=== PATIENT | male | born 1955 | race Caucasian/White ===

== ENCOUNTER 2016-11-20 21:16 | Emergency (ER) | payer OTHER ==
[2016-11-20] MEDS ORDERED: Aspirin Low Dose CHEW TAB* 81 MG PO ONE (21:45)
[2016-11-20 22:25] VITALS: BP 175/83
--- NOTE | 2016-11-20 23:32 | UC ---
Tabitha Forte Michael, scribed for Dee Iraheta DO on 11/20/16 at 2152 . Shortness of Breath HPI - HPI Summary HPI Summary: 61 y/o male comes to the [facility] presenting with SOB that started today at 1700. The pt reports that the SOB is worsened with laying down and slightly alleviated while sitting up. He also c/o abd pain(epigastric and luq), vertigo, and CP. The vertigo is described as the room spinning. Currently, he does not have vertigo only lightheadedness. The CP has been present for the past 6 months , and the pt visits a court usher. He had a US and is scheduled for a stress test in 2 weeks. Today, the CP is rated a 2 out of 10 on a pain severity scale. It is described as aching and pressure, and the CP radiates to the neck. The pt denies jaw pain and all other symptoms. The PMHx is significant for CML and GERD. The FHx is significant for [place]. - History of Current Complaint Chief Complaint: UCChestPain Stated Complaint: SHORTNESS OF BREATH DIZZINESS Time Seen by Provider: 11/20/16 21:30 Hx Obtained From: Patient, Medical Records Onset/Duration: Sudden Onset, Still Present Timing: Constant Current Severity: Moderate Dyspnea At: Rest Aggrevating Factors: Recumbent Position Alleviating Factors: Upright Position Associated Signs & Symptoms: Positive: Dizzy, Other - abd pain. chest pain. vertigo.SOB. negative:jaw pain - Risk Factors Cardiac: CAD, Family History - Allergy/Home Medications Allergies/Adverse Reactions: Allergies Allergy/AdvReac Type Severity Reaction Status Date / Time Acetaminophen Allergy See Comment Verified 11/20/16 21:31 Home Medications: Home Medications Aspirin TAB* [Aspirin 325 MG TAB*] 650 mg PO PRN 11/20/16 [History] Ibuprofen TAB* [Advil TAB*] 400 mg PO PRN 11/20/16 [History] Multiple Vitamins W/ Minerals [Multivitamin Adults] 1 tab PO DAILY 11/20/16 [ History Confirmed 11/20/16] PMH/Surg Hx/FS Hx/Imm Hx - Additional Past Medical History Additional PMH: cml Endocrine History Of: Reports: Thyroid Disease - HX HYPO (STATES CORRECTED), Hypothyroidism Denies: Diabetes Cardiovascular History Of: Reports: Cardiac Disorders - PAC Denies: Hypertension, Pacemaker/ICD, Myocardial Infarction, Congestive Heart Failure, Atrial Fibrillation, Deep Vein Thrombosis, Bleeding Disorders Respiratory History Of: Denies: COPD, Asthma, Bronchitis, Pneumonia, Pulmonary Embolism GI/ History Of: Reports: Gastroesophageal Reflux - No Rx., Kidney Stones - PAST, FEBRUARY 2014 Denies: Ulcer, Gastrointestinal Bleed, Gall Bladder Disease, Diverticulitis, Renal Disease, Urosepsis Neurological History Of: Reports: Migraine - Ocular. Denies: TIA, CVA, Dementia, Seizures Psychological History Of: Denies: Anxiety, Depression, Bipolar Disorder, Schizophrenia, Post Traumatic Stress Disorder Cancer History Of: Denies: Lung Cancer, Colorectal Cancer, Breast Cancer, Prostate Cancer, Cervical Cancer Other History Of: Negative For: HIV, Hepatitis B, Hepatitis C - Surgical History Surgical History: Yes Surgery Procedure, Year, and Place: left finger amputated; R knee reconstruction , UPP (FOR SLEEP APNEA) - Family History Known Family History: Positive: Cardiac Disease - father-[place], Diabetes - Social History Occupation: Employed Full-time Lives: With Family Alcohol Use: Weekly Alcohol Amount: 2 BEERS/WEEK Substance Use Type: None Smoking Status (MU): Former Smoker Type: Cigarettes Amount Used/How Often: 2PPD 30 YRS Length of Time of Smoking/Using Tobacco: 30 years Have You Smoked in the Last Year: No When Did the Patient Quit Smoking/Using Tobacco: 6 yrs ago Review of Systems Constitutional: Negative Skin: Negative Eyes: Negative ENT: Negative Respiratory: Shortness Of Breath Cardiovascular: Chest Pain Gastrointestinal: Abdominal Pain Genitourinary: Negative Motor: Negative Neurovascular: Negative Musculoskeletal: Negative Neurological: Other - vertigo Psychological: Negative All Other Systems Reviewed And Are Negative: Yes Physical Exam Triage Information Reviewed: Yes Appearance: Well-Appearing, No Pain Distress, Well-Nourished Vital Signs: Initial Vital Signs Temp 97.8 F 11/20/16 21:25 Pulse 53 11/20/16 21:25 Resp 16 11/20/16 21:25 BP 160/85 11/20/16 21:25 Pulse Ox 99 11/20/16 21:25 Vital Signs Reviewed: Yes Eyes: Positive: Conjunctiva Clear. Negative: Discharge ENT: Positive: Hearing grossly normal. Negative: Muffled/hoarse voice Neck: Positive: Supple, Nontender Respiratory: Positive: Lungs clear, Normal breath sounds, No respiratory distress, No accessory muscle use Cardiovascular: Positive: No Murmur, Bradycardia Abdomen Description: Positive: Nontender, Soft. Negative: Distended, Guarding Musculoskeletal Exam: Normal Neurological: Positive: Alert, Muscle Tone Normal Psychological: Positive: Age Appropriate Behavior Skin Exam: Normal - dry. warm. nml color. Diagnostics - EKG Cardiac Rate: Bradycardia - [address] Segment: Normal Shortness of Breath Dx - Course Course Of Treatment: pt will be transferred to [facility] ED and Dr. Marvin was consulted at 2153. - Differential Dx/Diagnosis Differential Diagnosis/HQI/PQRI: [place], Other - cva/tia, vertigo, bpv Provider Diagnoses: dyspnea, dizzy, cp r/o acs Discharge - Discharge Plan Condition: Stable Disposition: TRANS HIGHER LVL OF CARE FAC Referrals: Zen Talavera MD [Primary Care Provider] - The documentation as recorded by the Tabitha cruz Michael accurately reflects the service I personally performed and the decisions made by , Dee Iraheta DO.
== END 2016-11-20 22:10 | disposition short-term general hospital (02) ==
LOC: UCEAST 21:16
DX: R06.00 Dyspnea, unspecified (principal); R42 Dizziness and giddiness; R07.89 Other chest pain; Z88.6 Allergy status to analgesic agent; Z87.891 Personal history of nicotine dependence
CPT/HCPCS: 93005; 99213; A9270-GY; G0463

== ENCOUNTER 2016-11-20 22:35 | Observation (INO) | payer OTHER ==
[2016-11-20] MEDS ORDERED: Aspirin Low Dose CHEW TAB* 81 MG PO ONE (23:07)
--- NOTE | 2016-11-20 23:38 | CONSULT ---
Consult Consult: Called to admit patient for chest pain, no labs complete. Cannot determine appropriate disposition without further work up. ED MD aware.
[2016-11-20 23:42] LABS: Hematocrit 38 % (42-52); Mean Corpuscular HGB Conc 34 g/dl (31-36); Mean Corpuscular Hemoglobin 31 pg (27-31); Mean Corpuscular Volume 92 fL (80-94); Mean Platelet Volume 8 um3 (7.4-10.4); Red Blood Count 4.15 10^6/ul (4.0-5.4); Red Cell Distribution Width 13 % (10.5-15); White Blood Count 5.1 10^3/ul (3.5-10.8)
[2016-11-20 23:51] LABS: Albumin 4.1 g/dL (3.2-5.2); BUN/Creatinine Ratio 17.5 (8-20); Calcium 8.7 mg/dL (8.6-10.3); EGFR African American 101.9 (>60); EGFR Non-African American 79.2 (>60); Globulin 2.4 g/dL (2-4); Potassium 3.4 mmol/L (3.5-5.0); Total Bilirubin 0.4 mg/dL (0.2-1.0); Total Protein 6.5 g/dL (6.4-8.9)
--- NOTE | 2016-11-21 00:09 | HP ---
H&P (Free Text) History and Physical: PCP: Dae Talavera MD Cardiology: Donte Arrieta MD Date/Time of Evaluation: 11/21/2016 0005 CC: chest pain HPI: Mr Cheek is a 61YO male HX CML who presents after an episode of thunderclap vertigo occurring ~1530 and lasting <10seconds followed by some SOB and mild L chest discomfort. He has had chronic episodic chest discomfort for the past ~6months which he is concerned may be related to the imatinib he takes for CML and is following with Donte Arrieta MD cardiology outpatient. He states there is a planned outpatient stress test in ~1week. The chest pain has occasionally radiated into the L neck becoming sharp in that area. Additionally he reports chronic exertional SOB for the past year. PMedHx CML on imatinib JAVI intolerant of CPAP ocular migraines HLD GERD BPH psoriasis vitamin B deficiency OA Allergies Acetaminophen Allergy (Verified 11/20/16 21:31) See Comment interacts with gleevic chemo Ambulatory Orders Imatinib Mesylate [Gleevec] 400 mg PO QPM 01/05/13 Aspirin Low Dose CHEW TAB* [Aspirin Low Dose TAB*] 81 mg PO DAILY tab.chew Aspirin TAB* [Aspirin 325 MG TAB*] 650 mg PO PRN 11/20/16 Ibuprofen TAB* [Advil TAB*] 400 mg PO PRN 11/20/16 Multiple Vitamins W/ Minerals [Multivitamin Adults] 1 tab PO DAILY 11/20/16 PSurgHx traumatic amputation of L 2nd distal finger relating to a circular saw injury bone spur excision from L elbow soft tissue repair of R knee relating to a circular saw injury uvulopaletopharygoplasty T&A SocHx: former smoker with >30PYHX, mild alcohol, denies recreational drugs; lives with his ; works as a [employer]; full code status FamHx: positive for CAD & DM2 ROS: as above, otherwise reviewed and all were negative Constitutional: NAD, normally developed, overweight white male vitals: Vital Signs Temp 36.4 C 11/21/16 00:34 Pulse 66 11/21/16 00:34 Resp 14 11/21/16 00:34 BP 167/72 11/21/16 00:34 Pulse Ox 99 11/21/16 00:34 Intake & Output 0311/20/16 11/21/16 11:59 23:59 11:59 Weight 79.379 kg HEENM: atraumatic; sclera/conjunctiva: non-icteric/clear; hearing: clinically intact; oropharynx: clear, mucosa moist Neck: soft tissue: non-tender; thyroid: normal Pulmonary: clear to auscultation bilaterally, good aeration, no accessory muscle use CV: RR/RR, normal S1S2, no carotid bruit, no jugular venous distention, 2+ B DP/ PT, no edema Abdominal: soft, non-distended, non-tender, no rebound/guarding/rigidity, normoactive bowel sounds, no hepatosplenomegaly or masses, no costovertebral angle tenderness Musculoskeletal: general: absent distal L finger; gait: stable Integumental: 5x6cm psoriasis plaque anterior R knee; otherwise normal appearance and texture of exposed skin Psychiatric orientation: AA&O to PPS affect: calm mood: pleasant, ie asked to confirm which finger had been amputated replied "index, but don't worry I lost it before I got here." eye contact: good content: reliable responses: timely insight: good Testing: Lab Results 11/20/16 11/20/16 11/20/16 Range/Units 23:20 23:20 23:20 WBC 5.1 (3.5-10.8) 10^3/ul RBC 4.15 (4.0-5.4) 10^6/ul Hgb 13.0 L (14.0-18.0) g/dl Hct 38 L (42-52) % MCV 92 (80-94) fL MCH 31 (27-31) pg MCHC 34 (31-36) g/dl RDW 13 (10.5-15) % Plt Count 243 (150-450) 10^3/ul MPV 8 (7.4-10.4) um3 Neut % (Auto) 45.9 (38-83) % Lymph % (Auto) 40.3 (25-47) % Dolores % (Auto) 11.1 H (1-9) % Eos % (Auto) 1.1 (0-6) % Baso % (Auto) 1.6 (0-2) % Absolute Neuts (auto) 2.3 (1.5-7.7) 10^3/ul Absolute Lymphs (auto) 2.0 (1.0-4.8) 10^3/ul Absolute Monos (auto) 0.6 (0-0.8) 10^3/ul Absolute Eos (auto) 0.1 (0-0.6) 10^3/ul Absolute Basos (auto) 0.1 (0-0.2) 10^3/ul Absolute Nucleated RBC 0.01 10^3/ul Nucleated RBC % 0.1 INR (Anticoag Therapy) 0.92 (0.89-1.11) APTT 30.1 (26.0-36.3) seconds Sodium 137 (133-145) mmol/L Potassium 3.4 L (3.5-5.0) mmol/L Chloride 107 (101-111) mmol/L Carbon Dioxide 24 (22-32) mmol/L Anion Gap 6 (2-11) mmol/L BUN 17 (6-24) mg/dL Creatinine 0.97 (0.67-1.17) mg/dL Est GFR ( Amer) 101.9 (>60) Est GFR (Non-Af Amer) 79.2 (>60) BUN/Creatinine Ratio 17.5 (8-20) Glucose 107 H (70-100) mg/dL Lactic Acid (0.5-2.0) mmol/L Calcium 8.7 (8.6-10.3) mg/dL Total Bilirubin 0.40 (0.2-1.0) mg/dL AST 21 (13-39) U/L ALT 22 (7-52) U/L Alkaline Phosphatase 43 (34-104) U/L Troponin I 0.00 (<0.04) ng/mL B-Natriuretic Peptide ( - 100) pg/mL Total Protein 6.5 (6.4-8.9) g/dL Albumin 4.1 (3.2-5.2) g/dL Globulin 2.4 (2-4) g/dL Albumin/Globulin Ratio 1.7 (1-3) 11/20/16 11/20/16 Range/Units 23:20 23:20 WBC (3.5-10.8) 10^3/ul RBC (4.0-5.4) 10^6/ul Hgb (14.0-18.0) g/dl Hct (42-52) % MCV (80-94) fL MCH (27-31) pg MCHC (31-36) g/dl RDW (10.5-15) % Plt Count (150-450) 10^3/ul MPV (7.4-10.4) um3 Neut % (Auto) (38-83) % Lymph % (Auto) (25-47) % Dolores % (Auto) (1-9) % Eos % (Auto) (0-6) % Baso % (Auto) (0-2) % Absolute Neuts (auto) (1.5-7.7) 10^3/ul Absolute Lymphs (auto) (1.0-4.8) 10^3/ul Absolute Monos (auto) (0-0.8) 10^3/ul Absolute Eos (auto) (0-0.6) 10^3/ul Absolute Basos (auto) (0-0.2) 10^3/ul Absolute Nucleated RBC 10^3/ul Nucleated RBC % INR (Anticoag Therapy) (0.89-1.11) APTT (26.0-36.3) seconds Sodium (133-145) mmol/L Potassium (3.5-5.0) mmol/L Chloride (101-111) mmol/L Carbon Dioxide (22-32) mmol/L Anion Gap (2-11) mmol/L BUN (6-24) mg/dL Creatinine (0.67-1.17) mg/dL Est GFR ( Amer) (>60) Est GFR (Non-Af Amer) (>60) BUN/Creatinine Ratio (8-20) Glucose (70-100) mg/dL Lactic Acid 0.8 (0.5-2.0) mmol/L Calcium (8.6-10.3) mg/dL Total Bilirubin (0.2-1.0) mg/dL AST (13-39) U/L ALT (7-52) U/L Alkaline Phosphatase (34-104) U/L Troponin I (<0.04) ng/mL B-Natriuretic Peptide 13 ( - 100) pg/mL Total Protein (6.4-8.9) g/dL Albumin (3.2-5.2) g/dL Globulin (2-4) g/dL Albumin/Globulin Ratio (1-3) ECG, personally reviewed: sinus bradycardia rate 56 with diffuse flattening of T -waves compared to 08/05/2016 CXR, personally reviewed: no acute process Impression: 61M presenting with atypical chest pain for r/o ACS DIAGNOSIS & PLAN Primary chest pain r/o ACS : telemetry : trend troponin : aspirin : no beta melissa 2nd bradycardia : repeat ECG in AM : consider cardiology consult in AM for further disposition : supplemental oxygen : supportive care Secondary CML on imatinib : no acute issues JAVI intolerant of CPAP : no acute issues GERD : omeprazole BPH : no acute issues psoriasis : topical clobetasol Admission Rational: observation for r/o ACS DVTp: heparin SQ Code Status: full HCP:
[2016-11-21] MEDS ORDERED: Melatonin (NF) 3 MG TAB PO PRN (02:11)
[2016-11-21] MEDS ORDERED: CMCS Melatonin (NF) 3 MG TAB PO PRN (02:27)
[2016-11-21] MEDS ORDERED: hydrALAZINE IV* 20 MG/ML VIAL IV PRN (02:33)
[2016-11-21] MEDS ORDERED: Ondansetron INJ* 2 MG/ML VIAL IV PRN (02:33)
[2016-11-21] MEDS ORDERED: Albuterol 2.5 MG/3 ML NEB.SOL* (0.083%) INH PRN (02:33)
[2016-11-21] MEDS ORDERED: Morphine INJ* 2 MG/ML 1 ML SYRINGE IV PRN (02:33)
[2016-11-21] MEDS ORDERED: Potassium Chlor TAB* 20 MEQ TAB.ER PO ONE (02:36)
[2016-11-21] MEDS ORDERED: NS 0.9% 1000 ML* 1,000 ML IV SCH (02:45)
[2016-11-21] MEDS: Clobetasol 0.05% OINT* 30 GM TUBE TOPICAL SCH ×2 (05:28→09:33)
[2016-11-21 05:59] LABS: BUN/Creatinine Ratio 16.5 (8-20); Calcium 8.3 mg/dL (8.6-10.3); EGFR African American 95.1 (>60); EGFR Non-African American 73.9 (>60); Potassium 3.8 mmol/L (3.5-5.0)
[2016-11-21] MEDS ORDERED: Pantoprazole IV* 40 MG IV SCH (06:00)
[2016-11-21] MEDS ORDERED: Omeprazole CAP* 20 MG PO SCH (06:00)
[2016-11-21 06:09] VITALS: BP 115/57
--- NOTE | 2016-11-21 08:32 | RAD ---
Indication: LEFT side chest pain intermittent radiating to the neck. Vertigo. Two-year shortness of breath. Former tobacco use. Comparison: August 05, 2016 Technique: Upright AP 1127 hours Report: Clear lungs and pleural spaces. Negative for pneumothorax. The heart, pulmonary vasculature, and mediastinal contours are unremarkable. Unremarkable osseous structures and soft tissue contours. IMPRESSION: No evidence for acute intrathoracic disease.
[2016-11-21] MEDS ORDERED: Docusate CAP* 100 MG PO SCH (09:00)
[2016-11-21] MEDS ORDERED: Aspirin TAB* 325 MG PO SCH (09:00)
--- NOTE | 2016-11-22 05:33 | DS ---
DISCHARGE SUMMARY: DATE OF ADMISSION: 11/21/16 DATE OF DISCHARGE: 11/21/16 HOSPITAL STATUS: Observation on clinical decision unit. PROVIDER: Casimiro Friedman NP ATTENDING PHYSICIAN: Dr. Ríos *(report dictated by Casimiro Friedman NP) PRIMARY CARE PROVIDER: Dr. Talavera. CONDUIT BENDER: Dr. Arrieta. PRIMARY DIAGNOSES: 1. Chest pain, unclear etiology. 2. Acute coronary syndrome, ruled out. 3. Vertigo. SECONDARY DIAGNOSES: 1. Chronic myeloid leukemia, on imatinib. 2. Obstructive sleep apnea, intolerant of CPAP. 3. Ocular migraine. 4. Hyperlipidemia. 5. Gastroesophageal reflux disease. 6. BPH. 7. Psoriasis. 8. Vitamin D deficiency. 9. Osteoarthritis. HISTORY OF PRESENT ILLNESS AND HOSPITAL COURSE: Please see history and physical by Dr. Coleman for full admission details, but in summary, this is a 61-year-old male with a past medical history of CML, on imatinib, who presented to the emergency department after an episode of thunderclap vertigo lasting less than 10 seconds followed by some shortness of breath and mild left chest discomfort. The patient presented to the emergency department. He was admitted to the hospitalist service in the clinical decision unit in which he underwent two troponins, both were flat and had no EKG changes. The patient has not had any return of chest pain symptoms and has been ambulated around the unit without any complaints. The patient reports he has had 1 episode of vertigo in the past when he was intoxicated. The patient denies any further symptoms of vertigo. The patient has had chronic episodic chest discomfort for the past 6 months to a year in which he was concerned, maybe related to his CML medication, imatinib , that is why he reports he came to the emergency department. I did discuss this with Dr. Dumont, oncologist, who states that the imatinib does not cause acute coronary syndrome, but can cause congestive heart failure. The patient denies any symptoms of congestive heart failure. No shortness of breath, no orthopnea, no lower extremity swelling. The patient did have an outpatient stress test and echo scheduled in 2 weeks due to his intermittent symptoms, but he has had for up to 1 year. He reports these symptoms are left upper chest wall pain, sometimes squeezing, no radiation. Occasionally, accompanied shortness of breath, they can happen at rest and/or with exertion. The patient has no previous history of coronary artery disease. Today, the patient is stable for discharge to home with plan for outpatient stress test on 11/23/16. The patient is requesting discharge at this time. DISCHARGE MEDICATIONS: 1. Multivitamin with mineral 1 tab p.o. daily. 2. Imatinib 400 mg p.o. q.a.m. 3. Aspirin low-dose 81 mg p.o. daily. 4. Aspirin 325 mg and 650 mg p.o. p.r.n. chest pain. DISCHARGE PLAN: 1. The patient is stable for discharge to home with followup outpatient exercise stress test on Wednesday. Order has been entered for an OBV, outpatient stress test. The patient was instructed that he will be called Wednesday morning at the [facility]. 2. The patient was instructed to return to the emergency department with any worsening or concerning symptoms. TIME SPENT: Approximately, 60 minutes was spent on this discharge. CASIMIRO FRIEDMAN NP CC: Dr. Talavera; Dr. Arrieta * [id number]/[facility] #: [id number] NARAYAN
[2016-11-22] MEDS ORDERED: Heparin VIAL(*) 5000 UNITS/ML VIAL (FIVE THOUSAND) SUBCUT SCH (06:00)
== END 2016-11-21 12:02 | disposition home or self-care (01) ==
LOC: ED 22:35 → ICU 11-21 00:31
PROVIDERS: ADMIT Hospitalist; ATTEND Internal Medicine
DX: R07.9 Chest pain, unspecified (principal); R42 Dizziness and giddiness; 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emia, BCR/ABL-positive, not having achieved remission; G47.33 Obstructive sleep apnea (adult) (pediatric); G43.909 Migraine, unspecified, not intractable, without status migrainosus; E78.5 Hyperlipidemia, unspecified; K21.9 Gastro-esophageal reflux disease without esophagitis; N40.0 Benign prostatic hyperplasia without lower urinary tract symptoms; L40.9 Psoriasis, unspecified; E55.9 Vitamin D deficiency, unspecified; M19.90 Unspecified osteoarthritis, unspecified site; R06.02 Shortness of breath
CPT/HCPCS: 36415; 71010; 80048; 80053; 83605; 83880; 84484; 85025; 85610; 85730; 93005; 99284; A9270-GY; G0378

== ENCOUNTER 2017-06-17 10:37 | Emergency (ER) | payer OTHER ==
--- NOTE | 2017-06-17 12:40 | UC ---
Complaint Male HPI - HPI Summary HPI Summary: patient was concerned because he had difficulty voiding this morning when he first got up. He has since voided her without difficulty---He also reports some cold symptoms earlier in the week that seem better now . The symptoms are associated with ear pain and vertigo-- - History of Current Complaint Chief Complaint: UCGU Stated Complaint: URINARY ISSUE Time Seen by Provider: 06/17/17 12:23 Hx Obtained From: Patient Onset/Duration: Sudden Onset, Resolved Timing: Constant Severity Initially: Moderate Severity Currently: None Location: Suprapubic Character: Constant Pressure Aggravating Factor(s): Nothing Alleviating Factor(s): Nothing Associated Signs And Symptoms: Positive: Negative - Allergies/Home Medications Allergies/Adverse Reactions: Allergies Allergy/AdvReac Type Severity Reaction Status Date / Time Acetaminophen Allergy See Comment Verified 06/17/17 11:26 PMH/Surg Hx/FS Hx/Imm Hx Previously Healthy: No - CML Other History Of: Negative For: HIV, Hepatitis B, Hepatitis C - Surgical History Surgical History: Yes Surgery Procedure, Year, and Place: left finger amputated; R knee reconstruction , UPP (FOR SLEEP APNEA). bone spurs-elbow - Family History Known Family History: Positive: Cardiac Disease - father-[place], Diabetes - Social History Occupation: Employed Full-time Lives: With Family Alcohol Use: Weekly Alcohol Amount: 2 BEERS/WEEK Substance Use Type: None Smoking Status (MU): Former Smoker Type: Cigarettes Amount Used/How Often: 2PPD 30 YRS Length of Time of Smoking/Using Tobacco: 30 years Have You Smoked in the Last Year: No When Did the Patient Quit Smoking/Using Tobacco: 6 yrs ago Review of Systems Constitutional: Negative Skin: Negative Eyes: Negative ENT: Negative Respiratory: Negative Cardiovascular: Negative Gastrointestinal: Negative Genitourinary: Negative, Other - difficulty starting stream this morning--but now seems better Motor: Negative Neurovascular: Negative Musculoskeletal: Negative Neurological: Negative Psychological: Negative Is Patient Immunocompromised?: No All Other Systems Reviewed And Are Negative: Yes Physical Exam Triage Information Reviewed: Yes Appearance: Well-Appearing, No Pain Distress, Well-Nourished Vital Signs: Initial Vital Signs Temp 98.7 F 06/17/17 11:27 Pulse 72 06/17/17 11:27 Resp 18 06/17/17 11:27 BP 159/75 06/17/17 11:27 Pulse Ox 99 10/05/17 11:27 Vital Signs Reviewed: Yes Eye Exam: Normal Eyes: Positive: Conjunctiva Clear ENT Exam: Normal ENT: Positive: Normal ENT inspection, Hearing grossly normal, Pharynx normal, TMs normal. Negative: Nasal congestion, Nasal drainage, Tonsillar swelling, Tonsillar exudate, Trismus, Muffled/hoarse voice Dental Exam: Normal Neck exam: Normal Neck: Positive: Supple, Nontender, No Lymphadenopathy Respiratory Exam: Normal Respiratory: Positive: Chest non-tender, Lungs clear, Normal breath sounds, No respiratory distress, No accessory muscle use Cardiovascular Exam: Normal Cardiovascular: Positive: RRR, No Murmur, Pulses Normal, Brisk Capillary Refill Abdominal Exam: Normal Abdomen Description: Positive: Nontender, No Organomegaly, Soft. Negative: CVA Tenderness (R), CVA Tenderness (L), Peritoneal Signs, Pulsatile Mass, Splenomegaly Bowel Sounds: Positive: Present Musculoskeletal Exam: Normal Musculoskeletal: Positive: Strength Intact, ROM Intact, No Edema Neurological Exam: Normal Neurological: Positive: Alert, Muscle Tone Normal Psychological Exam: Normal Skin Exam: Normal Diagnostics - Laboratory Diagnostic Studies Completed/Ordered: UA-Trace blood Complaint Male Course/Dx - Course Course Of Treatment: Rest increase fluids, follow symptoms with urology, follow blood pressure with pcp - Differential Dx/Diagnosis Differential Diagnosis/HQI/PQRI: Cancer, Prostatitis, Ureteral Calculi, Urinary Tract Infection Provider Diagnoses: Hematuria, Hypertension with DX of high blood pressure, URI Discharge - Discharge Plan Condition: Stable Disposition: HOME Patient Education Materials: Hematuria (ED), Viral Syndrome (ED), Hypertension (ED) Forms: *Work Release Referrals: Eric Garcia MD [Primary Care Provider] - 1 Week Karthik Gama MD [Medical Doctor] - 1 Week
[2017-06-17 13:20] VITALS: BP 144/85
== END 2017-06-17 13:29 | disposition home or self-care (01) ==
LOC: UCEAST 10:37
DX: R31.9 Hematuria, unspecified (principal); J06.9 Acute upper respiratory infection, unspecified; I10 Essential (primary) hypertension; Z88.6 Allergy status to analgesic agent; Z87.891 Personal history of nicotine dependence
CPT/HCPCS: 81003; 99212; G0463

== ENCOUNTER 2017-06-25 16:59 | Emergency (ER) | payer SELFPAY ==
[2017-06-25 17:17] VITALS: BP 150/77
[2017-06-25] MEDS ORDERED: Tetan/Diph/Pertus SYR(Tdap)* 0.5 ML SYR(BOOSTRIX) use SYR IM ONE (17:43)
--- NOTE | 2017-08-20 20:50 | UC ---
Laceration HPI - HPI Summary HPI Summary: Patient presents s/p traumatic injury of the right little finger from scissors. He states bleeding is controlled. He denies any numbness or tingling. He reports pain at the site. - History Of Current Complaint Chief Complaint: UCLaceration Stated Complaint: FINGER LACERATION Time Seen by Provider: 06/25/17 17:38 Hx Obtained From: Patient Laceration Location: Finger Mechanism Of Injury: Sharp Trauma Onset/Duration: Sudden Onset Pain Intensity: 0 Pain Scale Used: 0-10 Numeric Aggravating Factors: Movement - Allergies/Home Medications Allergies/Adverse Reactions: Allergies Allergy/AdvReac Type Severity Reaction Status Date / Time Acetaminophen Allergy See Comment Verified 06/25/17 17:17 PMH/Surg Hx/FS Hx/Imm Hx Previously Healthy: Yes Cardiovascular History: Cardiac Disease, Hypertension Other History Of: Negative For: HIV, Hepatitis B, Hepatitis C - Surgical History Surgical History: Yes Surgery Procedure, Year, and Place: left finger amputated; R knee reconstruction , UPP (FOR SLEEP APNEA). bone spurs-elbow - Family History Known Family History: Positive: Cardiac Disease - father-[place], Diabetes - Social History Alcohol Use: Weekly Alcohol Amount: 2 BEERS/WEEK Substance Use Type: None Smoking Status (MU): Former Smoker Type: Cigarettes Amount Used/How Often: 2PPD 30 YRS Length of Time of Smoking/Using Tobacco: 30 years Have You Smoked in the Last Year: No When Did the Patient Quit Smoking/Using Tobacco: 6 yrs ago Review of Systems Constitutional: Negative Skin: Other - right litle finger tip avulsed. neuor-vasc intact. Eyes: Negative ENT: Negative Respiratory: Negative Cardiovascular: Negative Gastrointestinal: Negative Genitourinary: Negative Motor: Negative Neurovascular: Negative Musculoskeletal: Negative Neurological: Negative Psychological: Negative All Other Systems Reviewed And Are Negative: Yes Physical Exam Triage Information Reviewed: Yes Appearance: Well-Appearing Vital Signs: Initial Vital Signs Temp 97.6 F 06/25/17 17:11 Pulse 68 06/25/17 17:11 Resp 18 06/25/17 17:11 BP 150/77 06/25/17 17:11 Pulse Ox 98 06/25/17 17:11 Vital Signs Reviewed: Yes Eye Exam: Normal ENT Exam: Normal Dental Exam: Normal Neck exam: Normal Neck: Positive: 1 Respiratory Exam: Normal Cardiovascular Exam: Normal Musculoskeletal Exam: Normal Neurological Exam: Normal Skin Exam: Other - right fiflaceration at tip od distal figner, superfic, epithelial tissue, 2.0 cm in length. neuo-vasc intact. rom intact, Laceration Repair - Laceration Repair 1 Description: Linear Laceration Size After Repair: Length (cm) - 2.0 Modified For Repair: No Cleansing Completed Via Routine Prep: No Irrigation With Pressure Irrigation Device: No Closure Material: Skin Adhesive Laceration Course/Dx - Course/Dx Course Of Treatment: patient presents with superficial laceration of the fifthe distal finger, adhesive to approximate, patient tolerated well. tetanus updayed. discharged home in stable condition. - Differential Dx - Laceration/Wound Differental Diagnoses: Laceration Provider Diagnoses: laceration Discharge - Discharge Plan Condition: Stable Disposition: HOME Patient Education Materials: Diphtheria/Acellular Pertussis/Tetanus Vaccine ( By injection), Finger Laceration (ED), Skin Adhesive Care (ED) Referrals: Eric Garcia MD [Primary Care Provider] -
== END 2017-06-25 18:01 | disposition home or self-care (01) ==
LOC: UCEAST 16:59
DX: S61.216A Laceration without foreign body of right little finger without damage to nail, initial encounter (principal); W27.2XXA Contact with scissors, initial encounter; Y93.9 Activity, unspecified; Y92.9 Unspecified place or not applicable; Z23 Encounter for immunization; I10 Essential (primary) hypertension; I51.9 Heart disease, unspecified; Z89.022 Acquired absence of left finger(s); Z88.6 Allergy status to analgesic agent; Z87.891 Personal history of nicotine dependence
CPT/HCPCS: 90715; 99212; G0463

== ENCOUNTER 2017-11-16 14:38 | Emergency (ER) | payer SELFPAY ==
[2017-11-16 14:51] VITALS: BP 127/96
--- NOTE | 2017-11-16 15:50 | RAD ---
Indication: Left elbow injury. 4 views of left elbow demonstrates no joint effusion. Degenerative changes of the radial capitellar joint is noted. There may be some osteophyte formation from the coronoid process and trochlea. IMPRESSION: Likely degenerative changes with no evidence of joint effusion or fracture. Likely osteophyte arising from the coronoid process.
--- NOTE | 2017-11-16 17:13 | UC ---
Ricki Forte Jennifer, scribed for Sue Young MD on 11/16/17 at 1505 . Upper Extremity HPI - HPI Summary HPI Summary: The patient is a 62 year old male who presents with a left elbow injury s/p fall yesterday early afternoon. Fell approx 4-5 feet. No loc. C/o pain, swelling yesterday, worse today. However, able to straighten out and able to work. Here for checkup b/c sx not better today. No new p/d/w, does have hx of "numbness" to both hands chronic, not sure of etiology, but denies change since injury. Hx "bone spur surgery per Dr. Zamora several years ago. No loc, no other trauma or pain reported. No fever. The pain is rated a 5/10 at worst and is described as stiff. He reports he had his last tetanus shot one year ago. - History of Current Complaint Chief Complaint: UCUpperExtremity Stated Complaint: ELBOW INJURY Time Seen by Provider: 11/16/17 14:52 Hx Obtained From: Patient Onset/Duration: Sudden Onset, Lasting Days - 1 day, Still Present Severity Initially: Moderate Severity Currently: Moderate Pain Intensity: 5 Pain Scale Used: 0-10 Numeric Location Of Pain: Is Discrete @ - Left elbow Character: Stiffness Aggravating Factor(s): Nothing Alleviating Factor(s): Nothing Associated Signs And Symptoms: Negative: Swelling, Numbness/Tingling - Allergies/Home Medications Allergies/Adverse Reactions: Allergies Allergy/AdvReac Type Severity Reaction Status Date / Time acetaminophen Allergy See Comment Verified 11/16/17 14:43 PMH/Surg Hx/FS Hx/Imm Hx Previously Healthy: Yes - NEG: DM Cardiovascular History: Hypertension Other History Of: Negative For: HIV, Hepatitis B, Hepatitis C - Surgical History Surgical History: Yes Surgery Procedure, Year, and Place: left finger amputated; R knee reconstruction , UPP (FOR SLEEP APNEA). bone spurs-elbow - Family History Known Family History: Positive: Cardiac Disease - father-NE, Diabetes - Social History Alcohol Use: Weekly Alcohol Amount: 2 BEERS/WEEK Substance Use Type: None Smoking Status (MU): Former Smoker Type: Cigarettes Amount Used/How Often: 2PPD 30 YRS Length of Time of Smoking/Using Tobacco: 30 years Have You Smoked in the Last Year: No When Did the Patient Quit Smoking/Using Tobacco: 6 yrs ago Review of Systems Constitutional: Negative - Fever Skin: Other - see hpi Eyes: Negative ENT: Negative Respiratory: Negative Cardiovascular: Negative Gastrointestinal: Negative Genitourinary: Negative Motor: Other - see hpi Neurovascular: Other - see hpi Musculoskeletal: Arthralgia, Other: - Stiffness of left elbow Neurological: Other - see hpi Psychological: Negative Is Patient Immunocompromised?: No All Other Systems Reviewed And Are Negative: Yes Physical Exam Triage Information Reviewed: Yes Appearance: Well-Appearing, Well-Nourished Vital Signs: Initial Vital Signs Temp 98.7 F 11/16/17 14:45 Pulse 86 11/16/17 14:45 Resp 18 11/16/17 14:45 BP 127/96 11/16/17 14:45 Pulse Ox 94 11/16/17 14:45 Vital Signs Reviewed: Yes Eye Exam: Normal - grossly normal ENT Exam: Normal - facial expressions grossly symmetric. mmm. Neck exam: Normal Neck: Positive: Supple, Nontender Respiratory Exam: Normal - no tachypnea no dysnpea Cardiovascular Exam: Normal - hr regular, good general skin color Abdominal Exam: Normal - denies pain, sitting up w/o difficulty Musculoskeletal Exam: Other - Left elbow with approx 2 cm partial thickness abrasion, mild maceration (likely d/t bandaid). No redness, not hot to touch. + mild swelling approx over olecranon region. No crepitus. Able to straighten fully, from. Hand grasp good. r/u pp 2+. Distal sens LT present. Cr good. No neck or shoulder tenderness reported. No distal pain or tenderness. Neurological Exam: Other - see above Psychological Exam: Normal - conversing easily and appropriately Skin Exam: Other - normal except see [facility] [place] Diagnostics - Laboratory Diagnostic Studies Completed/Ordered: Elbow XR. Interpreted by a radiologist. IMPRESSION: Likely degenerative changes with no evidence of joint effusion or fracture. Likely osteophyte arising from the coronoid process. Dr. Young has reviewed this report. Re-Evaluation - Re-Evaluation First Eval Re-Evaluation Time: 15:55 Change: Improved Comment: Patient reports he is feeling much better. He is ready for discharge. Upper Extremity Course/Dx - Course Course Of Treatment: Offered sling, declines. Reviewed xray report with pt (L elbow - report in [facility]), d/w Mr. Cheek coa / tx plan. Reviewed BP, recommend f/u pcp. Wants to return to work, aware that swelling could be a little worse tomorrow, but still feels ok to work. Just wanted to ensure not broken. Recommend f/u orthopedist. Referral farm consultant - Dr. Mehta (or if pt prefers f/u Dr. Zamora). Questions as posed answered to the best of my ability. - Differential Dx/Diagnosis Provider Diagnoses: L elbow contusion and abrasion. + L elbow swelling c/w traumatic olecranon bursitis Discharge - Discharge Plan Condition: Stable Disposition: HOME Prescriptions: Mupirocin 2% OINT* [Bactroban 2 % Oint*] 1 applic TOPICAL DAILY 7 Days #1 tube Patient Education Materials: Ibuprofen (By mouth), Elbow Bursitis (ED), Abrasion (ED) Referrals: Eric Garcia MD [Primary Care Provider] - 1 Week Cachorro Mehta MD [Medical Doctor] - Additional Instructions: Please follow up with your primary care provider in 1-2 weeks and Follow up with your orthopedic surgeon, within 2 weeks for recheck. Sooner for problems in the meantime. Sling as needed for comfort. Seek medical attention for worse or new problems in the meantime. Ibuprofen and / or acetaminophen per packaging instructions as needed for pain over the next couple days. Your blood pressure was elevated during today's visit, 11/16/2017. Please follow up with your primary care provider in 1-2 weeks. The documentation as recorded by the Ricki cruz Jennifer accurately reflects the service I personally performed and the decisions made by me, Sue Young MD.
== END 2017-11-16 16:00 | disposition home or self-care (01) ==
LOC: UCEAST 14:38
DX: S50.02XA Contusion of left elbow, initial encounter (principal); S50.312A Abrasion of left elbow, initial encounter; W17.89XA Other fall from one level to another, initial encounter; Y93.9 Activity, unspecified; Y92.9 Unspecified place or not applicable; M70.22 Olecranon bursitis, left elbow; I10 Essential (primary) hypertension; Z88.6 Allergy status to analgesic agent; Z87.891 Personal history of nicotine dependence
CPT/HCPCS: 99212; G0463

== ENCOUNTER 2017-11-17 07:43 | Emergency (ER) | payer OTHER ==
[2017-11-17 08:26] VITALS: BP 160/85
--- NOTE | 2017-11-17 08:50 | ED ---
Kunal Forte Angela, scribed for Bal Judge MD on 11/17/17 at 0805 . Hypertension - HPI Summary HPI Summary: This pt is a 62 y/o male [place] [facility] c/o elevated blood pressure. Pt reports he had a headache and felt lightheaded this morning. He additionally notes he has some blurry vision. Pt notes he wast at [facility] so he took his blood pressure in a machine and it read 180/88. He denies chest pain, SOB, nausea, vomiting. Pt currently notes his headache is better. Pt was in the ED yesterday for an elbow injury and his blood pressure was 127/ 97. He is not on antihypertensive medications. Pt denies PMHx of HTN. PMHx includes Chronic myeloid leukemia. He is followed up by Dr. Talavera, oncologist. - History of Current Complaint Chief Complaint: EDHypertension Stated Complaint: POSSIBLE HIGH BP Time Seen by Provider: 11/17/17 07:57 Hx Obtained From: Patient Onset/Duration: Started Hours Ago, Still Present Timing: Lasting Hours Aggravating Factor(s): Nothing Alleviating Factor(s): Nothing Associated Signs & Symptoms: Vision Changes - blurred vision, Headaches, Other: - POS: lightheadedness. NEG: chest pain, SOB, nausea, vomiting. - Allergies/Home Medications Allergies/Adverse Reactions: Allergies Allergy/AdvReac Type Severity Reaction Status Date / Time acetaminophen Allergy See Comment Verified 11/16/17 14:43 PMH/Surg Hx/FS Hx/Imm Hx Endocrine/Hematology History: Reports: Hx Bone Marrow Disease, Hx Thyroid Disease - HX HYPO (STATES CORRECTED), Hx Anemia - R/T TAKING GLEEVEC, Other Endocrine/Hematological Disorders - CML dx 2011 Denies: Hx Diabetes Cardiovascular History: Reports: Hx Angina, Other Cardiovascular Problems/ Disorders - EKG CONTINUES TO SHOW OLD INFARCT Denies: Hx Congestive Heart Failure, Hx Deep Vein Thrombosis, Hx Hypertension , Hx Myocardial Infarction, Hx Pacemaker/ICD Comment Only: Hx Hypercholesterolemia - borderline Respiratory History: Reports: Hx Sleep Apnea - previous use oral appliance Denies: Hx Asthma, Hx Chronic Obstructive Pulmonary Disease (COPD), Hx Lung Cancer, Hx Pneumonia, Hx Pulmonary Embolism GI History: Reports: Hx Gastroesophageal Reflux Disease, Hx Irritable Bowel - BEING EVALUATED, Other GI Disorders - polyp removed during colonoscopy Denies: Hx Gall Bladder Disease, Hx Gastrointestinal Bleed, Hx Ulcer, Hx Urosepsis History: Reports: Hx Benign Prostatic Hyperplasia, Hx Kidney Stones - PAST, FEBRUARY 2014 Denies: Hx Renal Disease Musculoskeletal History: Reports: Hx Arthritis - HANDS, KNEES, ELBOWS, Hx Orthopedic Injury - knee, L index finger, Hx Tendonitis - RT ELBOW Sensory History: Reports: Hx Contacts or Glasses - GLASSES, Hx Glaucoma - SLIGHT IN LEFT EYE, NO MEDS Denies: Hx Hearing Aid Opthamlomology History: Reports: Hx Contacts or Glasses - GLASSES, Hx Glaucoma - SLIGHT IN LEFT EYE, NO MEDS Neurological History: Reports: Hx Migraine - Ocular. Denies: Hx Dementia, Hx Seizures, Hx Transient Ischemic Attacks (TIA), Other Neuro Impairments/Disorders Psychiatric History: Denies: Hx Anxiety, Hx Depression, Hx Panic Disorder, Hx Schizophrenia, Hx Bipolar Disorder - Cancer History Cancer Type, Location and Year: 2011 LEUKEMIA (CML) Hx Chemotherapy: Yes - Surgical History Surgery Procedure, Year, and Place: left finger amputated; R knee reconstruction , UPP (FOR SLEEP APNEA). bone spurs-elbow Hx Anesthesia Reactions: No - Immunization History Date of Tetanus Vaccine: up to date Date of Influenza Vaccine: never Infectious Disease History: No Infectious Disease History: Denies: Hx Clostridium Difficile, Hx Hepatitis, Hx Human Immunodeficiency Virus (HIV), Hx of Known/Suspected MRSA, Hx Shingles, Hx Tuberculosis, Hx Known/ Suspected VRE, Hx Known/Suspected VRSA, History Other Infectious Disease, Traveled Outside the [place] in Last 30 Days - Family History Known Family History: Positive: Cardiac Disease - father-MS, Diabetes - Social History Alcohol Use: Weekly Alcohol Amount: 2 BEERS/WEEK Substance Use Type: Reports: None Smoking Status (MU): Former Smoker Type: Cigarettes Amount Used/How Often: 2PPD 30 YRS Length of Time of Smoking/Using Tobacco: 30 years Have You Smoked in the Last Year: No Review of Systems Negative: Fever, Chills Positive: Blurred Vision Cardiovascular: Other - elevated blood pressure Negative: Chest Pain Negative: Shortness Of Breath Negative: Vomiting, Nausea Neurological: Other - lightheadedness Positive: Headache All Other Systems Reviewed And Are Negative: Yes Physical Exam - Summary Physical Exam Summary: VITAL SIGNS: Reviewed. GENERAL: Patient is a well-developed and nourished male who is lying comfortable in the stretcher. Patient is not in any acute respiratory distress. HEAD AND FACE: No signs of trauma. No ecchymosis, hematomas or skull depressions. No sinus tenderness. EYES: PERRLA, EOMI x 2, No injected conjunctiva, no nystagmus. EARS: Hearing grossly intact. Ear canals and tympanic membranes are within normal limits. MOUTH: Oropharynx within normal limits. NECK: Supple, trachea is midline, no adenopathy, no JVD, no carotid bruit, no c- spine tenderness, neck with full ROM. CHEST: Symmetric, no tenderness at palpation LUNGS: Clear to auscultation bilaterally. No wheezing or crackles. CVS: Regular rate and rhythm, S1 and S2 present, no murmurs or gallops appreciated. ABDOMEN: Soft, non-tender. No signs of distention. No rebound no guarding, and no masses palpated. Bowel sounds are normal. EXTREMITIES: FROM in all major joints, no edema, no cyanosis or clubbing. NEURO: Alert and oriented x 3. No acute neurological deficits. Speech is normal and follows commands. SKIN: Dry and warm Triage Information Reviewed: Yes Vital Signs On Initial Exam: Initial Vitals Temp Pulse Resp BP Pulse Ox 97.2 F 67 16 163/85 100 11/17/17 07:45 11/17/17 07:45 11/17/17 07:45 11/17/17 07:45 11/17/17 07:45 Vital Signs Reviewed: Yes Diagnostics - Vital Signs Vital Signs Temp Pulse Resp BP Pulse Ox 11/17/17 07:45 97.2 F 67 16 163/85 100 - Laboratory Lab Statement: Any lab studies that have been ordered have been reviewed, and results considered in the medical decision making process. Hypertension Course/Dx - Course Assessment/Plan: This pt is a 62 y/o male presenting to [facility] c/o elevated blood pressure. Pt reports he had a headache and felt lightheaded this morning. He additionally notes he has some blurry vision. Pt notes he wast at [facility] so he took his blood pressure in a machine and it read 180/88. He denies chest pain , SOB, nausea, vomiting. Pt currently notes his headache is better. Pt was in the ED yesterday for an elbow injury and his blood pressure was 127/97. He is not on antihypertensive medications. Pt denies PMHx of HTN. Pt declines any blood work, EKG or Chest XR. He is instructed to follow up with his PCP as soon as possible. At this point the pt is feeling better, therefore he will be discharged to home. Pt is hemodynamically stable, alert and oriented x3. He is instructed to return to the ED for any worsening or new symptoms. - Diagnoses Provider Diagnoses: Elevated blood pressure reading Discharge - Discharge Plan Condition: Stable Disposition: HOME Patient Education Materials: Hypertension (ED) Referrals: Eric Garcia MD [Primary Care Provider] - 1 Day Additional Instructions: Please follow up with your primary care provider. RETURN TO THE ED FOR ANY WORSENING SYMPTOMS. The documentation as recorded by the Kunal cruz Angela accurately reflects the service I personally performed and the decisions made by me, Bal Judge MD.
== END 2017-11-17 08:25 | disposition home or self-care (01) ==
LOC: ED 07:43
DX: I10 Essential (primary) hypertension (principal); Z87.891 Personal history of nicotine dependence; Z88.6 Allergy status to analgesic agent
CPT/HCPCS: 99282

== ENCOUNTER 2018-02-01 12:25 | Emergency (ER) | payer OTHER ==
[2018-02-01 12:29] VITALS: BP 169/93
--- OUTSIDE RECORDS SUMMARY | 2018-02-01 13:05 | XMS REPORT ---
:1955 External Reference #:[id number] Author Organization [facility] Address [address] [address] Phone [phone] Care Team Providers Name Role Phone Eric Garcia MD Primary Care Physician Unavailable Payers Type Date Identification Numbers Payment Provider Subscriber Commercial Policy Number: [id number] [employer] Anna Cheek Group Number: [id number] [address] PayID: [id number] [place] [address] Medigap Part B Expires: 2007 Policy Number: [employer] [id number] Group Number: [id number] [address] PayID: [id number] [place] [address] Workers Compensation Onset: 2013 Policy Number: Nehal Lino [id number] [facility] PayID: RENATE Ulrich [id number] [place] [address] Problems Date Description Provider Status Onset: 10/14/2012 Benign prostatic hypertrophy Eric Garcia Active without outflow obstruction Reza,FACP Onset: 10/14/2012 Gastroesophageal reflux disease Torsten Ferrer M.D.,FACP Onset: 10/14/2012 Chronic myeloid leukemia Torsten Ferrer M.D.,FACP Onset: 12/07/2012 Vitamin D deficiency Torsten Ferrer M.D.,FACP Onset: 06/15/2014 Obstructive sleep apnea of adult Mansi Eric DNP, RN, Active [employer] Onset: 05/10/2015 Sprain of elbow and forearm Bala Clements M.D. Active Onset: 02/05/2016 Ex-smoker Torsten Ferrer M.D.,FACP Onset: 02/05/2016 Psoriatic nail dystrophy Torsten Ferrer M.D.,FACP Onset: 04/12/2017 Localized, primary osteoarthritis Lacey Sauer M.D. Active of the pelvic region and thigh Onset: 04/13/2017 Ophthalmic migraine Torsten Ferrer M.D.,FACP Family History Date Family Member(s) Problem(s) Comments General Diabetes General Heart Disease General Hypertension Father Heart Disease : (age 71 Years) Father due to [place] Father Diabetes, Non Insulin Dependent Mother Diabetes Type II Siblings 3 Social History Type Date Description Comments Marital Status Lives With Occupation [employer] Cigarette Use Former Cigarette Smoker Cigarette Use Pack Years - 62 ETOH Use Currently consumes alcohol 2 beers or a glass of wine a few times per week Smoking Patient is a former smoker quit 2008, smoked for about 30yrs, 1PPD Recreational Drug Use Denies Drug Use Daily Caffeine Consumes on average 2 cups of regular coffee per day Exercise Type/Frequency Exercises regularly active at work but no exercise regimen General Hx Text 2 sons Allergies, Adverse Reactions, Alerts Date Description Reaction Status Severity Comments 01/11/2018 Tylenol active 10/14/2012 NKDA inactive 11/24/2017 NKDA inactive Medications Medication Date Status Form Strength Qnty SIG Indications Ordering Provider Meloxicam 12/24/ Active Tablets 15mg 30tabs 1 by mouth M25.552 Lacey 2018 every day Reza Sauer Imatinib / Active Unknown Mesylate 0000 Aspirin 08/07/ Hx Chewtabs 81mg 30unit 1 by mouth Other Childrens 2016 - s every day Ordering 11/24/ Provider 2018 Klor-Con 10 04/06/ Hx Tablets ER 10Meq 30tabs 1 by mouth Eric 2013 - every day Simi Garcia, 06/06/ M.DYonatan,FACP 2013 Vitamin D 04/06/ Hx Tablets 1000Unit 30tabs by mouth Eric 2013 - everyday Simi Garcia, 06/06/ M.D.,FACP 2014 Vitamin D 01/12/ Hx Capsules 1000Unit 30caps po qd 268.9 Eric Tami Garcia, 12/26/ Reza,[facility] 2013 Fibercon 10/14/ Hx Tablets 625mg 90tabs 1 po qd 530.81 Eric Garcia, 12/26/ Reza,[facility] 2013 Multi Vitamin 00/00/ Hx Tablets 1 po qd Unknown Mens 0000 - 2013 Probiotic /00/ Hx Capsules 1 po qd Unknown 0000 - 2012 Gleevec 00/ Hx Tablets 200mg po qd Unknown 0000 - 2017 Ibuprofen 00/ Hx Tablets 600mg 60tabs 1 po tid Unknown 0000 - prn 2017 Daisy 00/ Hx Tablets 5-325mg 30tabs 1-2 by Unknown 0000 - mouth 02/04/ 2015 hours as needed Vitamin D 00/ Hx Tablets 1000Unit 30tabs by mouth Unknown 0000 - everyday 2015 Multivitamins /00/ Hx Capsules 1 by mouth Unknown 0000 - every day 2017 Ranitidine HCL / Hx Tablets 150mg take one Unknown 0000 tablet by mouth twice a day Omeprazole / Hx Capsules 20mg 1 by mouth Unknown 0000 - DR every day 2017 Imatinib 00/ Hx Tablets 200mg Unknown Mesylate 0000 - 2016 Immunizations CPT Code Status Date Vaccine Lot # [id number] Refused 02/05/2016 Pneumococcal Conjugate Vaccine 13 Valent For Intramuscular Use Vital Signs Date Vital Result Comment 01/11/2018 Height 65.5 inches 5'5.50" Weight 172.00 lb BP Systolic 140 mmHg BP Diastolic 80 mmHg Respiratory Rate 16 /min Body Temperature 96.9 F Pain Level 2 BMI (Body Mass Index) 28.2 kg/m2 12/27/2017 Height 65.5 inches 5'5.50" Weight 171.75 lb Heart Rate 77 /min BP Systolic 130 mmHg BP Diastolic 82 mmHg Body Temperature 97.2 F O2 % BldC Oximetry 95 % BMI (Body Mass Index) 28.1 kg/m2 12/24/2017 Height 66.75 inches 5'6.75" Weight 165.00 lb Heart Rate 71 /min BP Systolic 118 mmHg BP Diastolic 64 mmHg Respiratory Rate 16 /min Body Temperature 98.0 F Pain Level 5 BMI (Body Mass Index) 26.0 kg/m2 11/24/2017 Height 66 inches 5'6" Weight 165.00 lb Heart Rate 86 /min BP Systolic 152 mmHg BP Diastolic 82 mmHg Respiratory Rate 14 /min Body Temperature 97.9 F Pain Level 4 BMI (Body Mass Index) 26.6 kg/m2 04/13/2017 Weight 168.00 lb Heart Rate 63 /min BP Systolic Sitting 140 mmHg BP Diastolic Sitting 70 mmHg Body Temperature 97.3 F O2 % BldC Oximetry 98 % 04/12/2017 Height 66.75 inches 5'6.75" Weight 165.00 lb Heart Rate 66 /min BP Systolic 140 mmHg BP Diastolic 73 mmHg BMI (Body Mass Index) 26.0 kg/m2 03/26/2017 Height 65 inches 5'5" Weight 167.00 lb Heart Rate 72 /min BP Systolic 140 mmHg BP Diastolic 90 mmHg Respiratory Rate 16 /min Body Temperature 98.5 F BMI (Body Mass Index) 27.8 kg/m2 12/03/2016 Height 65 inches 5'5" Weight 171.00 lb Heart Rate 64 /min BP Systolic Sitting 144 mmHg Rue reg cuff BP Diastolic Sitting 92 mmHg Rue reg cuff BP Systolic Standing 138 mmHg Rue BP Diastolic Standing 84 mmHg Rue Respiratory Rate 16 /min BMI (Body Mass Index) 28.5 kg/m2 Ejection Fraction 55-60% 11/06/16 11/02/2016 Height 65.5 inches 5'5.50" Weight 173.00 lb Heart Rate 90 /min BP Systolic 142 mmHg left arm, reg cuff BP Diastolic 82 mmHg left arm, reg cuff BP Systolic Sitting 144 mmHg right arm, reg cuff BP Diastolic Sitting 86 mmHg right arm, reg cuff BP Systolic Standing 140 mmHg right arm, reg cuff BP Diastolic Standing 86 mmHg right arm, reg cuff Respiratory Rate 16 /min BMI (Body Mass Index) 28.3 kg/m2 02/05/2016 Height 65 inches 5'5" Weight 164.00 lb Heart Rate 80 /min BP Systolic Sitting 136 mmHg BP Diastolic Sitting 86 mmHg Body Temperature 98.3 F O2 % BldC Oximetry 99 % BMI (Body Mass Index) 27.3 kg/m2 05/10/2015 Height 66 inches 5'6" Weight 160.00 lb Heart Rate 80 /min BP Systolic Sitting 137 mmHg BP Diastolic Sitting 82 mmHg Respiratory Rate 20 /min Pain Level 3 BMI (Body Mass Index) 25.8 kg/m2 11/02/2014 Height 66 inches 5'6" Weight 157.00 lb Heart Rate 68 /min BP Systolic Sitting 134 mmHg BP Diastolic Sitting 68 mmHg Respiratory Rate 18 /min O2 % BldC Oximetry 98 % BMI (Body Mass Index) 25.3 kg/m2 07/09/2014 Height 65.5 inches 5'5.50" Weight 158.00 lb Heart Rate 60 /min BP Systolic Sitting 140 mmHg BP Diastolic Sitting 80 mmHg BMI (Body Mass Index) 25.9 kg/m2 06/15/2014 Height 65.5 inches 5'5.50" Weight 153.00 lb Heart Rate 81 /min BP Systolic Sitting 132 mmHg BP Diastolic Sitting 80 mmHg O2 % BldC Oximetry 98 % Ra BMI (Body Mass Index) 25.1 kg/m2 06/06/2014 Weight 153.00 lb Heart Rate 72 /min BP Systolic Sitting 156 mmHg BP Diastolic Sitting 84 mmHg Body Temperature 98.8 F 05/08/2014 Weight 158.00 lb Heart Rate 84 /min BP Systolic Sitting 129 mmHg BP Diastolic Sitting 78 mmHg Body Temperature 98.6 F O2 % BldC Oximetry 96 % 04/25/2014 Heart Rate 78 /min BP Systolic Sitting 122 mmHg BP Diastolic Sitting 88 mmHg 12/26/2013 Weight 162.00 lb Heart Rate 72 /min BP Systolic Sitting 132 mmHg BP Diastolic Sitting 70 mmHg Respiratory Rate 18 /min Body Temperature 97.4 F 10/11/2013 Height 67 inches 5'7" Weight 150.00 lb Heart Rate 80 /min BP Systolic Sitting 126 mmHg BP Diastolic Sitting 82 mmHg BMI (Body Mass Index) 23.5 kg/m2 01/25/2013 Height 66 inches 5'6" Weight 152.00 lb Heart Rate 82 /min BP Systolic Sitting 124 mmHg BP Diastolic Sitting 80 mmHg BMI (Body Mass Index) 24.5 kg/m2 01/12/2013 Weight 158.00 lb Heart Rate 76 /min BP Systolic Sitting 130 mmHg BP Diastolic Sitting 82 mmHg 10/14/2012 Height 65.5 inches 5'5.50" Weight 166.00 lb Heart Rate 78 /min BP Systolic Sitting 144 mmHg BP Diastolic Sitting 84 mmHg BMI (Body Mass Index) 27.2 kg/m2 Results Test Date Test Result H/L Range Note CBC Auto Diff 10/01/2017 White Blood Count 3.9 10^3/uL 3.5-10.8 Red Blood Count 4.52 10^6/uL 4.0-5.4 Hemoglobin 14.0 g/dL 14.0-18.0 Hematocrit 41 % Low 42-52 Mean Corpuscular Volume 91 fL 80-94 Mean Corpuscular Hemoglobin 31 pg 27-31 Mean Corpuscular HGB Conc 34 g/dL 31-36 Red Cell Distribution Width 14 % 10.5-15 Platelet Count 273 10^3/uL 150-450 Mean Platelet Volume 8 um3 7.4-10.4 Abs Neutrophils 1.5 10^3/uL 1.5-7.7 Abs Lymphocytes 1.9 10^3/uL 1.0-4.8 Abs Monocytes 0.4 10^3/uL 0-0.8 Abs Eosinophils 0.1 10^3/uL 0-0.6 Abs Basophils 0 10^3/uL 0-0.2 Abs Nucleated RBC 0 10^3/uL Granulocyte % 37.7 % Low 38-83 Lymphocyte % 48.7 % High 25-47 Monocyte % 10.6 % High 1-9 Eosinophil % 2.4 % 0-6 Basophil % 0.6 % 0-2 Nucleated Red Blood Cells % 0.1 Comp Metabolic Panel 10/01/2017 Sodium 139 mmol/L 133-145 Potassium 4.5 mmol/L 3.5-5.0 Chloride 106 mmol/L 101-111 Co2 Carbon Dioxide 28 mmol/L 22-32 Anion Gap 5 mmol/L 2-11 Glucose 97 mg/dL 70-100 Blood Urea Nitrogen 18 mg/dL 6-24 Creatinine 1.11 mg/dL 0.67-1.17 BUN/Creatinine Ratio 16.2 8-20 Calcium 9.2 mg/dL 8.6-10.3 Total Protein 6.7 g/dL 6.4-8.9 Albumin 4.2 g/dL 3.2-5.2 Globulin 2.5 g/dL 2-4 Albumin/Globulin Ratio 1.7 1-3 Total Bilirubin 0.40 mg/dL 0.2-1.0 Alkaline Phosphatase 55 U/L 34-104 Alt 29 U/L 7-52 Ast 21 U/L 13-39 Egfr Non- 67.8 >60 Egfr 87.2 >60 1 Laboratory test 10/01/2017 TSH (Thyroid Stim 1.87 mcIU/mL 0.34-5.60 finding Horm) BCR/Abl P210 pc 10/01/2017 BCR/Abl p210 see interpretati 2 Result <SEE NOTE> BCR/Abl PCR Specimen WHOLE BLOOD BCR/Abl p210 Final Diagnosis See Comment 3 Comp Metabolic Panel 06/24/2017 Sodium 137 mmol/L 133-145 Potassium 3.9 mmol/L 3.5-5.0 Chloride 104 mmol/L 101-111 Co2 Carbon Dioxide 27 mmol/L 22-32 Anion Gap 6 mmol/L 2-11 Glucose 94 mg/dL 70-100 Blood Urea Nitrogen 17 mg/dL 6-24 Creatinine 1.14 mg/dL 0.67-1.17 BUN/Creatinine Ratio 14.9 8-20 Calcium 9.0 mg/dL 8.6-10.3 Total Protein 6.9 g/dL 6.4-8.9 Albumin 4.4 g/dL 3.2-5.2 Globulin 2.5 g/dL 2-4 Albumin/Globulin Ratio 1.8 1-3 Total Bilirubin 0.50 mg/dL 0.2-1.0 Alkaline Phosphatase 50 U/L 34-104 Alt 32 U/L 7-52 Ast 25 U/L 13-39 Egfr Non- 65.7 >60 Egfr 84.6 >60 4 CBC Auto Diff 06/24/2017 White Blood Count 5.0 10^3/uL 3.5-10.8 Red Blood Count 4.35 10^6/uL 4.0-5.4 Hemoglobin 13.7 g/dL Low 14.0-18.0 Hematocrit 39 % Low 42-52 Mean Corpuscular Volume 90 fL 80-94 Mean Corpuscular Hemoglobin 32 pg High 27-31 Mean Corpuscular HGB Conc 35 g/dL 31-36 Red Cell Distribution Width 14 % 10.5-15 Platelet Count 301 10^3/uL 150-450 Mean Platelet Volume 7 um3 Low 7.4-10.4 Abs Neutrophils 2.7 10^3/uL 1.5-7.7 Abs Lymphocytes 1.8 10^3/uL 1.0-4.8 Abs Monocytes 0.4 10^3/uL 0-0.8 Abs Eosinophils 0.1 10^3/uL 0-0.6 Abs Basophils 0 10^3/uL 0-0.2 Abs Nucleated RBC 0 10^3/uL Granulocyte % 54.6 % 38-83 Lymphocyte % 35.6 % 25-47 Monocyte % 7.7 % 1-9 Eosinophil % 1.5 % 0-6 Basophil % 0.6 % 0-2 Nucleated Red Blood Cells % 0 Poc Urinalysis 06/17/2017 Poc Glucose, Urine Negative Negative Poc Bilirubin, Urine Negative Negative Poc Ketone, Urine Negative Negative Poc Specific Stone[place], Urine 1.020 1.010-1.030 Poc Blood, Urine Trace-intact Negative Poc pH, Urine 6.0 5-9 Poc Protein, Urine Negative Negative Poc Urobilinogen, Urine 0.2 Negative Poc Nitrite, Urine Negative Negative Poc Leukocytes, Urine Negative Negative Poc Color, Urine Yellow Poc Clarity, Urine Clear 5 CBC Auto Diff 04/28/2017 White Blood Count 4.9 10^3/uL 3.5-10.8 Red Blood Count 4.31 10^6/uL 4.0-5.4 Hemoglobin 13.2 g/dL Low 14.0-18.0 Hematocrit 39 % Low 42-52 Mean Corpuscular Volume 90 fL 80-94 Mean Corpuscular Hemoglobin 31 pg 27-31 Mean Corpuscular HGB Conc 34 g/dL 31-36 Red Cell Distribution Width 13 % 10.5-15 Platelet Count 269 10^3/uL 150-450 Mean Platelet Volume 8 um3 7.4-10.4 Abs Neutrophils 2.6 10^3/uL 1.5-7.7 Abs Lymphocytes 1.9 10^3/uL 1.0-4.8 Abs Monocytes 0.3 10^3/uL 0-0.8 Abs Eosinophils 0 10^3/uL 0-0.6 Abs Basophils 0 10^3/uL 0-0.2 Abs Nucleated RBC 0 10^3/uL Granulocyte % 53.5 % 38-83 Lymphocyte % 38.7 % 25-47 Monocyte % 6.7 % 1-9 Eosinophil % 0.6 % 0-6 Basophil % 0.5 % 0-2 Nucleated Red Blood Cells % 0.1 Comp Metabolic Panel 04/28/2017 Sodium 137 mmol/L 133-145 Potassium 4.2 mmol/L 3.5-5.0 Chloride 102 mmol/L 101-111 Co2 Carbon Dioxide 28 mmol/L 22-32 Anion Gap 7 mmol/L 2-11 Glucose 151 mg/dL High 70-100 Blood Urea Nitrogen 15 mg/dL 6-24 Creatinine 1.16 mg/dL 0.67-1.17 BUN/Creatinine Ratio 12.9 8-20 Calcium 9.5 mg/dL 8.6-10.3 Total Protein 7.0 g/dL 6.4-8.9 Albumin 4.3 g/dL 3.2-5.2 Globulin 2.7 g/dL 2-4 Albumin/Globulin Ratio 1.6 1-3 Total Bilirubin 0.50 mg/dL 0.2-1.0 Alkaline Phosphatase 57 U/L 34-104 Alt 24 U/L 7-52 Ast 23 U/L 13-39 Egfr Non- 64.4 >60 Egfr 82.9 >60 6 Laboratory test 04/28/2017 PSA Screening 1.575 ng/mL 0-4.000 7 finding BCR/Abl P210 pc 04/28/2017 BCR/Abl p210 Result see interpretati 8 <SEE NOTE> BCR/Abl PCR Specimen WHOLE BLOOD BCR/Abl p210 Final Diagnosis See Comment 9 Laboratory test finding 04/23/2017 TSH (Thyroid Stim Horm) 1.11 mcIU/mL 0.34-5.60 CBC Auto Diff 04/23/2017 White Blood Count 4.9 10^3/uL 3.5-10.8 Red Blood Count 4.32 10^6/uL 4.0-5.4 Hemoglobin 13.3 g/dL Low 14.0-18.0 Hematocrit 40 % Low 42-52 Mean Corpuscular Volume 93 fL 80-94 Mean Corpuscular Hemoglobin 31 pg 27-31 Mean Corpuscular HGB Conc 33 g/dL 31-36 Red Cell Distribution Width 13 % 10.5-15 Platelet Count 285 10^3/uL 150-450 Mean Platelet Volume 8 um3 7.4-10.4 Abs Neutrophils 2.6 10^3/uL 1.5-7.7 Abs Lymphocytes 1.8 10^3/uL 1.0-4.8 Abs Monocytes 0.4 10^3/uL 0-0.8 Abs Eosinophils 0 10^3/uL 0-0.6 Abs Basophils 0 10^3/uL 0-0.2 Abs Nucleated RBC 0 10^3/uL Granulocyte % 54.3 % 38-83 Lymphocyte % 36.8 % 25-47 Monocyte % 7.8 % 1-9 Eosinophil % 0.7 % 0-6 Basophil % 0.4 % 0-2 Nucleated Red Blood Cells % 0 Laboratory test finding 04/23/2017 CRP High Sensitivity 1.97 mg/L 10 Erythrocyte Sed Rate 8 mm/Hr 0-20 Vitamin D Total 25(Oh) 26.9 ng/mL Low 30-50 Laboratory test 01/08/2017 Surgical Pathology SEE RESULT 11, 12 finding BELOW CBC Auto Diff 10/29/2016 White Blood Count 3.4 10^3/uL Low 3.5-10.8 Red Blood Count 4.17 10^6/uL 4.0-5.4 Hemoglobin 13.2 g/dL Low 14.0-18.0 Hematocrit 38 % Low 42-52 Mean Corpuscular Volume 92 fL 80-94 Mean Corpuscular Hemoglobin 32 pg High 27-31 Mean Corpuscular HGB Conc 34 g/dL 31-36 Red Cell Distribution Width 13 % 10.5-15 Platelet Count 263 10^3/uL 150-450 Mean Platelet Volume 8 um3 7.4-10.4 Abs Neutrophils 1.4 10^3/uL Low 1.5-7.7 Abs Lymphocytes 1.6 10^3/uL 1.0-4.8 Abs Monocytes 0.3 10^3/uL 0-0.8 Abs Eosinophils 0.1 10^3/uL 0-0.6 Abs Basophils 0 10^3/uL 0-0.2 Abs Nucleated RBC 0 10^3/uL Granulocyte % 40.3 % 38-83 Lymphocyte % 47.7 % High 25-47 Monocyte % 9.8 % High 1-9 Eosinophil % 1.8 % 0-6 Basophil % 0.4 % 0-2 Nucleated Red Blood Cells % 0.1 Comp Metabolic Panel 10/29/2016 Sodium 140 mmol/L 133-145 Potassium 4.0 mmol/L 3.5-5.0 Chloride 106 mmol/L 101-111 Co2 Carbon Dioxide 29 mmol/L 22-32 Anion Gap 5 mmol/L 2-11 Glucose 92 mg/dL 70-100 Blood Urea Nitrogen 16 mg/dL 6-24 Creatinine 1.00 mg/dL 0.67-1.17 BUN/Creatinine Ratio 16.0 8-20 Calcium 9.0 mg/dL 8.6-10.3 Total Protein 6.7 g/dL 6.4-8.9 Albumin 4.1 g/dL 3.2-5.2 Globulin 2.6 g/dL 2-4 Albumin/Globulin Ratio 1.6 1-3 Total Bilirubin 0.40 mg/dL 0.2-1.0 Alkaline Phosphatase 46 U/L 34-104 Alt 38 U/L 7-52 Ast 28 U/L 13-39 Egfr Non- 76.5 >60 Egfr 98.4 >60 13 BCR/Abl P210 pc 10/29/2016 BCR/Abl PCR Specimen Blood 14 BCR/Abl p210 Final Diagnosis See Comment 15 Laboratory test finding 08/05/2016 Lactic Acid 1.1 mmol/L 0.5-2.0 16 CBC Auto Diff 08/05/2016 White Blood Count 4.9 10^3/uL 3.5-10.8 Red Blood Count 4.27 10^6/uL 4.0-5.4 Hemoglobin 13.7 g/dL Low 14.0-18.0 Hematocrit 40 % Low 42-52 Mean Corpuscular Volume 93 fL 80-94 Mean Corpuscular Hemoglobin 32 pg High 27-31 Mean Corpuscular HGB Conc 35 g/dL 31-36 Red Cell Distribution Width 13 % 10.5-15 Platelet Count 287 10^3/uL 150-450 Mean Platelet Volume 8 um3 7.4-10.4 Abs Neutrophils 2.7 10^3/uL 1.5-7.7 Abs Lymphocytes 1.7 10^3/uL 1.0-4.8 Abs Monocytes 0.4 10^3/uL 0-0.8 Abs Eosinophils 0.1 10^3/uL 0-0.6 Abs Basophils 0 10^3/uL 0-0.2 Abs Nucleated RBC 0.01 10^3/uL Granulocyte % 54.4 % 38-83 Lymphocyte % 34.8 % 25-47 Monocyte % 8.6 % 1-9 Eosinophil % 1.8 % 0-6 Basophil % 0.4 % 0-2 Nucleated Red Blood Cells % 0.1 Comp Metabolic Panel 08/05/2016 Sodium 139 mmol/L 133-145 Potassium 3.3 mmol/L Low 3.5-5.0 Chloride 106 mmol/L 101-111 Co2 Carbon Dioxide 28 mmol/L 22-32 Anion Gap 5 mmol/L 2-11 Glucose 103 mg/dL High 70-100 Blood Urea Nitrogen 15 mg/dL 6-24 Creatinine 1.03 mg/dL 0.67-1.17 BUN/Creatinine Ratio 14.6 8-20 Calcium 8.9 mg/dL 8.6-10.3 Total Protein 7.0 g/dL 6.4-8.9 Albumin 4.1 g/dL 3.2-5.2 Globulin 2.9 g/dL 2-4 Albumin/Globulin Ratio 1.4 1-3 Total Bilirubin 0.40 mg/dL 0.2-1.0 Alkaline Phosphatase 48 U/L 34-104 Alt 25 U/L 7-52 Ast 23 U/L 13-39 Egfr Non- 74.2 >60 Egfr 95.4 >60 17 Lipid Profile (Trig/Chol/HDL) 08/05/2016 Triglycerides 200 mg/dL 18 Cholesterol 192 mg/dL 19 HDL Cholesterol 40.2 mg/dL 20 LDL Cholesterol 112 mg/dL 21 Laboratory test 08/05/2016 Troponin-I (TnI) 0.00 ng/mL <0.04 22 finding Inr/Protime 08/05/2016 Inr 0.82 Low 0.89-1.11 Laboratory test 08/05/2016 Partial Thrombo Time 29.5 seconds 26.0-36.3 finding PTT Type & Screen 08/05/2016 Patient Blood Type A Negative Antibody Screen NEGATIVE Urinalysis Profile 08/05/2016 Urine Color Yellow Urine Appearance Clear Urine Specific [place] 1.011 1.010-1.030 Urine pH 5.0 5-9 Urine Urobilinogen Negative Negative Urine Ketones Negative Negative Urine Protein Negative Negative Urine Leukocytes Negative Negative Urine Blood Negative Negative Urine Nitrite Negative Negative Urine Bilirubin Negative Negative Urine Glucose Negative Negative Laboratory test finding 08/05/2016 Hemoglobin A1c (Glyco 5.9 % Less than 6.0 23 HGB) Lyme Disease Serology Negative Negative 24 Laboratory test finding 02/19/2016 Hepatitis C Antibody Nonreactive Nonreactive 25 CBC No Diff 11/14/2015 White Blood Count 5.7 10^3/uL 3.5-10.8 Red Blood Count 4.05 10^6/uL 4.0-5.4 Hemoglobin 12.9 g/dL Low 14.0-18.0 Hematocrit 38 % Low 42-52 Mean Corpuscular Volume 94 fL 80-94 Mean Corpuscular Hemoglobin 32 pg High 27-31 Mean Corpuscular HGB Conc 34 g/dL 31-36 Red Cell Distribution Width 13 % 10.5-15 Platelet Count 321 10^3/uL 150-450 Mean Platelet Volume 8 um3 7.4-10.4 Basic Metabolic Panel 11/14/2015 Sodium 141 mmol/L 133-145 Potassium 3.7 mmol/L 3.5-5.0 Chloride 105 mmol/L 101-111 Co2 Carbon Dioxide 28 mmol/L 22-32 Anion Gap 8 mmol/L 2-11 Glucose 111 mg/dL High 70-100 Blood Urea Nitrogen 16 mg/dL 6-24 Creatinine 1.19 mg/dL High 0.67-1.17 BUN/Creatinine Ratio 13.4 8-20 Calcium 9.0 mg/dL 8.6-10.3 Egfr Non- 62.8 >60 Egfr 80.8 >60 26 Surgical Pathology 05/25/2014 S RUN DATE: <SEE NOTE> CBC Auto Diff 05/08/2014 White Blood Count 3.8 10^3/uL Low 4.8-10.8 Red Blood Count 4.06 10^6/uL 4.0-5.4 Hemoglobin 13.4 g/dL Low 14.0-18.0 Hematocrit 39 % Low 42-52 Mean Corpuscular Volume 96 fL High 80-94 Mean Corpuscular Hemoglobin 33 pg High 27-31 Mean Corpuscular HGB Conc 35 g/dL 31-36 Red Cell Distribution Width 14 % 10.5-15 Platelet Count 248 10^3/uL 150-450 Mean Platelet Volume 7 um3 Low 7.4-10.4 Abs Neutrophils 1.9 10^3/uL 1.5-7.7 Abs Lymphocytes 1.6 10^3/uL 1.0-4.8 Abs Monocytes 0.3 10^3/uL 0-0.8 Abs Eosinophils 0 10^3/uL 0-0.6 Abs Basophils 0 10^3/uL 0-0.2 Abs Nucleated RBC 0 10^3/uL Granulocyte % 49.9 % 38-83 Lymphocyte % 42.2 % 25-47 Monocyte % 6.8 % 1-9 Eosinophil % 0.7 % 0-6 Basophil % 0.4 % 0-2 Nucleated Red Blood Cells % 0.1 Basic Metabolic Panel 05/08/2014 Sodium 138 mmol/L 133-145 Potassium 4.0 mmol/L 3.7-5.6 Chloride 106 mmol/L 101-111 Co2 Carbon Dioxide 29 mmol/L 22-32 Anion Gap 3 mmol/L 2-11 Glucose 97 mg/dL 70-100 Blood Urea Nitrogen 16 mg/dL 6-24 Creatinine 1.02 mg/dL 0.67-1.17 BUN/Creatinine Ratio 15.7 8-20 Calcium 8.7 mg/dL 8.6-10.3 Egfr Non- 75.5 >60 Egfr 97.2 >60 28 Basic Metabolic Panel 04/02/2014 Sodium 140 mmol/L 133-145 Potassium 3.3 mmol/L Low 3.7-5.6 Chloride 108 mmol/L 101-111 Co2 Carbon Dioxide 28 mmol/L 22-32 Anion Gap 4 mmol/L 2-11 Glucose 79 mg/dL 70-100 Blood Urea Nitrogen 16 mg/dL 6-24 Creatinine 0.90 mg/dL 0.67-1.17 BUN/Creatinine Ratio 17.8 8-20 Calcium 8.8 mg/dL 8.6-10.3 Egfr Non- 87.3 >60 Egfr 112.3 >60 29 Vitamin D, 25 Hydroxy 04/02/2014 25-Hydroxy Vitamin D2 <4.0 ng/mL 25-Hydroxy Vitamin D3 23 ng/mL 25-Hydroxy Vitamin D Total 23 ng/mL 30 Comp Metabolic Panel 03/05/2014 Sodium 138 mmol/L 133-145 Potassium 3.6 mmol/L Low 3.7-5.6 Chloride 106 mmol/L 101-111 Co2 Carbon Dioxide 28 mmol/L 22-32 Anion Gap 4 mmol/L 2-11 Glucose 99 mg/dL 70-100 Blood Urea Nitrogen 13 mg/dL 6-24 Creatinine 0.93 mg/dL 0.67-1.17 BUN/Creatinine Ratio 14.0 8-20 Calcium 8.7 mg/dL 8.6-10.3 Total Protein 6.1 g/dL Low 6.4-8.9 Albumin 4.1 g/dL 3.2-5.2 Globulin 2.0 g/dL 2-4 Albumin/Globulin Ratio 2.1 1-3 Total Bilirubin 0.40 mg/dL 0.2-1.0 Alkaline Phosphatase 46 U/L 34-104 Alt 11 U/L 7-52 Ast 16 U/L 13-39 Egfr Non- 84.0 >60 Egfr 108.1 >60 31 CBC Auto Diff 03/05/2014 White Blood Count 3.5 10^3/uL Low 4.8-10.8 Red Blood Count 3.96 10^6/uL Low 4.0-5.4 Hemoglobin 12.6 g/dL Low 14.0-18.0 Hematocrit 37 % Low 42-52 Mean Corpuscular Volume 94 fL 80-94 Mean Corpuscular Hemoglobin 32 pg High 27-31 Mean Corpuscular HGB Conc 34 g/dL 31-36 Red Cell Distribution Width 13 % 10.5-15 Platelet Count 268 10^3/uL 150-450 Mean Platelet Volume 7 um3 Low 7.4-10.4 Abs Neutrophils 1.6 10^3/uL 1.5-7.7 Abs Lymphocytes 1.5 10^3/uL 1.0-4.8 Abs Monocytes 0.3 10^3/uL 0-0.8 Abs Eosinophils 0 10^3/uL 0-0.6 Abs Basophils 0 10^3/uL 0-0.2 Abs Nucleated RBC 0 10^3/uL Granulocyte % 46.8 % 38-83 Lymphocyte % 44.3 % 25-47 Monocyte % 7.2 % 1-9 Eosinophil % 1.1 % 0-6 Basophil % 0.6 % 0-2 Nucleated Red Blood Cells % 0 BCR/Abl P210 pc 03/05/2014 BCR/Abl PCR Specimen Blood 32 BCR/Abl p210 Final Diagnosis See Comment 33 Urinalysis Profile 02/12/2014 Urine Color Yellow Urine Appearance Clear Urine Specific [place] 1.021 1.010-1.030 Urine pH 6.0 5-9 Urine Urobilinogen Negative Negative Urine Ketones Negative Negative Urine Protein Negative Negative Urine Leukocytes Negative Negative Urine Blood Negative Negative Urine Nitrite Negative Negative Urine Bilirubin Negative Negative Urine Glucose Negative Negative CBC Auto Diff 02/11/2014 White Blood Count 5.2 10^3/uL 4.8-10.8 Red Blood Count 3.92 10^6/uL Low 4.0-5.4 Hemoglobin 12.6 g/dL Low 14.0-18.0 Hematocrit 37 % Low 42-52 Mean Corpuscular Volume 94 fL 80-94 Mean Corpuscular Hemoglobin 32 pg High 27-31 Mean Corpuscular HGB Conc 34 g/dL 31-36 Red Cell Distribution Width 13 % 10.5-15 Platelet Count 230 10^3/uL 150-450 Mean Platelet Volume 8 um3 7.4-10.4 Abs Neutrophils 2.0 10^3/uL 1.5-7.7 Abs Lymphocytes 2.7 10^3/uL 1.0-4.8 Abs Monocytes 0.4 10^3/uL 0-0.8 Abs Eosinophils 0.1 10^3/uL 0-0.6 Abs Basophils 0 10^3/uL 0-0.2 Abs Nucleated RBC 0.01 10^3/uL Comp Metabolic Panel 02/11/2014 Sodium 140 mmol/L 133-145 Potassium 3.3 mmol/L Low 3.7-5.6 Chloride 108 mmol/L 101-111 Co2 Carbon Dioxide 28 mmol/L 22-32 Anion Gap 4 mmol/L 2-11 Glucose 114 mg/dL High 70-100 Blood Urea Nitrogen 17 mg/dL 6-24 Creatinine 1.01 mg/dL 0.67-1.17 BUN/Creatinine Ratio 16.8 8-20 Calcium 8.5 mg/dL Low 8.6-10.3 Total Protein 6.4 g/dL 6.4-8.9 Albumin 4.1 g/dL 3.2-5.2 Globulin 2.3 g/dL 2-4 Albumin/Globulin Ratio 1.8 1-3 Total Bilirubin 0.30 mg/dL 0.2-1.0 Alkaline Phosphatase 47 U/L 34-104 Alt 13 U/L 7-52 Ast 24 U/L 13-39 Egfr Non- 76.4 >60 Egfr 98.3 >60 34 Laboratory test finding 02/11/2014 Lipase 47 U/L 11.0-82.0 C Reactive Protein 2.59 mg/L < 5.00 35 Manual Differential 02/11/2014 Neutrophil % 42 % 38-83 Lymphocytes % 48 % High 25-47 Monocytes % 5 % 0-13 Eosinophils % 2 % 0-6 Reactive Lymph % 3 % 0-6 RBC Morphology Normal Normal Basic Metabolic Panel 01/17/2014 Sodium 140 mmol/L 133-145 Potassium 3.6 mmol/L Low 3.7-5.6 Chloride 105 mmol/L 101-111 Co2 Carbon Dioxide 30 mmol/L 22-32 Anion Gap 5 mmol/L 2-11 Glucose 119 mg/dL High 70-100 Blood Urea Nitrogen 17 mg/dL 6-24 Creatinine 1.12 mg/dL 0.67-1.17 BUN/Creatinine Ratio 15.2 8-20 Calcium 9.2 mg/dL 8.6-10.3 Egfr Non- 67.8 >60 Egfr 87.2 >60 36 Laboratory test finding 01/17/2014 Phosphorus 2.4 mg/dL Low 2.5-5.0 Magnesium 2.0 mg/dL 1.9-2.7 Vitamin B12 316 pg/mL 180-914 37 BCR/Abl P210 pc 12/20/2013 BCR/Abl PCR Specimen Blood 38 BCR/Abl p210 Final Diagnosis See Comment 39 CBC Auto Diff 12/01/2013 White Blood Count 3.7 10^3/uL Low 4.8-10.8 Red Blood Count 4.04 10^6/uL 4.0-5.4 Hemoglobin 13.6 g/dL Low 14.0-18.0 Hematocrit 38 % Low 42-52 Mean Corpuscular Volume 94 fL 80-94 Mean Corpuscular Hemoglobin 34 pg High 27-31 Mean Corpuscular HGB Conc 36 g/dL 31-36 Red Cell Distribution Width 13 % 10.5-15 Platelet Count 242 10^3/uL 150-450 Mean Platelet Volume 8 um3 7.4-10.4 Abs Neutrophils 1.9 10^3/uL 1.5-7.7 Abs Lymphocytes 1.4 10^3/uL 1.0-4.8 Abs Monocytes 0.3 10^3/uL 0-0.8 Abs Eosinophils 0.1 10^3/uL 0-0.6 Abs Basophils 0 10^3/uL 0-0.2 Abs Nucleated RBC 0 10^3/uL Granulocyte % 51.6 % 38-83 Lymphocyte % 38.1 % 25-47 Monocyte % 8.3 % 1-9 Eosinophil % 1.6 % 0-6 Basophil % 0.4 % 0-2 Nucleated Red Blood Cells % 0 Comp Metabolic Panel 12/01/2013 Sodium 141 mmol/L 133-145 Potassium 4.6 mmol/L 3.7-5.6 Chloride 108 mmol/L 101-111 Co2 Carbon Dioxide 30 mmol/L 22-32 Anion Gap 3 mmol/L 2-11 Glucose 124 mg/dL High 70-100 Blood Urea Nitrogen 20 mg/dL 6-24 Creatinine 0.94 mg/dL 0.67-1.17 BUN/Creatinine Ratio 21.3 High 8-20 Calcium 8.9 mg/dL 8.6-10.3 Total Protein 6.6 g/dL 6.4-8.9 Albumin 4.4 g/dL 3.2-5.2 Globulin 2.2 g/dL 2-4 Albumin/Globulin Ratio 2.0 1-3 Total Bilirubin 0.30 mg/dL 0.2-1.0 Alkaline Phosphatase 48 U/L 34-104 Alt 13 U/L 7-52 Ast 17 U/L 13-39 Egfr Non- 83.0 >60 Egfr 106.8 >60 40 Laboratory test finding 12/01/2013 T4 7.01 g/dL 6.09-12.23 TSH (Thyroid Stimulating Horm) 1.29 IU/mL 0.34-5.60 BCR/Abl P210 pc 12/01/2013 BCR/Abl PCR Specimen EDTA whole blood 41 BCR/Abl p210 Final Diagnosis See Comment 42 Comp Metabolic Panel 05/29/2013 Sodium 140 mmol/L 133-145 Potassium 3.9 mmol/L 3.5-5.0 Chloride 103 mmol/L 101-111 Co2 Carbon Dioxide 31.0 mmol/L 22-32 Anion Gap 6.0 mmol/L 2-11 Glucose 111 mg/dL High 70-100 Blood Urea Nitrogen 13 mg/dL 6-24 Creatinine 0.90 mg/dL 0.50-1.40 BUN/Creatinine Ratio 14.4 8-20 Calcium 9.4 mg/dL 8.1-9.9 Total Protein 7.0 g/dL 6.2-8.1 Albumin 4.3 g/dL 3.6-5.4 Globulin 2.7 g/dL 2-4 Albumin/Globulin Ratio 1.6 1-3 Total Bilirubin 0.3 mg/dL Low 0.4-1.5 Alkaline Phosphatase 56 U/L 30-110 Alt 19 U/L 14-54 Ast 22 U/L 12-42 Egfr Non- 87.6 >60 Egfr 112.7 >60 43 CBC Auto Diff 05/29/2013 White Blood Count 4.7 10^3/uL Low 4.8-10.8 Red Blood Count 4.20 10^6/uL 4.0-5.4 Hemoglobin 13.6 g/dL Low 14.0-18.0 Hematocrit 40 % Low 42-52 Mean Corpuscular Volume 95 fL High 80-94 Mean Corpuscular Hemoglobin 32 pg High 27-31 Mean Corpuscular HGB Conc 34 g/dL 31-36 Red Cell Distribution Width 13 % 10.5-15 Platelet Count 254 10^3/uL 150-450 Mean Platelet Volume 8 um3 7.4-10.4 Abs Neutrophils 2.5 10^3/uL 1.5-7.7 Abs Lymphocytes 1.9 10^3/uL 1.0-4.8 Abs Monocytes 0.3 10^3/uL 0-0.8 Abs Eosinophils 0 10^3/uL 0-0.6 Abs Basophils 0 10^3/uL 0-0.2 Abs Nucleated RBC 0.01 10^3/uL Granulocyte % 53.0 % 38-83 Lymphocyte % 40.8 % 25-47 Monocyte % 5.6 % 1-9 Eosinophil % 0.4 % 0-6 Basophil % 0.2 % 0-2 Nucleated Red Blood Cells % 0.1 BCR/Abl P210 pc 05/29/2013 BCR/Abl PCR Specimen Blood BCR/Abl p210 Final Diagnosis See Comment 44 CBC With Manual Diff 04/13/2013 White Blood Count 4.1 10^3/uL Low 4.8- 10.8 Red Blood Count 4.29 10^6/uL 4.0-5.4 Hemoglobin 14.0 g/dL 14.0-18.0 Hematocrit 41 % Low 42-52 Mean Corpuscular Volume 96 fL High 80-94 Mean Corpuscular Hemoglobin 33 pg High 27-31 Mean Corpuscular HGB Conc 34 g/dL 31-36 Red Cell Distribution Width 13 % 10.5-15 Platelet Count 245 10^3/uL 150-450 Mean Platelet Volume 8 um3 7.4-10.4 Abs Neutrophils 1.9 10^3/uL 1.5-7.7 Abs Lymphocytes 1.8 10^3/uL 1.0-4.8 Abs Monocytes 0.3 10^3/uL 0-0.8 Abs Eosinophils 0 10^3/uL 0-0.6 Abs Basophils 0 10^3/uL 0-0.2 Abs Nucleated RBC 0.01 10^3/uL Neutrophil % 42 % 38-83 Lymphocytes % 52 % High 25-47 Monocytes % 5 % 0-13 Basophil % 1 % 0-2 RBC Morphology Normal Normal CBC Auto Diff 03/06/2013 White Blood Count 4.3 10^3/uL Low 4.8-10.8 Red Blood Count 4.11 10^6/uL 4.0-5.4 Hemoglobin 13.5 g/dL Low 14.0-18.0 Hematocrit 40 % Low 42-52 Mean Corpuscular Volume 97 fL High 80-94 Mean Corpuscular Hemoglobin 33 pg High 27-31 Mean Corpuscular HGB Conc 34 g/dL 31-36 Red Cell Distribution Width 13 % 10.5-15 Platelet Count 238 10^3/uL 150-450 Mean Platelet Volume 8 um3 7.4-10.4 Abs Neutrophils 2.4 10^3/uL 1.5-7.7 Abs Lymphocytes 1.5 10^3/uL 1.0-4.8 Abs Monocytes 0.3 10^3/uL 0-0.8 Abs Eosinophils 0 10^3/uL 0-0.6 Abs Basophils 0 10^3/uL 0-0.2 Abs Nucleated RBC 0 10^3/uL Granulocyte % 55.4 % 38-83 Lymphocyte % 35.7 % 25-47 Monocyte % 7.7 % 1-9 Eosinophil % 0.8 % 0-6 Basophil % 0.4 % 0-2 Nucleated Red Blood Cells % 0 Comp Metabolic Panel 03/06/2013 Sodium 140 mmol/L 133-145 Potassium 4.1 mmol/L 3.5-5.0 Chloride 105 mmol/L 101-111 Co2 Carbon Dioxide 29.0 mmol/L 22-32 Anion Gap 6.0 mmol/L 2-11 Glucose 89 mg/dL 70-100 Blood Urea Nitrogen 15 mg/dL 6-24 Creatinine 0.90 mg/dL 0.50-1.40 BUN/Creatinine Ratio 16.7 8-20 Calcium 9.4 mg/dL 8.1-9.9 Total Protein 6.8 g/dL 6.2-8.1 Albumin 3.9 g/dL 3.6-5.4 Globulin 2.9 g/dL 2-4 Albumin/Globulin Ratio 1.3 1-3 Total Bilirubin 0.7 mg/dL 0.4-1.5 Alkaline Phosphatase 55 U/L 30-110 Alt 16 U/L 14-54 Ast 21 U/L 12-42 Egfr Non- 87.6 >60 Egfr 112.7 >60 45 BCR/Abl P210 pc 03/06/2013 BCR/Abl PCR Specimen Blood BCR/Abl p210 Final Diagnosis See Comment 46 Laboratory test finding 02/21/2013 Pathologist Review (SEE NOTE) 47 CBC With Manual Diff 02/21/2013 White Blood Count 3.8 10^3/uL Low 4.8- 10.8 Red Blood Count 3.84 10^6/uL Low 4.0-5.4 Hemoglobin 12.9 g/dL Low 14.0-18.0 Hematocrit 37 % Low 42-52 Mean Corpuscular Volume 96 fL High 80-94 Mean Corpuscular Hemoglobin 34 pg High 27-31 Mean Corpuscular HGB Conc 35 g/dL 31-36 Red Cell Distribution Width 13 % 10.5-15 Platelet Count 242 10^3/uL 150-450 Mean Platelet Volume 8 um3 7.4-10.4 Abs Neutrophils 2.0 10^3/uL 1.5-7.7 Abs Lymphocytes 1.5 10^3/uL 1.0-4.8 Abs Monocytes 0.3 10^3/uL 0-0.8 Abs Eosinophils 0 10^3/uL 0-0.6 Abs Basophils 0 10^3/uL 0-0.2 Abs Nucleated RBC 0 10^3/uL Neutrophil % 39 % 38-83 Lymphocytes % 54 % High 25-47 Monocytes % 5 % 0-13 Eosinophils % 2 % 0-6 RBC Morphology Normal Normal Surgical Pathology 01/06/2013 S RUN DATE: <SEE NOTE> Laboratory test finding 12/05/2012 BCR/Abl PCR( (SEE NOTE) 49 Labs) Comp Metabolic Panel 12/05/2012 Sodium 140 mmol/L 133-145 Potassium 4.2 mmol/L 3.5-5.0 Chloride 107 mmol/L 101-111 Co2 Carbon Dioxide 29.0 mmol/L 22-32 Anion Gap 4.0 mmol/L 2-11 Glucose 96 mg/dL 70-100 Blood Urea Nitrogen 11 mg/dL 6-24 Creatinine 0.80 mg/dL 0.50-1.40 BUN/Creatinine Ratio 13.8 8-20 Calcium 8.8 mg/dL 8.1-9.9 Total Protein 6.4 g/dL 6.2-8.1 Albumin 3.9 g/dL 3.6-5.4 Globulin 2.5 g/dL 2-4 Albumin/Globulin Ratio 1.6 1-3 Total Bilirubin 0.6 mg/dL 0.4-1.5 Alkaline Phosphatase 56 U/L 30-110 Alt 17 U/L 14-54 Ast 20 U/L 12-42 Egfr Non- 100.4 >60 Egfr 129.1 >60 50 CBC Auto Diff 12/05/2012 White Blood Count 4.4 10^3/uL Low 4.8-10.8 Red Blood Count 4.03 10^6/uL 4.0-5.4 Hemoglobin 13.3 g/dL Low 14.0-18.0 Hematocrit 39 % Low 42-52 Mean Corpuscular Volume 96 fL High 80-94 Mean Corpuscular Hemoglobin 33 pg High 27-31 Mean Corpuscular HGB Conc 34 g/dL 31-36 Red Cell Distribution Width 13 % 10.5-15 Platelet Count 215 10^3/uL 150-450 Mean Platelet Volume 8 um3 7.4-10.4 Abs Neutrophils 2.8 10^3/uL 1.5-7.7 Abs Lymphocytes 1.4 10^3/uL 1.0-4.8 Abs Monocytes 0.2 10^3/uL 0-0.8 Abs Eosinophils 0 10^3/uL 0-0.6 Abs Basophils 0 10^3/uL 0-0.2 Abs Nucleated RBC 0 10^3/uL Granulocyte % 62.6 % 38-83 Lymphocyte % 31.2 % 25-47 Monocyte % 5.4 % 1-9 Eosinophil % 0.4 % 0-6 Basophil % 0.4 % 0-2 Nucleated Red Blood Cells % 0 Laboratory test finding 12/05/2012 Glucose 89 mg/dL 70-100 51 Vitamin D, 25 Hydroxy 12/05/2012 25-Hydroxy Vitamin D2 <4.0 ng/mL 25-Hydroxy Vitamin D3 20 ng/mL 25-Hydroxy Vitamin D Total 20 ng/mL 52 Lipid Profile (Trig/Chol/HDL) 12/05/2012 Triglycerides 138 mg/dL 40-200 Cholesterol 142 mg/dL Less than 200 HDL Cholesterol 36 mg/dL Low 40-60 53 Cholesterol/HDL Ratio 3.9 Average 1-4.44 LDL Cholesterol 78.4 mg/dL Less Than 100 54 CBC With Manual Diff 10/31/2012 White Blood Count 3.4 10^3/uL Low 4.8- 10.8 Red Blood Count 4.11 10^6/uL 4.0-5.4 Hemoglobin 13.5 g/dL Low 14.0-18.0 Hematocrit 39 % Low 42-52 Mean Corpuscular Volume 96 fL High 80-94 Mean Corpuscular Hemoglobin 33 pg High 27-31 Mean Corpuscular HGB Conc 34 g/dL 31-36 Red Cell Distribution Width 13 % 10.5-15 Platelet Count 207 10^3/uL 150-450 Mean Platelet Volume 8 um3 7.4-10.4 Abs Neutrophils 1.7 10^3/uL 1.5-7.7 Abs Lymphocytes 1.4 10^3/uL 1.0-4.8 Abs Monocytes 0.3 10^3/uL 0-0.8 Abs Eosinophils 0 10^3/uL 0-0.6 Abs Basophils 0 10^3/uL 0-0.2 Abs Nucleated RBC 0 10^3/uL Neutrophil % 46 % 38-83 Lymphocytes % 40 % 25-47 Monocytes % 8 % 0-13 Eosinophils % 2 % 0-6 Reactive Lymph % 4 % 0-6 RBC Morphology Normal Normal 1 Because ethnic data is not always readily available, this report includes an eGFR for both -Americans and non- Americans. The National Kidney Disease Education Program (NKDEP) does not endorse the use of the MDRD equation for patients that are not between the ages of 18 and 70, are , have extremes of body size, muscle mass, or nutritional status, or are non- or non-. According to the National Kidney Foundation, irrespective of diagnosis, the stage of the disease is based on the level of kidney function: Stage Description GFR(mL/min/1.73 m(2)) 1 Kidney damage with normal or decreased GFR 90 2 Kidney damage with mild decrease in GFR 60-89 3 Moderate decrease in GFR 30-59 4 Severe decrease in GFR 15-29 5 Kidney failure <15 (or dialysis) 2 see interpretation PDF Report available at: [email or web address] 3 Peripheral blood, BCR/ABL1 mRNA level analysis (p210 fusion form): Positive. BCR/ABL1 p210 mRNA transcripts were detected at a very low quantitative level (<0.003% of total ABL1 (%BCR/ABL1(p210):ABL1)). If this test was ordered for residual disease monitoring, the result should be verified on a subsequent specimen. If this test was ordered in a diagnostic setting, the results are not compatible with a diagnostic level of BCR/ABL mRNA and repeat testing or evaluation for BCR/ABL by an alternative method such as the diagnostic qualitative BCR/ABL mRNA detection assay (Test ID: BADX) or Fluorescence in Situ Hybridization (FISH) analysis should strongly be considered. Please contact the signing pathologist if there are questions concerning the test result. %BCRABL1 (p210):ABL1 in this assay is reported using the International Scale (IS), in which 0.1% is considered a major molecular response (MMR) in CML (Ref: Kariani M, et al. Blood;122:872-884; Soraida RD, et al. J Mol Diagn 2013;15:565-576). Signing Pathologist: Catherine Gracia M.D. ADDITIONAL INFORMATION Method summary - BCR/ABL1, p210 fusion: The BCR/ABL1 transcript level was evaluated using a quantitative, reverse diplomatic officer PCR. The analytical sensitivity of this assay has been determined at 0.003% (MR 4.5). This assay detects the major breakpoint region-associated common fusion mRNA forms in chronic myelogenous leukemia (e13/a2 and e14/a2), which code for a p210 protein. It is intended for monitoring patients with hematopoietic neoplasms known to carry the p210 fusion form. The assay does not detect other BCR/ABL1 mRNA types, including the e1/a2 transcript (p190 protein) that is commonly present in acute lymphoblastic leukemia. This assay is not intended for use in the diagnostic setting, as it does not detect all BCR/ABL1 mRNA fusion forms. If this has been performed in a diagnostic setting and the result is negative, test: BADX (BCR/ABL mRNA Detection, RT-PCR, Qualitative, Diagnostic) should be ordered to evaluate for all possible fusion forms. Please contact the [facility] at [phone] with questions or if additional testing is required. See the [facility] Interpretive Handbook for method details. The reproducibility of this assay is such that results within 0.5 log should be considered equivalent. Trends in the level of BCR/ABL1 mRNA should be followed carefully and clinically significant changes in BCR/ABL1 mRNA levels during tyrosine kinase inhibitor (TKI) therapy may indicate the presence of acquired BCR/ABL1 kinase domain mutations, which can be further evaluated using the BCR/ABL KDM assay (test: BAKDM). This test was developed and its performance characteristics determined by [facility] in a manner consistent with CLIA requirements. This test has not been cleared or approved by the U.S. Food and Drug Administration. Test Performed by: [address] [address] 4 Because ethnic data is not always readily available, this report includes an eGFR for both -Americans and non- Americans. The National Kidney Disease Education Program (NKDEP) does not endorse the use of the MDRD equation for patients that are not between the ages of 18 and 70, are , have extremes of body size, muscle mass, or nutritional status, or are non- or non-. According to the National Kidney Foundation, irrespective of diagnosis, the stage of the disease is based on the level of kidney function: Stage Description GFR(mL/min/1.73 m(2)) 1 Kidney damage with normal or decreased GFR 90 2 Kidney damage with mild decrease in GFR 60-89 3 Moderate decrease in GFR 30-59 4 Severe decrease in GFR 15-29 5 Kidney failure <15 (or dialysis) 5 Internal Communications Writer: [id number] 6 Because ethnic data is not always readily available, this report includes an eGFR for both -Americans and non- Americans. The National Kidney Disease Education Program (NKDEP) does not endorse the use of the MDRD equation for patients that are not between the ages of 18 and 70, are , have extremes of body size, muscle mass, or nutritional status, or are non- or non-. According to the National Kidney Foundation, irrespective of diagnosis, the stage of the disease is based on the level of kidney function: Stage Description GFR(mL/min/1.73 m(2)) 1 Kidney damage with normal or decreased GFR 90 2 Kidney damage with mild decrease in GFR 60-89 3 Moderate decrease in GFR 30-59 4 Severe decrease in GFR 15-29 5 Kidney failure <15 (or dialysis) 7 Serum levels of PSA measured using the [email or web address] DXI Hybritech immunoassay should not be interpreted as absolute evidence of the presence or absence of disease. The PSA value should be used in conjunction with other pertinent clinical diagnostic procedures. The values obtained with different assay methods or kits cannot be used interchangeably. 8 see interpretation PDF Report available at: https://[email or web address]/Reports/[email or web address] 9 Peripheral blood, BCR/ABL1 mRNA level analysis (p210 fusion form): Positive. BCR/ABL1 p210 mRNA transcripts were detected at a very low quantitative level (<0.003% of total ABL1 (%BCR/ABL1(p210):ABL1)). If this test was ordered for residual disease monitoring, the result should be verified on a subsequent specimen. If this test was ordered in a diagnostic setting, the results are not compatible with a diagnostic level of BCR/ABL mRNA and repeat testing or evaluation for BCR/ABL by an alternative method such as the diagnostic qualitative BCR/ABL mRNA detection assay (Test ID: BADX) or Fluorescence in Situ Hybridization (FISH) analysis should strongly be considered. Please contact the signing pathologist if there are questions concerning the test result. %BCRABL1 (p210):ABL1 in this assay is reported using the International Scale (IS), in which 0.1% is considered a major molecular response (MMR) in CML (Ref: Bacmargaretani M, et al. Blood;122:872-884; Soraida RD, et al. J Mol Diagn 2013;15:565-576). Signing Pathologist: Catherine Gracia M.D. ADDITIONAL INFORMATION Method summary - BCR/ABL1, p210 fusion: The BCR/ABL1 transcript level was evaluated using a quantitative, reverse diplomatic officer PCR. The analytical sensitivity of this assay has been determined at 0.003% (MR 4.5). This assay detects the major breakpoint region-associated common fusion mRNA forms in chronic myelogenous leukemia (e13/a2 and e14/a2), which code for a p210 protein. It is intended for monitoring patients with hematopoietic neoplasms known to carry the p210 fusion form. The assay does not detect other BCR/ABL1 mRNA types, including the e1/a2 transcript (p190 protein) that is commonly present in acute lymphoblastic leukemia. This assay is not intended for use in the diagnostic setting, as it does not detect all BCR/ABL1 mRNA fusion forms. If this has been performed in a diagnostic setting and the result is negative, test: BADX (BCR/ABL mRNA Detection, RT-PCR, Qualitative, Diagnostic) should be ordered to evaluate for all possible fusion forms. Please contact the [facility] at [phone] with questions or if additional testing is required. See the [facility] [employer] Interpretive Handbook for method details. The reproducibility of this assay is such that results within 0.5 log should be considered equivalent. Trends in the level of BCR/ABL1 mRNA should be followed carefully and clinically significant changes in BCR/ABL1 mRNA levels during tyrosine kinase inhibitor (TKI) therapy may indicate the presence of acquired BCR/ABL1 kinase domain mutations, which can be further evaluated using the BCR/ABL KDM assay (test: BAKDM). This test was developed and its performance characteristics determined by [facility] in a manner consistent with CLIA requirements. This test has not been cleared or approved by the U.S. Food and Drug Administration. Test Performed by: [facility] - [address] [address] 10 Low risk: <1.00 Average risk: 1.00-3.00 High risk: >3.00 11 [id number] SEE RESULT BELOW Name: MAGDI CHEEK : [address]: Kosta Dumont MD Acct: [id number] Unit: [id number] AGE: 61 Location: [facility] Re01/08/17 SEX: M Status: REG REF SPEC: [id number] NAOMIE: 01/08/17-1253 [facility] DR: Kosta Dumont MD REQ: [id number] RECD: 01/08/170327 STATUS: EPIFANIO SMALL DR: Eric Talavera MD _ ORDERED: LEVEL 4, SPEC STAIN ORG COMMENTS: [id number] FINAL DIAGNOSIS Gastroesophageal junction, biopsy: -- Erosive esophagitis with with hyperparakeratosis and focal ulceration and associated acute and chronically inflamed granulation tissue. -- Specific features of reflux esophagitis are not identified. -- No goblet cell/intestinal metaplasia or dysplasia identified. Comment: A histochemical stain for fungal organisms (GMS) was performed with appropriate controls and is negative. CLINICAL HISTORY Gastroesophageal reflux disease, dysphagia POST-OPERATIVE DIAGNOSIS Esophagus - esophageal stricture dilated, biopsied gastroesophageal junction ; stomach - hiatal hernia, normal gastric mucosa; duodenum - normal bulb to third portion. Conclusions/Plan: Esophageal stricture dilated, hiatal hernia GROSS DESCRIPTION The specimen is received in formalin labeled, Biopsy GE Junction, and consists of a 0.6 x 0.3 x 0.2 cm aggregate of speckled taylor-red irregular to polypoid soft tissue fragments which is entirely submitted in one cassette. Signed (signature on file) Edi Blevins MD 1029 END OF REPORT * ML=Testing performed at Main Lab DEPARTMENT OF PATHOLOGY, [address] [place] [address] Edi Blevins M.D. Director [facility] # [id number] 13 Because ethnic data is not always readily available, this report includes an eGFR for both -Americans and non- Americans. The National Kidney Disease Education Program (NKDEP) does not endorse the use of the MDRD equation for patients that are not between the ages of 18 and 70, are , have extremes of body size, muscle mass, or nutritional status, or are non- or non-. According to the National Kidney Foundation, irrespective of diagnosis, the stage of the disease is based on the level of kidney function: Stage Description GFR(mL/min/1.73 m(2)) 1 Kidney damage with normal or decreased GFR 90 2 Kidney damage with mild decrease in GFR 60-89 3 Moderate decrease in GFR 30-59 4 Severe decrease in GFR 15-29 5 Kidney failure <15 (or dialysis) 14 PDF Report available at: [email or web address]://[email or web address]/Reports/[email or web address] 15 Peripheral blood, BCR/ABL1 mRNA level analysis (p210 fusion form): Negative. No BCR/ABL1 p210 mRNA transcripts were detected (%BCR/ABL1(p210):ABL1=0). Signing Pathologist: Eduardo Meza M.D. ADDITIONAL INFORMATION Method summary - BCR/ABL1, p210 fusion: The BCR/ABL1 transcript level was evaluated using a quantitative, reverse diplomatic officer PCR. The analytical sensitivity of this assay has been determined at 0.01%. This assay detects the major breakpoint region-associated common fusion mRNA forms in chronic myelogenous leukemia (e13/a2 and e14/a2), which code for a p210 protein. It is intended for monitoring patients with hematopoietic neoplasms known to carry the p210 fusion form. The assay does not detect other BCR/ABL1 mRNA types, including the e1/a2 transcript (p190 protein) that is commonly present in acute lymphoblastic leukemia. This assay is not intended for use in the diagnostic setting, as it does not detect all BCR/ABL1 mRNA fusion forms. If this has been performed in a diagnostic setting and the result is negative, test: BADX (BCR/ABL mRNA Detection, RT-PCR, Qualitative, Diagnostic) should be ordered to evaluate for all possible fusion forms. Please contact the [facility] at [phone] with questions or if additional testing is required. See the [facility] [employer] Interpretive Handbook for method details. The reproducibility of this assay is such that results within 0.5 log should be considered equivalent. Trends in the level of BCR/ABL1 mRNA should be followed carefully and clinically significant changes in BCR/ABL1 mRNA levels during tyrosine kinase inhibitor (TKI) therapy may indicate the presence of acquired BCR/ABL1 kinase domain mutations, which can be further evaluated using the BCR/ABL KDM assay (test: BAKDM). Laboratory developed test. Test Performed by: [place] [address] Barrel Dedenting Machine Operator: Valentino Petersen II, M.D., Ph.D. 16 [facility] Severe Sepsis and Septic Shock Management Bundle Measure requires all lactic acids initially measuring >2.0 mmol/L be repeated. 17 Because ethnic data is not always readily available, this report includes an eGFR for both -Americans and non- Americans. The National Kidney Disease Education Program (NKDEP) does not endorse the use of the MDRD equation for patients that are not between the ages of 18 and 70, are , have extremes of body size, muscle mass, or nutritional status, or are non- or non-. According to the National Kidney Foundation, irrespective of diagnosis, the stage of the disease is based on the level of kidney function: Stage Description GFR(mL/min/1.73 m(2)) 1 Kidney damage with normal or decreased GFR 90 2 Kidney damage with mild decrease in GFR 60-89 3 Moderate decrease in GFR 30-59 4 Severe decrease in GFR 15-29 5 Kidney failure <15 (or dialysis) 18 Desirable <150 Borderline high 150-199 High 200-499 Very High >500 19 Desirable <200 Borderline high 200-239 High >239 20 Low <40 Desirable: 40-60 High: >60 21 Desirable: <100 mg/dL Near Optimal: 100-129 mg/dL Borderline High: 130-159 mg/dL High: 160-189 mg/dL Very High: >189 mg/dL 22 NOTE: Critical Troponin is now >0.03 ng/mL. 99th percentile=0.04 ng/mL Troponin results at [facility] and [facility] are not interchangeable. 23 Therapeutic target for the treatment of diabetes Mellitus patients is <7% HBA1C, and in selective patients <6.0%.Please refer to [place] [employer] Diabetic care guidelines for further information. 24 Serologic response to B. burgdorferi infection is not detected, but cannot rule out early infection during which low or undetectable antibody levels to B. burgdorferi may be present. If clinically indicated, a new serum specimen should be submitted in 7-14 days. Test Performed by: [place] [address] [employer] Dedenting Machine Operator: Valentino Petersen II, M.D., Ph.D. 25 Copy Result to: ZEN TALAVERA ([id number]) 26 Because ethnic data is not always readily available, this report includes an eGFR for both -Americans and non- Americans. The National Kidney Disease Education Program (NKDEP) does not endorse the use of the MDRD equation for patients that are not between the ages of 18 and 70, are , have extremes of body size, muscle mass, or nutritional status, or are non- or non-. According to the National Kidney Foundation, irrespective of diagnosis, the stage of the disease is based on the level of kidney function: Stage Description GFR(mL/min/1.73 m(2)) 1 Kidney damage with normal or decreased GFR 90 2 Kidney damage with mild decrease in GFR 60-89 3 Moderate decrease in GFR 30-59 4 Severe decrease in GFR 15-29 5 Kidney failure <15 (or dialysis) 27 RUN DATE: 05/30/14 [facility] LAB LIVE PAGE 1 RUN TIME: [address] [place] [address] Specimen Inquiry Name: MAGDI CHEEK : [address]: Alexandra Zamora MD Acct: [id number] Unit: [id number] AGE: 58 Location: [facility] Re05/25/14 SEX: M [place] [facility]: [id number] NAOMIE: 05/25/14-1044 [facility] DR: Alexandra Zamora MD REQ: [id number] RECD: 05/25/14 STATUS: EPIFANIO _ ORDERED: Bhavana, LEVEL III FINAL DIAGNOSIS Loose bodies, left elbow, excision: Benign cartilaginous and synovial tissue fragments and fragments of benign bone with no significant pathologic abnormalities. CLINICAL HISTORY No history given. GROSS DESCRIPTION The specimen is received in formalin labeled Magdi Cheek, Loose Bodies Left Elbow, and consists of a 2.3 x 1.3 x 0.4 cm. aggregate of taylor-pink to yellow, irregular portions of bone admixed with taylor-pink, irregular soft tissue fragments. Submitted entirely, one cassette following decalcification. MICROSCOPIC DESCRIPTION Signed (signature on file) Stella Kellogg MD 1543 END OF REPORT * ML=Testing performed at Main Lab DEPARTMENT OF PATHOLOGY, [address] [place] [address] Edi Blevins M.D. Director [facility] # [id number] 28 Because ethnic data is not always readily available, this report includes an eGFR for both -Americans and non- Americans. The National Kidney Disease Education Program (NKDEP) does not endorse the use of the MDRD equation for patients that are not between the ages of 18 and 70, are , have extremes of body size, muscle mass, or nutritional status, or are non- or non-. According to the National Kidney Foundation, irrespective of diagnosis, the stage of the disease is based on the level of kidney function: Stage Description GFR(mL/min/1.73 m(2)) 1 Kidney damage with normal or decreased GFR 90 2 Kidney damage with mild decrease in GFR 60-89 3 Moderate decrease in GFR 30-59 4 Severe decrease in GFR 15-29 5 Kidney failure <15 (or dialysis) 29 Because ethnic data is not always readily available, this report includes an eGFR for both -Americans and non- Americans. The National Kidney Disease Education Program (NKDEP) does not endorse the use of the MDRD equation for patients that are not between the ages of 18 and 70, are , have extremes of body size, muscle mass, or nutritional status, or are non- or non-. According to the National Kidney Foundation, irrespective of diagnosis, the stage of the disease is based on the level of kidney function: Stage Description GFR(mL/min/1.73 m(2)) 1 Kidney damage with normal or decreased GFR 90 2 Kidney damage with mild decrease in GFR 60-89 3 Moderate decrease in GFR 30-59 4 Severe decrease in GFR 15-29 5 Kidney failure <15 (or dialysis) 30 -- REFERENCE VALUE -- 25-HYDROXY D TOTAL (D2+D3) Optimum levels in the healthy population are 20-50, patients with bone disease may benefit from higher levels within this range. Test Performed by: [address] [address] [employer] Machine Operator: Prince Ha III, M.D. 31 Because ethnic data is not always readily available, this report includes an eGFR for both -Americans and non- Americans. The National Kidney Disease Education Program (NKDEP) does not endorse the use of the MDRD equation for patients that are not between the ages of 18 and 70, are , have extremes of body size, muscle mass, or nutritional status, or are non- or non-. According to the National Kidney Foundation, irrespective of diagnosis, the stage of the disease is based on the level of kidney function: Stage Description GFR(mL/min/1.73 m(2)) 1 Kidney damage with normal or decreased GFR 90 2 Kidney damage with mild decrease in GFR 60-89 3 Moderate decrease in GFR 30-59 4 Severe decrease in GFR 15-29 5 Kidney failure <15 (or dialysis) 32 PDF Report available at: [email or web address]://[email or web address] 33 Peripheral blood, BCR/ABL mRNA level analysis (p210 fusion form): Positive. BCR/ABL p210 mRNA transcripts were detected and estimated to represent 0.02% of total abl (%bcr/abl(p210):abl). 0.02% bcr/abl(p210):abl in this assay is equivalent to 0.05% on the International Scale in which 0.1% is considered a major molecular response in CML (see [place] et al, Blood 2008;112:3330). Signing Pathologist: Yash Luna M.D., Ph.D. Method summary - BCR/ABL, p210 fusion: p210 mRNA transcript level was evaluated using quantitative, reverse diplomatic officer PCR. The assay detects the two most common fusion forms in chronic myelogenous leukemia: e13/a2 and e14/a2, which code for p210 proteins. It is intended for monitoring patients with neoplasms known to carry the p210 fusion form. The assay does not detect other fusions, including those for the p190 protein commonly present in acute lymphoblastic leukemia. This assay should not be used in the diagnostic setting, as it does not detect all bcr/abl fusion forms. If this has been ordered in a diagnostic setting and the result is negative, test #76330 (BCR/ABL mRNA Detection, RT-PCR, Qualitative, Diagnostic) should be ordered to evaluate for all possible fusion forms. Please contact the lab at with questions or if additional testing is required. See the [facility] Interpretive Handbook for method details. Typical clinical samples have detection limits ranging from 0.01% to 0.0001% bcr/abl:abl. Most CML patients at diagnosis have a bcr/abl:abl result in the range of 20% to 100%. The reproducibility of this assay is such that results within 0.5 log should be considered equivalent. Trends in the level of BCR/ABL mRNA should be followed and clinically significant changes verified with a subsequent specimen. Laboratory developed test. Test Performed by: [place] [address] [employer] Dedenting Machine Operator: Prince Ha III, M.D. 34 Because ethnic data is not always readily available, this report includes an eGFR for both -Americans and non- Americans. The National Kidney Disease Education Program (NKDEP) does not endorse the use of the MDRD equation for patients that are not between the ages of 18 and 70, are , have extremes of body size, muscle mass, or nutritional status, or are non- or non-. According to the National Kidney Foundation, irrespective of diagnosis, the stage of the disease is based on the level of kidney function: Stage Description GFR(mL/min/1.73 m(2)) 1 Kidney damage with normal or decreased GFR 90 2 Kidney damage with mild decrease in GFR 60-89 3 Moderate decrease in GFR 30-59 4 Severe decrease in GFR 15-29 5 Kidney failure <15 (or dialysis) 35 Acute inflammation: >10.00 36 Because ethnic data is not always readily available, this report includes an eGFR for both -Americans and non- Americans. The National Kidney Disease Education Program (NKDEP) does not endorse the use of the MDRD equation for patients that are not between the ages of 18 and 70, are , have extremes of body size, muscle mass, or nutritional status, or are non- or non-. According to the National Kidney Foundation, irrespective of diagnosis, the stage of the disease is based on the level of kidney function: Stage Description GFR(mL/min/1.73 m(2)) 1 Kidney damage with normal or decreased GFR 90 2 Kidney damage with mild decrease in GFR 60-89 3 Moderate decrease in GFR 30-59 4 Severe decrease in GFR 15-29 5 Kidney failure <15 (or dialysis) 37 Normal Range 180 to 914 Indeterminate Range 145 to 180 Deficient Range <145 38 PDF Report available at: [email or web address] 39 Peripheral blood, BCR/ABL mRNA level analysis (p210 fusion form): Positive. BCR/ABL p210 mRNA transcripts were detected and estimated to represent 0.06% of total abl (%bcr/abl(p210):abl). 0.06% bcr/abl(p210):abl in this assay is equivalent to 0.2% on the International Scale in which 0.1% is considered a major molecular response in CML (see [place] et al, Blood 2008;112:3330). Signing Pathologist: Liliam Noland M.D. Method summary - BCR/ABL, p210 fusion: p210 mRNA transcript level was evaluated using quantitative, reverse diplomatic officer PCR. The assay detects the two most common fusion forms in chronic myelogenous leukemia: e13/a2 and e14/a2, which code for p210 proteins. It is intended for monitoring patients with neoplasms known to carry the p210 fusion form. The assay does not detect other fusions, including those for the p190 protein commonly present in acute lymphoblastic leukemia. This assay should not be used in the diagnostic setting, as it does not detect all bcr/abl fusion forms. If this has been ordered in a diagnostic setting and the result is negative, test #88756 (BCR/ABL mRNA Detection, RT-PCR, Qualitative, Diagnostic) should be ordered to evaluate for all possible fusion forms. Please contact the lab at with questions or if additional testing is required. See the [facility] Interpretive Handbook for method details. Typical clinical samples have detection limits ranging from 0.01% to 0.0001% bcr/abl:abl. Most CML patients at diagnosis have a bcr/abl:abl result in the range of 20% to 100%. The reproducibility of this assay is such that results within 0.5 log should be considered equivalent. Trends in the level of BCR/ABL mRNA should be followed and clinically significant changes verified with a subsequent specimen. Laboratory developed test. Test Performed by: [place] [address] Bar[employer] Dedenting Machine Operator: Prince Ha III, M.D. 40 Because ethnic data is not always readily available, this report includes an eGFR for both -Americans and non- Americans. The National Kidney Disease Education Program (NKDEP) does not endorse the use of the MDRD equation for patients that are not between the ages of 18 and 70, are , have extremes of body size, muscle mass, or nutritional status, or are non- or non-. According to the National Kidney Foundation, irrespective of diagnosis, the stage of the disease is based on the level of kidney function: Stage Description GFR(mL/min/1.73 m(2)) 1 Kidney damage with normal or decreased GFR 90 2 Kidney damage with mild decrease in GFR 60-89 3 Moderate decrease in GFR 30-59 4 Severe decrease in GFR 15-29 5 Kidney failure <15 (or dialysis) 41 EDTA whole blood PDF Report available at: https://[email or web address]/[email or web address] 42 Peripheral blood, BCR/ABL mRNA level analysis (p210 fusion form): Positive. BCR/ABL p210 mRNA transcripts were detected and estimated to represent 0.06% of total abl (%bcr/abl(p210):abl). 0.06% bcr/abl(p210):abl in this assay is equivalent to 0.2% on the International Scale in which 0.1% is considered a major molecular response in CML (see [place] et al, Blood 2008;112:3330). Signing Pathologist: Eduardo Meza M.D. Method summary - BCR/ABL, p210 fusion: p210 mRNA transcript level was evaluated using quantitative, reverse diplomatic officer PCR. The assay detects the two most common fusion forms in chronic myelogenous leukemia: e13/a2 and e14/a2, which code for p210 proteins. It is intended for monitoring patients with neoplasms known to carry the p210 fusion form. The assay does not detect other fusions, including those for the p190 protein commonly present in acute lymphoblastic leukemia. This assay should not be used in the diagnostic setting, as it does not detect all bcr/abl fusion forms. If this has been ordered in a diagnostic setting and the result is negative, test #67962 (BCR/ABL mRNA Detection, RT-PCR, Qualitative, Diagnostic) should be ordered to evaluate for all possible fusion forms. Please contact the lab at with questions or if additional testing is required. See the [facility] Interpretive Handbook for method details. Typical clinical samples have detection limits ranging from 0.01% to 0.0001% bcr/abl:abl. Most CML patients at diagnosis have a bcr/abl:abl result in the range of 20% to 100%. The reproducibility of this assay is such that results within 0.5 log should be considered equivalent. Trends in the level of BCR/ABL mRNA should be followed and clinically significant changes verified with a subsequent specimen. Laboratory developed test. Test Performed by: [place] [address] Barrel Dedenting Machine Operator: Prince Ha III, M.D. 43 Because ethnic data is not always readily available, this report includes an eGFR for both -Americans and non- Americans. The National Kidney Disease Education Program (NKDEP) does not endorse the use of the MDRD equation for patients that are not between the ages of 18 and 70, are , have extremes of body size, muscle mass, or nutritional status, or are non- or non-. According to the National Kidney Foundation, irrespective of diagnosis, the stage of the disease is based on the level of kidney function: Stage Description GFR(mL/min/1.73 m(2)) 1 Kidney damage with normal or decreased GFR 90 2 Kidney damage with mild decrease in GFR 60-89 3 Moderate decrease in GFR 30-59 4 Severe decrease in GFR 15-29 5 Kidney failure <15 (or dialysis) 44 Peripheral blood, BCR/ABL mRNA level analysis (p210 fusion form): Positive. BCR/ABL p210 mRNA transcripts were detected and estimated to represent 0.02% of total abl (%bcr/abl(p210):abl). 0.02% bcr/abl(p210):abl in this assay is equivalent to 0.05% on the International Scale in which 0.1% is considered a major molecular response in CML (see [place] et al, Blood 2008;112:3330). Previous specimens from this patient have been tested in this laboratory using this method and a summary of results will be faxed provided our laboratory has a current, secure fax number on file. If a faxed report is not received, please call the [facility] ( ) to provide a fax number. Signing Pathologist: New Andrew M.D., Ph.D. Method summary - BCR/ABL, p210 fusion: p210 mRNA transcript level was evaluated using quantitative, reverse diplomatic officer PCR. The assay detects the two most common fusion forms in chronic myelogenous leukemia: e13/a2 and e14/a2, which code for p210 proteins. It is intended for monitoring patients with neoplasms known to carry the p210 fusion form. The assay does not detect other fusions, including those for the p190 protein commonly present in acute lymphoblastic leukemia. This assay should not be used in the diagnostic setting, as it does not detect all bcr/abl fusion forms. If this has been ordered in a diagnostic setting and the result is negative, test #62462 (BCR/ABL mRNA Detection, RT-PCR, Qualitative, Diagnostic) should be ordered to evaluate for all possible fusion forms. Please contact the lab at with questions or if additional testing is required. See the [facility] Interpretive Handbook for method details. Typical clinical samples have detection limits ranging from 0.01% to 0.0001% bcr/abl:abl. Most CML patients at diagnosis have a bcr/abl:abl result in the range of 20% to 100%. The reproducibility of this assay is such that results within 0.5 log should be considered equivalent. Trends in the level of BCR/ABL mRNA should be followed and clinically significant changes verified with a subsequent specimen. Laboratory developed test. Test Performed by: [address] [address] Bar[employer] Dedenting Machine Operator: Prince Ha III, M.D. 45 Because ethnic data is not always readily available, this report includes an eGFR for both -Americans and non- Americans. The National Kidney Disease Education Program (NKDEP) does not endorse the use of the MDRD equation for patients that are not between the ages of 18 and 70, are , have extremes of body size, muscle mass, or nutritional status, or are non- or non-. According to the National Kidney Foundation, irrespective of diagnosis, the stage of the disease is based on the level of kidney function: Stage Description GFR(mL/min/1.73 m(2)) 1 Kidney damage with normal or decreased GFR 90 2 Kidney damage with mild decrease in GFR 60-89 3 Moderate decrease in GFR 30-59 4 Severe decrease in GFR 15-29 5 Kidney failure <15 (or dialysis) 46 Peripheral blood, BCR/ABL mRNA level analysis (p210 fusion form): Positive. BCR/ABL p210 mRNA transcripts were detected and estimated to represent 0.08% of total abl (%bcr/abl(p210):abl). 0.08% bcr/abl(p210):abl in this assay is equivalent to 0.2% on the International Scale in which 0.1% is considered a major molecular response in CML (see [place] et al, Blood 2008;112:3330). Previous specimens from this patient have been tested in this laboratory using this method and a summary of results will be faxed provided our laboratory has a current, secure fax number on file. If a faxed report is not received, please call the [facility] ( ) to provide a fax number. Signing Pathologist: Eduardo Meza M.D. Method summary - BCR/ABL, p210 fusion: p210 mRNA transcript level was evaluated using quantitative, reverse diplomatic officer PCR. The assay detects the two most common fusion forms in chronic myelogenous leukemia: e13/a2 and e14/a2, which code for p210 proteins. It is intended for monitoring patients with neoplasms known to carry the p210 fusion form. The assay does not detect other fusions, including those for the p190 protein commonly present in acute lymphoblastic leukemia. This assay should not be used in the diagnostic setting, as it does not detect all bcr/abl fusion forms. If this has been ordered in a diagnostic setting and the result is negative, test #08213 (BCR/ABL mRNA Detection, RT-PCR, Qualitative, Diagnostic) should be ordered to evaluate for all possible fusion forms. Please contact the lab at with questions or if additional testing is required. See the [facility] Interpretive Handbook for method details. Typical clinical samples have detection limits ranging from 0.01% to 0.0001% bcr/abl:abl. Most CML patients at diagnosis have a bcr/abl:abl result in the range of 20% to 100%. The reproducibility of this assay is such that results within 0.5 log should be considered equivalent. Trends in the level of BCR/ABL mRNA should be followed and clinically significant changes verified with a subsequent specimen. Laboratory developed test. Test Performed by: [place] [address] Barrel Dedenting Machine Operator: Prince Ha III, M.D. 47 CBC and smear reviewed. Findings consistent with probable treatment effects. REVIEWED BY EDI BLEVINS MD 48 RUN DATE: 01/10/13 [facility] LAB LIVE PAGE 1 RUN TIME: [address] [place] [address] Specimen Inquiry Name: BRIDGETMAXGABRIELMAGDI Lino : [address]: Kosta Dumont MD Acct: [id number] Unit: [id number] AGE: 57 Location: [facility] Re01/06/13 SEX: M Status: REG REF SPEC: [id number] NAOMIE: 01/06/13- SUBM DR: Kosta Dumont MD REQ: [id number] RECD: 01/06/13-1755 STATUS: EPIFANIO SMALL DR: Teja Ramos MD _ ORDERED: LEVEL IV FINAL DIAGNOSIS Colon, rectum, biopsy: Hyperplastic polyp. CLINICAL HISTORY Change in bowel habits, weight loss POST-OPERATIVE DIAGNOSIS Colonoscopy into terminal ileum, prep good - 3 small rectal polyps removed GROSS DESCRIPTION The specimen is received in formalin labeled Magdi Cheek, Biopsy Rectal Polyps, and consists of multiple taylor, soft tissue fragments measuring 0.6 x 0.2 x 0.2 cm. in aggregate. Submitted entirely, one cassette. Signed (signature on file) Edi Blevins MD 1157 END OF REPORT * ML=Testing performed at Main Lab DEPARTMENT OF PATHOLOGY, [address] [place] [address] Edi Blevins M.D. Director [facility] Permit #[id number] [phone] Patient Name: MAGDI CHEEK Collection Date: 12/05/2012 Ordering Physician: Zen Talavera Received Date: 12/06/2012 Treating Physician: Not Given Report Date: 12/08/2012 Ordering Facility: [facility] Ref #: [id number] Specimen ID #: [id number] Date of ,Sex: 1955, M INTERPRETATION: BCR-ABL1 Fusion Transcript Analysis by RT-PCR Positive for BCR-ABL1 transcripts, b3a2 and b2a2 (p210) Indication for Study: Specimen Type: CML Peripheral Blood Comments: The quantitative RT-PCR assay was positive for b3a2 and b2a2 (p210) fusion transcripts. The BCR-ABL1 fusion transcript is formed by a (9;22)(q34;11.2) translocation between the BCR gene on chromosome 22 and the Ab[place]on (ABL1) protooncogene on chromosome 9 resulting in formation of [place] chromosome on chromosome 22. The breakpoint on the ABL1 gene is relatively conserved and is usually in the intron before exon 2 (a2). The breakpoints on the BCR gene involve either the major breakpoint cluster region (M-bcr) between exons 12-16 (b1-b5 region) or the minor breakpoint cluster region (m-bcr) between exons 1-2 (e1 region) and rarely the micro region ( -bcr) between exons 17-20 (c1-c4 region). In the vast majority of chronic myelogenous leukemia (CML) cases ( R 99%), the translocation involves the M-bcr and encodes a p210 fusion protein. The -bcr results in a larger fusion protein, p230, and is characteristically seen in neutrophilic CML in which mature granulocytes predominate. The incidence of t(9;22) is relatively more common in adult acute lymphocytic leukemia (ALL) cases (25%) than in pediatric ALL cases (5%), involving the M-bcr and m-bcr in 40% and 60% of the adult ALL cases and in 10% and 90% of pediatric ALL cases respectively. These results should be interpreted in the context of all clinical and laboratory findings. Analytical Results: Assay Type Detection Parameters Result Major Breakpoint p210 transcript b3a2 Detected, 0.045% Major Breakpoint p210 transcript b2a2 Detected, 0.021% Minor Breakpoint p190 transcript e1a2 Not Detected [facility] [address] [place] [address] Page 1 of 3 [facility] F Client Services: [phone] [email or web address] Patient Name: MAGDI CHEEK Collection Date: 12/05/2012 Ordering Physician: Zen Talavera Received Date: 12/06/2012 Treating Physician: Not Given Report Date: 12/08/2012 Ordering Facility: [facility] Ref #: [id number] Specimen ID #: [id number] Date of ,Sex: 1955, M Quantitative Testing History (Percentage) 09/07/2012 12/05/2012 p190 transcript e1a2 <0.001 <0.001 p210 transcript b2a2 0.022 0.021 p210 transcript b3a2 0.081 0.045 *<0.001 values are plotted as 0.0001 and are below the sensitivity of detection for this assay. [facility] [address] [place] [address] Page 2 of 3 [facility] F Client Services: [email or web address] Patient Name: MAGDI CHEEK Collection Date: 12/05/2012 Ordering Physician: Zen Talavera Received Date: 12/06/2012 Treating Physician: Not Given Report Date: 12/08/2012 Ordering Facility: [facility] Ref #: [id number] Specimen ID #: [id number] Date of ,Sex: 1955, M at [employer], [employer]. James Villanueva, Ph.D., [facility] Methodology: Total RNA was isolated from the provided specimen and subjected to reverse diplomatic officer-polymerase chain reaction (RT-PCR). Amplification products were monitored by real-time PCR using primers and probes specific for the b3a2, b2a2, and e1a2 fusion transcripts. An additional RT-PCR amplification of the ABL1 transcript was performed to control for cDNA quantity and quality. Serial dilutions of RNA isolated from a cell line with a known t(9;22) was utilized for quantification of BCR-ABL1 fusion transcripts relative to the ABL1 control gene. The numeric value of BCR-ABL1/ABL1 is reported as percentage. In vitro studies have indicated that this assay has an analytical sensitivity that allows for the detection of approximately 1 cell containing the p190/p210 BCR-ABL1 fusion gene in a background of 100,000 normal cells. Intended Use: The BCR-ABL1 Quantitative RT-PCR assay detects three fusion transcripts commonly observed in patients with chronic myelogenous leukemia (CML) and in a subset of patients with acute lymphocytic leukemia (ALL). The results should be interpreted in the context of all clinical and laboratory findings. No therapeutic action should be taken solely based upon these results. References: Guicho T and Jose S: Molecular Monitoring of Chronic Myeloid Leukemia. Seminars in Hematology 2003; 40 (2, Suppl 2): 62-68. Angie R, Osorio HM, Howard BJ, Gene M, Breckinridge Chromosome-Positive Leukemias: From Basic mechanisms to molecular Therapeutics, Laura Mechanical Assembly Technician med. 2003; 138:819-830. Robert Pettit, Sid Valencia, (2007). Myeloproliferative Disorders and Myelodysplastic Syndromes. Riley WHITING, Molecular Pathology in Clinical Practice, Second Edition (pp.383-385). Penaloza Disclaimer [facility] is a business unit of [employer], a wholly-owned subsidiary of [employer]. Professional Component performed at [employer] at [address] [place], [address] - Ems Educator: James Villanueva, Ph.D. Technical Component performed at [address] [place], [place] [address], [place], [address] Any image(s) that accompany this report is/are a account services representative image(s) only and should not be used to render a diagnosis. [facility] at [address] [address] Page 3 of 3 [facility] Client Services: [phone] [email or web address] Because ethnic data is not always readily available, this report includes an eGFR for both -Americans and non- Americans. The National Kidney Disease Education Program (NKDEP) does not endorse the use of the MDRD equation for patients that are not between the ages of 18 and 70, are , have extremes of body size, muscle mass, or nutritional status, or are non- or non-. According to the National Kidney Foundation, irrespective of diagnosis, the stage of the disease is based on the level of kidney function: Stage Description GFR(mL/min/1.73 m(2)) 1 Kidney damage with normal or decreased GFR 90 2 Kidney damage with mild decrease in GFR 60-89 3 Moderate decrease in GFR 30-59 4 Severe decrease in GFR 15-29 5 Kidney failure <15 (or dialysis) 51 FASTING 52 Interpretation: 10-24 (mild to moderate deficiency) -- REFERENCE VALUE -- 25-HYDROXY D TOTAL (D2+D3) Optimum levels in the normal population are 25-80 Test Performed by: [address] [address] Bar[employer] Dedenting Machine Operator: Prince Ha III, M.D. 53 HDL Interpretation: Undesirable: High Risk: Less than 40 MG/DL Desirable: Low Risk: Greater than 60 MG/DL 54 LDL Interpretation: Low Risk Optimal Level: LDL Less than 100 MG/DL Near or Above Optimal: LDL 100-129 MG/DL Borderline High Risk: LDL 130-159 MG/DL High Risk: LDL 160-189 MG/DL Very High Risk: LDL Greater than 189 MG/DL Procedures Date CPT Code Description Status Comment 12/03/2016 38974 EKG Tracing & Interpretation Completed 11/24/2016 11758 Treadmill Interp/Report Only Completed 11/24/2016 05634 Stress Test Supervsn W/Out I/R Completed 11/06/2016 65596 ECHO Transthoracic, Real-Time 2D With Completed Doppler And Color Flow 11/02/2016 13601 EKG Tracing & Interpretation Completed 03/12/2016 84955 Polysomnography Sleep Staging 4+ Parameters Completed 07/25/2014 92697 Polysomnography Sleep Staging 4+ Parameters Completed W/Cpap 06/05/2014 88913 Spirometry Incl Graphic Record Completed 05/25/2014 94011 EKG, Interpretation Only Completed 05/25/2014 23935 Arthrotomy Elbow W/Joint Exploration Completed 05/22/2014 37603 Polysomnography Sleep Staging 4+ Parameters Completed 05/08/2014 13206 EKG Tracing & Interpretation Completed 04/25/2014 24412 Rad Exam; Elbow, Comp Completed 04/25/2014 90041 Rad Exam; Elbow, Comp Completed 01/06/2013 Colonoscopy Completed 06/15/2011 81842 EKG, Interpretation Only Completed 06/08/[address] Dumont 02/27/2008 60716 Spirometry Incl Graphic Record, Timed Completed Expiratory Flow Rate 01/11/2007 17480 Holter Monitor Review (24 hr)dr morocho & Completed interp only 01/11/2007 08064 Holter Monitor Review (24 hr)dr morocho & Completed interp only 10/22/2006 02294 EKG Tracing & Interpretation Completed Encounters Type Date Location Provider CPT E/M Dx Office Visit 12/27/2017 3:00p [facility] [place] [address] Z00.00 Indu Z13.220 Z13.1 L40.8 M54.5 M25.571 M72.2 Office Visit 12/24/2017 9:30a [facility] Sauer M.D. 55678 M25.552 Estela M16.12 M25.551 M16.11 Office Visit 11/24/2017 3:00p [facility] Alexandra Zamora, [address]704 S50.02xA Of Estela Cobb Office Visit 04/13/2017 11:30a [facility] Internal EricRajat Garcia, 50344 M54.5 Medicine - Indu Cobb,FAC Office Visit 04/12/2017 1:00p [facility] Lacey Sauer M.D. 47405 M25.552 Of Estela M16.12 Office Visit 03/26/2017 9:15a [facility] Eduardo Aguilar, [address]76[address] K21.0 Julissa Cobb Office Visit 12/03/2016 2:00p [place] [address] R07.2 [facility] FACC R06.02 Office Visit 11/21/2016 10[facility] [place] [address] R07.2 Hospitalists C92.10 G47.33 K21.9 Office Visit 11/02/2016 3:00p [place] [address] R06.02 [facility] R07.9 R94.31 F17.201 Office Visit 08/06/2016 11:12a [facility], Jaylan Cueto, [address]74 R29.818 Hospitalists Reza G43.109 C92.10 G47.33 Office Visit 08/05/2016 4:04p [facility] Eduardo Steward, 61082 G43.109 Office Visit 08/05/2016 11:12a [facility], Awilda Vazquez 04683 R29.818 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 C92.10 G43.109 G47.33 Office Visit 02/05/2016 2:50p [facility] Internal Eric Garcia, 87372 Z00.01 Medicine - [place] Reza,FACP G47.33 C92.10 Z12.2 Z72.0 Z11.59 Office Visit 05/10/2015 9:30a [facility] Bala Clements [address] 841.8 C.Tamica Cobb Office Visit 11/02/2014 8:00a [facility] Mansi Eirc 08935 327.23 Services Of [facility] JOLEEN CONKLIN, [facility] Office Visit 06/15/2014 11:00a [facility] Mansi Eric 30969 327.23 Services Of [facility] JOLEEN CONKLIN, [facility] Office Visit 05/08/2014 3:00p [facility] Eduardo Hale, [place] [address] 785.1 - [place] 786.05 Office Visit 04/25/2014 11:30a [facility] Alexandra Zamora [address] 719.42 Of [facility] 718.13 Office Visit 12/26/2013 2:40p [facility] Elaine Henriquez, N.P. 46495 787.02 - [place] Office Visit 11/20/2013 11:15a [facility] Alexandra Zamora 77160 842.02 Of [facility] Office Visit 11/06/2013 9:15a [facility] Alexandra Zamora [address]52[address] 842.00 Of [facility] Office Visit 10/11/2013 9:15a [facility] Alexandra Zamora 757[address] 842.00 Of [facility] 842.02 Office Visit 02/01/2013 9:45a [facility] Alexandra Zamora [address]3703 715.93 Of [facility] Office Visit 01/25/2013 11:15a [facility] Alexandra Zamora 21403 715.93 Of [facility] Office Visit 01/12/2013 3:40p [facility] Eric Garcia, 77693 205.10 - [place] M.D.,FACP 268.9 719.42 Office Visit 10/14/2012 3:00p [facility] Eric Sim[place], [address] V70.0 - [place] M.D.,FACP 600.00 530.81 205.10 780.4 268.9 Office Visit 07/19/2008 9:00a DO Not Use [employer] [facility] Franciagisella Ramos, 47944 780.79 M.D., FACP Office Visit 04/16/2008 9:30a DO Not Use [employer] [facility] Francia Rachel, 46205 455.4 M.D., FACP Office Visit 04/12/2008 3:30p DO Not Use [employer] [facility] Franciagisella Ramos, 90679 727.04 M.D., FACP 780.79 530.81 Office Visit 03/08/2008 4:00p DO Not Use [employer] [facility] Francia Ramos, 85298 787.02 M.D., FACP 780.79 Office Visit 01/26/2008 4:00p DO Not Use [employer] [facility] Francia Rachel, 53681 786.05 M.D., FACP 780.79 Office Visit 11/18/2007 2:45p DO Not Use [employer] [facility] Franciagisella Ramos, 94164 780.79 M.D., FACP Office Visit 07/05/2007 2:45p DO Not Use [employer] [employer] [facility] Francia Ramos, 31027 787.20 M.D., FACP Office Visit 05/26/2007 4:15p DO Not Use [employer] [employer] [facility] Gracy Neff, 80304 780.4 M.D. Office Visit 04/28/2007 3:45p DO Not Use [employer] [facility] Franciagisella Ramos, 93528 780.79 M.D., FACP Office Visit 01/28/2007 11:15a DO Not Use [employer] [facility] Franciagisella Ramos, 47192 401.1 M.D., FACP 780.2 305.1 Office Visit 01/03/2007 3:00p DO Not Use [employer] [facility] Elaine Henriquez, 39831 780.2 N.P. Office Visit 12/28/2006 11:45a DO Not Use [employer] [employer] [facility] Francia Ramos M.D., 66259 401.1 FACP 272.4 780.4 Office Visit 11/19/2006 10:00a DO Not Use [employer] [facility] Francia Ramos, 57302 272.4 M.D., FACP 796.2 Office Visit 10/22/2006 10:15a DO Not Use [employer] [facility] Francia Ramos, 52888 V70.0 M.D., FACP 272.0 Plan of Care Future Appointment(s):04/13/2018 2:45 pm - Alejandro Diaz MD at [facility]12/28/2018 3:00 pm - Simon Berrios NP at [facility] - Tkaueqivp26/01/2018 - Alejandro Diaz, MDM72.2 Plantar fascial fibromatosisNew Therapy:Physical TherapyFollow up:Follow Up: 3 qygdjkG13.271 Osteochondritis dissecans, 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
== END 2018-02-01 13:12 | disposition left against medical advice (07) ==
LOC: ED 12:25
DX: R51 Headache (principal); Z53.21 Procedure and treatment not carried out due to patient leaving prior to being seen by health care provider

== ENCOUNTER 2018-05-05 06:02 | Day surgery (SDC) | payer OTHER ==
[~2018-05-05 06:02] MED LIST: Buffered Lidocaine 0.9% SYRIN* 5 ML/SYR SYRINGE INTRADERM ONE; Famotidine IV* 10 MG/ML 2 ML (20 mg) IV ONE
[2018-05-05] MEDS ORDERED: Famotidine IV* 10 MG/ML 2 ML (20 mg) ONE (06:12)
[2018-05-05] MEDS ORDERED: ceFAZolin 2 GM PREMIX (*) 2 GM/50 ML BAG IVPB ONE (06:13)
[2018-05-05] MEDS ORDERED: Propofol* 10 MG/ML 20 ML BTL IV PUSH ONE (06:59)
[2018-05-05] MEDS ORDERED: Lidocaine 2% PF * 5 ML VIAL ONE (06:59)
[2018-05-05] MEDS ORDERED: Midazolam* 1 MG/ML 2 ML VIAL (2 MG) ONE (06:59)
[2018-05-05] MEDS ORDERED: fentaNYL* 50 MCG/ML 2 ML VIAL (100 MCG VIAL) ONE ×2 (06:59→10:31)
[2018-05-05] MEDS ORDERED: Bupivacaine 0.25% W/EPI* 10 ML SDV ONE (07:00)
[2018-05-05] MEDS ORDERED: ROPIVACAINE 5 MG/ML 30 ML BTL (0.5%) ONE ×2 (07:00→07:47)
[2018-05-05] MEDS ORDERED: Mivacurium Chloride* 20 MG/10 ML VIAL IV ONE (07:38)
[2018-05-05] MEDS ORDERED: EPHEDrine (Pressors)* 50 MG/ML VIAL ONE (08:32)
[2018-05-05] MEDS ORDERED: oxyCODONE TAB* 5 MG TAB PO PRN (09:19)
[2018-05-05] MEDS ORDERED: PROCHLORPERAZINE INJ 5 MG/ML 2 ML VIAL IV PRN (09:19)
[2018-05-05] MEDS ORDERED: DiMENhydriNATE IV* 50 MG/ML VIAL IV PUSH PRN (09:19)
[2018-05-05] MEDS ORDERED: fentaNYL* 50 MCG/ML 2 ML VIAL (100 MCG VIAL) IV PRN (09:19)
[2018-05-05] MEDS ORDERED: Naloxone* 0.4 MG/ML 1 ML VIAL IV PRN (09:19)
[2018-05-05] MEDS ORDERED: Ondansetron INJ* 2 MG/ML VIAL ONE (10:17)
--- NOTE | 2018-05-05 11:27 | OP ---
Operative Report - Blank - Operative Report Date of Operation: 05/05/18 Note: PATIENT: Chris Cheek DATE OF : 1955 DATE OF SURGERY: 05/05/2018 SURGEON: Alejandro Diaz MD REGIONAL HR MANAGER: LETICIA Craft, whos assistance was necessary for positioning, retraction, help with instrumentation, and closure. ANESTHESIOLOGIST: Dr. 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 Right tibial osteotomy 2. Right ankle open treatment of talar osteochondral lesion with autograft and allograft. 3. Right ankle modified Brostrom procedure lateral ligament reconstruction. ANESTHESIA: GETA + regional nerve block IMPLANTS: Two Arthrex 4.0mm cannulated screws. One Arthrex solid 4.5mm cancellous screw. TOURNIQUET TIME: Two hours with a well-padded thigh tourniquet at 250 mmHg SPECIMENS: none ESTIMATED BLOOD LOSS: minimal COMPLICATIONS: none STATUS: Stable from the operating room to the recovery room and then home. INDICATIONS FOR PROCEDURE: Chris has had persistent pain and instability of the right ankle. Chris also has chronic plantar fasciitis, and we had discussed a Sergey procedure, but he decided he would like to hold off on that for now. Both operative and non operative treatment alternatives were reviewed. Further, the nature and risks of surgery were reviewed in careful detail, in the office as well as the pre- operative holding area. Our discussions regarding the risks of surgery included , but were not limited to, infection, wound problems, nerve injury, neuroma, RSD , persistent symptoms, persistent instability, blood clot, arthritis, need for further surgery, failure of the surgery, and even the remote chance of catastrophic complication, including loss of limb. DESCRIPTION OF PROCEDURE: The patient was seen in the preoperative holding unit and informed written consent was obtained. The appropriate extremity was marked. The patient was then brought to the operating room and carefully positioned on the operating room table. Anesthesia was induced. All bony prominences were padded with great care. A well-padded thigh tourniquet was placed. A chlorhexidine based pre- scrub was performed followed by a chloraprep prep and drape in standard sterile fashion. A surgical safety pause was then conducted in which we confirmed the appropriate patient, extremity, planned procedure, availability of equipment, indication and administration of prophylactic antibiotics, and DVT prophylaxis in the form of a compression boot on the non-surgical extremity. An Esmarch exsanguination of the limb was then performed and the tourniquet inflated. A medial longitudinal incision was made over the medial malleolus and distal tibia. The entire medial malleolus was exposed in preparation for the osteotomy. Two guide pins were placed parallel to the tibiotalar joint, at the level of the physeal scar. Another guidepin was placed retrograde up the medial malleolus, parallel to the medial gutter. The depths of the guidewires were checked and then the guidewires were overdrilled for later placement of 4.0 mm cannulated screws. I then placed a guidewire obliquely to plan out the osteotomy. This was checked under fluoroscopy. I then used an oscillating saw to osteotomize the medial tibia to the level of the physeal scar, while using cold irrigation. A large Lambotte osteotome was then placed into this osteotomy cut to complete the osteotomy into the tibiotalar joint. This made and an irregular osteochondral surface at the most distal portion of the osteotomy to later ease reduction of the osteotomy at the end of the case. The medial fragment of the osteotomy was windowed open, providing excellent visualization of the medial talus. The osteochondral lesion was easily identified. I used the sizing guide to decide on a 10 mm diameter plug. The guide pin for the reamer was placed perpendicular to the talus. The lesion was reamed to a depth of 13 mm. Cold irrigation was used during reaming. We then irrigated the recipient site and I used a 15 blade scalpel to remove any overhanging cartilage. I then turned my attention to the allograft. I used the donor harvesting punch to harvest an osteochondral plug. I then trimmed with the plug to match the depth of the recipient site. Pulse irrigation was used to remove any remaining marrow substance. At this point, I obtained tibial autograft bone. I placed this autogenous bone graft into any irregularities at the interface where I would be fixating the allograft, thus providing a nice smooth recipient site surface. The allograft plug was then inserted by hand into the recipient site. A tamp was then used to gently finish the insertion of the allograft until the cartilage surface was flush with the rest of the talar dome. There was a great snug fit. The joint was then thoroughly irrigated. I then reduced the tibial osteotomy, and placed two partially threaded 4.0 mm cannulated screws at the physeal scar, which I had already drilled. The saw blade was placed into the oblique osteotomy during fixation of the osteotomy, so as to make sure I had an anatomic reduction. Finally, the fully threaded screw up the medial malleolus was placed. Final fluoroscopic images were obtained confirming excellent placement of the graft as well as anatomic reduction of the tibial osteotomy. The wound was then copiously irrigated. I then made a longitudinal incision overlying the distal fibula. This was made in line with the distal fibula and then curving anteriorly in line with the fourth ray. Dissection was carried down through the soft tissues. Superficial hemostasis was obtained. I dissected down to the lateral aspect of the fibula at the periosteal and ligamentous layer and then dissected anteriorly to expose the anterolateral ankle ligaments. We protected the superficial peroneal nerve at all times, which was not visualized within our field. Once we had adequately exposed a pocket anterior to the ligaments, we sharply took the ligaments down off of the anterior and distal aspect of the fibula using a 15 blade. The inferior extensor retinaculum was exposed and protected for subsequent repair later in the procedure. I then utilized a rongeur to make a trough along the fibula to receive the reconstructed ligaments. I then utilized 0.045 and 0.062 inch K-wires to drill holes in the fibula for a transosseous suture repair of the lateral ligaments utilizing a horizontal mattress suture. Multiple #1 Vicryl sutures were passed through the fibula and then through the ligaments and then back through the fibula. These sutures were all passed with great care taken to appropriately tension both the ATFL as well as the CFL in order to get a nice tight repair. We held the ankle in a dorsiflexed and everted position while the ligaments and sutures were tied down over the fibular bone bridges. These held the ankle in a much improved position with excellent tension on the ligaments. We then utilized a rotational flap from the periosteum overlying the distal fibula to augment the repair. This was sewn down using a horizontal mattress stich overlying the ATFL. We further augmented the repair by bringing the inferior extensor retinaculum up to the fibula. There was a much improved anterior drawer at this point as compared to pre-operatively. The wound was copiously irrigated. 3-0 Monocryl was used to close the sheath around the posterior tibial tendon. The wounds were then copiously irrigated. The wounds were then closed in a layered fashion utilizing 3-0 Monocryl and skin kartik. At this point, a sterile dressing was applied and the ankle was splinted in a neutral position. The patient was then awakened from anesthesia and transferred to the recovery room in stable condition. There were no complications. All needle and sponge counts were correct at the end of the case. ATTESTATION: I attest I was present and scrubbed and performed the critical portions of the procedure myself. POSTOPERATIVE PLAN: The patient will remain nonweightbearing for at least six weeks. Follow up will be in two weeks for likely suture removal, Steri-Strip application and transition into a short leg cast.
[2018-05-05 13:01] VITALS: BP 127/64
--- NOTE | 2018-05-06 15:33 | RAD ---
INDICATION: Right ankle tibial osteotomy, osteochondritis dissecans, 93.271 COMPARISONS: CT dated March 11, 2018 TECHNIQUE: Fluoroscopy was provided for a surgical procedure. Total fluoroscopy time is: 34.6 seconds FINDINGS: Spot images demonstrate osteotomy and internal fixation of the medial distal tibia. IMPRESSION: FLUOROSCOPY WAS PROVIDED FOR A SURGICAL PROCEDURE CPT II Codes: G9500
== END 2018-05-05 13:46 | disposition home or self-care (01) ==
LOC: OR 06:02
PROVIDERS: ATTEND Orthopaedic Surgery
DX: 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, right ankle and joints of right foot (principal); M25.371 Other instability, right ankle; M72.2 Plantar fascial fibromatosis; K21.9 Gastro-esophageal reflux disease without esophagitis; G47.33 Obstructive sleep apnea (adult) (pediatric); Z85.6 Personal history of leukemia
CPT/HCPCS: 36415; 76000; 86850; 86900; 86901; C1713; C1776; J0690; J2250; J2405; J2704; J2795; J3010

== ENCOUNTER → 2018-05-07 14:09 | Emergency (ER) | payer OTHER ==
--- OUTSIDE RECORDS SUMMARY | 2018-05-07 14:50 | XMS REPORT ---
:1955 External Reference #:[id number] Author Organization [facility] Address [address] [place] [address] Phone [phone] Care Team Providers Name Role Phone Eric Garcia MD Primary Care Physician Unavailable Payers Type Date Identification Numbers Payment Provider Subscriber Commercial Policy Number: [id number] [employer] Anna Cheek Group Number: [id number] [address] PayID: [id number] [place] [address] Medigap Part B Expires: 2007 Policy Number: [employer] Cheek [id number] Group Number: [id number] [address] PayID: [id number] [place] [address] Workers Compensation Onset: 2013 Policy Number: Nehal Lino [id number] [facility] PayID: RENATE Ulrich [id number] [place] [address] Problems Date Description Provider Status Onset: 10/14/2012 Benign prostatic hypertrophy Eric Garcia Active without outflow obstruction Reza,FACP Onset: 10/14/2012 Gastroesophageal reflux disease Torsten Ferrer M.D.,FACP Onset: 10/14/2012 Chronic myeloid leukemia Torsten Ferrer M.D.,FACP Onset: 12/07/2012 Vitamin D deficiency Torsten Ferrer M.D.,FACP Onset: 06/15/2014 Obstructive sleep apnea of adult Mansi Eric DNP, RN, Active [employer] Onset: 05/10/2015 Sprain of elbow and forearm [...] : (age 73 Years) Father due to [place] Father Diabetes, Non Insulin Dependent Mother Diabetes Type II Siblings 3 Social History Type Date Description Comments Marital Status Lives With Occupation [employer] Cigarette Use Former Cigarette Smoker Cigarette Use [...] Form Strength Qnty SIG Indications Ordering Provider Imatinib / Active Unknown Mesylate 0000 Meloxicam 12/24/ Hx Tablets 15mg 30tabs 1 by mouth M25.552 Lacey 2017 - every day Camacho 03/13/ Reza 2018 Aspirin 08/07/ Hx Chewtabs 81mg 30unit 1 by mouth Other Childrens 2016 - s every day Ordering 11/24/ Provider 2018 Klor-Con 10 04/06/ Hx Tablets ER 10Meq 30tabs 1 by mouth Eric 2013 - every day Simi Garcia, 06/06/ M.D.,FACP 2013 Vitamin D 04/06/ Hx Tablets 1000Unit 30tabs by mouth Eric 2014 - everyday Simi Garcia, 06/06/ M.D.,FACP 2013 Vitamin D 01/12/ Hx Capsules 1000Unit 30caps po qd 268.9 Eric Garcia, 12/26/ Reza,[facility] 2013 Fibercon 10/14/ Hx Tablets 625mg 90tabs 1 po qd 530.81 Eric Garcia, 12/26/ Reza,[facility] 2014 Multi Vitamin 00/00/ Hx Tablets 1 po qd Unknown Mens 0000 - 2013 Probiotic /00/ Hx Capsules 1 po qd Unknown 0000 - 2012 Gleevec 00/ Hx Tablets 200mg po qd Unknown 0000 - 2017 Ibuprofen 00/ Hx Tablets 600mg 60tabs 1 po tid Unknown 0000 - prn 2017 [place] 00/ Hx Tablets 5-325mg 30tabs 1-2 by [...] 0000 - DR every day 2017 Imatinib /00/ Hx Tablets 200mg Unknown Mesylate 0000 - 2016 Immunizations CPT Code Status Date Vaccine Lot # [id number] Refused 02/05/2016 Pneumococcal Conjugate Vaccine 13 Valent For Intramuscular Use Vital Signs Date Vital Result Comment 04/13/2018 Height 65.5 inches 5'5.50" Weight 170.00 lb BP Systolic 134 mmHg BP Diastolic 78 mmHg Respiratory Rate 16 /min Pain Level 7 BMI (Body Mass Index) 27.9 kg/m2 02/23/2018 Height 65.5 inches 5'5.50" Weight 172.00 lb BP Systolic 148 mmHg BP Diastolic 78 mmHg Respiratory Rate 16 /min Body Temperature 98.0 F Pain Level 8 BMI (Body Mass Index) 28.2 kg/m2 01/11/2018 Height 65.5 inches 5'5.50" Weight 172.00 [...] Result H/L Range Note CBC Auto Diff 04/08/2018 White Blood Count 4.8 10^3/uL 3.5-10.8 Red Blood Count 4.38 10^6/uL 4.00-5.40 Hemoglobin 13.8 g/dL Low 14.0-18.0 Hematocrit 39 % Low 42-52 Mean Corpuscular Volume 90 fL 80-94 Mean Corpuscular Hemoglobin 32 pg High 27-31 Mean Corpuscular HGB Conc 35 g/dL 31-36 Red Cell Distribution Width 14 % 10.5-15 Platelet Count 268 10^3/uL 150-450 Mean Platelet Volume 8.1 um3 7.4-10.4 Abs Neutrophils 2.5 10^3/uL 1.5-7.7 Abs Lymphocytes 1.8 10^3/uL 1.0-4.8 Abs Monocytes 0.4 10^3/uL 0-0.8 Abs Eosinophils 0.1 10^3/uL 0-0.6 Abs Basophils 0 10^3/uL 0-0.2 Abs Nucleated RBC 0 10^3/uL Granulocyte % 53.5 % 38-83 Lymphocyte % 37.5 % 25-47 Monocyte % 7.6 % High 0-7 Eosinophil % 1.1 % 0-6 Basophil % 0.3 % 0-2 Nucleated Red Blood Cells % 0.1 Comp Metabolic Panel 04/08/2018 Sodium 140 mmol/L 135-145 Potassium 3.8 mmol/L 3.5-5.0 Chloride 103 mmol/L 101-111 Co2 Carbon Dioxide 29 mmol/L 22-32 Anion Gap 8 mmol/L 2-11 Glucose 148 mg/dL High 70-100 Blood Urea Nitrogen 12 mg/dL 6-24 Creatinine 1.16 mg/dL 0.67-1.17 BUN/Creatinine Ratio 10.3 8-20 Calcium 9.0 mg/dL 8.6-10.3 Total Protein 6.4 g/dL 6.4-8.9 Albumin 4.1 g/dL 3.2-5.2 Globulin 2.3 g/dL 2-4 Albumin/Globulin Ratio 1.8 1-3 Total Bilirubin 0.50 mg/dL 0.2-1.0 Alkaline Phosphatase 53 U/L 34-104 Alt 41 U/L 7-52 Ast 24 U/L 13-39 Egfr Non- 64.2 >60 Egfr 77.7 >60 1 BCR/Abl P210 pc 04/08/2018 BCR/Abl p210 Result see interpretati <SEE NOTE> 2 BCR/Abl PCR Specimen Blood BCR/Abl p210 Final Diagnosis See Comment 3 CBC Auto Diff 10/01/2017 White Blood Count [...] Egfr Non- 67.8 >60 Egfr 87.2 >60 4 Laboratory test 10/01/2017 TSH (Thyroid Stim 1.87 mcIU/mL 0.34-5.60 finding Horm) BCR/Abl P210 pc 10/01/2017 BCR/Abl p210 see interpretati <SEE 5 Result NOTE> BCR/Abl PCR Specimen WHOLE BLOOD BCR/Abl p210 Final Diagnosis See Comment 6 Comp Metabolic Panel 06/24/2017 Sodium 137 mmol/L [...] Egfr Non- 65.7 >60 Egfr 84.6 >60 7 CBC Auto Diff 06/24/2017 White Blood Count [...] Poc Ketone, Urine Negative Negative Poc Specific Jameson, Urine 1.020 1.010-1.030 Poc Blood, Urine Trace-intact Negative Poc pH, Urine 6.0 5-9 Poc Protein, Urine Negative Negative Poc Urobilinogen, Urine 0.2 Negative Poc Nitrite, Urine Negative Negative Poc Leukocytes, Urine Negative Negative Poc Color, Urine Yellow Poc Clarity, Urine Clear 8 CBC Auto Diff 04/28/2017 White Blood Count [...] Egfr Non- 64.4 >60 Egfr 82.9 >60 9 Laboratory test 04/28/2017 PSA Screening 1.575 ng/mL 0-4.000 10 finding BCR/Abl P210 pc 04/28/2017 BCR/Abl p210 Result see interpretati <SEE 11 NOTE> BCR/Abl PCR Specimen WHOLE BLOOD BCR/Abl p210 Final Diagnosis See Comment 12 Laboratory test finding 04/23/2017 CRP High Sensitivity 1.97 mg/L 13 Erythrocyte Sed Rate 8 mm/Hr 0-20 Vitamin D Total 25(Oh) 26.9 ng/mL Low 30-50 CBC Auto Diff 04/23/2017 White Blood Count [...] Red Blood Cells % 0 Laboratory test 04/23/2017 TSH (Thyroid Stim 1.11 mcIU/mL 0.34-5.60 finding Horm) Laboratory test 01/08/2017 Surgical Pathology SEE RESULT BELOW 14, 15 finding CBC Auto Diff 10/29/2016 White Blood Count [...] Egfr Non- 76.5 >60 Egfr 98.4 >60 16 BCR/Abl P210 pc 10/29/2016 BCR/Abl PCR Specimen Blood 17 BCR/Abl p210 Final Diagnosis See Comment 18 Laboratory test finding 08/05/2016 Lactic Acid 1.1 mmol/L 0.5-2.0 19 CBC Auto Diff 08/05/2016 White Blood Count [...] Egfr Non- 74.2 >60 Egfr 95.4 >60 20 Lipid Profile (Trig/Chol/HDL) 08/05/2016 Triglycerides 200 mg/dL 21 Cholesterol 192 mg/dL 22 HDL Cholesterol 40.2 mg/dL 23 LDL Cholesterol 112 mg/dL 24 Laboratory test 08/05/2016 Troponin-I (TnI) 0.00 ng/mL <0.04 25 finding Inr/Protime 08/05/2016 Inr 0.82 Low 0.89-1.11 Laboratory test 08/05/2016 Partial Thrombo Time 29.5 seconds 26.0-36.3 finding PTT Type & Screen 08/05/2016 Patient Blood Type A Negative Antibody Screen NEGATIVE Urinalysis Profile 08/05/2016 Urine Color Yellow Urine Appearance Clear Urine Specific Jameson 1.011 1.010-1.030 Urine pH 5.0 5-9 Urine Urobilinogen Negative Negative Urine Ketones Negative Negative Urine Protein Negative Negative Urine Leukocytes Negative Negative Urine Blood Negative Negative Urine Nitrite Negative Negative Urine Bilirubin Negative Negative Urine Glucose Negative Negative Laboratory test finding 08/05/2016 Hemoglobin A1c (Glyco 5.9 % Less than 6.0 26 HGB) Lyme Disease Serology Negative Negative 27 Laboratory test finding 02/19/2016 Hepatitis C Antibody Nonreactive Nonreactive 28 CBC No Diff 11/14/2015 White Blood Count [...] Egfr Non- 62.8 >60 Egfr 80.8 >60 29 Surgical Pathology 05/25/2014 S RUN DATE: 05/30/ <SEE NOTE> 30 Basic Metabolic Panel 05/08/2014 Sodium 138 mmol/L 133-145 Potassium 4.0 mmol/L 3.7-5.6 Chloride 106 mmol/L 101-111 Co2 Carbon Dioxide 29 mmol/L 22-32 Anion Gap 3 mmol/L 2-11 Glucose 97 mg/dL 70-100 Blood Urea Nitrogen 16 mg/dL 6-24 Creatinine 1.02 mg/dL 0.67-1.17 BUN/Creatinine Ratio 15.7 8-20 Calcium 8.7 mg/dL 8.6-10.3 Egfr Non- 75.5 >60 Egfr 97.2 >60 31 CBC Auto Diff 05/08/2014 White Blood Count [...] 0-2 Nucleated Red Blood Cells % 0.1 Vitamin D, 25 Hydroxy 04/02/2014 25-Hydroxy Vitamin D2 <4.0 ng/mL 25-Hydroxy Vitamin D3 23 ng/mL 25-Hydroxy Vitamin D Total 23 ng/mL 32 Basic Metabolic Panel 04/02/2014 Sodium 140 mmol/L 133-145 Potassium 3.3 mmol/L Low 3.7-5.6 Chloride 108 mmol/L 101-111 Co2 Carbon Dioxide 28 mmol/L 22-32 Anion Gap 4 mmol/L 2-11 Glucose 79 mg/dL 70-100 Blood Urea Nitrogen 16 mg/dL 6-24 Creatinine 0.90 mg/dL 0.67-1.17 BUN/Creatinine Ratio 17.8 8-20 Calcium 8.8 mg/dL 8.6-10.3 Egfr Non- 87.3 >60 Egfr 112.3 >60 33 Comp Metabolic Panel 03/05/2014 Sodium 138 mmol/L [...] Egfr Non- 84.0 >60 Egfr 108.1 >60 34 CBC Auto Diff 03/05/2014 White Blood Count [...] P210 pc 03/05/2014 BCR/Abl PCR Specimen Blood 35 BCR/Abl p210 Final Diagnosis See Comment 36 Urinalysis Profile 02/12/2014 Urine Color Yellow Urine Appearance Clear Urine Specific Jameson 1.021 1.010-1.030 Urine pH 6.0 5-9 Urine [...] Egfr Non- 76.4 >60 Egfr 98.3 >60 37 Laboratory test finding 02/11/2014 Lipase 47 U/L 11.0-82.0 C Reactive Protein 2.59 mg/L < 5.00 38 Manual Differential 02/11/2014 Neutrophil % 42 % [...] Egfr Non- 67.8 >60 Egfr 87.2 >60 39 Laboratory test finding 01/17/2014 Phosphorus 2.4 mg/dL Low 2.5-5.0 Magnesium 2.0 mg/dL 1.9-2.7 Vitamin B12 316 pg/mL 180-914 40 BCR/Abl P210 pc 12/20/2013 BCR/Abl PCR Specimen Blood 41 BCR/Abl p210 Final Diagnosis See Comment 42 CBC Auto Diff 12/01/2013 White Blood Count [...] Egfr Non- 83.0 >60 Egfr 106.8 >60 43 Laboratory test finding 12/01/2013 T4 7.01 g/dL 6.09-12.23 TSH (Thyroid Stimulating Horm) 1.29 IU/mL 0.34-5.60 BCR/Abl P210 pc 12/01/2013 BCR/Abl PCR Specimen EDTA whole blood 44 BCR/Abl p210 Final Diagnosis See Comment 45 Comp Metabolic Panel 05/29/2013 Sodium 140 mmol/L [...] Egfr Non- 87.6 >60 Egfr 112.7 >60 46 CBC Auto Diff 05/29/2013 White Blood Count [...] Blood BCR/Abl p210 Final Diagnosis See Comment 47 CBC With Manual Diff 04/13/2013 White Blood [...] 1 % 0-2 RBC Morphology Normal Normal Comp Metabolic Panel 03/06/2013 Sodium 140 mmol/L [...] Egfr Non- 87.6 >60 Egfr 112.7 >60 48 CBC Auto Diff 03/06/2013 White Blood Count [...] Blood Cells % 0 BCR/Abl P210 pc 03/06/2013 BCR/Abl PCR Specimen Blood BCR/Abl p210 Final Diagnosis See Comment 49 CBC With Manual Diff 02/21/2013 White Blood [...] 2 % 0-6 RBC Morphology Normal Normal Laboratory test finding 02/21/2013 Pathologist Review (SEE NOTE) 50 Surgical Pathology 01/06/2013 S RUN DATE: <SEE NOTE> Lipid Profile 12/05/2012 Triglycerides 138 mg/dL 40-200 (Trig/Chol/HDL) Cholesterol 142 mg/dL Less than 200 HDL Cholesterol 36 mg/dL Low 40-60 52 Cholesterol/HDL Ratio 3.9 Average 1-4.44 LDL Cholesterol 78.4 mg/dL Less Than 100 53 Vitamin D, 25 Hydroxy 12/05/2012 25-Hydroxy Vitamin D2 <4.0 ng/mL 25-Hydroxy Vitamin D3 20 ng/mL 25-Hydroxy Vitamin D Total 20 ng/mL 54 Laboratory test finding 12/05/2012 Glucose 89 mg/dL 70-100 55 CBC Auto Diff 12/05/2012 White Blood Count [...] Blood Cells % 0 Comp Metabolic Panel 12/05/2012 Sodium 140 mmol/L [...] Egfr Non- 100.4 >60 Egfr 129.1 >60 56 Laboratory test finding 12/05/2012 BCR/Abl PCR([facility]) (SEE NOTE) 57 CBC With Manual Diff 10/31/2012 White Blood [...] 2 see interpretation PDF Report available at: https://[employer].com/Reports/[email or web address]- [email or web address].ashx 3 Peripheral blood, BCR/ABL1 mRNA level analysis [...] major molecular response (MMR) in CML (Ref: Steve M, et al. Blood;122:872-884; Soraida RD, et al. J Mol Diagn 2013;15:565-576). Signing Pathologist: Rajat Dorantes M.D. ADDITIONAL INFORMATION Method summary - BCR/ABL1, p210 fusion: The BCR/ABL1 transcript level was evaluated using a quantitative, reverse parts manager PCR. The analytical sensitivity of this assay [...] all possible fusion forms. Please contact the [facility] at [phone] with questions or if additional testing is required. See the [facility] DICOM Grid Interpretive Handbook for method details. The reproducibility [...] developed and its performance characteristics determined by [facility] in a manner consistent with CLIA requirements. This test has not been cleared or approved by the U.S. Food and Drug Administration. Test Performed by: [address] [address] 4 Because ethnic data is not always [...] 5 Kidney failure <15 (or dialysis) 5 see interpretation PDF Report available at: https://[employer].com/Reports/Y7375464- [email or web address].ashx 6 Peripheral blood, BCR/ABL1 mRNA level analysis (p210 [...] level was evaluated using a quantitative, reverse parts manager PCR. The analytical sensitivity of this assay [...] all possible fusion forms. Please contact the [facility] at [phone] with questions or if additional testing is required. See the [facility] DICOM Grid Interpretive Handbook for method details. The reproducibility [...] developed and its performance characteristics determined by [facility] in a manner consistent with CLIA requirements. This test has not been cleared or approved by the U.S. Food and Drug Administration. Test Performed by: [address] [address] 7 Because ethnic data is not always readily [...] 15-29 5 Kidney failure <15 (or dialysis) 8 Engineering Psychologist: [id number] 9 Because ethnic data is not always readily [...] 15-29 5 Kidney failure <15 (or dialysis) 10 Serum levels of PSA measured using the Kamran Matti DXI Hybritech immunoassay should not be interpreted as absolute evidence of the presence or absence of disease. The PSA value should be used in conjunction with other pertinent clinical diagnostic procedures. The values obtained with different assay methods or kits cannot be used interchangeably. 11 see interpretation PDF Report available at: https://[employer].com/Reports/W1191521- [email or web address].ashx 12 Peripheral blood, BCR/ABL1 mRNA level analysis (p210 [...] CML (Ref: Kariani M, et al. Blood;122:872-884; Press RD, et al. J Mol Diagn 2013;15:565-576). Signing Pathologist: Catherine Gracia M.D. ADDITIONAL INFORMATION Method summary - BCR/ABL1, p210 fusion: The BCR/ABL1 transcript level was evaluated using a quantitative, reverse parts manager PCR. The analytical sensitivity of this assay [...] all possible fusion forms. Please contact the [facility] at [phone] with questions or if additional testing is required. See the [facility] DICOM Grid Interpretive Handbook for method details. The reproducibility [...] developed and its performance characteristics determined by [facility] in a manner consistent with CLIA requirements. This test has not been cleared or approved by the U.S. Food and Drug Administration. Test Performed by: [address] [address] 13 Low risk: <1.00 Average risk: 1.00-3.00 High risk: >3.00 14 [id number] 15 SEE RESULT BELOW Name: MAGDI CHEEK : [address]: Kosta Dumont MD Acct: [id number] Unit: [id number] AGE: 61 Location: [facility] Re01/08/17 SEX: M Status: REG REF SPEC: [id number] NAOMIE: 01/08/17-1253 [facility] DR: Kosta Dumont MD REQ: [id number] RECD: 01/08/179394 STATUS: EPIFANIO SMALL DR: Eric Talavera MD _ ORDERED: LEVEL 4, SPEC STAIN ORG COMMENTS: [id number] FINAL DIAGNOSIS Gastroesophageal junction, biopsy: -- Erosive [...] performed at Main Lab DEPARTMENT OF PATHOLOGY, [address] [place] [address] Edi Blevins M.D. Director [facility] # [id number] 16 Because ethnic data is not always readily [...] 15-29 5 Kidney failure <15 (or dialysis) 17 PDF Report available at: https://[employer]/Reports/P4362111- [email or web address].ashx 18 Peripheral blood, BCR/ABL1 mRNA level analysis (p210 fusion form): Negative. No BCR/ABL1 p210 mRNA transcripts were detected (%BCR/ABL1(p210):ABL1=0). Signing Pathologist: Eduardo Meza M.D. ADDITIONAL INFORMATION Method summary - BCR/ABL1, p210 fusion: The BCR/ABL1 transcript level was evaluated using a quantitative, reverse parts manager PCR. The analytical sensitivity of this assay [...] all possible fusion forms. Please contact the [facility] at [phone] with questions or if additional testing is required. See the [facility] Laboratories Interpretive Handbook for method details. [...] BAKDM). Laboratory developed test. Test Performed by: [place] [address] School Bus Driver: Valentino Petersen II, M.D., Ph.D. 19 [facility] Severe Sepsis and Septic Shock Management Bundle Measure requires all lactic acids initially measuring >2.0 mmol/L be repeated. 20 Because ethnic data is not always readily [...] 15-29 5 Kidney failure <15 (or dialysis) 21 Desirable <150 Borderline high 150-199 High 200-499 Very High >500 22 Desirable <200 Borderline high 200-239 High >239 23 Low <40 Desirable: 40-60 High: >60 24 Desirable: <100 mg/dL Near Optimal: 100-129 mg/dL Borderline High: 130-159 mg/dL High: 160-189 mg/dL Very High: >189 mg/dL 25 NOTE: Critical Troponin is now >0.03 ng/mL. 99th percentile=0.04 ng/mL Troponin results at [facility] and [facility] are not interchangeable. 26 Therapeutic target for the treatment of diabetes Mellitus patients is <7% HBA1C, and in selective patients <6.0%.Please refer to [place] [employer] Diabetic care guidelines for further information. 27 Serologic response to B. burgdorferi infection is not detected, but cannot rule out early infection during which low or undetectable antibody levels to B. burgdorferi may be present. If clinically indicated, a new serum specimen should be submitted in 7-14 days. Test Performed by: [facility] - [address] [address] School Bus Driver: Valentino Petersen II, M.D., Ph.D. 28 Copy Result to: ZEN TALAVERA ([id number]) 29 Because ethnic data is not always [...] 5 Kidney failure <15 (or dialysis) 30 RUN DATE: 05/30/14 [facility] LAB LIVE PAGE 1 RUN TIME: [address] [place] [address] Specimen Inquiry Name: MAGDI CHEEK : [address]: Alexandra Zamora MD Acct: [id number] Unit: [id number] AGE: 58 Location: [facility] Re05/25/14 SEX: M Status: REG [facility] SPEC: [id number] NAOMIE: 05/25/[address]: Alexandra Zamora MD REQ: [id number] RECD: 05/25/14 STATUS: SOUT _ ORDERED: Decal, LEVEL III FINAL DIAGNOSIS Loose bodies, left [...] performed at Main Lab DEPARTMENT OF PATHOLOGY, [address] [place] [address] Edi Blevins M.D. Director [facility] # [id number] 31 Because ethnic data is not always [...] 5 Kidney failure <15 (or dialysis) 32 -- REFERENCE VALUE -- 25-HYDROXY D TOTAL (D2+D3) Optimum levels in the healthy population are 20-50, patients with bone disease may benefit from higher levels within this range. Test Performed by: [place] [address] School Bus Driver: Prince Ha III, M.D. 33 Because ethnic data is not always readily [...] 15-29 5 Kidney failure <15 (or dialysis) 34 Because ethnic data is not always [...] 5 Kidney failure <15 (or dialysis) 35 PDF Report available at: https://[employer]/Reports/F8113623- [email or web address].ashx 36 Peripheral blood, BCR/ABL mRNA level analysis (p210 fusion form): Positive. BCR/ABL p210 mRNA transcripts were detected and estimated to represent 0.02% of total abl (%bcr/abl(p210):abl). 0.02% bcr/abl(p210):abl in this assay is equivalent to 0.05% on the International Scale in which 0.1% is considered a major molecular response in CML (see [place] et al, Blood 2008;112:3330). Signing Pathologist: Yash Luna M.D., Ph.D. Method summary - BCR/ABL, p210 fusion: p210 mRNA transcript level was evaluated using quantitative, reverse parts manager PCR. The assay detects the two most [...] setting and the result is negative, test #23200 (BCR/ABL mRNA Detection, RT-PCR, Qualitative, Diagnostic) should be ordered to evaluate for all possible fusion forms. Please contact the lab at with questions or if additional testing is required. See the [facility] Laboratories Interpretive Handbook for method details. [...] specimen. Laboratory developed test. Test Performed by: [place] [address] School Bus Driver: Prince Ha III, M.D. 37 Because ethnic data is not always readily [...] 15-29 5 Kidney failure <15 (or dialysis) 38 Acute inflammation: >10.00 39 Because ethnic data is not always readily [...] 15-29 5 Kidney failure <15 (or dialysis) 40 Normal Range 180 to 914 Indeterminate Range 145 to 180 Deficient Range <145 41 PDF Report available at: https://[employer]/Reports/L8866880- [email or web address].ashx 42 Peripheral blood, BCR/ABL mRNA level analysis (p210 fusion form): Positive. BCR/ABL p210 mRNA transcripts were detected and estimated to represent 0.06% of total abl (%bcr/abl(p210):abl). 0.06% bcr/abl(p210):abl in this assay is equivalent to 0.2% on the International Scale in which 0.1% is considered a major molecular response in CML (see [place] et al, Blood 2008;112:3330). Signing Pathologist: Liliam Noland M.D. Method summary - BCR/ABL, p210 fusion: p210 mRNA transcript level was evaluated using quantitative, reverse parts manager PCR. The assay detects the two most [...] setting and the result is negative, test #16345 (BCR/ABL mRNA Detection, RT-PCR, Qualitative, Diagnostic) should be ordered to evaluate for all possible fusion forms. Please contact the lab at with questions or if additional testing is required. See the [facility] Interpretive Handbook for method details. [...] specimen. Laboratory developed test. Test Performed by: [address] [address] School Bus Driver: Prince Ha III, M.D. 43 Because ethnic [...] 5 Kidney failure <15 (or dialysis) 44 EDTA whole blood PDF Report available at: https://[employer]/Reports/N2572621- [email or web address].ashx 45 Peripheral blood, BCR/ABL mRNA level analysis (p210 fusion form): Positive. BCR/ABL p210 mRNA transcripts were detected and estimated to represent 0.06% of total abl (%bcr/abl(p210):abl). 0.06% bcr/abl(p210):abl in this assay is equivalent to 0.2% on the International Scale in which 0.1% is considered a major molecular response in CML (see [place] et al, Blood 2008;112:3330). Signing Pathologist: Eduardo Meza M.D. Method summary - BCR/ABL, p210 fusion: p210 mRNA transcript level was evaluated using quantitative, reverse parts manager PCR. The assay detects the two most [...] setting and the result is negative, test #78997 (BCR/ABL mRNA Detection, RT-PCR, Qualitative, Diagnostic) should be ordered to evaluate for all possible fusion forms. Please contact the lab at with questions or if additional testing is required. See the [facility] Interpretive Handbook for method details. [...] specimen. Laboratory developed test. Test Performed by: [place] [address] School Bus Driver: Prince Ha III, M.D. 46 Because ethnic data is not always readily [...] 15-29 5 Kidney failure <15 (or dialysis) 47 Peripheral blood, BCR/ABL mRNA level analysis (p210 fusion form): Positive. BCR/ABL p210 mRNA transcripts were detected and estimated to represent 0.02% of total abl (%bcr/abl(p210):abl). 0.02% bcr/abl(p210):abl in this assay is equivalent to 0.05% on the International Scale in which 0.1% is considered a major molecular response in CML (see [place] et al, Blood 2008;112:3330). Previous specimens from this patient have been tested in this laboratory using this method and a summary of results will be faxed provided our laboratory has a current, secure fax number on file. If a faxed report is not received, please call the [facility] [facility] ( ) to provide a fax number. Signing Pathologist: New Andrew M.D., Ph.D. Method summary - BCR/ABL, p210 fusion: p210 mRNA transcript level was evaluated using quantitative, reverse parts manager PCR. The assay detects the two most [...] setting and the result is negative, test #74996 (BCR/ABL mRNA Detection, RT-PCR, Qualitative, Diagnostic) should be ordered to evaluate for all possible fusion forms. Please contact the lab at with questions or if additional testing is required. See the [facility] Interpretive Handbook for method details. [...] specimen. Laboratory developed test. Test Performed by: [address] [address] School Bus Driver: Prince Ha III, M.D. 48 Because ethnic data is not always readily [...] 15-29 5 Kidney failure <15 (or dialysis) 49 Peripheral blood, BCR/ABL mRNA level analysis (p210 fusion form): Positive. BCR/ABL p210 mRNA transcripts were detected and estimated to represent 0.08% of total abl (%bcr/abl(p210):abl). 0.08% bcr/abl(p210):abl in this assay is equivalent to 0.2% on the International Scale in which 0.1% is considered a major molecular response in CML (see [place] et al, Blood 2008;112:3330). Previous specimens from this patient have been tested in this laboratory using this method and a summary of results will be faxed provided our laboratory has a current, secure fax number on file. If a faxed report is not received, please call the [facility] ( ) to provide a fax number. Signing Pathologist: Eduardo Meza M.D. Method summary - BCR/ABL, p210 fusion: p210 mRNA transcript level was evaluated using quantitative, reverse parts manager PCR. The assay detects the two most [...] setting and the result is negative, test #45058 (BCR/ABL mRNA Detection, RT-PCR, Qualitative, Diagnostic) should be ordered to evaluate for all possible fusion forms. Please contact the lab at with questions or if additional testing is required. See the [facility] Interpretive Handbook for method details. Typical [...] specimen. Laboratory developed test. Test Performed by: [place] [address] School Bus Driver: Prince Ha III, M.D. 50 CBC and smear reviewed. Findings consistent with probable treatment effects. REVIEWED BY EDI BLEVINS MD 51 RUN DATE: 01/10/13 [facility] LAB LIVE PAGE 1 RUN TIME: [address] [place] [address] Specimen Inquiry Name: ABHINAVMAGDI : [address]: Kosta Dumont MD Acct: [id number] Unit: [id number] AGE: 57 Location: [facility] Re01/06/13 SEX: M Status: REG REF SPEC: [id number] NAOMIE: 01/06/13- SUBM DR: Kosta Dumont MD REQ: [id number] RECD: 01/06/13 STATUS: EPIFANIO SMALL DR: Teja Ramos MD [...] performed at Main Lab DEPARTMENT OF PATHOLOGY, [address] [place] [address] Edi Blevins M.D. Director [facility] Permit #[id number] 52 HDL Interpretation: Undesirable: High Risk: Less than 40 MG/DL Desirable: Low Risk: Greater than 60 MG/DL 53 LDL Interpretation: Low Risk Optimal Level: LDL Less than 100 MG/DL Near or Above Optimal: LDL 100-129 MG/DL Borderline High Risk: LDL 130-159 MG/DL High Risk: LDL 160-189 MG/DL Very High Risk: LDL Greater than 189 MG/DL 54 Interpretation: 10-24 (mild to moderate deficiency) -- REFERENCE VALUE -- 25-HYDROXY D TOTAL (D2+D3) Optimum levels in the normal population are 25-80 Test Performed by: [facility] [address] [address] School Bus Driver: Prince Ha III, M.D. 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 The breakpoint on [...] Minor Breakpoint p190 transcript e1a2 Not Detected [facility] [place] [address] Page 1 of 3 [facility] Client Services: [phone] f [email or web address] Patient Name: MAGDI CHEEK Collection Date: 12/05/2012 Ordering Physician: Zen Talavera Received Date: 12/06/2012 Treating Physician: Not Given Report Date: 12/08/2012 Ordering Facility: [facility] Ref #: [id number] Specimen ID #: [id number] Date of ,Sex: 1955, M Quantitative Testing History (Percentage) 09/07/2012 12/05/2012 p190 transcript e1a2 <0.001 <0.001 p210 transcript b2a2 0.022 0.021 p210 transcript b3a2 0.081 0.045 *<0.001 values are plotted as 0.0001 and are below the sensitivity of detection for this assay. [facility] at [address] [address] Page 2 of 3 [facility] Client Services: [phone] F [email or web address] Patient Name: MAGDI CHEEK Collection Date: 12/05/2012 Ordering Physician: Zen Talavera Received Date: 12/06/2012 Treating Physician: Not Given Report Date: 12/08/2012 Ordering Facility: [facility] Ref #: [id number] Specimen ID #: [id number] Date of ,Sex: 1955, M at [employer] James Villanueva, Ph.D., [facility] Methodology: Total RNA was isolated from the provided specimen and subjected to reverse parts manager-polymerase chain reaction (RT-PCR). Amplification products were monitored [...] R, Osorio HM, Howard BJ, Gene M, Camargo Chromosome-Positive Leukemias: From Basic mechanisms to molecular Therapeutics, Lauar [employer] Syrup Operator med. 2003; 138:819-830. Robert Pettit, Sid Valencia, (2007). Myeloproliferative Disorders and Myelodysplastic Syndromes. Riley WHITING, Molecular Pathology in Clinical Practice, Second Edition (pp.383-385). [employer] Disclaimer [facility] is a business unit of [employer] a wholly-owned subsidiary of [employer]. Professional Component performed at [employer] at [address] [place] [address] [place], [address] - Promotions Manager: James Villanueva, Ph.D. Technical Component performed at [address] [place] [address] [address], [place], [address] Any image(s) that accompany this report is/are a malt liquors sales representative image(s) only and should not be used to render a diagnosis. [facility] [address] [place] [address] Page 3 of 3 [facility] Client Services: [phone] F [email or web address] Procedures Date CPT Code Description Status Comment 12/03/2016 56146 EKG Tracing & Interpretation Completed 11/24/2016 33209 Treadmill Interp/Report Only Completed 11/24/2016 46576 Stress Test Supervsn W/Out I/R Completed 11/06/2016 82791 ECHO Transthoracic, Real-Time 2D With Completed Doppler And Color Flow 11/02/2016 63810 EKG Tracing & Interpretation Completed 03/12/2016 83935 Polysomnography Sleep Staging 4+ Parameters Completed 07/25/2014 09479 Polysomnography Sleep Staging 4+ Parameters Completed W/Cpap 06/05/2014 58989 Spirometry Incl Graphic Record Completed 05/25/2014 04669 EKG, Interpretation Only Completed 05/25/2014 63899 Arthrotomy Elbow W/Joint Exploration Completed 05/22/2014 81646 Polysomnography Sleep Staging 4+ Parameters Completed 05/08/2014 74995 EKG Tracing & Interpretation Completed 04/25/2014 66638 Rad Exam; Elbow, Comp Completed 04/25/2014 05342 Rad Exam; Elbow, Comp Completed 01/06/2013 Colonoscopy Completed 06/15/2011 35873 EKG, Interpretation Only Completed 06/08/[address] Dumont 02/27/2008 98474 Spirometry Incl Graphic Record, Timed Completed Expiratory Flow Rate 01/11/2007 76464 Holter Monitor Review (24 hr)dr review & Completed interp only 01/11/2007 85571 Holter Monitor Review (24 hr) review & Completed interp only 10/22/2006 56124 EKG Tracing & Interpretation Completed Encounters Type Date Location Provider CPT E/M Dx Office Visit 02/23/2018 3:15p [facility] [place] [address] M72.2 C.M.A. M93.271 M25.371 Office Visit 01/11/2018 2:30p [facility] [place] [address] M72.2 C.M.A. M93.271 M25.371 Office Visit 12/27/2017 3:00p [facility] Internal Medicine - Simon Berrios, DIAL SCREW ASSEMBLER 44232 Z00.00 Indu Z13.220 Z13.1 L40.8 M54.5 M25.571 M72.2 Office Visit 12/24/2017 9:30a [facility] Lacey Sauer M.D. 37261 M25.552 CSkyler M16.12 M25.551 M16.11 Office Visit 11/24/2017 3:00p [facility] Alexandra Zamora, 8[address] S50.02xA Of Estela Cobb Office Visit 04/13/2017 11:30a [facility] Internal EricRajat Garcia, 58080 M54.5 Medicine - Indu Cobb,FAC Office Visit 04/12/2017 1:00p [facility] Lacey Sauer M.D. 41096 M25.552 Of Estela M16.12 Office Visit 03/26/2017 9:15a [facility] Eduardo Aguilar, 747[address] K21.0 Julissa Cobb Office Visit 12/03/2016 2:00p [facility] [place] [address] R07.2 [facility] FAC R06.02 Office Visit 11/21/2016 10:20a [facility], Kelsi Chavez, [place]RA [address] R07.2 Hospitalists C92.10 G47.33 K21.9 Office Visit 11/02/2016 3:00p [facility] [place] [address] R06.02 [facility] R07.9 R94.31 F17.201 Office Visit 08/06/2016 11:12a [facility], Jaylan Cueto, [address]64[address] R29.818 Hospitalists Reza G43.109 C92.10 G47.33 Office Visit 08/05/2016 4:04p [facility] Eduardo Steward, 45679 G43.109 MD Office Visit 08/05/2016 11:12a [facility], Awilda Vazquez, 26718 R29.818 Hospitalists DIAL SCREW ASSEMBLER C92.10 G43.109 G47.33 Office Visit 02/05/2016 2:50p [facility] Internal Eric Garcia, 36519 Z00.01 [facility] Reza,FACP G47.33 C92.10 Z12.2 Z72.0 Z11.59 Office Visit 05/10/2015 9:30a [facility] Bala Santosino, 24383 841.8 C.MMaurilio Cobb Office Visit 11/02/2014 8:00a [facility] Mansi Eric 69241 327.23 Services Of [facility] JOLEEN CONKLIN, [facility] Office Visit 06/15/2014 11:00a [facility] Mansi Eric 50298 327.23 Services Of [facility] JOLEEN CONKLIN, [facility] Office Visit 05/08/2014 3:00p [facility] [place] [address] 785.1 - [place] 786.05 Office Visit 04/25/2014 11:30a [facility] Alexandra Zamora [address] 719.42 Of [facility] 718.13 Office Visit 12/26/2013 2:40p [facility] Internal Medicine Elaine Henriquez N.Ras 23773 787.02 - [place] Office Visit 11/20/2013 11:15a [facility] Alexandra Zamora 34410 842.02 Of [facility] Office Visit 11/06/2013 9:15a [facility] Alexandra Zamora 00274 842.00 Of [facility] Office Visit 10/11/2013 9:15a [facility] Alexandra Zamora 75026 842.00 Of [facility] 842.02 Office Visit 02/01/2013 9:45a [facility] Alexandra Zamora 16058 715.93 Of [facility] Office Visit 01/25/2013 11:15a [facility] Alexandra Zamora 33365 715.93 Of [facility] Office Visit 01/12/2013 3:40p [facility] Internal Medicine Eric Garcia, 52819 205.10 - Indu Cobb,FACP 268.9 719.42 Office Visit 10/14/2012 3:00p [facility] Internal Medicine Eric DYonatan Jose, 76182 V70.0 - [place] M.D.,FACP 600.00 530.81 205.10 780.4 268.9 Office Visit 07/19/2008 9:00a DO Not Use [facility] Francia Rachel, 78288 780.79 M.D., FACP Office Visit 04/16/2008 9:30a DO Not Use [facility] Francia Rachel, 85686 455.4 M.D., FACP Office Visit 04/12/2008 3:30p DO Not Use [facility] Francia Rachel, 91668 727.04 M.D., FACP 780.79 530.81 Office Visit 03/08/2008 4:00p DO Not Use [facility] Francia Rachel, 85467 787.02 M.D., FACP 780.79 Office Visit 01/26/2008 4:00p DO Not Use [facility] Francia Rachel, 15387 786.05 M.D., FACP 780.79 Office Visit 11/18/2007 2:45p DO Not Use [facility] Francia Rachel, 45935 780.79 M.D., FACP Office Visit 07/05/2007 2:45p DO Not Use [facility] Francia Rachel, 15610 787.20 M.D., FACP Office Visit 05/26/2007 4:15p DO Not Use [facility] Gracy Neff, 19793 780.4 M.D. Office Visit 04/28/2007 3:45p DO Not Use [facility] Francia Rachel, 85084 780.79 M.D., FACP Office Visit 01/28/2007 11:15a DO Not Use [facility] Francia Rachel, 24679 401.1 M.D., FACP 780.2 305.1 Office Visit 01/03/2007 3:00p DO Not Use [facility] Elaine Henriquez, 41064 780.2 N.P. Office Visit 12/28/2006 11:45a DO Not Use [facility] Francia Rachel, M.D., 58904 401.1 FACP 272.4 780.4 Office Visit 11/19/2006 10:00a DO Not Use [facility] Francia Ramos, 80078 272.4 M.D., FACP 796.2 Office Visit 10/22/2006 10:15a DO Not Use [facility] Francia Ramos, [address] V70.0 M.D., FACP 272.0 Plan of Care Future Appointment(s):05/10/2018 2:15 pm - Alejandro Diaz MD at [facility].04/28/2018 9:30 am - Alejandro Diaz MD at [facility].12/28/2018 3:00 pm - Simon Berrios NP at [facility] Internal Medicine - Lzzrbslpg28/01/2018 - Alejandro Diaz, MD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New Xrays:Ankle Right 3+VWSFollow up:Follow Up: 13-15 days rezvtcH49.371 Other instability, right yzgmbJ75.2 Plantar fascial fibromatosis
[2018-05-07 16:52] VITALS: BP 0/0
== END | disposition left against medical advice (07) ==
LOC: ED 14:09
DX: R50.9 Fever, unspecified (principal); R19.7 Diarrhea, unspecified; Z53.21 Procedure and treatment not carried out due to patient leaving prior to being seen by health care provider

== ENCOUNTER 2018-09-22 16:47 | Emergency (ER) | payer SELFPAY ==
--- OUTSIDE RECORDS SUMMARY | 2018-09-22 16:54 | XMS REPORT | Continuity of Care Document ---
:1955 External Reference #:[id number] Author Name Jose Joe Care Team Providers Name Role Phone Eric Garcia MD Primary Care Physician Unavailable Payers Type Date Identification Numbers Payment Provider Subscriber Policy Number: [id number] [employer] Anna Cheek Group Number: [id number] [address] PayID: [id number] [place] [address] Expires: 2007 Policy Number: [id number] [employer] Number: [id number] [address] PayID: [id number] [place] [address] Onset: 2013 Policy Number: [id number] [facility] Magdi Cheek PayID: [id number] Jannette Ulrich [id number] [place] [address] Advance Directives Description No Information Available Problems Date Description Provider Status Onset: 10/14/2012 Benign prostatic hypertrophy Eric Garcia Active without outflow obstruction Reza,FACP Onset: 10/14/2012 Gastroesophageal reflux disease Torsten Ferrer M.D.,FACP Onset: 10/14/2012 Chronic myeloid leukemia Torsten Ferrer M.D.,FACP Onset: 12/07/2012 Vitamin D deficiency Torsten Ferrer M.D.,FACP Onset: 06/15/2014 Obstructive sleep apnea of adult Mansi Eric DNP, RN, Active [employer] Onset: 05/10/2015 Sprain of elbow and forearm [...] : (age 73 Years) Father due to [place] Father Diabetes, Non Insulin Dependent Mother Diabetes Type II Siblings 3 Social History Type Date Description Comments Sex Unknown Marital Status Lives With Occupation [employer] Tobacco Use Start: Unknown End: Former Cigarette Smoker Unknown Cigarette Use Pack Years - 62 Smoking Status Reviewed: 09/21/18 Former Cigarette Smoker ETOH Use Currently consumes 2 beers or a glass alcohol of wine a few times per week Tobacco Use Start: Unknown End: Patient is a former quit 2008, smoked Unknown smoker for about 30yrs, 1PPD Recreational Drug Use Denies Drug Use Exercise Type/Frequency Exercises regularly active at work but no exercise regimen Allergies, Adverse Reactions, Alerts Date Description Reaction Status Severity Comments 01/11/2018 Tylenol Active 10/14/2012 NKDA Inactive 11/24/2017 NKDA Inactive Medications Medication Date Status Form Strength Qnty SIG Indications Ordering Provider Amlodipine 09/21 Active Tablets 5mg 30tab 1 by mouth I10 Simon Besylate s every day KYRA Berrios Wheelchair 05/10 Active Misc 1unit 1 - 18" M93.271 s standard harrison Diaz MD to use for ankle fracture ht: 65" wt: 170lbs Imatinib Mesylate Active Unknown /0000 Multi Vitamin Active Unknown Daily /0000 Aspirin 81 Low Active Unknown Dose /0000 Hydrochlorothiazid 08/23 Hx Tablets 25mg 30tab take one I10 Simon e s tablet a KYRA Berrios - day 09/21 Cefadroxil 05/10 Hx Capsules 500mg 20cap 1 capsule M93.271 Alejandro s twice a day Jaime Diaz MD 05/20 Oxycodone HCL 05/05 Hx Capsules 5mg 30cap 1 tab every Alejandro s 4-6 hours Jaime Diaz as needed 06/19 for pain post op Meloxicam 12/24 Hx Tablets 15mg 30tab 1 by mouth M25.552 s every day Jaime Sauer M.D. 03/13 Aspirin Childrens 08/07 Hx Chewtabs 81mg 30uni 1 by mouth ts every day Ordering - Provider 11/24 Klor-Con 10 04/06 Hx Tablets 10Meq 30tab 1 by mouth ER s every day Jaime Marcus M.D.,[facility] 06/06 Vitamin D 04/06 Hx Tablets 1000Unit 30tab by mouth Jaime Lara M.D.,[facility] 06/06 Vitamin D 01/12 Hx Capsules 1000Unit 30cap po qd 268.9 Jaime Toussaint M.D.,[facility] 12/26 Fibercon 10/14 Hx Tablets 625mg 90tab 1 po qd 530.81 Eric Jaime Toussaint M.D.,[facility] 12/26 Multi Vitamin Mens Hx Tablets 1 po qd Unknown /0000 - 05/08 Probiotic Hx Capsules 1 po qd Unknown /0000 - 01/12 Gleevec Hx Tablets 200mg po qd Unknown /0000 - 11/24 Ibuprofen Hx Tablets 600mg 60tab 1 po tid Unknown /0000 s prn - 11/24 [place] 00 Hx Tablets 5-325mg 30tab 1-2 by Unknown /0000 s mouth every - 4 hours as 02/04 Vitamin D 00 Hx Tablets 1000Unit 30tab by mouth Unknown /0000 s everyday - 02/04 Multivitamins 00/00 Hx Capsules 1 by mouth Unknown /0000 every day - 11/24 Ranitidine HCL Hx Tablets 150mg take one Unknown /0000 tablet by mouth twice a day Omeprazole 00 Hx Capsules 20mg 1 by mouth Unknown /0000 DR every day - 11/24 Imatinib Mesylate Hx Tablets 200mg Unknown /0000 - 04/11 Immunizations CPT Code Status Date Vaccine Lot # [id number] Refused 02/05/2016 Pneumococcal Conjugate Vaccine 13 Valent For Intramuscular Use Vital Signs Date Vital Result Comment 09/21/2018 3:28pm Height 65.5 inches 5'5.50" Weight 178.00 lb Heart Rate 83 /min BP Systolic Sitting 147 mmHg BP Diastolic Sitting 87 mmHg O2 % BldC Oximetry 96 % BMI (Body Mass Index) 29.2 kg/m2 08/29/2018 3:37pm Height 65.5 inches 5'5.50" Weight 170.00 lb Heart Rate 92 /min BP Systolic 136 mmHg BP Diastolic 71 mmHg O2 % BldC Oximetry 98 % BMI (Body Mass Index) 27.9 kg/m2 08/23/2018 4:01pm Height 65.5 inches 5'5.50" Weight 170.00 lb Heart Rate 77 /min BP Systolic 171 mmHg BP Diastolic 81 mmHg Body Temperature 98.0 F O2 % BldC Oximetry 98 % BMI (Body Mass Index) 27.9 kg/m2 08/22/2018 8:18am Height 65.5 inches 5'5.50" Weight 170.00 lb Respiratory Rate 16 /min Pain Level 2 BMI (Body Mass Index) 27.9 kg/m2 07/22/2018 2:51pm Height 65.5 inches 5'5.50" Heart Rate 88 /min Respiratory Rate 20 /min Body Temperature 97.9 F Pain Level 4 06/20/2018 3:59pm Heart Rate 88 /min Respiratory Rate 16 /min Body Temperature 98.4 F Pain Level 2 05/20/2018 2:12pm Height 65.5 inches 5'5.50" Heart Rate 96 /min BP Systolic 140 mmHg BP Diastolic 80 mmHg Body Temperature 98.4 F Pain Level 4 05/10/2018 2:05pm Height 65.5 inches 5'5.50" Weight 170.00 lb Heart Rate 96 /min Respiratory Rate 18 /min Body Temperature 97.9 F Pain Level 5 BMI (Body Mass Index) 27.9 kg/m2 04/13/2018 2:58pm Height 65.5 inches 5'5.50" Weight 170.00 lb BP Systolic 134 mmHg BP Diastolic 78 mmHg Respiratory Rate 16 /min Pain Level 7 BMI (Body Mass Index) 27.9 kg/m2 02/23/2018 3:02pm Height 65.5 inches 5'5.50" Weight 172.00 lb BP Systolic 148 mmHg BP Diastolic 78 mmHg Respiratory Rate 16 /min Body Temperature 98.0 F Pain Level 8 BMI (Body Mass Index) 28.2 kg/m2 01/11/2018 2:23pm Height 65.5 inches 5'5.50" Weight 172.00 lb BP Systolic 140 mmHg BP Diastolic 80 mmHg Respiratory Rate 16 /min Body Temperature 96.9 F Pain Level 2 BMI (Body Mass Index) 28.2 kg/m2 12/27/2017 3:12pm Height 65.5 inches 5'5.50" Weight 171.75 lb Heart Rate 77 /min BP Systolic 130 mmHg BP Diastolic 82 mmHg Body Temperature 97.2 F O2 % BldC Oximetry 95 % BMI (Body Mass Index) 28.1 kg/m2 12/24/2017 10:10am Height 66.75 inches 5'6.75" Weight 165.00 lb Heart Rate 71 /min BP Systolic 118 mmHg BP Diastolic 64 mmHg Respiratory Rate 16 /min Body Temperature 98.0 F Pain Level 5 BMI (Body Mass Index) 26.0 kg/m2 11/24/2017 3:05pm Height 66 inches 5'6" Weight 165.00 lb Heart Rate 86 /min BP Systolic 152 mmHg BP Diastolic 82 mmHg Respiratory Rate 14 /min Body Temperature 97.9 F Pain Level 4 BMI (Body Mass Index) 26.6 kg/m2 04/13/2017 10:58am Weight 168.00 lb Heart Rate 63 /min BP Systolic Sitting 140 mmHg BP Diastolic Sitting 70 mmHg Body Temperature 97.3 F O2 % BldC Oximetry 98 % 04/12/2017 1:01pm Height 66.75 inches 5'6.75" Weight 165.00 lb Heart Rate 66 /min BP Systolic 140 mmHg BP Diastolic 73 mmHg BMI (Body Mass Index) 26.0 kg/m2 03/26/2017 9:09am Height 65 inches 5'5" Weight 167.00 lb Heart Rate 72 /min BP Systolic 140 mmHg BP Diastolic 90 mmHg Respiratory Rate 16 /min Body Temperature 98.5 F BMI (Body Mass Index) 27.8 kg/m2 12/03/2016 1:53pm Height 65 inches 5'5" Weight 171.00 lb Heart Rate 64 /min BP Systolic Sitting 144 mmHg Rue reg cuff BP Diastolic Sitting 92 mmHg Rue reg cuff BP Systolic Standing 138 mmHg Rue BP Diastolic Standing 84 mmHg Rue Respiratory Rate 16 /min BMI (Body Mass Index) 28.5 kg/m2 Ejection Fraction 55-60% 11/06/16 11/02/2016 2:36pm Height 65.5 inches 5'5.50" Weight 173.00 lb [...] BMI (Body Mass Index) 28.3 kg/m2 02/05/2016 3:10pm Height 65 inches 5'5" Weight 164.00 lb Heart Rate 80 /min BP Systolic Sitting 136 mmHg BP Diastolic Sitting 86 mmHg Body Temperature 98.3 F O2 % BldC Oximetry 99 % BMI (Body Mass Index) 27.3 kg/m2 05/10/2015 8:56am Height 66 inches 5'6" Weight 160.00 lb Heart Rate 80 /min BP Systolic Sitting 137 mmHg BP Diastolic Sitting 82 mmHg Respiratory Rate 20 /min Pain Level 3 BMI (Body Mass Index) 25.8 kg/m2 11/02/2014 7:56am Height 66 inches 5'6" Weight 157.00 lb Heart Rate 68 /min BP Systolic Sitting 134 mmHg BP Diastolic Sitting 68 mmHg Respiratory Rate 18 /min O2 % BldC Oximetry 98 % BMI (Body Mass Index) 25.3 kg/m2 07/09/2014 8:15am Height 65.5 inches 5'5.50" Weight 158.00 lb Heart Rate 60 /min BP Systolic Sitting 140 mmHg BP Diastolic Sitting 80 mmHg BMI (Body Mass Index) 25.9 kg/m2 06/15/2014 10:42am Height 65.5 inches 5'5.50" Weight 153.00 lb Heart Rate 81 /min BP Systolic Sitting 132 mmHg BP Diastolic Sitting 80 mmHg O2 % BldC Oximetry 98 % Ra BMI (Body Mass Index) 25.1 kg/m2 06/06/2014 8:31am Weight 153.00 lb Heart Rate 72 /min BP Systolic Sitting 156 mmHg BP Diastolic Sitting 84 mmHg Body Temperature 98.8 F 05/08/2014 2:42pm Weight 158.00 lb Heart Rate 84 /min BP Systolic Sitting 129 mmHg BP Diastolic Sitting 78 mmHg Body Temperature 98.6 F O2 % BldC Oximetry 96 % 04/25/2014 11:00am Heart Rate 78 /min BP Systolic Sitting 122 mmHg BP Diastolic Sitting 88 mmHg 12/26/2013 2:51pm Weight 162.00 lb Heart Rate 72 /min BP Systolic Sitting 132 mmHg BP Diastolic Sitting 70 mmHg Respiratory Rate 18 /min Body Temperature 97.4 F 10/11/2013 8:57am Height 67 inches 5'7" Weight 150.00 lb Heart Rate 80 /min BP Systolic Sitting 126 mmHg BP Diastolic Sitting 82 mmHg BMI (Body Mass Index) 23.5 kg/m2 01/25/2013 11:30am Height 66 inches 5'6" Weight 152.00 lb Heart Rate 82 /min BP Systolic Sitting 124 mmHg BP Diastolic Sitting 80 mmHg BMI (Body Mass Index) 24.5 kg/m2 01/12/2013 3:41pm Weight 158.00 lb Heart Rate 76 /min BP Systolic Sitting 130 mmHg BP Diastolic Sitting 82 mmHg 10/14/2012 2:59pm Height 65.5 inches 5'5.50" Weight 166.00 lb Heart Rate 78 /min BP Systolic Sitting 144 mmHg BP Diastolic Sitting 84 mmHg BMI (Body Mass Index) 27.2 kg/m2 Results Test Date Facility Test Result H/L Range Note CBC Auto Diff 08/31/2018 [facility] White Blood 5.3 10^3/uL N 3.5-10.[address] [place] [address] [phone] Red Blood Count 4.64 10^6/uL N 4.00-5.40 Hemoglobin 14.4 g/dL N 14.0-18.0 Hematocrit 42 % N 42-52 Mean Corpuscular Volume 90 fL N 80-94 Mean Corpuscular Hemoglobin 31 pg N 27-31 Mean Corpuscular HGB Conc 35 g/dL N 31-36 Red Cell Distribution Width 13 % N 10.5-15 Platelet Count 304 10^3/uL N 150-450 Mean Platelet Volume 7.8 fL N 7.4-10.4 Abs Neutrophils 2.4 10^3/uL N 1.5-7.7 Abs Lymphocytes 2.4 10^3/uL N 1.0-4.8 Abs Monocytes 0.5 10^3/uL N 0-0.8 Abs Eosinophils 0.1 10^3/uL N 0-0.6 Abs Basophils 0 10^3/uL N 0-0.2 Abs Nucleated RBC 0 10^3/uL Granulocyte % 44.4 % Lymphocyte % 44.9 % Monocyte % 8.7 % Eosinophil % 1.6 % Basophil % 0.4 % Nucleated Red Blood Cells % 0 Laboratory test 08/31/2018 [facility] Magnesium 2.0 mg/dL N 1.9-2.[address] [place] [address] [phone] TSH (Thyroid Stim Horm) 1.57 mcIU/mL N 0.34-5.60 Comp Metabolic Panel 08/24/2018 [facility] Sodium 141 mmol/L N 135-[address] [place] [address] [phone] Potassium 4.2 mmol/L N 3.5-5.0 Chloride 104 mmol/L N 101-111 Co2 Carbon Dioxide 29 mmol/L N 22-32 Anion Gap 8 mmol/L N 2-11 Glucose 110 mg/dL High 70-100 Blood Urea Nitrogen 13 mg/dL N 6-24 Creatinine 1.13 mg/dL N 0.67-1.17 BUN/Creatinine Ratio 11.5 N 8-20 Calcium 9.7 mg/dL N 8.6-10.3 Total Protein 7.0 g/dL N 6.4-8.9 Albumin 4.5 g/dL N 3.2-5.2 Globulin 2.5 g/dL N 2-4 Albumin/Globulin Ratio 1.8 N 1-3 Total Bilirubin 0.40 mg/dL N 0.2-1.0 Alkaline Phosphatase 73 U/L N 34-104 Alt 43 U/L N 7-52 Ast 23 U/L N 13-39 Egfr Non- 66.2 >60 Egfr 80.1 >60 1 Type & Screen 05/05/2018 [facility] Patient Blood Type A Negative [address] [place] [address] [phone] Antibody Screen NEGATIVE Laboratory test 05/04/2018 [facility] Talus SEE RESULTS [address] BELO <[place] [address] NOTE> [phone] CBC Auto Diff 04/14/2018 [facility] White Blood 5.5 10^3/uL N 3.5-[address] Count .8 [place] [address] [phone] Red Blood Count 4.28 10^6/uL N 4.00-5.40 Hemoglobin 13.6 g/dL Low 14.0-18.0 Hematocrit 39 % Low 42-52 Mean Corpuscular Volume 90 fL N 80-94 Mean Corpuscular Hemoglobin 32 pg High 27-31 Mean Corpuscular HGB Conc 35 g/dL N 31-36 Red Cell Distribution Width 14 % N 10.5-15 Platelet Count 287 10^3/uL N 150-450 Mean Platelet Volume 7.6 um3 N 7.4-10.4 Abs Neutrophils 2.9 10^3/uL N 1.5-7.7 Abs Lymphocytes 2.0 10^3/uL N 1.0-4.8 Abs Monocytes 0.5 10^3/uL N 0-0.8 Abs Eosinophils 0.1 10^3/uL N 0-0.6 Abs Basophils 0 10^3/uL N 0-0.2 Abs Nucleated RBC 0 10^3/uL Granulocyte % 52.6 % N 38-83 Lymphocyte % 36.7 % N 25-47 Monocyte % 9.2 % High 0-7 Eosinophil % 1.2 % N 0-6 Basophil % 0.3 % N 0-2 Nucleated Red Blood Cells % 0 Urinalysis Profile 04/14/2018 [facility] Urine Color Yellow [address] [place] [address] [phone] Urine Appearance Clear Urine Specific [place] 1.024 N 1.010-1.030 Urine pH 5.0 N 5-9 Urine Urobilinogen Negative Negative Urine Ketones Negative Negative Urine Protein Negative Negative Urine Leukocytes Negative Negative Urine Blood Negative Negative Urine Nitrite Negative Negative Urine Bilirubin Negative Negative Urine Glucose Negative Negative Type & Screen 04/14/2018 [facility] Patient Blood Type A Negative [address] [place] [address] [phone] Antibody Screen NEGATIVE Comp Metabolic Panel 04/14/2018 [facility] Sodium 140 mmol/L N 135-[address] [place] [address] [phone] Potassium 3.9 mmol/L N 3.5-5.0 Chloride 105 mmol/L N 101-111 Co2 Carbon Dioxide 29 mmol/L N 22-32 Anion Gap 6 mmol/L N 2-11 Glucose 91 mg/dL N 70-100 Blood Urea Nitrogen 17 mg/dL N 6-24 Creatinine 1.16 mg/dL N 0.67-1.17 BUN/Creatinine Ratio 14.7 N 8-20 Calcium 9.0 mg/dL N 8.6-10.3 Total Protein 6.5 g/dL N 6.4-8.9 Albumin 4.2 g/dL N 3.2-5.2 Globulin 2.3 g/dL N 2-4 Albumin/Globulin Ratio 1.8 N 1-3 Total Bilirubin 0.30 mg/dL N 0.2-1.0 Alkaline Phosphatase 54 U/L N 34-104 Alt 36 U/L N 7-52 Ast 22 U/L N 13-39 Egfr Non- 64.2 >60 Egfr 77.7 >60 4 Urine Culture And 04/14/2018 [facility] Urine SEE RESULT BELOW [address] [place] [address] [phone] BCR/Abl P210 pc 04/08/2018 [facility] BCR/Abl p210 see interpretati [address] Result <SEE NOTE> [place] [address] [phone] BCR/Abl PCR Specimen Blood BCR/Abl p210 Final Diagnosis See Comment 7 Comp Metabolic Panel 04/08/2018 [facility] Sodium 140 mmol/L N 135-[address] [place] [address] [phone] Potassium 3.8 mmol/L N 3.5-5.0 Chloride 103 mmol/L N 101-111 Co2 Carbon Dioxide 29 mmol/L N 22-32 Anion Gap 8 mmol/L N 2-11 Glucose 148 mg/dL High 70-100 Blood Urea Nitrogen 12 mg/dL N 6-24 Creatinine 1.16 mg/dL N 0.67-1.17 BUN/Creatinine Ratio 10.3 N 8-20 Calcium 9.0 mg/dL N 8.6-10.3 Total Protein 6.4 g/dL N 6.4-8.9 Albumin 4.1 g/dL N 3.2-5.2 Globulin 2.3 g/dL N 2-4 Albumin/Globulin Ratio 1.8 N 1-3 Total Bilirubin 0.50 mg/dL N 0.2-1.0 Alkaline Phosphatase 53 U/L N 34-104 Alt 41 U/L N 7-52 Ast 24 U/L N 13-39 Egfr Non- 64.2 >60 Egfr 77.7 >60 8 CBC Auto Diff 04/08/2018 [facility] White Blood 4.8 10^3/uL N 3.5-10.[address] [place] [address] [phone] Red Blood Count 4.38 10^6/uL N 4.00-5.40 Hemoglobin 13.8 g/dL Low 14.0-18.0 Hematocrit 39 % Low 42-52 Mean Corpuscular Volume 90 fL N 80-94 Mean Corpuscular Hemoglobin 32 pg High 27-31 Mean Corpuscular HGB Conc 35 g/dL N 31-36 Red Cell Distribution Width 14 % N 10.5-15 Platelet Count 268 10^3/uL N 150-450 Mean Platelet Volume 8.1 um3 N 7.4-10.4 Abs Neutrophils 2.5 10^3/uL N 1.5-7.7 Abs Lymphocytes 1.8 10^3/uL N 1.0-4.8 Abs Monocytes 0.4 10^3/uL N 0-0.8 Abs Eosinophils 0.1 10^3/uL N 0-0.6 Abs Basophils 0 10^3/uL N 0-0.2 Abs Nucleated RBC 0 10^3/uL Granulocyte % 53.5 % N 38-83 Lymphocyte % 37.5 % N 25-47 Monocyte % 7.6 % High 0-7 Eosinophil % 1.1 % N 0-6 Basophil % 0.3 % N 0-2 Nucleated Red Blood Cells % 0.1 BCR/Abl P210 10/01/2017 [facility] BCR/Abl p210 see interpretati [address] Result <SEE NOTE> [place] [address] [phone] BCR/Abl PCR Specimen WHOLE BLOOD BCR/Abl p210 Final Diagnosis See Comment 10 Laboratory test 10/01/2017 [facility] TSH (Thyroid 1.87 mcIU/mL N 0.34-5.[address] Stim Horm) [place] [address] [phone] Comp Metabolic 10/01/2017 [facility] Sodium 139 mmol/L N 133- [address] [place] [address] [phone] Potassium 4.5 mmol/L N 3.5-5.0 Chloride 106 mmol/L N 101-111 Co2 Carbon Dioxide 28 mmol/L N 22-32 Anion Gap 5 mmol/L N 2-11 Glucose 97 mg/dL N 70-100 Blood Urea Nitrogen 18 mg/dL N 6-24 Creatinine 1.11 mg/dL N 0.67-1.17 BUN/Creatinine Ratio 16.2 N 8-20 Calcium 9.2 mg/dL N 8.6-10.3 Total Protein 6.7 g/dL N 6.4-8.9 Albumin 4.2 g/dL N 3.2-5.2 Globulin 2.5 g/dL N 2-4 Albumin/Globulin Ratio 1.7 N 1-3 Total Bilirubin 0.40 mg/dL N 0.2-1.0 Alkaline Phosphatase 55 U/L N 34-104 Alt 29 U/L N 7-52 Ast 21 U/L N 13-39 Egfr Non- 67.8 >60 Egfr 87.2 >60 11 CBC Auto Diff 10/01/2017 [facility] White Blood 3.9 10^3/uL N 3.5-10.[address] [place] [address] [phone] Red Blood Count 4.52 10^6/uL N 4.0-5.4 Hemoglobin 14.0 g/dL N 14.0-18.0 Hematocrit 41 % Low 42-52 Mean Corpuscular Volume 91 fL N 80-94 Mean Corpuscular Hemoglobin 31 pg N 27-31 Mean Corpuscular HGB Conc 34 g/dL N 31-36 Red Cell Distribution Width 14 % N 10.5-15 Platelet Count 273 10^3/uL N 150-450 Mean Platelet Volume 8 um3 N 7.4-10.4 Abs Neutrophils 1.5 10^3/uL N 1.5-7.7 Abs Lymphocytes 1.9 10^3/uL N 1.0-4.8 Abs Monocytes 0.4 10^3/uL N 0-0.8 Abs Eosinophils 0.1 10^3/uL N 0-0.6 Abs Basophils 0 10^3/uL N 0-0.2 Abs Nucleated RBC 0 10^3/uL Granulocyte % 37.7 % Low 38-83 Lymphocyte % 48.7 % High 25-47 Monocyte % 10.6 % High 1-9 Eosinophil % 2.4 % N 0-6 Basophil % 0.6 % N 0-2 Nucleated Red Blood Cells % 0.1 Comp Metabolic Panel 06/24/2017 [facility] Sodium 137 mmol/L N 133-[address] [place] [address] [phone] Potassium 3.9 mmol/L N 3.5-5.0 Chloride 104 mmol/L N 101-111 Co2 Carbon Dioxide 27 mmol/L N 22-32 Anion Gap 6 mmol/L N 2-11 Glucose 94 mg/dL N 70-100 Blood Urea Nitrogen 17 mg/dL N 6-24 Creatinine 1.14 mg/dL N 0.67-1.17 BUN/Creatinine Ratio 14.9 N 8-20 Calcium 9.0 mg/dL N 8.6-10.3 Total Protein 6.9 g/dL N 6.4-8.9 Albumin 4.4 g/dL N 3.2-5.2 Globulin 2.5 g/dL N 2-4 Albumin/Globulin Ratio 1.8 N 1-3 Total Bilirubin 0.50 mg/dL N 0.2-1.0 Alkaline Phosphatase 50 U/L N 34-104 Alt 32 U/L N 7-52 Ast 25 U/L N 13-39 Egfr Non- 65.7 N >60 Egfr 84.6 N >60 12 CBC Auto Diff 06/24/2017 [facility] White Blood 5.0 10^3/uL N 3.5-10.[address] [place] [address] [phone] Red Blood Count 4.35 10^6/uL N 4.0-5.4 Hemoglobin 13.7 g/dL Low 14.0-18.0 Hematocrit 39 % Low 42-52 Mean Corpuscular Volume 90 fL N 80-94 Mean Corpuscular Hemoglobin 32 pg High 27-31 Mean Corpuscular HGB Conc 35 g/dL N 31-36 Red Cell Distribution Width 14 % N 10.5-15 Platelet Count 301 10^3/uL N 150-450 Mean Platelet Volume 7 um3 Low 7.4-10.4 Abs Neutrophils 2.7 10^3/uL N 1.5-7.7 Abs Lymphocytes 1.8 10^3/uL N 1.0-4.8 Abs Monocytes 0.4 10^3/uL N 0-0.8 Abs Eosinophils 0.1 10^3/uL N 0-0.6 Abs Basophils 0 10^3/uL N 0-0.2 Abs Nucleated RBC 0 10^3/uL N Granulocyte % 54.6 % N 38-83 Lymphocyte % 35.6 % N 25-47 Monocyte % 7.7 % N 1-9 Eosinophil % 1.5 % N 0-6 Basophil % 0.6 % N 0-2 Nucleated Red Blood Cells % 0 N Poc Urinalysis 06/17/2017 [facility] Poc Glucose, Negative N Negative [address] [place] [address] [phone] Poc Bilirubin, Urine Negative N Negative Poc Ketone, Urine Negative N Negative Poc Specific [place], Urine 1.020 N 1.010-1.030 Poc Blood, Urine Trace-intact Abnormal Negative Poc pH, Urine 6.0 N 5-9 Poc Protein, Urine Negative N Negative Poc Urobilinogen, Urine 0.2 N Negative Poc Nitrite, Urine Negative N Negative Poc Leukocytes, Urine Negative N Negative Poc Color, Urine Yellow N Poc Clarity, Urine Clear N 13 CBC Auto Diff 04/28/2017 [facility] White Blood 4.9 10^3/uL N 3.5-10.[address] [place] [address] [phone] Red Blood Count 4.31 10^6/uL N 4.0-5.4 Hemoglobin 13.2 g/dL Low 14.0-18.0 Hematocrit 39 % Low 42-52 Mean Corpuscular Volume 90 fL N 80-94 Mean Corpuscular Hemoglobin 31 pg N 27-31 Mean Corpuscular HGB Conc 34 g/dL N 31-36 Red Cell Distribution Width 13 % N 10.5-15 Platelet Count 269 10^3/uL N 150-450 Mean Platelet Volume 8 um3 N 7.4-10.4 Abs Neutrophils 2.6 10^3/uL N 1.5-7.7 Abs Lymphocytes 1.9 10^3/uL N 1.0-4.8 Abs Monocytes 0.3 10^3/uL N 0-0.8 Abs Eosinophils 0 10^3/uL N 0-0.6 Abs Basophils 0 10^3/uL N 0-0.2 Abs Nucleated RBC 0 10^3/uL N Granulocyte % 53.5 % N 38-83 Lymphocyte % 38.7 % N 25-47 Monocyte % 6.7 % N 1-9 Eosinophil % 0.6 % N 0-6 Basophil % 0.5 % N 0-2 Nucleated Red Blood Cells % 0.1 N Comp Metabolic Panel 04/28/2017 [facility] Sodium 137 mmol/L N 133-[address] [place] [address] [phone] Potassium 4.2 mmol/L N 3.5-5.0 Chloride 102 mmol/L N 101-111 Co2 Carbon Dioxide 28 mmol/L N 22-32 Anion Gap 7 mmol/L N 2-11 Glucose 151 mg/dL High 70-100 Blood Urea Nitrogen 15 mg/dL N 6-24 Creatinine 1.16 mg/dL N 0.67-1.17 BUN/Creatinine Ratio 12.9 N 8-20 Calcium 9.5 mg/dL N 8.6-10.3 Total Protein 7.0 g/dL N 6.4-8.9 Albumin 4.3 g/dL N 3.2-5.2 Globulin 2.7 g/dL N 2-4 Albumin/Globulin Ratio 1.6 N 1-3 Total Bilirubin 0.50 mg/dL N 0.2-1.0 Alkaline Phosphatase 57 U/L N 34-104 Alt 24 U/L N 7-52 Ast 23 U/L N 13-39 Egfr Non- 64.4 N >60 Egfr 82.9 N >60 14 Laboratory 04/28/2017 [facility] PSA Screening 1.575 ng/mL N 0 -4.000 15 test finding [address] [place] [address] [phone] BCR/Abl P210 04/28/2017 [facility] BCR/Abl p210 see interpretati N [address] Result <SEE NOTE> [place] [address] [phone] BCR/Abl PCR Specimen WHOLE BLOOD N BCR/Abl p210 Final Diagnosis See Comment N 17 Laboratory test 04/23/2017 [facility] CRP High 1.97 mg/L N [address] [place] [address] [phone] Erythrocyte Sed Rate 8 mm/Hr N 0-20 Vitamin D Total 25(Oh) 26.9 ng/mL Low 30-50 CBC Auto Diff 04/23/2017 [facility] White Blood 4.9 10^3/uL N 3.5-10.[address] [place] [address] [phone] Red Blood Count 4.32 10^6/uL N 4.0-5.4 Hemoglobin 13.3 g/dL Low 14.0-18.0 Hematocrit 40 % Low 42-52 Mean Corpuscular Volume 93 fL N 80-94 Mean Corpuscular Hemoglobin 31 pg N 27-31 Mean Corpuscular HGB Conc 33 g/dL N 31-36 Red Cell Distribution Width 13 % N 10.5-15 Platelet Count 285 10^3/uL N 150-450 Mean Platelet Volume 8 um3 N 7.4-10.4 Abs Neutrophils 2.6 10^3/uL N 1.5-7.7 Abs Lymphocytes 1.8 10^3/uL N 1.0-4.8 Abs Monocytes 0.4 10^3/uL N 0-0.8 Abs Eosinophils 0 10^3/uL N 0-0.6 Abs Basophils 0 10^3/uL N 0-0.2 Abs Nucleated RBC 0 10^3/uL N Granulocyte % 54.3 % N 38-83 Lymphocyte % 36.8 % N 25-47 Monocyte % 7.8 % N 1-9 Eosinophil % 0.7 % N 0-6 Basophil % 0.4 % N 0-2 Nucleated Red Blood Cells % 0 N Laboratory 04/23/2017 [facility] TSH (Thyroid 1.11 N 0.34- 5.60 test finding [address] Stim Horm) mcIU/[place] [address] [phone] Laboratory 01/08/2017 [facility] Surgical SEE RESULT 19, test finding [address] Pathology [address] [place] [address] [phone] CBC Auto Diff 10/29/2016 [facility] White Blood 3.4 Low 3.5- 10.[address] Count 10^3/[place] [address] [phone] Red Blood Count 4.17 10^6/uL N 4.0-5.4 Hemoglobin 13.2 g/dL Low 14.0-18.0 Hematocrit 38 % Low 42-52 Mean Corpuscular Volume 92 fL N 80-94 Mean Corpuscular Hemoglobin 32 pg High 27-31 Mean Corpuscular HGB Conc 34 g/dL N 31-36 Red Cell Distribution Width 13 % N 10.5-15 Platelet Count 263 10^3/uL N 150-450 Mean Platelet Volume 8 um3 N 7.4-10.4 Abs Neutrophils 1.4 10^3/uL Low 1.5-7.7 Abs Lymphocytes 1.6 10^3/uL N 1.0-4.8 Abs Monocytes 0.3 10^3/uL N 0-0.8 Abs Eosinophils 0.1 10^3/uL N 0-0.6 Abs Basophils 0 10^3/uL N 0-0.2 Abs Nucleated RBC 0 10^3/uL N Granulocyte % 40.3 % N 38-83 Lymphocyte % 47.7 % High 25-47 Monocyte % 9.8 % High 1-9 Eosinophil % 1.8 % N 0-6 Basophil % 0.4 % N 0-2 Nucleated Red Blood Cells % 0.1 N Comp Metabolic Panel 10/29/2016 [facility] Sodium 140 mmol/L N 133-145 [address] [place] [address] [phone] Potassium 4.0 mmol/L N 3.5-5.0 Chloride 106 mmol/L N 101-111 Co2 Carbon Dioxide 29 mmol/L N 22-32 Anion Gap 5 mmol/L N 2-11 Glucose 92 mg/dL N 70-100 Blood Urea Nitrogen 16 mg/dL N 6-24 Creatinine 1.00 mg/dL N 0.67-1.17 BUN/Creatinine Ratio 16.0 N 8-20 Calcium 9.0 mg/dL N 8.6-10.3 Total Protein 6.7 g/dL N 6.4-8.9 Albumin 4.1 g/dL N 3.2-5.2 Globulin 2.6 g/dL N 2-4 Albumin/Globulin Ratio 1.6 N 1-3 Total Bilirubin 0.40 mg/dL N 0.2-1.0 Alkaline Phosphatase 46 U/L N 34-104 Alt 38 U/L N 7-52 Ast 28 U/L N 13-39 Egfr Non- 76.5 N >60 Egfr 98.4 N >60 21 BCR/Abl P210 pc 10/29/2016 [facility] BCR/Abl PCR Specimen Blood N [address] [place] [address] [phone] BCR/Abl p210 Final Diagnosis See Comment N 23 Laboratory test 08/05/2016 [facility] Hemoglobin A1c 5.9 % N Less than 24 finding 101 (Glyco HGB) 6.0 [place] [address] [phone] Lyme Disease Serology Negative N Negative 25 Urinalysis Profile 08/05/2016 [facility] Urine Color Yellow N [address] [place] [address] [phone] Urine Appearance Clear N Urine Specific [place] 1.011 N 1.010-1.030 Urine pH 5.0 N 5-9 Urine Urobilinogen Negative N Negative Urine Ketones Negative N Negative Urine Protein Negative N Negative Urine Leukocytes Negative N Negative Urine Blood Negative N Negative Urine Nitrite Negative N Negative Urine Bilirubin Negative N Negative Urine Glucose Negative N Negative Type & Screen 08/05/2016 [facility] Patient Blood Type A Negative N [address] [place] [address] [phone] Antibody Screen NEGATIVE N Laboratory 08/05/2016 [facility] Partial Thrombo 29.5 N 26.0- 36.[address] [place] [address] [phone] Inr/Protime 08/05/2016 [facility] Inr 0.82 Low 0.89-1.11 [address] [place] [address] [phone] Laboratory 08/05/2016 [facility] Troponin-I (TnI) 0.00 ng/mL N <0.04 26 test finding [address] [place] [address] [phone] Lipid Profile 08/05/2016 [facility] Triglycerides 200 mg/dL N 27 (Trig/Chol/HDL [address] ) [place] [address] [phone] Cholesterol 192 mg/dL N 28 HDL Cholesterol 40.2 mg/dL N 29 LDL Cholesterol 112 mg/dL N 30 Comp Metabolic Panel 08/05/2016 [facility] Sodium 139 mmol/L N 133-[address] [place] [address] [phone] Potassium 3.3 mmol/L Low 3.5-5.0 Chloride 106 mmol/L N 101-111 Co2 Carbon Dioxide 28 mmol/L N 22-32 Anion Gap 5 mmol/L N 2-11 Glucose 103 mg/dL High 70-100 Blood Urea Nitrogen 15 mg/dL N 6-24 Creatinine 1.03 mg/dL N 0.67-1.17 BUN/Creatinine Ratio 14.6 N 8-20 Calcium 8.9 mg/dL N 8.6-10.3 Total Protein 7.0 g/dL N 6.4-8.9 Albumin 4.1 g/dL N 3.2-5.2 Globulin 2.9 g/dL N 2-4 Albumin/Globulin Ratio 1.4 N 1-3 Total Bilirubin 0.40 mg/dL N 0.2-1.0 Alkaline Phosphatase 48 U/L N 34-104 Alt 25 U/L N 7-52 Ast 23 U/L N 13-39 Egfr Non- 74.2 N >60 Egfr 95.4 N >60 31 CBC Auto Diff 08/05/2016 [facility] White Blood 4.9 10^3/uL N 3.5-10.[address] [place] [address] [phone] Red Blood Count 4.27 10^6/uL N 4.0-5.4 Hemoglobin 13.7 g/dL Low 14.0-18.0 Hematocrit 40 % Low 42-52 Mean Corpuscular Volume 93 fL N 80-94 Mean Corpuscular Hemoglobin 32 pg High 27-31 Mean Corpuscular HGB Conc 35 g/dL N 31-36 Red Cell Distribution Width 13 % N 10.5-15 Platelet Count 287 10^3/uL N 150-450 Mean Platelet Volume 8 um3 N 7.4-10.4 Abs Neutrophils 2.7 10^3/uL N 1.5-7.7 Abs Lymphocytes 1.7 10^3/uL N 1.0-4.8 Abs Monocytes 0.4 10^3/uL N 0-0.8 Abs Eosinophils 0.1 10^3/uL N 0-0.6 Abs Basophils 0 10^3/uL N 0-0.2 Abs Nucleated RBC 0.01 10^3/uL N Granulocyte % 54.4 % N 38-83 Lymphocyte % 34.8 % N 25-47 Monocyte % 8.6 % N 1-9 Eosinophil % 1.8 % N 0-6 Basophil % 0.4 % N 0-2 Nucleated Red Blood Cells % 0.1 N Laboratory 08/05/2016 [facility] Lactic Acid 1.1 mmol/L N 0.5- 2.0 32 test finding [address] [place] [address] [phone] Laboratory 02/19/2016 [facility] Hepatitis C Nonreactive N Nonreactive [address] [place] [address] [phone] Basic 11/14/2015 [facility] Sodium 141 mmol/L N 133-[address] [place] [address] [phone] Potassium 3.7 mmol/L N 3.5-5.0 Chloride 105 mmol/L N 101-111 Co2 Carbon Dioxide 28 mmol/L N 22-32 Anion Gap 8 mmol/L N 2-11 Glucose 111 mg/dL High 70-100 Blood Urea Nitrogen 16 mg/dL N 6-24 Creatinine 1.19 mg/dL High 0.67-1.17 BUN/Creatinine Ratio 13.4 N 8-20 Calcium 9.0 mg/dL N 8.6-10.3 Egfr Non- 62.8 N >60 Egfr 80.8 N >60 34 CBC No Diff 11/14/2015 [facility] White Blood 5.7 10^3/uL N 3.5-10.[address] [place] [address] [phone] Red Blood Count 4.05 10^6/uL N 4.0-5.4 Hemoglobin 12.9 g/dL Low 14.0-18.0 Hematocrit 38 % Low 42-52 Mean Corpuscular Volume 94 fL N 80-94 Mean Corpuscular Hemoglobin 32 pg High 27-31 Mean Corpuscular HGB Conc 34 g/dL N 31-36 Red Cell Distribution Width 13 % N 10.5-15 Platelet Count 321 10^3/uL N 150-450 Mean Platelet Volume 8 um3 N 7.4-10.4 Surgical 05/25/2014 [facility] S RUN DATE: [address] 05/30/ <[place] [address] NOTE> [phone] CBC Auto Diff 05/08/2014 [facility] White Blood 3.8 10^3/uL Low 4.8-[address] Count .8 [place] [address] [phone] Red Blood Count 4.06 10^6/uL N 4.0-5.4 Hemoglobin 13.4 g/dL Low 14.0-18.0 Hematocrit 39 % Low 42-52 Mean Corpuscular Volume 96 fL High 80-94 Mean Corpuscular Hemoglobin 33 pg High 27-31 Mean Corpuscular HGB Conc 35 g/dL N 31-36 Red Cell Distribution Width 14 % N 10.5-15 Platelet Count 248 10^3/uL N 150-450 Mean Platelet Volume 7 um3 Low 7.4-10.4 Abs Neutrophils 1.9 10^3/uL N 1.5-7.7 Abs Lymphocytes 1.6 10^3/uL N 1.0-4.8 Abs Monocytes 0.3 10^3/uL N 0-0.8 Abs Eosinophils 0 10^3/uL N 0-0.6 Abs Basophils 0 10^3/uL N 0-0.2 Abs Nucleated RBC 0 10^3/uL N Granulocyte % 49.9 % N 38-83 Lymphocyte % 42.2 % N 25-47 Monocyte % 6.8 % N 1-9 Eosinophil % 0.7 % N 0-6 Basophil % 0.4 % N 0-2 Nucleated Red Blood Cells % 0.1 N Basic Metabolic Panel 05/08/2014 [facility] Sodium 138 mmol/L N 133-[address] [place] [address] [phone] Potassium 4.0 mmol/L N 3.7-5.6 Chloride 106 mmol/L N 101-111 Co2 Carbon Dioxide 29 mmol/L N 22-32 Anion Gap 3 mmol/L N 2-11 Glucose 97 mg/dL N 70-100 Blood Urea Nitrogen 16 mg/dL N 6-24 Creatinine 1.02 mg/dL N 0.67-1.17 BUN/Creatinine Ratio 15.7 N 8-20 Calcium 8.7 mg/dL N 8.6-10.3 Egfr Non- 75.5 N >60 Egfr 97.2 N >60 36 Basic Metabolic Panel 04/02/2014 [facility] Sodium 140 mmol/L N 133-145 [address] [place] [address] [phone] Potassium 3.3 mmol/L Low 3.7-5.6 Chloride 108 mmol/L N 101-111 Co2 Carbon Dioxide 28 mmol/L N 22-32 Anion Gap 4 mmol/L N 2-11 Glucose 79 mg/dL N 70-100 Blood Urea Nitrogen 16 mg/dL N 6-24 Creatinine 0.90 mg/dL N 0.67-1.17 BUN/Creatinine Ratio 17.8 N 8-20 Calcium 8.8 mg/dL N 8.6-10.3 Egfr Non- 87.3 N >60 Egfr 112.3 N >60 37 Vitamin D, 25 04/02/2014 [facility] 25-Hydroxy Vitamin <4.0 ng/ mL N Hydroxy [address] [address] [phone] 25-Hydroxy Vitamin D3 23 ng/mL N 25-Hydroxy Vitamin D Total 23 ng/mL N 38 Comp Metabolic Panel 03/05/2014 [facility] Sodium 138 mmol/L N 133-145 [address] [place] [address] [phone] Potassium 3.6 mmol/L Low 3.7-5.6 Chloride 106 mmol/L N 101-111 Co2 Carbon Dioxide 28 mmol/L N 22-32 Anion Gap 4 mmol/L N 2-11 Glucose 99 mg/dL N 70-100 Blood Urea Nitrogen 13 mg/dL N 6-24 Creatinine 0.93 mg/dL N 0.67-1.17 BUN/Creatinine Ratio 14.0 N 8-20 Calcium 8.7 mg/dL N 8.6-10.3 Total Protein 6.1 g/dL Low 6.4-8.9 Albumin 4.1 g/dL N 3.2-5.2 Globulin 2.0 g/dL N 2-4 Albumin/Globulin Ratio 2.1 N 1-3 Total Bilirubin 0.40 mg/dL N 0.2-1.0 Alkaline Phosphatase 46 U/L N 34-104 Alt 11 U/L N 7-52 Ast 16 U/L N 13-39 Egfr Non- 84.0 N >60 Egfr 108.1 N >60 39 CBC Auto 03/05/2014 [facility] White Blood 3.5 10^3/uL Low 4.8 -10.[address] [place] [address] [phone] Red Blood Count 3.96 10^6/uL Low 4.0-5.4 Hemoglobin 12.6 g/dL Low 14.0-18.0 Hematocrit 37 % Low 42-52 Mean Corpuscular Volume 94 fL N 80-94 Mean Corpuscular Hemoglobin 32 pg High 27-31 Mean Corpuscular HGB Conc 34 g/dL N 31-36 Red Cell Distribution Width 13 % N 10.5-15 Platelet Count 268 10^3/uL N 150-450 Mean Platelet Volume 7 um3 Low 7.4-10.4 Abs Neutrophils 1.6 10^3/uL N 1.5-7.7 Abs Lymphocytes 1.5 10^3/uL N 1.0-4.8 Abs Monocytes 0.3 10^3/uL N 0-0.8 Abs Eosinophils 0 10^3/uL N 0-0.6 Abs Basophils 0 10^3/uL N 0-0.2 Abs Nucleated RBC 0 10^3/uL N Granulocyte % 46.8 % N 38-83 Lymphocyte % 44.3 % N 25-47 Monocyte % 7.2 % N 1-9 Eosinophil % 1.1 % N 0-6 Basophil % 0.6 % N 0-2 Nucleated Red Blood Cells % 0 N BCR/Abl P210 pc 03/05/2014 [facility] BCR/Abl PCR Specimen Blood N 40 [address] [place] [address] [phone] BCR/Abl p210 Final Diagnosis See Comment N 41 Urinalysis Profile 02/12/2014 [facility] Urine Color Yellow N [address] [place] [address] [phone] Urine Appearance Clear N Urine Specific [place] 1.021 N 1.010-1.030 Urine pH 6.0 N 5-9 Urine Urobilinogen Negative N Negative Urine Ketones Negative N Negative Urine Protein Negative N Negative Urine Leukocytes Negative N Negative Urine Blood Negative N Negative Urine Nitrite Negative N Negative Urine Bilirubin Negative N Negative Urine Glucose Negative N Negative Manual Differential 02/11/2014 [facility] Neutrophil % 42 % N 38-83 [address] [place] [address] [phone] Lymphocytes % 48 % High 25-47 Monocytes % 5 % N 0-13 Eosinophils % 2 % N 0-6 Reactive Lymph % 3 % N 0-6 RBC Morphology Normal N Normal Laboratory test finding 02/11/2014 [facility] Lipase 47 U/L N 11.0-82.0 [address] [place] [address] [phone] C Reactive Protein 2.59 mg/L N < 5.00 42 Comp Metabolic Panel 02/11/2014 [facility] Sodium 140 mmol/L N 133-145 [address] [place] [address] [phone] Potassium 3.3 mmol/L Low 3.7-5.6 Chloride 108 mmol/L N 101-111 Co2 Carbon Dioxide 28 mmol/L N 22-32 Anion Gap 4 mmol/L N 2-11 Glucose 114 mg/dL High 70-100 Blood Urea Nitrogen 17 mg/dL N 6-24 Creatinine 1.01 mg/dL N 0.67-1.17 BUN/Creatinine Ratio 16.8 N 8-20 Calcium 8.5 mg/dL Low 8.6-10.3 Total Protein 6.4 g/dL N 6.4-8.9 Albumin 4.1 g/dL N 3.2-5.2 Globulin 2.3 g/dL N 2-4 Albumin/Globulin Ratio 1.8 N 1-3 Total Bilirubin 0.30 mg/dL N 0.2-1.0 Alkaline Phosphatase 47 U/L N 34-104 Alt 13 U/L N 7-52 Ast 24 U/L N 13-39 Egfr Non- 76.4 N >60 Egfr 98.3 N >60 43 CBC Auto Diff 02/11/2014 [facility] White Blood 5.2 10^3/uL N 4.8-10.8 [address] [facility] [place] [address] [phone] Red Blood Count 3.92 10^6/uL Low 4.0-5.4 Hemoglobin 12.6 g/dL Low 14.0-18.0 Hematocrit 37 % Low 42-52 Mean Corpuscular Volume 94 fL N 80-94 Mean Corpuscular Hemoglobin 32 pg High 27-31 Mean Corpuscular HGB Conc 34 g/dL N 31-36 Red Cell Distribution Width 13 % N 10.5-15 Platelet Count 230 10^3/uL N 150-450 Mean Platelet Volume 8 um3 N 7.4-10.4 Abs Neutrophils 2.0 10^3/uL N 1.5-7.7 Abs Lymphocytes 2.7 10^3/uL N 1.0-4.8 Abs Monocytes 0.4 10^3/uL N 0-0.8 Abs Eosinophils 0.1 10^3/uL N 0-0.6 Abs Basophils 0 10^3/uL N 0-0.2 Abs Nucleated RBC 0.01 10^3/uL N Basic Metabolic Panel 01/17/2014 [facility] Sodium 140 mmol/L N 133-145 [address] [place] [address] [phone] Potassium 3.6 mmol/L Low 3.7-5.6 Chloride 105 mmol/L N 101-111 Co2 Carbon Dioxide 30 mmol/L N 22-32 Anion Gap 5 mmol/L N 2-11 Glucose 119 mg/dL High 70-100 Blood Urea Nitrogen 17 mg/dL N 6-24 Creatinine 1.12 mg/dL N 0.67-1.17 BUN/Creatinine Ratio 15.2 N 8-20 Calcium 9.2 mg/dL N 8.6-10.3 Egfr Non- 67.8 N >60 Egfr 87.2 N >60 44 Laboratory test 01/17/2014 [facility] Phosphorus 2.4 mg/dL Low 2.5-5.0 finding [address] [place] [address] [phone] Magnesium 2.0 mg/dL N 1.9-2.7 Vitamin B12 316 pg/mL N 180-914 45 BCR/Abl P210 pc 12/20/2013 [facility] BCR/Abl PCR Specimen Blood N 46 [address] [place] [address] [phone] BCR/Abl p210 Final Diagnosis See Comment N 47 CBC Auto 12/01/2013 [facility] White Blood 3.7 10^3/uL Low 4.8 -10.[address] [place] [address] [phone] Red Blood Count 4.04 10^6/uL N 4.0-5.4 Hemoglobin 13.6 g/dL Low 14.0-18.0 Hematocrit 38 % Low 42-52 Mean Corpuscular Volume 94 fL N 80-94 Mean Corpuscular Hemoglobin 34 pg High 27-31 Mean Corpuscular HGB Conc 36 g/dL N 31-36 Red Cell Distribution Width 13 % N 10.5-15 Platelet Count 242 10^3/uL N 150-450 Mean Platelet Volume 8 um3 N 7.4-10.4 Abs Neutrophils 1.9 10^3/uL N 1.5-7.7 Abs Lymphocytes 1.4 10^3/uL N 1.0-4.8 Abs Monocytes 0.3 10^3/uL N 0-0.8 Abs Eosinophils 0.1 10^3/uL N 0-0.6 Abs Basophils 0 10^3/uL N 0-0.2 Abs Nucleated RBC 0 10^3/uL N Granulocyte % 51.6 % N 38-83 Lymphocyte % 38.1 % N 25-47 Monocyte % 8.3 % N 1-9 Eosinophil % 1.6 % N 0-6 Basophil % 0.4 % N 0-2 Nucleated Red Blood Cells % 0 N Comp Metabolic Panel 12/01/2013 [facility] Sodium 141 mmol/L N 133-[address] [place] [address] [phone] Potassium 4.6 mmol/L N 3.7-5.6 Chloride 108 mmol/L N 101-111 Co2 Carbon Dioxide 30 mmol/L N 22-32 Anion Gap 3 mmol/L N 2-11 Glucose 124 mg/dL High 70-100 Blood Urea Nitrogen 20 mg/dL N 6-24 Creatinine 0.94 mg/dL N 0.67-1.17 BUN/Creatinine Ratio 21.3 High 8-20 Calcium 8.9 mg/dL N 8.6-10.3 Total Protein 6.6 g/dL N 6.4-8.9 Albumin 4.4 g/dL N 3.2-5.2 Globulin 2.2 g/dL N 2-4 Albumin/Globulin Ratio 2.0 N 1-3 Total Bilirubin 0.30 mg/dL N 0.2-1.0 Alkaline Phosphatase 48 U/L N 34-104 Alt 13 U/L N 7-52 Ast 17 U/L N 13-39 Egfr Non- 83.0 N >60 Egfr 106.8 N >60 48 Laboratory test finding 12/01/2013 [facility] T4 7.01 g/dL N 6.09-12.[address] [place] [address] [phone] TSH (Thyroid Stimulating Horm) 1.29 IU/mL N 0.34-5.60 BCR/Abl P210 pc 12/01/2013 [facility] BCR/Abl PCR EDTA whole N [address] [place] [address] [phone] BCR/Abl p210 Final Diagnosis See Comment N 50 Comp Metabolic Panel 05/29/2013 [facility] Sodium 140 mmol/L 133-[address] [place] [address] [phone] Potassium 3.9 mmol/L 3.5-5.0 Chloride 103 mmol/L [...] Egfr Non- 87.6 >60 Egfr 112.7 >60 51 CBC Auto 05/29/2013 [facility] White Blood 4.7 10^3/uL Low 4.8 -10.[address] [place] [address] [phone] Red Blood Count 4.20 10^6/uL 4.0-5.4 Hemoglobin [...] Cells % 0.1 BCR/Abl P210 pc 05/29/2013 [facility] BCR/Abl PCR Specimen Blood [address] [place] [address] [phone] BCR/Abl p210 Final Diagnosis See Comment 52 CBC With 04/13/2013 [facility] White Blood 4.1 10^3/uL Low 4.8 -10.8 Manual Diff [address] [place] [address] [phone] Red Blood Count 4.29 10^6/uL 4.0-5.4 Hemoglobin [...] 0-2 RBC Morphology Normal Normal CBC Auto 03/06/2013 [facility] White Blood 4.3 10^3/uL Low 4.8 -10.[address] [place] [address] [phone] Red Blood Count 4.11 10^6/uL 4.0-5.4 Hemoglobin [...] Cells % 0 Comp Metabolic Panel 03/06/2013 [facility] Sodium 140 mmol/L 133-[address] [place] [address] [phone] Potassium 4.1 mmol/L 3.5-5.0 Chloride 105 mmol/L [...] Egfr Non- 87.6 >60 Egfr 112.7 >60 53 BCR/Abl P210 pc 03/06/2013 [facility] BCR/Abl PCR Specimen Blood [address] [place] [address] [phone] BCR/Abl p210 Final Diagnosis See Comment 54 Laboratory test 02/21/2013 [facility] Pathologist (SEE NOTE) [address] [place] [address] [phone] CBC With Manual 02/21/2013 [facility] White Blood 3.8 Low 4.8- [address] Count 10^3/uL 0.8 [place] [address] [phone] Red Blood Count 3.84 10^6/uL Low 4.0-5.4 [...] % 0-6 RBC Morphology Normal Normal Surgical 01/06/2013 [facility] S RUN DATE: [address] 01/10/ <[place] [address] NOTE> [phone] Laboratory test 12/05/2012 [facility] BCR/Abl (SEE NOTE) [address] PCR([facility]) [place] [address] [phone] Comp Metabolic 12/05/2012 [facility] Sodium 140 mmol/L 133- [address] [place] [address] [phone] Potassium 4.2 mmol/L 3.5-5.0 Chloride 107 mmol/L [...] Egfr Non- 100.4 >60 Egfr 129.1 >60 58 CBC Auto 12/05/2012 [facility] White Blood 4.4 10^3/uL Low 4.8 -10.[address] [place] [address] [phone] Red Blood Count 4.03 10^6/uL 4.0-5.4 Hemoglobin [...] Red Blood Cells % 0 Laboratory test 12/05/2012 [facility] Glucose 89 mg/dL 70- 100 [address] [place] [address] [phone] Vitamin D, 25 12/05/2012 [facility] 25-Hydroxy <4.0 ng/mL Hydroxy [address] Vitamin D2 [place] [address] [phone] 25-Hydroxy Vitamin D3 20 ng/mL 25-Hydroxy Vitamin D Total 20 ng/mL Abnormal 60 Lipid Profile 12/05/2012 [facility] Triglycerides 138 mg/dL 40-200 (Trig/Chol/HDL) [address] [place] [address] [phone] Cholesterol 142 mg/dL Less than 200 HDL Cholesterol 36 mg/dL Low 40-60 61 Cholesterol/HDL Ratio 3.9 Average 1-4.44 LDL Cholesterol 78.4 mg/dL Less Than 100 62 CBC With 10/31/2012 [facility] White Blood 3.4 10^3/uL Low 4.8 -10.[address] [place] [address] [phone] Red Blood Count 4.11 10^6/uL 4.0-5.4 Hemoglobin [...] 5 Kidney failure <15 (or dialysis) 2 PLANTAR FASCIAL FIBROMATOSIS, OSTEOCHONDRITIS DISS 3 SEE RESULTS BELOW [id number] [facility] 05/05/18 0734 4 Because ethnic data is not always [...] 5 Kidney failure <15 (or dialysis) 5 SEE RESULT BELOW Name: MAGDI CHEEK : [address]: Alejandro Diaz MD Acct: [id number] Unit: [id number] AGE: 62 Location: [facility] Re04/14/18 SEX: M Status: REG REF SPEC: [id number] NAOMIE: 04/14/18-[address] [facility] [address]: Alejandro Diaz MD REQ: [id number] RECD: 04/14/18 STATUS: COMP _ SOURCE: URINE SPDESC: ORDERED: Urine Culture Urine Source: Random Procedure Result Reported Site Urine Culture Final 04/15/18- 1324 ML No Growth (<1,000 CFU/mL) * ML - Main Lab . END OF REPORT DEPARTMENT OF PATHOLOGY, [address] [place] [address] Edi Blevins M.D. Director [facility] # [id number] see interpretation PDF Report available at: [email or web address] 7 Peripheral blood, BCR/ABL1 mRNA level analysis (p210 [...] level was evaluated using a quantitative, reverse molded goods spot picker PCR. The analytical sensitivity of this assay [...] all possible fusion forms. Please contact the [facility] at [phone] with questions or if additional testing is required. See the [facility] Interpretive Handbook for method details. The reproducibility [...] developed and its performance characteristics determined by [facility] in a manner consistent with CLIA requirements. This test has not been cleared or approved by the U.S. Food and Drug Administration. Test Performed by: [address] [address] 8 Because ethnic data is not always readily [...] 15-29 5 Kidney failure <15 (or dialysis) 9 see interpretation PDF Report available at: [email or web address] 10 Peripheral blood, BCR/ABL1 mRNA level analysis (p210 [...] level was evaluated using a quantitative, reverse molded goods spot picker PCR. The analytical sensitivity of this assay [...] all possible fusion forms. Please contact the [facility] at [phone] with questions or if additional testing is required. See the [facility] Interpretive Handbook for method details. The reproducibility [...] developed and its performance characteristics determined by [facility] in a manner consistent with CLIA requirements. This test has not been cleared or approved by the U.S. Food and Drug Administration. Test Performed by: [address] [address] 11 Because ethnic data is not always readily [...] 15-29 5 Kidney failure <15 (or dialysis) 12 Because ethnic data is not always readily [...] 15-29 5 Kidney failure <15 (or dialysis) 13 Dustless Operator: [id number] 14 Because ethnic data is not always readily [...] 15-29 5 Kidney failure <15 (or dialysis) 15 Serum levels of PSA measured using the [employer] DXI Hybritech immunoassay should not be interpreted as absolute evidence of the presence or absence of disease. The PSA value should be used in conjunction with other pertinent clinical diagnostic procedures. The values obtained with different assay methods or kits cannot be used interchangeably. 16 see interpretation PDF Report available at: [email or web address] 17 Peripheral blood, BCR/ABL1 mRNA level analysis (p210 [...] level was evaluated using a quantitative, reverse molded goods spot picker PCR. The analytical sensitivity of this assay [...] all possible fusion forms. Please contact the [facility] at [phone] with questions or if additional testing is required. See the [facility] Interpretive Handbook for method details. The reproducibility [...] developed and its performance characteristics determined by [facility] in a manner consistent with CLIA requirements. This test has not been cleared or approved by the U.S. Food and Drug Administration. Test Performed by: [address] [address] 18 Low risk: <1.00 Average risk: 1.00-3.00 High risk: >3.00 19 [id number] 20 SEE RESULT BELOW Name: MAGDI CHEEK : [address]: Kosta Dumont MD Acct: [id number] Unit: [id number] AGE: 61 Location: [facility] Re01/08/17 SEX: M Status: REG REF SPEC: [id number] NAOMIE: 01/08/17-[address] [facility] [address]: Kosta Dumont MD REQ: [id number] RECD: 01/08/17-7647 STATUS: EPIFANIO SMALL DR: Eric Talavera MD _ ORDERED: LEVEL 4, SPEC STAIN ORG COMMENTS: [id number] FINAL DIAGNOSIS Gastroesophageal junction, biopsy: -- Erosive [...] performed at Main Lab DEPARTMENT OF PATHOLOGY, [address] [place] [address] Edi Blevins M.D. Director [facility] # [id number] 21 Because ethnic data is not always readily [...] 15-29 5 Kidney failure <15 (or dialysis) 22 PDF Report available at: [email or web address] 23 Peripheral blood, BCR/ABL1 mRNA level analysis (p210 fusion form): Negative. No BCR/ABL1 p210 mRNA transcripts were detected (%BCR/ABL1(p210):ABL1=0). Signing Pathologist: Eduardo Meza M.D. ADDITIONAL INFORMATION Method summary - BCR/ABL1, p210 fusion: The BCR/ABL1 transcript level was evaluated using a quantitative, reverse molded goods spot picker PCR. The analytical sensitivity of this assay [...] all possible fusion forms. Please contact the [facility] at [phone] with questions or if additional testing is required. See the [facility] Interpretive Handbook for method details. The reproducibility [...] BAKDM). Laboratory developed test. Test Performed by: [address] [address] [employer] Layer: Valentino Petersen II, M.D., Ph.D. 24 Therapeutic target for the treatment of diabetes Mellitus patients is <7% HBA1C, and in selective patients <6.0%.Please refer to [place] [employer] Diabetic care guidelines for further information. 25 Serologic response to B. burgdorferi infection is not detected, but cannot rule out early infection during which low or undetectable antibody levels to B. burgdorferi may be present. If clinically indicated, a new serum specimen should be submitted in 7-14 days. Test Performed by: [place] [address] [employer] Core Layer: Valentino Petersen II, M.D., Ph.D. 26 NOTE: Critical Troponin is now >0.03 ng/mL. 99th percentile=0.04 ng/mL Troponin results at [facility] and [facility] are not interchangeable. 27 Desirable <150 Borderline high 150-199 High 200-499 Very High >500 28 Desirable <200 Borderline high 200-239 High >239 29 Low <40 Desirable: 40-60 High: >60 30 Desirable: <100 mg/dL Near Optimal: 100-129 mg/dL Borderline High: 130-159 mg/dL High: 160-189 mg/dL Very High: >189 mg/dL 31 Because ethnic data is not always [...] 5 Kidney failure <15 (or dialysis) 32 [facility] Severe Sepsis and Septic Shock Management Bundle Measure requires all lactic acids initially measuring >2.0 mmol/L be repeated. 33 Copy Result to: CHRISSY TALAVERA ([id number]) 34 Because ethnic data is not always [...] 5 Kidney failure <15 (or dialysis) 35 RUN DATE: 05/30/14 [facility] LAB LIVE PAGE 1 RUN TIME: [address] [place] [address] Specimen Inquiry Name: MAGDI CHEEK : [address]: Alexandra Zamora MD Acct: [id number] Unit: [id number] AGE: 58 Location: [facility] Re05/25/14 SEX: M Status: [facility] SPEC: [id number] NAOMIE: 05/25/141045 SUBM DR: Alexandra Zamora MD REQ: [id number] RECD: 05/25/14 STATUS: SOUT _ ORDERED: Decal, [...] performed at Main Lab DEPARTMENT OF PATHOLOGY, [address] [place] [address] Edi Blevins M.D. Director [facility] # [id number] 36 Because ethnic data is not always [...] 5 Kidney failure <15 (or dialysis) 37 Because ethnic data is not always [...] 5 Kidney failure <15 (or dialysis) 38 -- REFERENCE VALUE -- 25-HYDROXY D TOTAL (D2+D3) Optimum levels in the healthy population are 20-50, patients with bone disease may benefit from higher levels within this range. Test Performed by: [place] [address] [employer] Core Layer: Prince Ha III, M.D. 39 Because ethnic data is not always [...] 5 Kidney failure <15 (or dialysis) 40 PDF Report available at: [email or web address] 41 Peripheral blood, BCR/ABL mRNA level analysis (p210 fusion form): Positive. BCR/ABL p210 mRNA transcripts were detected and estimated to represent 0.02% of total abl (%bcr/abl(p210):abl). 0.02% bcr/abl(p210):abl in this assay is equivalent to 0.05% on the International Scale in which 0.1% is considered a major molecular response in CML (see Sopchoppy et al, Blood 2008;112:3330). Signing Pathologist: Yash Luna M.D., Ph.D. Method summary - BCR/ABL, p210 fusion: p210 mRNA transcript level was evaluated using quantitative, reverse molded goods spot picker PCR. The assay detects the two most [...] setting and the result is negative, test #24633 (BCR/ABL mRNA Detection, RT-PCR, Qualitative, Diagnostic) should be ordered to evaluate for all possible fusion forms. Please contact the lab at with questions or if additional testing is required. See the [facility] Interpretive Handbook for method details. Typical [...] specimen. Laboratory developed test. Test Performed by: [address] [address] [employer] Core Layer: Prince Ha III, M.D. 42 Acute inflammation: >10.00 43 Because ethnic data is not always [...] 5 Kidney failure <15 (or dialysis) 44 Because ethnic data is not always readily [...] 15-29 5 Kidney failure <15 (or dialysis) 45 Normal Range 180 to 914 Indeterminate Range 145 to 180 Deficient Range <145 46 PDF Report available at: [email or web address] 47 Peripheral blood, BCR/ABL mRNA level analysis (p210 fusion form): Positive. BCR/ABL p210 mRNA transcripts were detected and estimated to represent 0.06% of total abl (%bcr/abl(p210):abl). 0.06% bcr/abl(p210):abl in this assay is equivalent to 0.2% on the International Scale in which 0.1% is considered a major molecular response in CML (see Sopchoppy et al, Blood 2008;112:3330). Signing Pathologist: Liliam Noland M.D. Method summary - BCR/ABL, p210 fusion: p210 mRNA transcript level was evaluated using quantitative, reverse molded goods spot picker PCR. The assay detects the two most [...] setting and the result is negative, test #[id number] (BCR/ABL mRNA Detection, RT-PCR, Qualitative, Diagnostic) should be ordered to evaluate for all possible fusion forms. Please contact the lab at with questions or if additional testing is required. See the [facility] Interpretive Handbook for method details. Typical [...] specimen. Laboratory developed test. Test Performed by: [place] [address] [employer] Core Layer: Prince Ha III, M.D. 48 Because ethnic [...] 5 Kidney failure <15 (or dialysis) 49 EDTA whole blood PDF Report available at: [email or web address] 50 Peripheral blood, BCR/ABL mRNA level analysis (p210 fusion form): Positive. BCR/ABL p210 mRNA transcripts were detected and estimated to represent 0.06% of total abl (%bcr/abl(p210):abl). 0.06% bcr/abl(p210):abl in this assay is equivalent to 0.2% on the International Scale in which 0.1% is considered a major molecular response in CML (see Sopchoppy et al, Blood 2008;112:3330). Signing Pathologist: Eduardo Meza M.D. Method summary - BCR/ABL, p210 fusion: p210 mRNA transcript level was evaluated using quantitative, reverse molded goods spot picker PCR. The assay detects the two most [...] setting and the result is negative, test #78271 (BCR/ABL mRNA Detection, RT-PCR, Qualitative, Diagnostic) should be ordered to evaluate for all possible fusion forms. Please contact the lab at with questions or if additional testing is required. See the [facility] Interpretive Handbook for method details. Typical [...] specimen. Laboratory developed test. Test Performed by: [address] [address] [employer] Core Layer: Prince R. Cockerill, III, M.D. 51 Because ethnic data is not always readily [...] 15-29 5 Kidney failure <15 (or dialysis) 52 Peripheral blood, BCR/ABL mRNA level analysis (p210 fusion form): Positive. BCR/ABL p210 mRNA transcripts were detected and estimated to represent 0.02% of total abl (%bcr/abl(p210):abl). 0.02% bcr/abl(p210):abl in this assay is equivalent to 0.05% on the International Scale in which 0.1% is considered a major molecular response in CML (see Sopchoppy et al, Blood 2008;112:3330). Previous specimens from this patient have been tested in this laboratory using this method and a summary of results will be faxed provided our laboratory has a current, secure fax number on file. If a faxed report is not received, please call the [facility] ( ) to provide a fax number. Signing Pathologist: New Andrew M.D., Ph.D. Method summary - BCR/ABL, p210 fusion: p210 mRNA transcript level was evaluated using quantitative, reverse molded goods spot picker PCR. The assay detects the two most [...] setting and the result is negative, test #[id number] (BCR/ABL mRNA Detection, RT-PCR, Qualitative, Diagnostic) should be ordered to evaluate for all possible fusion forms. Please contact the lab at with questions or if additional testing is required. See the [facility] Interpretive Handbook for method details. Typical [...] specimen. Laboratory developed test. Test Performed by: [address] [address] [employer] Core Layer: Prince Ha III, M.D. 53 Because ethnic data is not always readily [...] 15-29 5 Kidney failure <15 (or dialysis) 54 Peripheral blood, BCR/ABL mRNA level analysis (p210 fusion form): Positive. BCR/ABL p210 mRNA transcripts were detected and estimated to represent 0.08% of total abl (%bcr/abl(p210):abl). 0.08% bcr/abl(p210):abl in this assay is equivalent to 0.2% on the International Scale in which 0.1% is considered a major molecular response in CML (see Sopchoppy et al, Blood 2008;112:3330). Previous specimens from this patient have been tested in this laboratory using this method and a summary of results will be faxed provided our laboratory has a current, secure fax number on file. If a faxed report is not received, please call the [facility] ( ) to provide a fax number. Signing Pathologist: Eduardo Meza M.D. Method summary - BCR/ABL, p210 fusion: p210 mRNA transcript level was evaluated using quantitative, reverse molded goods spot picker PCR. The assay detects the two most [...] setting and the result is negative, test #73668 (BCR/ABL mRNA Detection, RT-PCR, Qualitative, Diagnostic) should be ordered to evaluate for all possible fusion forms. Please contact the lab at with questions or if additional testing is required. See the [facility] Interpretive Handbook for method details. Typical [...] specimen. Laboratory developed test. Test Performed by: [address] [address] [employer] Core Layer: Prince Ha III, M.D. 55 CBC and smear reviewed. Findings consistent with probable treatment effects. REVIEWED BY EDI BLEVINS MD 56 RUN DATE: 01/10/13 [facility] LAB LIVE PAGE 1 RUN TIME: [address] [place], [place] [address] Specimen Inquiry Name: RIPHARMONYMAGDI : [address]: Kosta Dumont MD Acct: [id number] Unit: [id number] AGE: 57 Location: ENDO Re01/06/13 SEX: M Status: REG REF SPEC: [id number] NAOMIE: 01/06/13- SUBM DR: Kosta Dumont MD REQ: [id number] RECD: 01/06/13 STATUS: EPIFANIO SMALL DR: Teja [...] performed at Main Lab DEPARTMENT OF PATHOLOGY, [address] [place] [address] Edi Blevins M.D. 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 The breakpoint on [...] Minor Breakpoint p190 transcript e1a2 Not Detected [facility] at [address] [address] Page 1 of 3 [facility] On[facility] Client Services: [phone] [email or web address] Patient Name: MAGDI CHEEK Collection Date: 12/05/2012 Ordering Physician: Chrissy Talavera Received Date: 12/06/2012 Treating Physician: Not Given Report Date: 12/08/2012 Ordering Facility: [facility] Ref #: [id number] Specimen ID #: [id number] Date of ,Sex: 1955, M Quantitative Testing History (Percentage) 09/07/2012 12/05/2012 p190 transcript e1a2 <0.001 <0.001 p210 transcript b2a2 0.022 0.021 p210 transcript b3a2 0.081 0.045 *<0.001 values are plotted as 0.0001 and are below the sensitivity of detection for this assay. [place] [address] Page 2 of 3 [facility] Oncology Client Services: [phone] [email or web address] Patient Name: MAGDI CHEEK Collection Date: 12/05/2012 Ordering Physician: Chrissy Talavera Received Date: 12/06/2012 Treating Physician: Not Given Report Date: 12/08/2012 Ordering Facility: [facility] Ref #: [id number] Specimen ID #: [id number] Date of ,Sex: 1955, M at [email or web address], [employer] James Villanueva, Ph.D., [facility] Methodology: Total RNA was isolated from the provided specimen and subjected to reverse molded goods spot picker-polymerase chain reaction (RT-PCR). Amplification products were monitored [...] R, Osorio HM, Howard BJ, Gene M, [place] Chromosome-Positive Leukemias: From Basic mechanisms to molecular Therapeutics, Laura Bleaching Machine Operator med. 2003; 138:819-830. Robert J, Sid Valencia, (2007). Myeloproliferative Disorders and Myelodysplastic Syndromes. Riley B, Molecular Pathology in Clinical Practice, Second Edition (pp.383-385). Pen[employer]za Disclaimer [facility] is a business unit of [employer] a wholly-owned subsidiary of [employer]. Professional Component performed at [employer]. at [address] [place] [address] [place], [address] - Aco Coordinator: James Villanueva, Ph.D. Technical Component performed at [address] [facility] [address], [place], [address] Any image(s) that accompany this report is/are a underwriting sales representative image(s) only and should not be used to render a diagnosis. [facility] at [address] [address] Page 3 of 3 [facility] Client Services: [phone] [email or web address] 58 Because ethnic data is not always readily [...] 15-29 5 Kidney failure <15 (or dialysis) 59 FASTING 60 Interpretation: 10-24 (mild to moderate deficiency) -- REFERENCE VALUE -- 25-HYDROXY D TOTAL (D2+D3) Optimum levels in the normal population are 25-80 Test Performed by: [place] [id number] [employer] Core Layer: Prince Ha III, M.D. 61 HDL Interpretation: Undesirable: High Risk: Less than 40 MG/DL Desirable: Low Risk: Greater than 60 MG/DL 62 LDL Interpretation: Low Risk Optimal Level: LDL Less than 100 MG/DL Near or Above Optimal: LDL 100-129 MG/DL Borderline High Risk: LDL 130-159 MG/DL High Risk: LDL 160-189 MG/DL Very High Risk: LDL Greater than 189 MG/DL Procedures Date Code Description Status 09/08/2018 66907 Holter Monitor Review (24 hr)dr review & interp only Completed 09/01/2018 92258 ECG Monitor/Recording W/Visual Superimposition Scanning Completed 08/23/2018 85919 EKG Tracing & Interpretation Completed 05/20/2018 01492 Short Leg Cast Completed 05/10/2018 53036 Short Leg Cast Completed 05/05/2018 62459 Osteochondral Talus Autograft Completed 05/05/2018 32949 Osteochondral Talus Autograft Completed 05/05/2018 10877 Osteochondral Talus Autograft Completed 05/05/2018 90912 Repair Collateral Ligament Ankle, Secondary Completed 05/05/2018 44367 Repair Collateral Ligament Ankle, Secondary Completed 05/05/2018 02947 Repair Collateral Ligament Ankle, Secondary Completed 12/03/2016 17574 EKG Tracing & Interpretation Completed 11/24/2016 44089 Treadmill Interp/Report Only Completed 11/24/2016 09265 Stress Test Supervsn W/Out I/R Completed 11/06/2016 33155 ECHO Transthoracic, Real-Time 2D With Doppler And Color Completed Flow 11/02/2016 73995 EKG Tracing & Interpretation Completed 03/12/2016 85193 Polysomnography Sleep Staging 4+ Parameters Completed 07/25/2014 44582 Polysomnography Sleep Staging 4+ Parameters W/Cpap Completed 06/05/2014 60087 Spirometry Incl Graphic Record Completed 05/25/2014 41455 EKG, Interpretation Only Completed 05/25/2014 85367 Arthrotomy Elbow W/Joint Exploration Completed 05/22/2014 41980 Polysomnography Sleep Staging 4+ Parameters Completed 05/08/2014 98233 EKG Tracing & Interpretation Completed 04/25/2014 03344 Rad Exam; Elbow, Comp Completed 04/25/2014 47227 Rad Exam; Elbow, Comp Completed 01/06/2013 89227769 Colonoscopy Completed 06/15/2011 88882 EKG, Interpretation Only Completed 06/08/2008 02567853 Colonoscopy Completed 02/27/2008 10074 Spirometry Incl Graphic Record, Timed Expiratory Flow Completed Rate 01/11/2007 83450 Holter Monitor Review (24 hr)dr review & interp only Completed 01/11/2007 33308 Holter Monitor Review (24 hr)dr review & interp only Completed 10/22/2006 05632 EKG Tracing & Interpretation Completed Encounters Type Date Location Provider Dx Diagnosis Office Visit 08/29/2018 [facility] Internal Simon Berrios NP I10 Essential (primary ) 3:40p Medicine - hypertension Indu R00.2 Palpitations Office Visit 08/23/2018 4:30p [facility] Internal Rachel Camposaz, I10 Essential ( primary) Medicine - hypertension Indu R06.02 Shortness of breath Office Visit 08/22/2018 Orthopedic Alejandro Diaz, M93.271 Osteochondritis 8:30a Services Of MD hurtado, r ankle C.M.A. and joints of right foot M25.371 Other instability, right ankle Office Visit 02/23/2018 3:15p Orthopedic Alejandro Diaz M72.2 Plantar fascial Services Of fibromatosis C.M.A. 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 M25.371 Other instability, right ankle Office Visit 12/27/2017 3:00p [facility] Internal Simon Berrios, Z00.00 Encntr for Medicine - MAIL CALLER general adult Asher medical exam w/o abnormal findings Z13.220 Encounter for screening for lipoid disorders Z13.1 Encounter for screening for diabetes mellitus L40.8 Other psoriasis M54.5 Low back pain M25.571 Pain in right ankle and joints of right foot M72.2 Plantar fascial fibromatosis Office Visit 12/24/2017 9:30a Orthopedic Services Lacey Sauer M25.552 Pain in left Of Timothy.MMaurilio Cobb hip M16.12 Unilateral primary osteoarthritis, left hip M25.551 Pain in right hip M16.11 Unilateral primary osteoarthritis, right hip Office Visit 11/24/2017 3:00p Orthopedic Alexandra S50.02xA Contusion of Services Of Reza Zamora left elbow, C.M.A. initial encounter Office Visit 04/13/2017 11:30a [facility] Internal Eric Belcher M54.5 Low back pain Sari Garcia M.D.,[facility] Office Visit 04/12/2017 1:00p Orthopedic Lacey Sauer M25.552 Pain in left Services Of Reza hip C.M.AYonatan M16.12 Unilateral primary osteoarthritis, left hip Office Visit 03/26/2017 Surgical Eduardo Lafleur K21.0 Gastro-esophageal 9:15a Associates Of Reza Aguilar reflux disease with [facility] esophagitis Office Visit 12/03/2016 Cassi Romero R07.2 Precordial pain 2:00p Cardiology Of DO Berny [facility] R06.02 Shortness of breath Office Visit 11/21/2016 10:20a [facility] R07.2 Precordial pain Assoc,pc KYRA Chavez Hospitalists 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, BCR/Abl-positive, 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 G47.33 Obstructive sleep apnea (adult) (pediatric) K21.9 Gastro-esophageal reflux disease without esophagitis Office Visit 11/02/2016 3:00p [facility] Bari Romero R06.02 Shortness of Of [facility] Arrieta, DO breath [facility] R07.9 Chest pain, unspecified R94.31 Abnormal electrocardiogram [ECG] [EKG] F17.201 Nicotine dependence, unspecified, in remission Office Visit 08/06/2016 11:12a [facility] R29.818 Other symptoms Assoc,pc Reza Cueto 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 Elbow & Forearm C.M.A. Other Spec Sites Office Visit 11/02/2014 Pulmonology And Mansi 327.23 Obstructive Sleep 8:00a Sleep Services Of RUBIN Eric RN, Apnea Adult & [facility] Pediatric Office Visit 06/15/2014 Pulmonology And Mansi 327.23 Obstructive Sleep 11:00a Sleep Services Of RUBIN Eric RN, Apnea Adult & [facility] Pediatric Office Visit 05/08/2014 [facility] Internal Eduardo Hale, MAIL CALLER 785.1 Palpitations 3:00p [facility] 786.05 Shortness Of Breath Office Visit 04/25/2014 11:30a Orthopedic Alexandra Zamora 719.42 Pain Joint Services Of [facility] EM .DYonatan Upper Arm [place] 718.13 Loose Body In Joint Forearm Office Visit 12/26/2013 2:40p [facility] Internal Elaine Henriquez, 787.02 Nausea Alone Medicine - N.PYonatan BraggAsher Office Visit 11/20/2013 11:15a Orthopedic Alexandra 842.02 Sprains & Strains Services Of Julissa Zamora M.D. Wrist & Hand AT [place] Radiocarpal (Joint)(Ligament) Office Visit 11/06/2013 9:15a Orthopedic Alexandra 842.00 Sprains & Strains Services Of uJlissa Zamora M.D. Wrist & Hand AT [place] Unspec Site Office Visit 10/11/2013 9:15a Orthopedic Alexandra 842.00 Sprains & Strains Services Of Julissa Zamora M.D. Wrist & Hand AT [place] Unspec Site 842.02 Sprains & Strains Wrist & Hand Radiocarpal (Joint)(Ligament) Office Visit 02/01/2013 Orthopedic Alexandra 715.93 Osteoarthrosos 9:45a Services Of Julissa Zamora M.D. Unspec Genlzd Or AT [place] Localized Forearm Office Visit 01/25/2013 Orthopedic Alexandra 715.93 Osteoarthrosos 11:15a Services Of Julissa Zamora M.D. Unspec Genlzd Or AT [place] Localized Forearm Office Visit 01/12/2013 [facility] Internal Eric Belcher 205.10 Leukemia Myeloid 3:40p Sari Garcia M.D.,FACP Chronic W/O Mention Asher Of Achieving Remission 268.9 Vitamin D Deficiency Unspec 719.42 Pain Joint Upper Arm Office Visit 10/14/2012 3:00p [facility] Internal Eric Belcher V70.0 Examination [facility] - Reza Garcia,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 & Other Luts 530.81 Esophageal Reflux 205.10 Leukemia Myeloid Chronic W/O Mention Of Achieving Remission 780.4 Dizziness & Giddiness 268.9 Vitamin D Deficiency Unspec Office Visit 07/19/2008 DO Not Use Franciagisella Ramos, 780.79 Malaise And Fatigue 9:00a Venkata Cobb, FACP Other Office Visit 04/16/2008 DO Not Use Franciagisella Ramos, 455.4 Hemorrhoids 9:30a Venkata Cobb, FACP External Thrombosed Office Visit 04/12/2008 DO Not Use Franciagisella Ramos, 727.04 Tenosynovitis 3:30p Venkata Cobb, FACP Radial Styloid 780.79 Malaise And Fatigue Other 530.81 Esophageal Reflux Office Visit 03/08/2008 4:00p DO Not Use Francia Rachel, 787.02 Nausea Alone Venkata Cobb, FACP 780.79 Malaise And Fatigue Other Office Visit 01/26/2008 4:00p DO Not Use Francia Rachel, 786.05 Shortness Of Venkata Cobb, FACP Breath 780.79 Malaise And Fatigue Other Office Visit 11/18/2007 DO Not Use Francia Rachel, 780.79 Malaise And 2:45p Venkata Cobb, FACP Fatigue Other Office Visit 07/05/2007 DO Not Use Francia Rachel, 787.20 Dysphagia, 2:45p Venkata Cobb, FACP Unspecified Office Visit 05/26/2007 DO Not Use Radcamila, 780.4 Dizziness & 4:15p Venkata Dubose M.D. Giddiness Office Visit 04/28/2007 DO Not Use Franciagisella Ramos, 780.79 Malaise And 3:45p Venkata Cobb, FACP Fatigue Other Office Visit 01/28/2007 DO Not Use Franciagisella Ramos, 401.1 Hypertension 11:15a Venkata Cobb, FACP Benign 780.2 Syncope & Collapse 305.1 Tobacco Use Disorder Office Visit 01/03/2007 DO Not Use Elaine Varn, 780.2 Syncope & Collapse 3:00p [facility] 12/28/2006 DO Not Use Francia Rachel, 401.1 Hypertension 11:45a Venkata Cobb, FACP Benign 272.4 Hyperlipidemia Other Unspec 780.4 Dizziness & Giddiness Office Visit 11/19/2006 DO Not Use Francia Rachel, 272.4 Hyperlipidemia Other 10:00a Venkata Cobb, FACP Unspec 796.2 Blood Pressure Reading Elevated W/O Hypertension Office Visit 10/22/2006 10:15a DO Not Use Francia Rachel, V70.0 Examination Venkata Cobb, FACP General Medical Routine AT Health Care Facility 272.0 Hypercholesterolemia Pure Plan of Treatment Future Appointment(s):10/19/2018 3:40 pm - Simon Berrios NP [facility] [facility] - [id number]/11/2019 3:30 pm - Alejandro Diaz MD at [facility]12/28/2018 3:00 pm - Simon Berrios NP at [facility] Internal Medicine - [id number]/09/2019 - Simon Berrios [id number] Essential (primary) hypertensionNew Medication:Amlodipine Besylate 5 mg - 1 by mouth every dayComments:Stop the HCTZ.Start taking the amlodipine daily. Continue to check your blood pressure. Call me in two weeks with readings.Follow up:4 weeks
--- OUTSIDE RECORDS SUMMARY | 2018-09-22 16:55 | XMS REPORT | Continuity of Care Document ---
:1955 External Reference #:[id number] Author Name Jose Joe Care Team Providers Name Role Phone Eric Garcia MD Primary Care Physician Unavailable Payers Type Date Identification Numbers Payment Provider Subscriber Policy Number: [id number] [employer] Anna Cheek Group Number: [id number] [address] PayID: [id number] [place] [address] Expires: 2007 Policy Number: [id number] [employer] Anna [employer] Number: [id number] [address] PayID: [id number] [place] [address] Onset: 2013 Policy Number: [id number] [facility] Magdi Cheek PayID: RENATE Jannette Ulrich [address] [place] [address] Advance Directives Description No Information Available Problems Date Description Provider Status Onset: 10/14/2012 Benign prostatic hypertrophy Eric Garcia Active without outflow obstruction Reza,FACP Onset: 10/14/2012 Gastroesophageal reflux disease Torsten Ferrer M.D.,FACP Onset: 10/14/2012 Chronic myeloid leukemia Torsten Ferrer M.D.,FACP Onset: 12/07/2012 Vitamin D deficiency Torsten Ferrer M.D.,FACP Onset: 06/15/2014 Obstructive sleep apnea of adult Mansi Eric DNP, RN, Active [employer] Onset: 05/10/2015 Sprain of elbow and forearm [...] : (age 73 Years) Father due to SD Father Diabetes, Non Insulin Dependent Mother Diabetes Type II Siblings 3 Social History Type Date Description Comments Sex Unknown Marital Status Lives With Occupation [employer] Tobacco Use Start: Unknown End: Former Cigarette Smoker Unknown Cigarette Use Pack Years - 62 Smoking Status Reviewed: 08/23/18 Former Cigarette Smoker ETOH Use Currently consumes [...] Form Strength Qnty SIG Indications Ordering Provider Hydrochlorothiazid 08/23 Active Tablets 25mg 10tab take one I10 Rachel s tablet matthew Mccann MD day Wheelchair 05/10 Active [facility] [place] 1unit 1 - 18" M93.271 s standard harrison Diaz MD to use for ankle fracture ht: 65" wt: 170lbs Imatinib Mesylate Active Unknown /0000 Multi Vitamin Active Unknown Daily /0000 Aspirin 81 Low Active Unknown Dose /0000 Cefadroxil 05/10 Hx Capsules 500mg 20cap 1 capsule M93.271 Alejandro s twice a day Jaime Diaz MD 05/20 Oxycodone HCL 05/05 Hx Capsules 5mg 30cap 1 tab every s 4-6 hours Jaime Diaz as needed 06/19 for pain post op Meloxicam 12/24 Hx Tablets 15mg 30tab 1 by mouth M25.552 Lacey s every day Jaime Sauer M.D. 03/13 Aspirin Childrens 08/07 Hx Chewtabs 81mg 30uni 1 by mouth ts every day Ordering - Provider 11/24 Klor-Con 10 04/06 Hx Tablets 10Meq 30tab 1 by mouth ER s every day Jaime Marcus M.D.,[facility] 06/06 Vitamin D 04/06 Hx Tablets 1000Unit 30tab by mouth Jaime Lara M.D.,[facility] 06/06 Vitamin D 01/12 Hx Capsules 1000Unit 30cap po qd 268.9 Eric Jaime Toussaint M.D.,[facility] 12/26 Fibercon 10/14 Hx Tablets 625mg 90tab 1 po qd 530.81 Eric Jaime Toussaint M.D.,[facility] 12/26 Multi Vitamin Mens 00 Hx Tablets 1 po qd Unknown /0000 - 05/08 Probiotic Hx Capsules 1 po qd Unknown /0000 - 01/12 Gleevec Hx Tablets 200mg po qd Unknown /0000 - 11/24 Ibuprofen Hx Tablets 600mg 60tab 1 po tid Unknown /0000 s prn - 11/24 [place] Hx Tablets 5-325mg 30tab 1-2 by Unknown /0000 s mouth every - 4 hours as 02/04 Vitamin D Hx Tablets 1000Unit 30tab by mouth Unknown /0000 s everyday - 02/04 Multivitamins Hx Capsules 1 by mouth Unknown /0000 every day - 11/24 Ranitidine HCL Hx Tablets 150mg take one Unknown /0000 tablet by mouth twice a day Omeprazole Hx Capsules 20mg 1 by mouth Unknown /0000 DR every day - 11/24 Imatinib Mesylate Hx Tablets 200mg Unknown /0000 - 04/11 Immunizations CPT Code Status Date Vaccine Lot # [id number] Refused 02/05/2016 Pneumococcal Conjugate Vaccine 13 Valent For Intramuscular Use Vital Signs Date Vital Result Comment 08/23/2018 4:01pm Height 65.5 inches 5'5.50" Weight [...] Date Facility Test Result H/L Range Note Order 08/23/2018 [facility] Officer In-House EKG <pending> Type & Screen 05/05/2018 [facility] Patient Blood A Negative [address] [place] [address] [phone] Antibody Screen NEGATIVE Laboratory test 05/04/2018 [facility] Talus SEE RESULTS [address] BELO <[place] [address] NOTE> [phone] CBC Auto Diff 04/14/2018 [facility] White Blood 5.5 10^3/uL N 3.5-[address] Count .8 [place], [place] [id number] [phone] Red Blood Count 4.28 10^6/uL N 4.00-5.40 [...] Blood Cells % 0 Urinalysis Profile 04/14/2018 [facility] Urine Color Yellow [address] [place] [address] [phone] Urine Appearance Clear Urine Specific [place] 1.024 N 1.010-1.030 Urine pH 5.0 N 5-9 Urine Urobilinogen Negative Negative Urine Ketones Negative Negative Urine Protein Negative Negative Urine Leukocytes Negative Negative Urine Blood Negative Negative Urine Nitrite Negative Negative Urine Bilirubin Negative Negative Urine Glucose Negative Negative Type & Screen 04/14/2018 [facility] Patient Blood Type A Negative [address] [place] [address] [phone] Antibody Screen NEGATIVE Comp Metabolic Panel 04/14/2018 [facility] Sodium 140 mmol/L N 135-[address] [place] [address] [phone] Potassium 3.9 mmol/L N 3.5-5.0 Chloride 105 [...] Egfr Non- 64.2 >60 Egfr 77.7 >60 3 Urine Culture And 04/14/2018 [facility] Urine Culture SEE RESULT [address] [place] [address] [phone] CBC Auto Diff 04/08/2018 [facility] White Blood 4.8 10^3/uL N 3.5-[address] DR[address] Count .8 [place] [address] [phone] Red Blood Count 4.38 10^6/uL N 4.00-5.40 [...] Cells % 0.1 Comp Metabolic Panel 04/08/2018 [facility] Sodium 140 mmol/L N 135-145 [address] [place] [address] [phone] Potassium 3.8 mmol/L N 3.5-5.0 Chloride 103 [...] Egfr Non- 64.2 >60 Egfr 77.7 >60 5 BCR/Abl P210 04/08/2018 [facility] BCR/Abl p210 see interpretati [address] Result <SEE NOTE> [place] [address] [phone] BCR/Abl PCR Specimen Blood BCR/Abl p210 Final Diagnosis See Comment 7 BCR/Abl P210 10/01/2017 [facility] BCR/Abl p210 see interpretati [address] Result <SEE NOTE> [place] [id number] [phone] BCR/Abl PCR Specimen WHOLE BLOOD BCR/Abl p210 Final Diagnosis See Comment 9 Laboratory test 10/01/2017 [facility] TSH (Thyroid 1.87 mcIU/mL N 0.34-5.[address] Stim Horm) [place] [address] [phone] Comp Metabolic 10/01/2017 [facility] Sodium 139 mmol/L N 133- [address] [place] [address] [phone] Potassium 4.5 mmol/L N 3.5-5.0 Chloride 106 [...] Egfr Non- 67.8 >60 Egfr 87.2 >60 10 CBC Auto Diff 10/01/2017 [facility] White Blood 3.9 10^3/uL N 3.5-10.[address] [place] [address] [phone] Red Blood Count 4.52 10^6/uL N 4.0-5.4 [...] Cells % 0.1 Comp Metabolic Panel 06/24/2017 [facility] Sodium 137 mmol/L N 133-[address] [place] [address] [phone] Potassium 3.9 mmol/L N 3.5-5.0 Chloride 104 [...] 65.7 N >60 Egfr 84.6 N >60 11 CBC Auto Diff 06/24/2017 [facility] White Blood 5.0 10^3/uL N 3.5-10.[address] [place] [address] [phone] Red Blood Count 4.35 10^6/uL N 4.0-5.4 [...] Cells % 0 N Poc Urinalysis 06/17/2017 [facility] Poc Glucose, Negative N Negative [address] [place] [address] [phone] Poc Bilirubin, Urine Negative N Negative Poc Ketone, Urine Negative N Negative Poc Specific [place], Urine 1.020 N 1.010-1.030 Poc Blood, Urine Trace-intact Abnormal Negative Poc pH, Urine 6.0 N 5-9 Poc Protein, Urine Negative N Negative Poc Urobilinogen, Urine 0.2 N Negative Poc Nitrite, Urine Negative N Negative Poc Leukocytes, Urine Negative N Negative Poc Color, Urine Yellow N Poc Clarity, Urine Clear N 12 CBC Auto Diff 04/28/2017 [facility] White Blood 4.9 10^3/uL N 3.5-10.[address] [place] [address] [phone] Red Blood Count 4.31 10^6/uL N 4.0-5.4 [...] % 0.1 N Comp Metabolic Panel 04/28/2017 [facility] Sodium 137 mmol/L N 133-[address] [place] [address] [phone] Potassium 4.2 mmol/L N 3.5-5.0 Chloride 102 [...] 64.4 N >60 Egfr 82.9 N >60 13 Laboratory 04/28/2017 [facility] PSA Screening 1.575 ng/mL N 0 -4.000 14 test finding [address] [place] [address] [phone] BCR/Abl P210 04/28/2017 [facility] BCR/Abl p210 see interpretati N [address] Result <SEE NOTE> [place] [address] [phone] BCR/Abl PCR Specimen WHOLE BLOOD N BCR/Abl p210 Final Diagnosis See Comment N 16 Laboratory test 04/23/2017 [facility] CRP High 1.97 mg/L N [address] [place] [address] [phone] Erythrocyte Sed Rate 8 mm/Hr N 0-20 Vitamin D Total 25(Oh) 26.9 ng/mL Low 30-50 CBC Auto Diff 04/23/2017 [facility] White Blood 4.9 10^3/uL N 3.5-10.[address] [place] [address] [phone] Red Blood Count 4.32 10^6/uL N 4.0-5.4 [...] Blood Cells % 0 N Laboratory 04/23/2017 [facility] TSH (Thyroid 1.11 N 0.34- 5.60 test finding [address] Stim Horm) mcIU/[place] [address] [phone] Laboratory 01/08/2017 [facility] Surgical SEE RESULT 18, test finding [address] Pathology BELOW 19 [place] [address] [phone] CBC Auto Diff 10/29/2016 [facility] White Blood 3.4 Low 3.5- 10.[address] Count 10^3/[place] [address] [phone] Red Blood Count 4.17 10^6/uL N 4.0-5.4 [...] % 0.1 N Comp Metabolic Panel 10/29/2016 [facility] Sodium 140 mmol/L N 133-145 [address] [place] [address] [phone] Potassium 4.0 mmol/L N 3.5-5.0 Chloride 106 [...] 76.5 N >60 Egfr 98.4 N >60 20 BCR/Abl P210 pc 10/29/2016 [facility] BCR/Abl PCR Specimen Blood N 21 [address] [place] [address] [phone] BCR/Abl p210 Final Diagnosis See Comment N 22 Laboratory test 08/05/2016 [facility] Hemoglobin A1c 5.9 % N Less than 23 finding 101 [facility] (Glyco HGB) 6.0 [place] [address] [phone] Lyme Disease Serology Negative N Negative 24 Urinalysis Profile 08/05/2016 [facility] Urine Color Yellow N [address] [place] [address] [phone] Urine Appearance Clear N Urine Specific [place] 1.011 N 1.010-1.030 Urine pH 5.0 N 5-9 Urine Urobilinogen Negative N Negative Urine Ketones Negative N Negative Urine Protein Negative N Negative Urine Leukocytes Negative N Negative Urine Blood Negative N Negative Urine Nitrite Negative N Negative Urine Bilirubin Negative N Negative Urine Glucose Negative N Negative Type & Screen 08/05/2016 [facility] Patient Blood Type A Negative N [address] [place] [address] [phone] Antibody Screen NEGATIVE N Laboratory 08/05/2016 [facility] Partial Thrombo 29.5 N 26.0- 36.[address] [place] [address] [phone] Inr/Protime 08/05/2016 [facility] Inr 0.82 Low 0.89-1.[address] [place] [address] [phone] Laboratory 08/05/2016 [facility] Troponin-I (TnI) 0.00 ng/mL N <0.04 [address] [place] [address] [phone] Lipid Profile 08/05/2016 [facility] Triglycerides 200 mg/dL N 26 (Trig/Chol/HDL [address] ) [place] [address] [phone] Cholesterol 192 mg/dL N 27 HDL Cholesterol 40.2 mg/dL N 28 LDL Cholesterol 112 mg/dL N 29 Comp Metabolic Panel 08/05/2016 [facility] Sodium 139 mmol/L N 133-[address] [place] [address] [phone] Potassium 3.3 mmol/L Low 3.5-5.0 Chloride 106 [...] 74.2 N >60 Egfr 95.4 N >60 30 CBC Auto Diff 08/05/2016 [facility] White Blood 4.9 10^3/uL N 3.5-10.[address] [place] [address] [phone] Red Blood Count 4.27 10^6/uL N 4.0-5.4 [...] Blood Cells % 0.1 N Laboratory 08/05/2016 [facility] Lactic Acid 1.1 mmol/L N 0.5- 2.0 31 test finding [address] [place] [address] [phone] Laboratory 02/19/2016 [facility] Hepatitis C Nonreactive N Nonreactive [address] [place] [address] [phone] CBC No Diff 11/14/2015 [facility] White Blood 5.7 10^3/uL N 3.5-10.[address] [place] [address] [phone] Red Blood Count 4.05 10^6/uL N 4.0-5.4 Hemoglobin 12.9 g/dL Low 14.0-18.0 Hematocrit 38 % Low 42-52 Mean Corpuscular Volume 94 fL N 80-94 Mean Corpuscular Hemoglobin 32 pg High 27-31 Mean Corpuscular HGB Conc 34 g/dL N 31-36 Red Cell Distribution Width 13 % N 10.5-15 Platelet Count 321 10^3/uL N 150-450 Mean Platelet Volume 8 um3 N 7.4-10.4 Basic Metabolic Panel 11/14/2015 [facility] Sodium 141 mmol/L N 133-[address] [place] [address] [phone] Potassium 3.7 mmol/L N 3.5-5.0 Chloride 105 mmol/L N 101-111 Co2 Carbon Dioxide 28 mmol/L N 22-32 Anion Gap 8 mmol/L N 2-11 Glucose 111 mg/dL High 70-100 Blood Urea Nitrogen 16 mg/dL N 6-24 Creatinine 1.19 mg/dL High 0.67-1.17 BUN/Creatinine Ratio 13.4 N 8-20 Calcium 9.0 mg/dL N 8.6-10.3 Egfr Non- 62.8 N >60 Egfr 80.8 N >60 33 Surgical Pathology 05/25/2014 [facility] S RUN DATE: [address] DR[address] 05/30/ <[place] [address] NOTE> [phone] Basic Metabolic 05/08/2014 [facility] Sodium 138 mmol/L N 133- [address] [place] [address] [phone] Potassium 4.0 mmol/L N 3.7-5.6 Chloride 106 mmol/L N 101-111 Co2 Carbon Dioxide 29 mmol/L N 22-32 Anion Gap 3 mmol/L N 2-11 Glucose 97 mg/dL N 70-100 Blood Urea Nitrogen 16 mg/dL N 6-24 Creatinine 1.02 mg/dL N 0.67-1.17 BUN/Creatinine Ratio 15.7 N 8-20 Calcium 8.7 mg/dL N 8.6-10.3 Egfr Non- 75.5 N >60 Egfr 97.2 N >60 35 CBC Auto 05/08/2014 [facility] White Blood 3.8 10^3/uL Low 4.8 -10.[address] [place] [address] [phone] Red Blood Count 4.06 10^6/uL N 4.0-5.4 [...] Cells % 0.1 N Basic Metabolic Panel 04/02/2014 [facility] Sodium 140 mmol/L N 133-145 [address] [place] [address] [phone] Potassium 3.3 mmol/L Low 3.7-5.6 Chloride 108 mmol/L N 101-111 Co2 Carbon Dioxide 28 mmol/L N 22-32 Anion Gap 4 mmol/L N 2-11 Glucose 79 mg/dL N 70-100 Blood Urea Nitrogen 16 mg/dL N 6-24 Creatinine 0.90 mg/dL N 0.67-1.17 BUN/Creatinine Ratio 17.8 N 8-20 Calcium 8.8 mg/dL N 8.6-10.3 Egfr Non- 87.3 N >60 Egfr 112.3 N >60 36 Vitamin D, 25 04/02/2014 [facility] 25-Hydroxy Vitamin <4.0 ng/ mL N Hydroxy [address] [address] [phone] 25-Hydroxy Vitamin D3 23 ng/mL N 25-Hydroxy Vitamin D Total 23 ng/mL N 37 Comp Metabolic Panel 03/05/2014 [facility] Sodium 138 mmol/L N 133-[address] [place] [address] [phone] Potassium 3.6 mmol/L Low 3.7-5.6 Chloride 106 [...] 84.0 N >60 Egfr 108.1 N >60 38 CBC Auto 03/05/2014 [facility] White Blood 3.5 10^3/uL Low 4.8 -10.[address] [place] [address] [phone] Red Blood Count 3.96 10^6/uL Low 4.0-5.4 [...] % 0 N BCR/Abl P210 pc 03/05/2014 [facility] BCR/Abl PCR Specimen Blood N 39 [address] [place] [address] [phone] BCR/Abl p210 Final Diagnosis See Comment N 40 Urinalysis Profile 02/12/2014 [facility] Urine Color Yellow N [address] [place] [address] [phone] Urine Appearance Clear N Urine Specific [place] 1.021 N 1.010-1.030 Urine pH 6.0 N 5-9 Urine Urobilinogen Negative N Negative Urine Ketones Negative N Negative Urine Protein Negative N Negative Urine Leukocytes Negative N Negative Urine Blood Negative N Negative Urine Nitrite Negative N Negative Urine Bilirubin Negative N Negative Urine Glucose Negative N Negative Manual Differential 02/11/2014 [facility] Neutrophil % 42 % N 38-83 [address] [place] [address] [phone] Lymphocytes % 48 % High 25-47 Monocytes % 5 % N 0-13 Eosinophils % 2 % N 0-6 Reactive Lymph % 3 % N 0-6 RBC Morphology Normal N Normal Laboratory test finding 02/11/2014 [facility] Lipase 47 U/L N 11.0-82.0 [address] [place] [address] [phone] C Reactive Protein 2.59 mg/L N < 5.00 41 Comp Metabolic Panel 02/11/2014 [facility] Sodium 140 mmol/L N 133-145 [address] [place] [address] [phone] Potassium 3.3 mmol/L Low 3.7-5.6 Chloride 108 [...] 76.4 N >60 Egfr 98.3 N >60 42 CBC Auto Diff 02/11/2014 [facility] White Blood 5.2 10^3/uL N 4.8-10.[address] [place] [address] [phone] Red Blood Count 3.92 10^6/uL Low 4.0-5.4 [...] 0.01 10^3/uL N Basic Metabolic Panel 01/17/2014 [facility] Sodium 140 mmol/L N 133-[address] [place] [address] [phone] Potassium 3.6 mmol/L Low 3.7-5.6 Chloride 105 mmol/L N 101-111 Co2 Carbon Dioxide 30 mmol/L N 22-32 Anion Gap 5 mmol/L N 2-11 Glucose 119 mg/dL High 70-100 Blood Urea Nitrogen 17 mg/dL N 6-24 Creatinine 1.12 mg/dL N 0.67-1.17 BUN/Creatinine Ratio 15.2 N 8-20 Calcium 9.2 mg/dL N 8.6-10.3 Egfr Non- 67.8 N >60 Egfr 87.2 N >60 43 Laboratory test 01/17/2014 [facility] Phosphorus 2.4 mg/dL Low 2.5-5.[address] [place] [address] [phone] Magnesium 2.0 mg/dL N 1.9-2.7 Vitamin B12 316 pg/mL N 180-914 44 BCR/Abl P210 pc 12/20/2013 [facility] BCR/Abl PCR Specimen Blood N [address] [place] [address] [phone] BCR/Abl p210 Final Diagnosis See Comment N 46 CBC Auto 12/01/2013 [facility] White Blood 3.7 10^3/uL Low 4.8 -10.[address] [place] [address] [phone] Red Blood Count 4.04 10^6/uL N 4.0-5.4 [...] % 0 N Comp Metabolic Panel 12/01/2013 [facility] Sodium 141 mmol/L N 133-[address] [place] [address] [phone] Potassium 4.6 mmol/L N 3.7-5.6 Chloride 108 [...] 83.0 N >60 Egfr 106.8 N >60 47 Laboratory test finding 12/01/2013 [facility] T4 7.01 g/dL N 6.09-12.23 [address] [place] [address] [phone] TSH (Thyroid Stimulating Horm) 1.29 IU/mL N 0.34-5.60 BCR/Abl P210 pc 12/01/2013 [facility] BCR/Abl PCR EDTA whole N 48 101 [facility] [place] [address] [phone] BCR/Abl p210 Final Diagnosis See Comment N 49 BCR/Abl P210 pc 05/29/2013 [facility] BCR/Abl PCR Specimen Blood [address] [place] [address] [phone] BCR/Abl p210 Final Diagnosis See Comment 50 CBC Auto 05/29/2013 [facility] White Blood 4.7 10^3/uL Low 4.8 -10.[address] [place] [address] [phone] Red Blood Count 4.20 10^6/uL 4.0-5.4 Hemoglobin [...] Blood Cells % 0.1 Comp Metabolic Panel 05/29/2013 [facility] Sodium 140 mmol/L 133-[address] [place], [place] [address] [phone] Potassium 3.9 mmol/L 3.5-5.0 Chloride 103 mmol/L [...] 87.6 >60 Egfr 112.7 >60 51 CBC With 04/13/2013 [facility] White Blood 4.1 10^3/uL Low 4.8 -10.8 Manual Diff [address] [place] [address] [phone] Red Blood Count 4.29 10^6/uL 4.0-5.4 Hemoglobin [...] RBC Morphology Normal Normal CBC Auto 03/06/2013 [facility] White Blood 4.3 10^3/uL Low 4.8 -10.[address] [place] [address] [phone] Red Blood Count 4.11 10^6/uL 4.0-5.4 Hemoglobin [...] Cells % 0 Comp Metabolic Panel 03/06/2013 [facility] Sodium 140 mmol/L 133-[address] [place] [address] [phone] Potassium 4.1 mmol/L 3.5-5.0 Chloride 105 mmol/L [...] Egfr Non- 87.6 >60 Egfr 112.7 >60 52 BCR/Abl P210 pc 03/06/2013 [facility] BCR/Abl PCR Specimen Blood [address] [place] [address] [phone] BCR/Abl p210 Final Diagnosis See Comment 53 Laboratory test 02/21/2013 [facility] Pathologist (SEE NOTE) [address] [place] [address] [phone] CBC With Manual 02/21/2013 [facility] White Blood 3.8 Low 4.8- [address] Count 10^3/uL 0.8 [place] [address] [phone] Red Blood Count 3.84 10^6/uL Low 4.0-5.4 [...] 0-6 RBC Morphology Normal Normal Surgical 01/06/2013 [facility] S RUN DATE: [address] 01/10/ <[place] [address] NOTE> [phone] Laboratory test 12/05/2012 [facility] BCR/Abl (SEE NOTE) [address] PCR([facility]) [place] [address] [phone] Comp Metabolic 12/05/2012 [facility] Sodium 140 mmol/L 133- [address] 5 [place] [address] [phone] Potassium 4.2 mmol/L 3.5-5.0 Chloride 107 mmol/L [...] Egfr Non- 100.4 >60 Egfr 129.1 >60 57 CBC Auto 12/05/2012 [facility] White Blood 4.4 10^3/uL Low 4.8 -10.[address] [place] [address] [phone] Red Blood Count 4.03 10^6/uL 4.0-5.4 Hemoglobin [...] Blood Cells % 0 Laboratory test 12/05/2012 [facility] Glucose 89 mg/dL 70- [address] [place] [address] [phone] Vitamin D, 25 12/05/2012 [facility] 25-Hydroxy <4.0 ng/mL Hydroxy [address] Vitamin D2 [place] [address] [phone] 25-Hydroxy Vitamin D3 20 ng/mL 25-Hydroxy Vitamin D Total 20 ng/mL Abnormal 59 Lipid Profile 12/05/2012 [facility] Triglycerides 138 mg/dL 40-200 (Trig/Chol/HDL) [address] [place] [address] [phone] Cholesterol 142 mg/dL Less than 200 HDL Cholesterol 36 mg/dL Low 40-60 60 Cholesterol/HDL Ratio 3.9 Average 1-4.44 LDL Cholesterol 78.4 mg/dL Less Than 100 61 CBC With 10/31/2012 [facility] White Blood 3.4 10^3/uL Low 4.8 -10.8 Manual Diff [address] [place] [address] [phone] Red Blood Count 4.11 10^6/uL 4.0-5.4 Hemoglobin [...] % 0-6 RBC Morphology Normal Normal 1 PLANTAR FASCIAL FIBROMATOSIS, OSTEOCHONDRITIS DISS 2 SEE RESULTS BELOW [id number] TALUS TRANSFUSED 05/05/18 0734 3 Because ethnic data is not always readily [...] 15-29 5 Kidney failure <15 (or dialysis) 4 SEE RESULT BELOW Name: MAGDI CHEEK : [address]: Alejandro Diaz MD Acct: [id number] Unit: [id number] AGE: 62 Location: [facility] Re04/14/18 SEX: M Status: REG REF SPEC: [id number] NAOMIE: 04/14/18-[address]: Alejandro Diaz MD REQ: [id number] RECD: 04/14/18153 STATUS: COMP _ SOURCE: URINE SPDESC: ORDERED: Urine Culture Urine Source: Random Procedure Result Reported Site Urine Culture Final 04/15/18- 1324 ML No Growth (<1,000 CFU/mL) * ML - Main Lab . END OF REPORT DEPARTMENT OF PATHOLOGY, [address] [place] [address] Edi Blevins M.D. Director [facility] # [id number] 5 Because ethnic data is not always readily [...] 15-29 5 Kidney failure <15 (or dialysis) 6 see interpretation PDF Report available at: [email or web address] Peripheral blood, BCR/ABL1 mRNA level analysis [...] level was evaluated using a quantitative, reverse asset coordinator PCR. The analytical sensitivity of this assay [...] all possible fusion forms. Please contact the [facility] at [phone] with questions or if additional testing is required. See the [facility] TipHive Interpretive Handbook for method details. The reproducibility [...] developed and its performance characteristics determined by [facility] in a manner consistent with CLIA requirements. This test has not been cleared or approved by the U.S. Food and Drug Administration. Test Performed by: [address] [address] 8 see interpretation PDF Report available at: [email or web address] Peripheral blood, BCR/ABL1 mRNA level analysis [...] major molecular response (MMR) in CML (Ref: Baccarani M, et al. Blood;122:872-884; Soraida RD, et al. J Mol Diagn 2013;15:565-576). Signing Pathologist: Catherine Gracia M.D. ADDITIONAL INFORMATION Method summary - BCR/ABL1, p210 fusion: The BCR/ABL1 transcript level was evaluated using a quantitative, reverse asset coordinator PCR. The analytical sensitivity of this assay [...] all possible fusion forms. Please contact the [facility] at [phone] with questions or if additional testing is required. See the [facility] TipHive Interpretive Handbook for method details. The reproducibility [...] developed and its performance characteristics determined by [facility] in a manner consistent with CLIA requirements. This test has not been cleared or approved by the U.S. Food and Drug Administration. Test Performed by: [address] [address] 10 Because ethnic data is not always readily [...] 15-29 5 Kidney failure <15 (or dialysis) 11 Because ethnic data is not always [...] 5 Kidney failure <15 (or dialysis) 12 Wetlands Conservation Laborer: [id number] 13 Because ethnic data is not always [...] 5 Kidney failure <15 (or dialysis) 14 Serum levels of PSA measured using the Kamran Matti DXI Hybritech immunoassay should not be interpreted as absolute evidence of the presence or absence of disease. The PSA value should be used in conjunction with other pertinent clinical diagnostic procedures. The values obtained with different assay methods or kits cannot be used interchangeably. 15 see interpretation PDF Report available at: [email or web address] 16 Peripheral blood, BCR/ABL1 mRNA level analysis (p210 [...] major molecular response (MMR) in CML (Ref: Baccarani M, et al. Blood;122:872-884; Soraida RD, et al. J Mol Diagn 2013;15:565-576). Signing Pathologist: Catherine Gracia M.D. ADDITIONAL INFORMATION Method summary - BCR/ABL1, p210 fusion: The BCR/ABL1 transcript level was evaluated using a quantitative, reverse asset coordinator PCR. The analytical sensitivity of this assay [...] all possible fusion forms. Please contact the [facility] at [phone] with questions or if additional testing is required. See the [facility] Interpretive Handbook for method details. The reproducibility [...] developed and its performance characteristics determined by [facility] in a manner consistent with CLIA requirements. This test has not been cleared or approved by the U.S. Food and Drug Administration. Test Performed by: [address] [address] 17 Low risk: <1.00 Average risk: 1.00-3.00 High risk: >3.00 18 [id number] 19 SEE RESULT BELOW Name: MAGDI CHEEK : [address]: Kosta Dumont MD Acct: [id number] Unit: [id number] AGE: 61 Location: [facility] Re01/08/17 SEX: M Status: REG REF SPEC: [id number] NAOMIE: 01/08/17-[address] [facility] [address]: Kosta Dumont MD REQ: [id number] RECD: 01/08/17-1548 STATUS: EPIFANIO SMALL DR: Eric Talavera MD _ ORDERED: LEVEL 4, SPEC STAIN ORG COMMENTS: [id number] FINAL DIAGNOSIS Gastroesophageal junction, biopsy: -- Erosive [...] performed at Main Lab DEPARTMENT OF PATHOLOGY, [address] [place] [address] Edi Blevins M.D. Director [facility] # [id number] 20 Because ethnic data is not always [...] 5 Kidney failure <15 (or dialysis) 21 PDF Report available at: [email or web address] 22 Peripheral blood, BCR/ABL1 mRNA level analysis (p210 fusion form): Negative. No BCR/ABL1 p210 mRNA transcripts were detected (%BCR/ABL1(p210):ABL1=0). Signing Pathologist: Eduardo Meza M.D. ADDITIONAL INFORMATION Method summary - BCR/ABL1, p210 fusion: The BCR/ABL1 transcript level was evaluated using a quantitative, reverse asset coordinator PCR. The analytical sensitivity of this assay [...] all possible fusion forms. Please contact the [facility] at [phone] with questions or if additional testing is required. See the [facility] Interpretive Handbook for method details. The reproducibility [...] BAKDM). Laboratory developed test. Test Performed by: [address] [address] Guest Laundry Attendant: Valentino Petersen II, M.D., Ph.D. 23 Therapeutic target for the treatment of diabetes Mellitus patients is <7% HBA1C, and in selective patients <6.0%.Please refer to [place] [employer] Diabetic care guidelines for further information. 24 Serologic response to B. burgdorferi infection is not detected, but cannot rule out early infection during which low or undetectable antibody levels to B. burgdorferi may be present. If clinically indicated, a new serum specimen should be submitted in 7-14 days. Test Performed by: [address] [address] Guest Laundry Attendant: Valentino Petersen II, M.D., Ph.D. 25 NOTE: Critical Troponin is now >0.03 ng/mL. 99th percentile=0.04 ng/mL Troponin results at [facility] and [facility] are not interchangeable. 26 Desirable <150 Borderline high 150-199 High 200-499 Very High >500 27 Desirable <200 Borderline high 200-239 High >239 28 Low <40 Desirable: 40-60 High: >60 29 Desirable: <100 mg/dL Near Optimal: 100-129 mg/dL Borderline High: 130-159 mg/dL High: 160-189 mg/dL Very High: >189 mg/dL 30 Because ethnic data is not always readily [...] 15-29 5 Kidney failure <15 (or dialysis) 31 [facility] Severe Sepsis and Septic Shock Management Bundle Measure requires all lactic acids initially measuring >2.0 mmol/L be repeated. 32 Copy Result to: CHRISSY TALAVERA ([id number]) 33 Because ethnic data is not always [...] 5 Kidney failure <15 (or dialysis) 34 RUN DATE: 05/30/14 [facility] LAB LIVE PAGE 1 RUN TIME: [address] [place] [address] Specimen Inquiry Name: MAGDI CHEEK : [address]: Alexandra Zamora MD Acct: [id number] Unit: [id number] AGE: 58 Location: [facility] Re05/25/14 SEX: M Status: REG [facility] SPEC: [id number] NAOMIE: 05/25/[address] [facility] [address]: Alexandra Zamora MD REQ: [id number] RECD: 05/25/14 STATUS: SOUT _ ORDERED: Decal, [...] performed at Main Lab DEPARTMENT OF PATHOLOGY, [address] [place] [address] Edi Blevins M.D. Director [facility] # [id number] 35 Because ethnic data is not always readily [...] 15-29 5 Kidney failure <15 (or dialysis) 36 Because ethnic data is not always [...] 5 Kidney failure <15 (or dialysis) 37 -- REFERENCE VALUE -- 25-HYDROXY D TOTAL (D2+D3) Optimum levels in the healthy population are 20-50, patients with bone disease may benefit from higher levels within this range. Test Performed by: [facility] [address] [address] Guest Laundry Attendant: Prince Ha III, M.D. 38 Because ethnic data is not always readily [...] 15-29 5 Kidney failure <15 (or dialysis) 39 PDF Report available at: [email or web address] 40 Peripheral blood, BCR/ABL mRNA level analysis (p210 fusion form): Positive. BCR/ABL p210 mRNA transcripts were detected and estimated to represent 0.02% of total abl (%bcr/abl(p210):abl). 0.02% bcr/abl(p210):abl in this assay is equivalent to 0.05% on the International Scale in which 0.1% is considered a major molecular response in CML (see Blanding et al, Blood 2008;112:3330). Signing Pathologist: Yash Luna M.D., Ph.D. Method summary - BCR/ABL, p210 fusion: p210 mRNA transcript level was evaluated using quantitative, reverse asset coordinator PCR. The assay detects the two most [...] setting and the result is negative, test #85563 (BCR/ABL mRNA Detection, RT-PCR, Qualitative, Diagnostic) should be ordered to evaluate for all possible fusion forms. Please contact the lab at with questions or if additional testing is required. See the [facility] TipHive Interpretive Handbook for method details. Typical clinical [...] specimen. Laboratory developed test. Test Performed by: [address] [address] Guest Laundry Attendant: Prince Ha III, M.D. 41 Acute inflammation: >10.00 42 Because ethnic data is not always readily [...] 15-29 5 Kidney failure <15 (or dialysis) 43 Because ethnic data is not always [...] 5 Kidney failure <15 (or dialysis) 44 Normal Range 180 to 914 Indeterminate Range 145 to 180 Deficient Range <145 45 PDF Report available at: [email or web address] 46 Peripheral blood, BCR/ABL mRNA level analysis (p210 fusion form): Positive. BCR/ABL p210 mRNA transcripts were detected and estimated to represent 0.06% of total abl (%bcr/abl(p210):abl). 0.06% bcr/abl(p210):abl in this assay is equivalent to 0.2% on the International Scale in which 0.1% is considered a major molecular response in CML (see Blanding et al, Blood 2008;112:3330). Signing Pathologist: Liliam Noland M.D. Method summary - BCR/ABL, p210 fusion: p210 mRNA transcript level was evaluated using quantitative, reverse asset coordinator PCR. The assay detects the two most [...] setting and the result is negative, test #46256 (BCR/ABL mRNA Detection, RT-PCR, Qualitative, Diagnostic) should be ordered to evaluate for all possible fusion forms. Please contact the lab at with questions or if additional testing is required. See the [facility] Interpretive Handbook for method details. [...] specimen. Laboratory developed test. Test Performed by: [address] [address] Guest Laundry Attendant: Prince Ha III, M.D. 47 Because ethnic data is not always readily [...] 15-29 5 Kidney failure <15 (or dialysis) 48 EDTA whole blood PDF Report available at: [email or web address] 49 Peripheral blood, BCR/ABL mRNA level analysis (p210 fusion form): Positive. BCR/ABL p210 mRNA transcripts were detected and estimated to represent 0.06% of total abl (%bcr/abl(p210):abl). 0.06% bcr/abl(p210):abl in this assay is equivalent to 0.2% on the International Scale in which 0.1% is considered a major molecular response in CML (see Blanding et al, Blood 2008;112:3330). Signing Pathologist: Eduardo Meza M.D. Method summary - BCR/ABL, p210 fusion: p210 mRNA transcript level was evaluated using quantitative, reverse asset coordinator PCR. The assay detects the two most [...] setting and the result is negative, test #23505 (BCR/ABL mRNA Detection, RT-PCR, Qualitative, Diagnostic) should be ordered to evaluate for all possible fusion forms. Please contact the lab at with questions or if additional testing is required. See the [facility] Interpretive Handbook for method details. [...] specimen. Laboratory developed test. Test Performed by: [address] [address] Guest Laundry Attendant: Prince Ha III, M.D. 50 Peripheral blood, BCR/ABL mRNA level analysis (p210 fusion form): Positive. BCR/ABL p210 mRNA transcripts were detected and estimated to represent 0.02% of total abl (%bcr/abl(p210):abl). 0.02% bcr/abl(p210):abl in this assay is equivalent to 0.05% on the International Scale in which 0.1% is considered a major molecular response in CML (see Blanding et al, Blood 2008;112:3330). Previous specimens from this patient have been tested in this laboratory using this method and a summary of results will be faxed provided our laboratory has a current, secure fax number on file. If a faxed report is not received, please call the [facility] ( ) to provide a fax number. Signing Pathologist: New Andrew M.D., Ph.D. Method summary - BCR/ABL, p210 fusion: p210 mRNA transcript level was evaluated using quantitative, reverse asset coordinator PCR. The assay detects the two most [...] setting and the result is negative, test #23724 (BCR/ABL mRNA Detection, RT-PCR, Qualitative, Diagnostic) should be ordered to evaluate for all possible fusion forms. Please contact the lab at with questions or if additional testing is required. See the [facility] Interpretive Handbook for method details. [...] specimen. Laboratory developed test. Test Performed by: [address] [address] Guest Laundry Attendant: Prince Ha III, M.D. 51 Because ethnic data is [...] 5 Kidney failure <15 (or dialysis) 52 Because ethnic data is not always readily [...] 15-29 5 Kidney failure <15 (or dialysis) 53 Peripheral blood, BCR/ABL mRNA level analysis (p210 fusion form): Positive. BCR/ABL p210 mRNA transcripts were detected and estimated to represent 0.08% of total abl (%bcr/abl(p210):abl). 0.08% bcr/abl(p210):abl in this assay is equivalent to 0.2% on the International Scale in which 0.1% is considered a major molecular response in CML (see Blanding et al, Blood 2008;112:3330). Previous specimens from this patient have been tested in this laboratory using this method and a summary of results will be faxed provided our laboratory has a current, secure fax number on file. If a faxed report is not received, please call the [facility] ( ) to provide a fax number. Signing Pathologist: Eduardo Meza M.D. Method summary - BCR/ABL, p210 fusion: p210 mRNA transcript level was evaluated using quantitative, reverse asset coordinator PCR. The assay detects the two most [...] setting and the result is negative, test #86293 (BCR/ABL mRNA Detection, RT-PCR, Qualitative, Diagnostic) should be ordered to evaluate for all possible fusion forms. Please contact the lab at with questions or if additional testing is required. See the [facility] TipHive Interpretive Handbook for method details. Typical clinical [...] specimen. Laboratory developed test. Test Performed by: [address] [address] Guest Laundry Attendant: Prince Ha III, M.D. 54 CBC and smear reviewed. Findings consistent with probable treatment effects. REVIEWED BY EDI BLEVINS MD 55 RUN DATE: 01/10/13 [facility] LAB LIVE PAGE 1 RUN TIME: [address] [place] [address] Specimen Inquiry Name: MAGDI CHEEK : [address]: Kosta Dumont MD Acct: [id number] Unit: [id number] AGE: 57 Location: ENDO Re01/06/13 SEX: M Status: REG REF SPEC: [id number] NAOMIE: 01/06/13- SUBM DR: Kosta Dumont MD REQ: [id number] RECD: 01/06/13 STATUS: EPIFANIO SMALL DR: Teja [...] performed at Main Lab DEPARTMENT OF PATHOLOGY, [address] [place] [address] Edi Blevins M.D. 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 The breakpoint on [...] Minor Breakpoint p190 transcript e1a2 Not Detected [facility] at [address] [address] Page 1 of 3 [facility] Client Services: [phone] f [email or web address] Patient Name: MAGDI CHEEK Collection Date: 12/05/2012 Ordering Physician: Chrissy Talavera Received Date: 12/06/2012 Treating Physician: Not Given Report Date: 12/08/2012 Ordering Facility: [facility] Ref #: [id number] Specimen ID #: [id number] Date of ,Sex: 1955, M Quantitative Testing History (Percentage) 09/07/2012 12/05/2012 p190 transcript e1a2 <0.001 <0.001 p210 transcript b2a2 0.022 0.021 p210 transcript b3a2 0.081 0.045 *<0.001 values are plotted as 0.0001 and are below the sensitivity of detection for this assay. [facility] at [address] [address] Page 2 of 3 [facility] Client Services: [phone] F [email or web address] Patient Name: MAGDI CHEEK Collection Date: 12/05/2012 Ordering Physician: Chrissy Talavera Received Date: 12/06/2012 Treating Physician: Not Given Report Date: 12/08/2012 Ordering Facility: [facility] Ref #: [id number] Specimen ID #: [id number] Date of ,Sex: 1955, M Electronically Signed by James Villanueva, Ph.D., [facility] on 12/08/2012 at [employer]. James Villanueva, Ph.D., [facility] Methodology: Total RNA was isolated from the provided specimen and subjected to reverse asset coordinator-polymerase chain reaction (RT-PCR). Amplification products were monitored [...] R, Osorio HM, Howard BJ, Gene M, Nemaha Chromosome-Positive Leukemias: From Basic mechanisms to molecular Therapeutics, Laura Information Manager med. 2003; 138:819-830. Robert J, Sid A, (2007). Myeloproliferative Disorders and Myelodysplastic Syndromes. Riley DAVISB, Molecular Pathology in Clinical Practice, Second Edition (pp.383-385). [facility] Disclaimer [facility] is a business unit of [employer] a wholly-owned subsidiary of [employer]. Professional Component performed at [employer]. at [address] [place] [address], [address] - Manufacturing Engineering Intern: James Villanueva, Ph.D. Technical Component performed at [address] [place] [address] [address], [place], [address] Any image(s) that accompany this report is/are a telemarketing representative image(s) only and should not be used to render a diagnosis. [facility] [place] [address] [place] [address] Page 3 of 3 [facility] F Client Services: [phone] F [email or web address] 57 Because ethnic data is not always readily [...] 15-29 5 Kidney failure <15 (or dialysis) 58 FASTING 59 Interpretation: 10-24 (mild to moderate deficiency) -- REFERENCE VALUE -- 25-HYDROXY D TOTAL (D2+D3) Optimum levels in the normal population are 25-80 Test Performed by: [address] [address] Guest Laundry Attendant: Prince Ha III, M.D. 60 HDL Interpretation: Undesirable: High Risk: Less than 40 MG/DL Desirable: Low Risk: Greater than 60 MG/DL 61 LDL Interpretation: Low Risk Optimal Level: LDL Less than 100 MG/DL Near or Above Optimal: LDL 100-129 MG/DL Borderline High Risk: LDL 130-159 MG/DL High Risk: LDL 160-189 MG/DL Very High Risk: LDL Greater than 189 MG/DL Procedures Date Code Description Status 08/23/2018 69543 EKG Tracing & Interpretation Completed 05/20/2018 06519 Short Leg Cast Completed 05/10/2018 17948 Short Leg Cast Completed 05/05/2018 27420 Osteochondral Talus Autograft Completed 05/05/2018 58446 Osteochondral Talus Autograft Completed 05/05/2018 22062 Osteochondral Talus Autograft Completed 05/05/2018 32817 Repair Collateral Ligament Ankle, Secondary Completed 05/05/2018 55271 Repair Collateral Ligament Ankle, Secondary Completed 05/05/2018 17616 Repair Collateral Ligament Ankle, Secondary Completed 12/03/2016 24422 EKG Tracing & Interpretation Completed 11/24/2016 77629 Treadmill Interp/Report Only Completed 11/24/2016 82418 Stress Test Supervsn W/Out I/R Completed 11/06/2016 90344 ECHO Transthoracic, Real-Time 2D With Doppler And Color Completed Flow 11/02/2016 00309 EKG Tracing & Interpretation Completed 03/12/2016 06842 Polysomnography Sleep Staging 4+ Parameters Completed 07/25/2014 26593 Polysomnography Sleep Staging 4+ Parameters W/Cpap Completed 06/05/2014 18333 Spirometry Incl Graphic Record Completed 05/25/2014 75811 EKG, Interpretation Only Completed 05/25/2014 08105 Arthrotomy Elbow W/Joint Exploration Completed 05/22/2014 84122 Polysomnography Sleep Staging 4+ Parameters Completed 05/08/2014 19462 EKG Tracing & Interpretation Completed 04/25/2014 21251 Rad Exam; Elbow, Comp Completed 04/25/2014 02887 Rad Exam; Elbow, Comp Completed 01/06/2013 66614581 Colonoscopy Completed 06/15/2011 45640 EKG, Interpretation Only Completed 06/08/2008 17280533 Colonoscopy Completed 02/27/2008 00479 Spirometry Incl Graphic Record, Timed Expiratory Flow Completed Rate 01/11/2007 99095 Holter Monitor Review (24 hr)dr review & interp only Completed 01/11/2007 76558 Holter Monitor Review (24 hr)dr review & interp only Completed 10/22/2006 33872 EKG Tracing & Interpretation Completed Encounters Type Date Location Provider Dx Diagnosis Office Visit 02/23/2018 Orthopedic Edmundo Garcia.Douglas Plantar fascial 3:15p Services Of Estela WATTS fibromgamaliel 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 M25.371 Other instability, right ankle Office Visit 01/11/2018 2:30p Orthopedic Edmundo Garcia.2 Plantar fascial Services Of MD prakash Palmer 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 MYonatanDYonatan hip M16.12 Unilateral primary osteoarthritis, left hip M25.551 Pain in right hip M16.11 Unilateral primary osteoarthritis, right hip Office Visit 11/24/2017 3:00p Orthopedic Alexandra S50.02xA Contusion of Services Of Reza Zamora left elbow, C.M.A. initial encounter Office Visit 04/13/2017 11:30a [facility] Internal Eric Belcher M54.5 Low back pain Sari Garcia M.D.,[facility] Office Visit 04/12/2017 1:00p Orthopedic Lacey Sauer, M25.552 Pain in left Services Of Reza hip C.M.AYonatan M16.12 Unilateral primary osteoarthritis, left hip Office Visit 03/26/2017 Surgical Eduardo Lafleur K21.0 Gastro-esophageal 9:15a Associates Of Reza Aguilar reflux disease with [facility] esophagitis Office Visit 12/03/2016 [place] Bari Romero R07.2 Precordial pain 2:00p Cardiology Of DO Berny [facility] FACC R06.02 Shortness of breath Office Visit 11/21/2016 10:20a 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 G43.109 Migraine with aura, not intractable, w/o status migrainosus G47.33 Obstructive sleep apnea (adult) (pediatric) Office Visit 02/05/2016 2:50p [facility] Internal Eric Belcher Z00.01 Encounter for Sari Garcia M.D.,FAC general adult [address] medical exam w abnormal findings G47.33 Obstructive sleep apnea (adult) (pediatric) 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 Elbow & Forearm C.M.A. Other Spec Sites Office Visit 11/02/2014 Pulmonology And Mansi 327.23 Obstructive Sleep 8:00a Sleep Services Of RUBIN Eric, JOLEEN, Apnea Adult & [facility] Pediatric Office Visit 06/15/2014 Pulmonology And Mansi 327.23 Obstructive Sleep 11:00a Sleep Services Of RUBIN Eric, JOLEEN, Apnea Adult & [facility] Pediatric Office Visit 05/08/2014 [facility] Internal Eduardo Hale NP 785.1 Palpitations 3:00p Sari Indu 786.05 Shortness Of Breath Office Visit 04/25/2014 11:30a Orthopedic Alexandra Zamora, 719.42 Pain Joint Services Of Julissa STRICKLAND M.DYonatan Upper Arm [place] 718.13 Loose Body In Joint Forearm Office Visit 12/26/2013 2:40p [facility] Internal Elaine Henriquez, 787.02 Nausea Alone Sari Griggs Office Visit 11/20/2013 11:15a Orthopedic Alexandra 842.02 Sprains & Strains Services Of Julissa Zamora M.D. Wrist & Hand AT [place] Radiocarpal (Joint)(Ligament) Office Visit 11/06/2013 9:15a Orthopedic Alexandra 842.00 Sprains & Strains Services Of Julissa Zamora M.D. Wrist & Hand AT [facility] Site Office Visit 10/11/2013 9:15a Orthopedic Alexandra 842.00 Sprains & Strains Services Of Julissa Zamora M.D. Wrist & Hand AT [facility] Site 842.02 Sprains & Strains Wrist & Hand Radiocarpal (Joint)(Ligament) Office Visit 02/01/2013 Orthopedic Alexandra 715.93 Osteoarthrosos 9:45a Services Of Julissa Zamora M.D. Unspec Genlzd Or AT [place] Localized Forearm Office Visit 01/25/2013 Orthopedic Alexandra 715.93 Osteoarthrosos 11:15a Services Of Julissa Zamora M.D. 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 530.81 Esophageal Reflux 205.10 Leukemia Myeloid Chronic W/O Mention Of Achieving Remission 780.4 Dizziness & Giddiness 268.9 Vitamin D Deficiency Unspec Office Visit 07/19/2008 DO Not Use Francia Ramos, 780.79 Malaise And Fatigue 9:00a Venkata Cobb, FACP Other Office Visit 04/16/2008 DO Not Use Francia Rachel, 455.4 Hemorrhoids 9:30a Julissa-Indu Cobb, FACP External Thrombosed Office Visit 04/12/2008 DO Not Use Francia Rachel, 727.04 Tenosynovitis 3:30p Venkata Kelley.Simi, FACP Radial Styloid 780.79 Malaise And Fatigue Other 530.81 Esophageal Reflux Office Visit 03/08/2008 4:00p DO Not Use Francia Rachel, 787.02 Nausea Alone Supply Officer-Indu Kelley.Simi, FACP 780.79 Malaise And Fatigue Other Office Visit 01/26/2008 4:00p DO Not Use Francia Rachel, 786.05 Shortness Of Julissa-Indu Kelley.Breezy., FACP Breath 780.79 Malaise And Fatigue Other Office Visit 11/18/2007 DO Not Use Francia Rachel, 780.79 Malaise And 2:45p Julissa-Indu Kelley.Simi, FACP Fatigue Other Office Visit 07/05/2007 DO Not Use Francia Rachel, 787.20 Dysphagia, 2:45p Supply OfficerForest Cobb, FACP Unspecified Office Visit 05/26/2007 DO Not Use [place], 780.4 Dizziness & 4:15p Venkata Dubose M.D. Giddiness Office Visit 04/28/2007 DO Not Use Francia Rachel, 780.79 Malaise And 3:45p Venkata Cobb, FACP Fatigue Other Office Visit 01/28/2007 DO Not Use Francia Rachel, 401.1 Hypertension 11:15a Supply Officer-Indu M.D., FACP Benign 780.2 Syncope & Collapse 305.1 Tobacco Use Disorder Office Visit 01/03/2007 DO Not Use Elaine Varn, 780.2 Syncope & Collapse 3:00p Supply Officer-[place] [facility] Office Visit 12/28/2006 DO Not Use Francia Rachel, 401.1 Hypertension 11:45a Supply Officer-[place] M.D., FACP Benign 272.4 Hyperlipidemia Other Unspec 780.4 Dizziness & Giddiness Office Visit 11/19/2006 DO Not Use Francia Rachel, 272.4 Hyperlipidemia Other 10:00a Venkata Cobb, FACP Unspec 796.2 Blood Pressure Reading Elevated W/O Hypertension Office Visit 10/22/2006 10:15a DO Not Use Francia Ramos, V70.0 Examination [facility] FACP General Medical Routine AT Health Care Facility 272.0 Hypercholesterolemia Pure Plan of Treatment Future Appointment(s):08/29/2018 3:40 pm - Simon Berrios NP at [facility] Internal Medicine [facility]10/24/2018 3:30 pm - Alejadnro Diaz MD at [facility]12/28/2018 3:00 pm - Simon Berrios NP at [facility] Internal Medicine [facility]08/23/2018 - Rachel Mccann MDI10 Essential (primary) hypertensionNew Medication:Hydrochlorothiazide 25 mg - take one tablet a dayFollow up:F/U Simon Berrios on MhdswwN82.02 Shortness of breath
--- OUTSIDE RECORDS SUMMARY | 2018-09-22 16:55 | XMS REPORT | Continuity of Care Document ---
:1955 External Reference #:[id number] Author Name Selene Brannon Care Team Providers Name Role Phone Eric Garcia MD Primary Care Physician Unavailable Payers Type Date Identification Numbers Payment Provider Subscriber Policy Number: [id number] [employer] Number: [id number] [address] PayID: [id number] [place] [address] Expires: 2007 Policy Number: [id number] [employer] Number: [id number] [address] PayID: [id number] [place] [address] Onset: 2013 Policy Number: [id number] [facility] Magdi Cheek PayID: [id number] Jannette Ulrich [id number] [place] [address] Advance Directives Description No Information Available Problems Date Description Provider Status Onset: 10/14/2012 Benign prostatic hypertrophy Eric Garcia Active without outflow obstruction RezaFACP Onset: 10/14/2012 Gastroesophageal reflux disease Torsten Ferrer M.D.,FACP Onset: 10/14/2012 Chronic myeloid leukemia Torsten Ferrer M.D.,FACP Onset: 12/07/2012 Vitamin D deficiency Torsten Ferrer M.D.FACP Onset: 06/15/2014 Obstructive sleep apnea of adult Mansi Eric DNP, RN, Active [employer] Onset: 05/10/2015 Sprain of elbow and forearm [...] : (age 73 Years) Father due to [place] Father Diabetes, Non Insulin Dependent Mother Diabetes Type II Siblings 3 Social History Type Date Description Comments Sex Unknown Marital Status Lives With Occupation [employer] Tobacco Use Start: Unknown End: Former Cigarette Smoker Unknown Cigarette Use Pack Years - 62 Smoking Status Reviewed: 08/29/18 Former Cigarette Smoker ETOH Use Currently consumes [...] Ordering Provider Hydrochlorothiazid 08/23 Active Tablets 25mg 30tab take one I10 Simon s tablet a KYRA Berrios day Wheelchair 05/10 Active Mis 1unit 1 - 18" M93.271 s standard [...] mouth ER s every day Jaime Marcus M.D.,[facility] 06/06 Vitamin D 04/06 Hx Tablets 1000Unit 30tab by mouth Jaime Lara M.D.,[facility] 06/06 Vitamin D 01/12 Hx Capsules 1000Unit 30cap po qd 268.9 Eric Jaime Toussaint M.D.,[facility] 12/26 Fibercon 10/14 Hx Tablets 625mg 90tab 1 po qd 530.81 Jaime Toussaint M.D.,[facility] 12/26 Multi Vitamin Mens Hx Tablets 1 po qd Unknown /0000 - 05/08 Probiotic Hx Capsules 1 po qd Unknown /0000 - 01/12 Gleevec Hx Tablets 200mg po qd Unknown /0000 - 11/24 Ibuprofen Hx Tablets 600mg 60tab 1 po tid Unknown /0000 s prn - 11/24 [place] Hx Tablets 5-325mg 30tab 1-2 by Unknown [...] CPT Code Status Date Vaccine Lot # [id number] Refused 02/05/2016 Pneumococcal Conjugate Vaccine 13 Valent For Intramuscular Use Vital Signs Date Vital Result Comment 08/29/2018 3:37pm Height 65.5 inches 5'5.50" Weight [...] Date Facility Test Result H/L Range Note Comp Metabolic Panel 08/24/2018 [facility] Sodium 141 mmol/L N 135-[address] [place] [address] [phone] Potassium 4.2 mmol/L N 3.5-5.0 Chloride 104 [...] 80.1 >60 1 Type & Screen 05/05/2018 [facility] Patient Blood Type A Negative [address] [place] [address] [phone] Antibody Screen NEGATIVE Laboratory test 05/04/2018 [facility] Talus SEE RESULTS [address] BELO <[place] [address] NOTE> [phone] CBC Auto Diff 04/14/2018 [facility] White Blood 5.5 10^3/uL N 3.5-10 DRIVE Count .8 [place] [address] [phone] Red Blood Count 4.28 10^6/uL N 4.00-5.40 [...] Blood Cells % 0 Urinalysis Profile 04/14/2018 [facility] Urine [place] [address] [phone] Urine Appearance Clear Urine Specific [place] 1.024 N 1.010-1.030 Urine pH 5.0 N 5-9 Urine Urobilinogen Negative Negative Urine Ketones Negative Negative Urine Protein Negative Negative Urine Leukocytes Negative Negative Urine Blood Negative Negative Urine Nitrite Negative Negative Urine Bilirubin Negative Negative Urine Glucose Negative Negative Type & Screen 04/14/2018 [facility] Patient Blood Type A Negative [address] [place] [address] [phone] Antibody Screen NEGATIVE Comp Metabolic Panel 04/14/2018 [facility] Sodium 140 mmol/L N 135-145 [place] [address] [phone] Potassium 3.9 mmol/L N 3.5-5.0 Chloride 105 [...] 77.7 >60 4 Urine Culture And 04/14/2018 [facility] Urine Culture SEE RESULT [address] [place] [address] [phone] CBC Auto Diff 04/08/2018 [facility] White Blood 4.8 10^3/uL N 3.5-[address] Count .8 [place] [address] [phone] Red Blood Count 4.38 10^6/uL N 4.00-5.40 [...] Cells % 0.1 Comp Metabolic Panel 04/08/2018 [facility] Sodium 140 mmol/L N 135-[address] [place] [address] [phone] Potassium 3.8 mmol/L N 3.5-5.0 Chloride 103 [...] Egfr Non- 64.2 >60 Egfr 77.7 >60 6 BCR/Abl P210 04/08/2018 [facility] BCR/Abl p210 see interpretati [address] Result <SEE NOTE> [place] [address] [phone] BCR/Abl PCR Specimen Blood BCR/Abl p210 Final Diagnosis See Comment 8 CBC Auto Diff 10/01/2017 [facility] White Blood 3.9 10^3/uL N 3.5-10.[address] [place] [address] [phone] Red Blood Count 4.52 10^6/uL N 4.0-5.4 [...] Cells % 0.1 Comp Metabolic Panel 10/01/2017 [facility] Sodium 139 mmol/L N 133-[address] [place] [address] [phone] Potassium 4.5 mmol/L N 3.5-5.0 Chloride 106 [...] Egfr Non- 67.8 >60 Egfr 87.2 >60 9 Laboratory 10/01/2017 [facility] TSH (Thyroid 1.87 mcIU/mL N 0.34-5.60 test finding [address] Stim Horm) [place] [address] [phone] BCR/Abl P210 10/01/2017 [facility] BCR/Abl p210 see [address] [place] [address] <SEE NOTE> [phone] BCR/Abl PCR Specimen WHOLE BLOOD BCR/Abl p210 Final Diagnosis See Comment 11 Comp Metabolic Panel 06/24/2017 [facility] Sodium 137 mmol/L N 133-[address] [place] [address] [phone] Potassium 3.9 mmol/L N 3.5-5.0 Chloride 104 [...] N >60 12 CBC Auto Diff 06/24/2017 [facility] White Blood 5.0 10^3/uL N 3.5-10.[address] [place] [address] [phone] Red Blood Count 4.35 10^6/uL N 4.0-5.4 [...] Cells % 0 N Poc Urinalysis 06/17/2017 [facility] Poc Glucose, Negative N Negative [address] [place] [address] [phone] Poc Bilirubin, Urine Negative N Negative Poc Ketone, Urine Negative N Negative Poc Specific [place], Urine 1.020 N 1.010-1.030 Poc Blood, Urine Trace-intact Abnormal Negative Poc pH, Urine 6.0 N 5-9 Poc Protein, Urine Negative N Negative Poc Urobilinogen, Urine 0.2 N Negative Poc Nitrite, Urine Negative N Negative Poc Leukocytes, Urine Negative N Negative Poc Color, Urine Yellow N Poc Clarity, Urine Clear N 13 BCR/Abl P210 04/28/2017 [facility] BCR/Abl p210 see interpretati N [address] Result <SEE NOTE> [place] [address] [phone] BCR/Abl PCR Specimen WHOLE BLOOD N BCR/Abl p210 Final Diagnosis See Comment N 15 Laboratory test 04/28/2017 [facility] PSA Screening 1.575 ng/mL N 0-4.000 [address] [place] [address] [phone] Comp Metabolic 04/28/2017 [facility] Sodium 137 mmol/L N 133- [address] [place] [address] [phone] Potassium 4.2 mmol/L N 3.5-5.0 Chloride 102 [...] 64.4 N >60 Egfr 82.9 N >60 17 CBC Auto Diff 04/28/2017 [facility] White Blood 4.9 10^3/uL N 3.5-10.[address] [place] [address] [phone] Red Blood Count 4.31 10^6/uL N 4.0-5.4 [...] Red Blood Cells % 0.1 N Laboratory test 04/23/2017 [facility] CRP High 1.97 mg/L N [address] [place] [place] [address] [phone] Erythrocyte Sed Rate 8 mm/Hr N 0-20 Vitamin D Total 25(Oh) 26.9 ng/mL Low 30-50 CBC Auto Diff 04/23/2017 [facility] White Blood 4.9 10^3/uL N 3.5-10.[address] [place] [address] [phone] Red Blood Count 4.32 10^6/uL N 4.0-5.4 [...] Blood Cells % 0 N Laboratory 04/23/2017 [facility] TSH (Thyroid 1.11 N 0.34- 5.60 test finding [address] Stim Horm) mcIU/[place] [address] [phone] Laboratory 01/08/2017 [facility] Surgical SEE RESULT 19, test finding [address] Pathology BELOW 20 [place] [address] [phone] CBC Auto Diff 10/29/2016 [facility] White Blood 3.4 Low 3.5- 10.[address] Count 10^3/uL [place], [place] [address] [phone] Red Blood Count 4.17 10^6/uL N 4.0-5.4 [...] % 0.1 N Comp Metabolic Panel 10/29/2016 [facility] Sodium 140 mmol/L N 133-[address] [place] [address] [phone] Potassium 4.0 mmol/L N 3.5-5.0 Chloride 106 [...] N >60 21 BCR/Abl P210 pc 10/29/2016 [facility] BCR/Abl PCR Specimen Blood N [address] [place] [address] [phone] BCR/Abl p210 Final Diagnosis See Comment N 23 Laboratory test 08/05/2016 [facility] Lactic Acid 1.1 mmol/L N 0.5-2.[address] [place] [address] [phone] Laboratory test 08/05/2016 [facility] Hemoglobin A1c 5.9 % N Less than [address] (Glyco HGB) 6.0 [place] [address] [phone] Lyme Disease Serology Negative N Negative 26 Urinalysis Profile 08/05/2016 [facility] Urine Color Yellow N [address] [place] [address] [phone] Urine Appearance Clear N Urine Specific [place] 1.011 N 1.010-1.030 Urine pH 5.0 N 5-9 Urine Urobilinogen Negative N Negative Urine Ketones Negative N Negative Urine Protein Negative N Negative Urine Leukocytes Negative N Negative Urine Blood Negative N Negative Urine Nitrite Negative N Negative Urine Bilirubin Negative N Negative Urine Glucose Negative N Negative Type & Screen 08/05/2016 [facility] Patient Blood Type A Negative [address] [place] [address] [phone] Antibody Screen NEGATIVE N Laboratory 08/05/2016 [facility] Partial Thrombo 29.5 N 26.0- 36.[address] [place] [address] [phone] Inr/Protime 08/05/2016 [facility] Inr 0.82 Low 0.89-1.[address] [place] [address] [phone] Laboratory 08/05/2016 [facility] Troponin-I (TnI) 0.00 ng/mL N <0.04 [address] [place] [address] [phone] Lipid Profile 08/05/2016 [facility] Triglycerides 200 mg/dL N 28 (Trig/Chol/HDL [address] ) [place] [address] [phone] Cholesterol 192 mg/dL N 29 HDL Cholesterol 40.2 mg/dL N 30 LDL Cholesterol 112 mg/dL N 31 CBC Auto Diff 08/05/2016 [facility] White Blood 4.9 10^3/uL N 3.5-10.[address] [place] [address] [phone] Red Blood Count 4.27 10^6/uL N 4.0-5.4 [...] Cells % 0.1 N Comp Metabolic Panel 08/05/2016 [facility] Sodium 139 mmol/L N 133-[address] [place] [address] [phone] Potassium 3.3 mmol/L Low 3.5-5.0 Chloride 106 [...] 74.2 N >60 Egfr 95.4 N >60 32 Laboratory 02/19/2016 [facility] Hepatitis C Nonreactive N Nonreactive 33 test finding [address] [place] [address] [phone] Basic 11/14/2015 [facility] Sodium 141 mmol/L N 133-[address] [place] [place] [address] [phone] Potassium 3.7 mmol/L N 3.5-5.0 Chloride 105 [...] N >60 34 CBC No Diff 11/14/2015 [facility] White Blood 5.7 10^3/uL N 3.5-10.[address] [place] [address] [phone] Red Blood Count 4.05 10^6/uL N 4.0-5.4 Hemoglobin 12.9 g/dL Low 14.0-18.0 Hematocrit 38 % Low 42-52 Mean Corpuscular Volume 94 fL N 80-94 Mean Corpuscular Hemoglobin 32 pg High 27-31 Mean Corpuscular HGB Conc 34 g/dL N 31-36 Red Cell Distribution Width 13 % N 10.5-15 Platelet Count 321 10^3/uL N 150-450 Mean Platelet Volume 8 um3 N 7.4-10.4 Surgical Pathology 05/25/2014 [facility] S RUN DATE: [address] 05/30/ <[place] [address] NOTE> [phone] Basic Metabolic 05/08/2014 [facility] Sodium 138 mmol/L N 133- [address] [place] [address] [phone] Potassium 4.0 mmol/L N 3.7-5.6 Chloride 106 mmol/L N 101-111 Co2 Carbon Dioxide 29 mmol/L N 22-32 Anion Gap 3 mmol/L N 2-11 Glucose 97 mg/dL N 70-100 Blood Urea Nitrogen 16 mg/dL N 6-24 Creatinine 1.02 mg/dL N 0.67-1.17 BUN/Creatinine Ratio 15.7 N 8-20 Calcium 8.7 mg/dL N 8.6-10.3 Egfr Non- 75.5 N >60 Egfr 97.2 N >60 36 CBC Auto 05/08/2014 [facility] White Blood 3.8 10^3/uL Low 4.8 -10.[address] [place] [address] [phone] Red Blood Count 4.06 10^6/uL N 4.0-5.4 [...] % 0.1 N Basic Metabolic Panel 04/02/2014 [facility] Sodium 140 mmol/L N 133-145 [address] [place] [address] [phone] Potassium 3.3 mmol/L Low 3.7-5.6 Chloride 108 [...] N >60 37 Vitamin D, 25 04/02/2014 [facility] 25-Hydroxy Vitamin <4.0 ng/ mL N Hydroxy [address] [address] [phone] 25-Hydroxy Vitamin D3 23 ng/mL N 25-Hydroxy Vitamin D Total 23 ng/mL N 38 Comp Metabolic Panel 03/05/2014 [facility] Sodium 138 mmol/L N 133-145 [address] [place] [address] [phone] Potassium 3.6 mmol/L Low 3.7-5.6 Chloride 106 [...] 108.1 N >60 39 CBC Auto 03/05/2014 [facility] White Blood 3.5 10^3/uL Low 4.8 -10.[address] [place] [place] [address] [phone] Red Blood Count 3.96 10^6/uL Low 4.0-5.4 [...] % 0 N BCR/Abl P210 pc 03/05/2014 [facility] BCR/Abl PCR Specimen Blood N [address] [place] [address] [phone] BCR/Abl p210 Final Diagnosis See Comment N 41 Urinalysis Profile 02/12/2014 [facility] Urine Color Yellow N [address] [place] [address] [phone] Urine Appearance Clear N Urine Specific [place] 1.021 N 1.010-1.030 Urine pH 6.0 N 5-9 Urine Urobilinogen Negative N Negative Urine Ketones Negative N Negative Urine Protein Negative N Negative Urine Leukocytes Negative N Negative Urine Blood Negative N Negative Urine Nitrite Negative N Negative Urine Bilirubin Negative N Negative Urine Glucose Negative N Negative CBC Auto Diff 02/11/2014 [facility] White Blood 5.2 10^3/uL N 4.8-10.[address] [place] [address] [phone] Red Blood Count 3.92 10^6/uL Low 4.0-5.4 [...] 0-0.2 Abs Nucleated RBC 0.01 10^3/uL N Comp Metabolic Panel 02/11/2014 [facility] Sodium 140 mmol/L N 133-[address] [place] [address] [phone] Potassium 3.3 mmol/L Low 3.7-5.6 Chloride 108 [...] N >60 Egfr 98.3 N >60 42 Laboratory test finding 02/11/2014 [facility] Lipase 47 U/L N 11.0-82.0 [address] [place] [address] [phone] C Reactive Protein 2.59 mg/L N < 5.00 43 Manual Differential 02/11/2014 [facility] Neutrophil % 42 % N 38-83 [address] [place] [address] [phone] Lymphocytes % 48 % High 25-47 Monocytes % 5 % N 0-13 Eosinophils % 2 % N 0-6 Reactive Lymph % 3 % N 0-6 RBC Morphology Normal N Normal Basic Metabolic Panel 01/17/2014 [facility] Sodium 140 mmol/L N 133-145 [address] [place] [address] [phone] Potassium 3.6 mmol/L Low 3.7-5.6 Chloride 105 mmol/L N 101-111 Co2 Carbon Dioxide 30 mmol/L N 22-32 Anion Gap 5 mmol/L N 2-11 Glucose 119 mg/dL High 70-100 Blood Urea Nitrogen 17 mg/dL N 6-24 Creatinine 1.12 mg/dL N 0.67-1.17 BUN/Creatinine Ratio 15.2 N 8-20 Calcium 9.2 mg/dL N 8.6-10.3 Egfr Non- 67.8 N >60 Egfr 87.2 N >60 44 Laboratory test 01/17/2014 [facility] Phosphorus 2.4 mg/dL Low 2.5-5.0 finding [address] [place] [address] [phone] Magnesium 2.0 mg/dL N 1.9-2.7 Vitamin B12 316 pg/mL N 180-914 45 BCR/Abl P210 pc 12/20/2013 [facility] BCR/Abl PCR Specimen Blood N 46 [address] [place] [address] [phone] BCR/Abl p210 Final Diagnosis See Comment N 47 CBC Auto 12/01/2013 [facility] White Blood 3.7 10^3/uL Low 4.8 -10.[address] [place] [address] [phone] Red Blood Count 4.04 10^6/uL N 4.0-5.4 [...] % 0 N Comp Metabolic Panel 12/01/2013 [facility] Sodium 141 mmol/L N 133-[address] [place] [address] [phone] Potassium 4.6 mmol/L N 3.7-5.6 Chloride 108 [...] N >60 48 Laboratory test finding 12/01/2013 [facility] T4 7.01 g/dL N 6.09-12.[address] [place] [address] [phone] TSH (Thyroid Stimulating Horm) 1.29 IU/mL N 0.34-5.60 BCR/Abl P210 pc 12/01/2013 [facility] BCR/Abl PCR EDTA whole N [address] [place] [address] [phone] BCR/Abl p210 Final Diagnosis See Comment N 50 Comp Metabolic Panel 05/29/2013 [facility] Sodium 140 mmol/L 133-[address] [place] [address] [phone] Potassium 3.9 mmol/L 3.5-5.0 Chloride 103 mmol/L [...] Egfr 112.7 >60 51 CBC Auto 05/29/2013 [facility] White Blood 4.7 10^3/uL Low 4.8 -10.[address] [place] [address] [phone] Red Blood Count 4.20 10^6/uL 4.0-5.4 Hemoglobin [...] Cells % 0.1 BCR/Abl P210 pc 05/29/2013 [facility] BCR/Abl PCR Specimen Blood [address] [place] [address] [phone] BCR/Abl p210 Final Diagnosis See Comment 52 CBC With 04/13/2013 [facility] White Blood 4.1 10^3/uL Low 4.8 -10.8 Manual Diff [address] [place] [address] [phone] Red Blood Count 4.29 10^6/uL 4.0-5.4 Hemoglobin [...] RBC Morphology Normal Normal CBC Auto 03/06/2013 [facility] White Blood 4.3 10^3/uL Low 4.8 -10.[address] [place] [address] [phone] Red Blood Count 4.11 10^6/uL 4.0-5.4 Hemoglobin [...] Cells % 0 Comp Metabolic Panel 03/06/2013 [facility] Sodium 140 mmol/L 133-[address] [place] [address] [phone] Potassium 4.1 mmol/L 3.5-5.0 Chloride 105 mmol/L [...] 112.7 >60 53 BCR/Abl P210 pc 03/06/2013 [facility] BCR/Abl PCR Specimen Blood [address] [place] [address] [phone] BCR/Abl p210 Final Diagnosis See Comment 54 Laboratory test 02/21/2013 [facility] Pathologist (SEE NOTE) [address] [place] [address] [phone] CBC With Manual 02/21/2013 [facility] White Blood 3.8 Low 4.8- [address] Count 10^3/uL 0.8 [place] [address] [phone] Red Blood Count 3.84 10^6/uL Low 4.0-5.4 [...] 0-6 RBC Morphology Normal Normal Surgical 01/06/2013 [facility] S RUN DATE: [address] 01/10/ <[place] [address] NOTE> [phone] Lipid Profile 12/05/2012 [facility] Triglycerides 138 mg/dL 40-200 (Trig/Chol/HDL) [address] [place] [address] [phone] Cholesterol 142 mg/dL Less than 200 HDL Cholesterol 36 mg/dL Low 40-60 57 Cholesterol/HDL Ratio 3.9 Average 1-4.44 LDL Cholesterol 78.4 mg/dL Less Than 100 58 Vitamin D, 25 12/05/2012 [facility] 25-Hydroxy Vitamin <4.0 ng/ mL Hydroxy [address] D2 [place] [address] [phone] 25-Hydroxy Vitamin D3 20 ng/mL 25-Hydroxy Vitamin D Total 20 ng/mL Abnormal 59 Laboratory test 12/05/2012 [facility] Glucose 89 mg/dL 70- 100 [address] [place] [address] [phone] CBC Auto Diff 12/05/2012 [facility] White Blood 4.4 Low 4.8- 10.[address] Count 10^3/[place] [address] [phone] Red Blood Count 4.03 10^6/uL 4.0-5.4 Hemoglobin [...] Cells % 0 Comp Metabolic Panel 12/05/2012 [facility] Sodium 140 mmol/L 133-[address] [place] [address] [phone] Potassium 4.2 mmol/L 3.5-5.0 Chloride 107 mmol/L [...] Egfr Non- 100.4 >60 Egfr 129.1 >60 61 Laboratory test 12/05/2012 [facility] BCR/Abl (SEE NOTE) [address] PCR([facility]) [place] [address] [phone] CBC With Manual 10/31/2012 [facility] White Blood 3.4 10^3/uL Low 4.8-[address] Count .8 [place] [address] [phone] Red Blood Count 4.11 10^6/uL 4.0-5.4 Hemoglobin [...] FIBROMATOSIS, OSTEOCHONDRITIS DISS 3 SEE RESULTS BELOW [id number] CANDIS TRANSFUSED 05/05/18 0734 4 Because ethnic data is [...] [address]: Alejandro Diaz MD Acct: [id number] Unit: [id number] AGE: 62 Location: [facility] Re04/14/18 SEX: M Status: REG REF SPEC: [id number] NAOMIE: 04/14/18-[address] [facility] [address]: Alejandro Diaz MD REQ: [id number] RECD: 04/14/18-153 STATUS: COMP _ SOURCE: URINE SPDESC: ORDERED: Urine Culture Urine Source: Random Procedure Result Reported Site Urine Culture Final 04/15/18- 1324 ML No Growth (<1,000 CFU/mL) * ML - Main Lab . END OF REPORT DEPARTMENT OF PATHOLOGY, [address] [place] [address] Edi Blevins M.D. Director [facility] # [id number] 6 Because ethnic data is not always [...] 5 Kidney failure <15 (or dialysis) 7 see interpretation PDF Report available at: [email or web address] Peripheral blood, BCR/ABL1 mRNA level analysis (p210 [...] level was evaluated using a quantitative, reverse passenger tire builder PCR. The analytical sensitivity of this assay [...] all possible fusion forms. Please contact the [facility] at [phone] with questions or if additional testing is required. See the [facility] tinyclues Interpretive Handbook for method details. The reproducibility [...] developed and its performance characteristics determined by [facility] in a manner consistent with CLIA requirements. This test has not been cleared or approved by the U.S. Food and Drug Administration. Test Performed by: [address] [address] 9 Because ethnic data is not always [...] 5 Kidney failure <15 (or dialysis) 10 see interpretation PDF Report available at: [email or web address] 11 Peripheral blood, BCR/ABL1 mRNA level analysis (p210 [...] level was evaluated using a quantitative, reverse passenger tire builder PCR. The analytical sensitivity of this assay [...] all possible fusion forms. Please contact the [facility] at [phone] with questions or if additional testing is required. See the [facility] Interpretive Handbook for method details. The [...] developed and its performance characteristics determined by [facility] in a manner consistent with CLIA requirements. This test has not been cleared or approved by the U.S. Food and Drug Administration. Test Performed by: [address] [address] 12 Because ethnic data is not always [...] 5 Kidney failure <15 (or dialysis) 13 Nurse Chemical Dependency: [id number] 14 see interpretation PDF Report available at: [email or web address] 15 Peripheral blood, BCR/ABL1 mRNA level analysis [...] level was evaluated using a quantitative, reverse passenger tire builder PCR. The analytical sensitivity of this assay [...] all possible fusion forms. Please contact the [facility] at [phone] with questions or if additional testing is required. See the [facility] Interpretive Handbook for method details. The [...] developed and its performance characteristics determined by [facility] in a manner consistent with CLIA requirements. This test has not been cleared or approved by the U.S. Food and Drug Administration. Test Performed by: [address] [address] 16 Serum levels of PSA measured using the [facility] Matti DXI [employer] immunoassay should not be interpreted as absolute evidence of the presence or absence of disease. The PSA value should be used in conjunction with other pertinent clinical diagnostic procedures. The values obtained with different assay methods or kits cannot be used interchangeably. 17 Because ethnic data is not always [...] 5 Kidney failure <15 (or dialysis) 18 Low risk: <1.00 Average risk: 1.00-3.00 High risk: >3.00 19 [id number] 20 SEE RESULT BELOW Name: MAGDI CHEEK Zoie : [address]: Kosta Dumont MD Acct: [id number] Unit: [id number] AGE: 61 Location: [facility] Re01/08/17 SEX: M Status: REG REF SPEC: [id number] NAOMIE: 01/08/17-[address] [facility] [address]: Kosta Dumont MD REQ: [id number] RECD: 01/08/171548 STATUS: EPIFANIO SMALL DR: Eric Talavera MD _ ORDERED: LEVEL 4, SPEC STAIN ORG COMMENTS: [id number] FINAL DIAGNOSIS Gastroesophageal junction, biopsy: -- Erosive [...] performed at Main Lab DEPARTMENT OF PATHOLOGY, [address] [place] [address] Edi Blevins M.D. Director [facility] # [id number] 21 Because ethnic data is not always [...] (or dialysis) 22 PDF Report available at: [email or web address] 23 Peripheral blood, BCR/ABL1 mRNA level analysis (p210 fusion form): Negative. No BCR/ABL1 p210 mRNA transcripts were detected (%BCR/ABL1(p210):ABL1=0). Signing Pathologist: Eduardo Meza M.D. ADDITIONAL INFORMATION Method summary - BCR/ABL1, p210 fusion: The BCR/ABL1 transcript level was evaluated using a quantitative, reverse passenger tire builder PCR. The analytical sensitivity of this assay [...] all possible fusion forms. Please contact the [facility] at [phone] with questions or if additional testing is required. See the [facility] tinyclues Interpretive Handbook for method details. The reproducibility [...] evaluated using the BCR/ABL KDM assay (test: ROBERT). Laboratory developed test. Test Performed by: [facility] [address] [place] [address] Shampoo Assistant: Valentino Petersen II, M.D., Ph.D. 24 [facility] Severe Sepsis and Septic Shock Management Bundle Measure requires all lactic acids initially measuring >2.0 mmol/L be repeated. 25 Therapeutic target for the treatment of diabetes Mellitus patients is <7% HBA1C, and in selective patients <6.0%.Please refer to [place] [employer] Diabetic care guidelines for further information. 26 Serologic response to B. burgdorferi infection is not detected, but cannot rule out early infection during which low or undetectable antibody levels to B. burgdorferi may be present. If clinically indicated, a new serum specimen should be submitted in 7-14 days. Test Performed by: [facility] - [address] [address] Shampoo Assistant: Valentino Petersen II, M.D., Ph.D. 27 NOTE: Critical Troponin is now >0.03 ng/mL. 99th percentile=0.04 ng/mL Troponin results at [facility] and [facility] are not interchangeable. 28 Desirable <150 Borderline high 150-199 High 200-499 Very High >500 29 Desirable <200 Borderline high 200-239 High >239 30 Low <40 Desirable: 40-60 High: >60 31 Desirable: <100 mg/dL Near Optimal: 100-129 mg/dL Borderline High: 130-159 mg/dL High: 160-189 mg/dL Very High: >189 mg/dL 32 Because ethnic data is not always readily [...] 15-29 5 Kidney failure <15 (or dialysis) 33 Copy Result to: CHRISSY TALAVERA ([id number]) 34 Because ethnic data is not always [...] <15 (or dialysis) 35 RUN DATE: 05/30/14 [facility] LAB LIVE PAGE 1 RUN TIME: [address] [place] [address] Specimen Inquiry Name: MAGDI CHEEK : [address]: Alexandra Zamora MD Acct: [id number] Unit: [id number] AGE: 58 Location: [facility] Re05/25/14 SEX: M Status: REG [facility] SPEC: [id number] NAOMIE: 05/25/[address] [facility] [address]: Alexandra Zamora MD REQ: [id number] RECD: 05/25/14 STATUS: SOUT _ ORDERED: Decal, [...] performed at Main Lab DEPARTMENT OF PATHOLOGY, [address] [place] [address] Edi Blevins M.D. Director [facility] # [id number] 36 Because ethnic data is not always [...] levels within this range. Test Performed by: [place] [address] Shampoo Assistant: Prince Ha III, M.D. 39 Because ethnic [...] (or dialysis) 40 PDF Report available at: [email or web address] 41 Peripheral blood, BCR/ABL mRNA level analysis (p210 fusion form): Positive. BCR/ABL p210 mRNA transcripts were detected and estimated to represent 0.02% of total abl (%bcr/abl(p210):abl). 0.02% bcr/abl(p210):abl in this assay is equivalent to 0.05% on the International Scale in which 0.1% is considered a major molecular response in CML (see Lillie et al, Blood 2008;112:3330). Signing Pathologist: Yash Luna M.D., Ph.D. Method summary - BCR/ABL, p210 fusion: p210 mRNA transcript level was evaluated using quantitative, reverse passenger tire builder PCR. The assay detects the two most [...] setting and the result is negative, test #01081 (BCR/ABL mRNA Detection, RT-PCR, Qualitative, Diagnostic) should be ordered to evaluate for all possible fusion forms. Please contact the lab at with questions or if additional testing is required. See the [facility] tinyclues Interpretive Handbook for method details. Typical clinical [...] specimen. Laboratory developed test. Test Performed by: [address] [address] Shampoo Assistant: Prince Ha III, M.D. 42 Because ethnic data is not always [...] 5 Kidney failure <15 (or dialysis) 43 Acute inflammation: >10.00 44 Because ethnic data is not always [...] Range <145 46 PDF Report available at: [email or web address] 47 Peripheral blood, BCR/ABL mRNA level analysis (p210 fusion form): Positive. BCR/ABL p210 mRNA transcripts were detected and estimated to represent 0.06% of total abl (%bcr/abl(p210):abl). 0.06% bcr/abl(p210):abl in this assay is equivalent to 0.2% on the International Scale in which 0.1% is considered a major molecular response in CML (see Lillie et al, Blood 2008;112:3330). Signing Pathologist: Liliam Noland M.D. Method summary - BCR/ABL, p210 fusion: p210 mRNA transcript level was evaluated using quantitative, reverse passenger tire builder PCR. The assay detects the two most [...] setting and the result is negative, test #43145 (BCR/ABL mRNA Detection, RT-PCR, Qualitative, Diagnostic) should be ordered to evaluate for all possible fusion forms. Please contact the lab at with questions or if additional testing is required. See the [facility] Interpretive Handbook for method details. [...] specimen. Laboratory developed test. Test Performed by: [place] [address] Shampoo Assistant: Prince Ha III, M.D. 48 Because ethnic [...] EDTA whole blood PDF Report available at: [email or web address] 50 Peripheral blood, BCR/ABL mRNA level analysis (p210 fusion form): Positive. BCR/ABL p210 mRNA transcripts were detected and estimated to represent 0.06% of total abl (%bcr/abl(p210):abl). 0.06% bcr/abl(p210):abl in this assay is equivalent to 0.2% on the International Scale in which 0.1% is considered a major molecular response in CML (see Lillie et al, Blood 2008;112:3330). Signing Pathologist: Eduardo Meza M.D. Method summary - BCR/ABL, p210 fusion: p210 mRNA transcript level was evaluated using quantitative, reverse passenger tire builder PCR. The assay detects the two most [...] setting and the result is negative, test #10528 (BCR/ABL mRNA Detection, RT-PCR, Qualitative, Diagnostic) should be ordered to evaluate for all possible fusion forms. Please contact the lab at with questions or if additional testing is required. See the [facility] tinyclues Interpretive Handbook for method details. Typical clinical [...] specimen. Laboratory developed test. Test Performed by: [address] [address] Shampoo Assistant: Prince Ha III, M.D. 51 Because ethnic [...] a major molecular response in CML (see Lillie et al, Blood 2008;112:3330). Previous specimens from this patient have been tested in this laboratory using this method and a summary of results will be faxed provided our laboratory has a current, secure fax number on file. If a faxed report is not received, please call the [facility] ( ) to provide a fax number. Signing Pathologist: New Andrew M.D., Ph.D. Method summary - BCR/ABL, p210 fusion: p210 mRNA transcript level was evaluated using quantitative, reverse passenger tire builder PCR. The assay detects the two most [...] setting and the result is negative, test #31854 (BCR/ABL mRNA Detection, RT-PCR, Qualitative, Diagnostic) should be ordered to evaluate for all possible fusion forms. Please contact the lab at with questions or if additional testing is required. See the [facility] Interpretive Handbook for method details. [...] specimen. Laboratory developed test. Test Performed by: [address] [address] Shampoo Assistant: Prince Ha III, M.D. 53 Because ethnic [...] a major molecular response in CML (see Lillie et al, Blood 2008;112:3330). Previous specimens from this patient have been tested in this laboratory using this method and a summary of results will be faxed provided our laboratory has a current, secure fax number on file. If a faxed report is not received, please call the [facility] ( ) to provide a fax number. Signing Pathologist: Eduardo Meza M.D. Method summary - BCR/ABL, p210 fusion: p210 mRNA transcript level was evaluated using quantitative, reverse passenger tire builder PCR. The assay detects the two most [...] setting and the result is negative, test #33595 (BCR/ABL mRNA Detection, RT-PCR, Qualitative, Diagnostic) should be ordered to evaluate for all possible fusion forms. Please contact the lab at with questions or if additional testing is required. See the [facility] Interpretive Handbook for method details. [...] specimen. Laboratory developed test. Test Performed by: [address] [address] Shampoo Assistant: Prince Ha III, M.D. 55 CBC and smear reviewed. Findings consistent with probable treatment effects. REVIEWED BY EDI BLEVINS MD 56 RUN DATE: 01/10/13 [facility] LAB LIVE PAGE 1 RUN TIME: [address] [place] [address] Specimen Inquiry Name: MAGDI CHEEK : [address]: Kosta Dumont MD Acct: [id number] Unit: [id number] AGE: 57 Location: ENDO Re01/06/13 SEX: M Status: REG REF SPEC: [id number] NAOMIE: 01/06/13- SUBM DR: Kosta Dumont MD REQ: [id number] RECD: 01/06/13 STATUS: EPIFANIO SMALL DR: Teja [...] performed at Main Lab DEPARTMENT OF PATHOLOGY, [address] [place] [address] Edi Blevins M.D. Director [facility] Permit #[id number] 57 HDL Interpretation: Undesirable: High Risk: Less than 40 MG/DL Desirable: Low Risk: Greater than 60 MG/DL 58 LDL Interpretation: Low Risk Optimal Level: LDL Less than 100 MG/DL Near or Above Optimal: LDL 100-129 MG/DL Borderline High Risk: LDL 130-159 MG/DL High Risk: LDL 160-189 MG/DL Very High Risk: LDL Greater than 189 MG/DL 59 Interpretation: 10-24 (mild to moderate deficiency) -- REFERENCE VALUE -- 25-HYDROXY D TOTAL (D2+D3) Optimum levels in the normal population are 25-80 Test Performed by: [facility] [place] [address] Shampoo Assistant: Prince Ha III, M.D. 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 The breakpoint on [...] Minor Breakpoint p190 transcript e1a2 Not Detected [facility] [place] F [address] [place] [address] Page 1 of 3 [facility] F Client Services: [phone] F [email or web address] Patient Name: MAGDI CHEEK Collection Date: 12/05/2012 Ordering Physician: Chrissy Talavera Received Date: 12/06/2012 Treating Physician: Not Given Report Date: 12/08/2012 Ordering Facility: [facility] On[facility] Ref #: [id number] Specimen ID #: [id number] Date of ,Sex: 1955, M Quantitative Testing History (Percentage) 09/07/2012 12/05/2012 p190 transcript e1a2 <0.001 <0.001 p210 transcript b2a2 0.022 0.021 p210 transcript b3a2 0.081 0.045 *<0.001 values are plotted as 0.0001 and are below the sensitivity of detection for this assay. [facility] [address] [place] [address] Page 2 of 3 [facility] Oncology F Client Services: [phone] [email or web address] Patient Name: MAGDI CHEEK Collection Date: 12/05/2012 Ordering Physician: Chrissy Talavera Received Date: 12/06/2012 Treating Physician: Not Given Report Date: 12/08/2012 Ordering Facility: [facility] Ref #: [id number] Specimen ID #: [id number] Date of ,Sex: 1955, M at [employer] James Villanueva, Ph.D., [facility] Methodology: Total RNA was isolated from the provided specimen and subjected to reverse passenger tire builder-polymerase chain reaction (RT-PCR). Amplification products were monitored [...] R, Osorio HM, Howard BJ, Gene M, [place] Chromosome-Positive Leukemias: From Basic mechanisms to molecular Therapeutics, Laura Senior Technical Trainer med. 2003; 138:819-830. Robert J, Sid Valencia, (2007). Myeloproliferative Disorders and Myelodysplastic Syndromes. Riley WHITING, Molecular Pathology in Clinical Practice, Second Edition (pp.383-385). Penaloza Disclaimer [facility] is a business unit of [employer], a wholly-owned subsidiary of [employer] Professional Component performed at [facility] at [address] [place] [address], [place], [address] - Pot Room Tapper: James Villanueva, Ph.D. Technical Component performed at [address] [place] [address] [address], [place], [address] Any image(s) that accompany this report is/are a product sales representative image(s) only and should not be used to render a diagnosis. [facility] at [address] [address] Page 3 of 3 Integrated [facility] F Client Services: [phone] [email or web address] Procedures Date Code Description Status 08/23/2018 08629 EKG Tracing & Interpretation Completed 05/20/2018 81386 Short Leg Cast Completed 05/10/2018 11425 Short Leg Cast Completed 05/05/2018 02843 Osteochondral Talus Autograft Completed 05/05/2018 80039 Osteochondral Talus Autograft Completed 05/05/2018 30015 Osteochondral Talus Autograft Completed 05/05/2018 84795 Repair Collateral Ligament Ankle, Secondary Completed 05/05/2018 02075 Repair Collateral Ligament Ankle, Secondary Completed 05/05/2018 02703 Repair Collateral Ligament Ankle, Secondary Completed 12/03/2016 74612 EKG Tracing & Interpretation Completed 11/24/2016 56178 Treadmill Interp/Report Only Completed 11/24/2016 49859 Stress Test Supervsn W/Out I/R Completed 11/06/2016 60635 ECHO Transthoracic, Real-Time 2D With Doppler And Color Completed Flow 11/02/2016 81964 EKG Tracing & Interpretation Completed 03/12/2016 61991 Polysomnography Sleep Staging 4+ Parameters Completed 07/25/2014 55878 Polysomnography Sleep Staging 4+ Parameters W/Cpap Completed 06/05/2014 78942 Spirometry Incl Graphic Record Completed 05/25/2014 81004 EKG, Interpretation Only Completed 05/25/2014 19541 Arthrotomy Elbow W/Joint Exploration Completed 05/22/2014 02296 Polysomnography Sleep Staging 4+ Parameters Completed 05/08/2014 56060 EKG Tracing & Interpretation Completed 04/25/2014 71949 Rad Exam; Elbow, Comp Completed 04/25/2014 65947 Rad Exam; Elbow, Comp Completed 01/06/2013 [id number] Colonoscopy Completed 06/15/2011 79360 EKG, Interpretation Only Completed 06/08/2008 97568962 Colonoscopy Completed 02/27/2008 51560 Spirometry Incl Graphic Record, Timed Expiratory Flow Completed Rate 01/11/2007 08011 Holter Monitor Review (24 hr) review & interp only Completed 01/11/2007 52832 Holter Monitor Review (24 hr) review & interp only Completed 10/22/2006 07420 EKG Tracing & Interpretation Completed Encounters Type Date Location Provider Dx Diagnosis Office Visit 02/23/2018 Orthopedic Edmundo Garcia.2 Plantar fascial 3:15p Services Of Estela randall 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 M25.371 Other instability, right ankle Office Visit 01/11/2018 2:30p Edmundo Fleming.2 Plantar fascial Services Of MD prakash Palmer 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 Reza hip M16.12 Unilateral primary osteoarthritis, left hip M25.551 Pain in right hip M16.11 Unilateral primary osteoarthritis, right hip Office Visit 11/24/2017 3:00p Orthopedic Alexandra S50.02xA Contusion of Services Of Reza Zamora left elbow, C.M.A. initial encounter Office Visit 04/13/2017 11:30a [facility] Internal Eric Belcher M54.5 Low back pain Sari Garcia M.D.,[facility] Office Visit 04/12/2017 1:00p Orthopedic Lacey Sauer, M25.552 Pain in left Services Neptali Cobb hip C.M.AYonatan M16.12 Unilateral primary osteoarthritis, left hip Office Visit 03/26/2017 Surgical Eduardo Lafleur K21.0 Gastro-esophageal 9:15a Associates Of Reza Aguilar reflux disease with [facility] esophagitis Office Visit 12/03/2016 [place] Bari Romero R07.2 Precordial pain 2:00p Cardiology Of Berny, DO [facility] FAC R06.02 Shortness of breath Office Visit 11/21/2016 10:20a [facility] R07.2 Precordial pain Assoc,price Chavez, [facility] Hospitalists 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, BCR/Abl-positive, 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 G47.33 Obstructive sleep apnea (adult) (pediatric) K21.9 Gastro-esophageal reflux disease without esophagitis Office Visit 11/02/2016 3:00p [place] [facility]iology Bari Romero R06.02 Shortness of Of Food Beverage Supervisor Arrieta, DO breath FACC R07.9 Chest pain, unspecified R94.31 Abnormal electrocardiogram [ECG] [EKG] F17.201 Nicotine dependence, unspecified, in remission Office Visit 08/06/2016 11:12a [facility] R29.818 Other symptoms Assoc,pc Reza Cueto 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 Other Spec Sites Office Visit 11/02/2014 Pulmonology And Mansi 327.23 Obstructive Sleep 8:00a Sleep Services Of RUBIN Eric RN, Apnea Adult & [facility] Pediatric Office Visit 06/15/2014 Pulmonology And Mansi 327.23 Obstructive Sleep 11:00a Sleep Services Of RUBIN Eric RN, Apnea Adult & [facility] Pediatric Office Visit 05/08/2014 [facility] Internal Eduardo Hale NP 785.1 Palpitations 3:00p Sari Griggs 786.05 Shortness Of Breath Office Visit 04/25/2014 11:30a Orthopedic Alexandra Zamora, 719.42 Pain Joint Services Of Julissa Kelley.DYonatan Upper Arm [place] 718.13 Loose Body In Joint Forearm Office Visit 12/26/2013 2:40p [facility] Internal Elaine Martinez, 787.02 Nausea Alone Sari Griggs Office Visit 11/20/2013 11:15a Orthopedic Alexandra 842.02 Sprains & Strains Services Of Julissa Zamora M.D. Wrist & Hand AT [place] Radiocarpal (Joint)(Ligament) Office Visit 11/06/2013 9:15a Orthopedic Alexandra 842.00 Sprains & Strains Services Of Julissa Zamora M.D. Wrist & Hand AT [facility] Site Office Visit 10/11/2013 9:15a Orthopedic Alexandra 842.00 Sprains & Strains Services Of Julissa Zamora M.D. Wrist & Hand AT [facility] Site 842.02 Sprains & Strains Wrist & Hand Radiocarpal (Joint)(Ligament) Office Visit 02/01/2013 Orthopedic Alexandra 715.93 Osteoarthrosos 9:45a Services Of Julissa Zamora M.D. Unspec Genlzd Or AT [facility] Localized Forearm Office Visit 01/25/2013 Orthopedic Alexandra 715.93 Osteoarthrosos 11:15a Services Of Julissa Zamora M.D. 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 530.81 Esophageal Reflux 205.10 Leukemia Myeloid Chronic W/O Mention Of Achieving Remission 780.4 Dizziness & Giddiness 268.9 Vitamin D Deficiency Unspec Office Visit 07/19/2008 DO Not Use Francia Ramos, 780.79 Malaise And Fatigue 9:00a Venkata Cobb, [facility] Other Office Visit 04/16/2008 DO Not Use Francia Rachel, 455.4 Hemorrhoids 9:30a Julissa-Indu Kelley.Breezy., FACP External Thrombosed Office Visit 04/12/2008 DO Not Use Francia Rachel, 727.04 Tenosynovitis 3:30p Julissa-Indu Kelley.D., FACP Radial Styloid 780.79 Malaise And Fatigue Other 530.81 Esophageal Reflux Office Visit 03/08/2008 4:00p DO Not Use Francia Rachel, 787.02 Nausea Alone Food Beverage Supervisor-Indu Kelley.Simi, FACP 780.79 Malaise And Fatigue Other Office Visit 01/26/2008 4:00p DO Not Use Francia Rachel, 786.05 Shortness Of Julissa-Indu Kelley.Simi, FACP Breath 780.79 Malaise And Fatigue Other Office Visit 11/18/2007 DO Not Use Francia Rachel, 780.79 Malaise And 2:45p Julissa-Indu Kelley.Simi, FACP Fatigue Other Office Visit 07/05/2007 DO Not Use Francia Rachel, 787.20 Dysphagia, 2:45p Food Beverage Supervisor-Indu Kelley.Simi, FACP Unspecified Office Visit 05/26/2007 DO Not Use [place], 780.4 Dizziness & 4:15p Venkata Dubose M.D. Giddiness Office Visit 04/28/2007 DO Not Use Francia Rachel, 780.79 Malaise And 3:45p Food Beverage Supervisor-Indu Kelley.Simi, FACP Fatigue Other Office Visit 01/28/2007 DO Not Use Francia Rachel, 401.1 Hypertension 11:15a Food Beverage Supervisor-Indu Kelley.D., FACP Benign 780.2 Syncope & Collapse 305.1 Tobacco Use Disorder Office Visit 01/03/2007 DO Not Use Elaine Varn, 780.2 Syncope & Collapse 3:00p Food Beverage Supervisor-[place] N.P. Office Visit 12/28/2006 DO Not Use Francia Rachel, 401.1 Hypertension 11:45a Food Beverage Supervisor-Indu Kelley.D., FACP Benign 272.4 Hyperlipidemia Other Unspec 780.4 Dizziness & Giddiness Office Visit 11/19/2006 DO Not Use Francia Rachel, 272.4 Hyperlipidemia Other 10:00a Food [employer] M.Breezy., FACP Unspec 796.2 Blood Pressure Reading Elevated W/O Hypertension Office Visit 10/22/2006 10:15a DO Not Use Francia Ramos, V70.0 Examination [facility] 272.0 Hypercholesterolemia Pure Plan of Treatment Future Appointment(s):09/02/2018 3:15 pm - Im Nurse Holter Monitor at [facility]09/01/2018 3:15 pm - Im Nurse Holter Monitor at [facility]09/21/2018 3:40 pm - Simon Berrios NP at [facility]10/24/2018 3:30 pm - Alejandro Diaz MD at [facility]12/28/2018 3:00 pm - Simon Berrios NP at [facility]08/29/2018 - Simon Berrios NPI10 Essential (primary) hypertensionComments:Continue on present dose of HCTZ.Keep checking blood pressure at home. Call with reading that are persistently greater than 135/ 85.Follow up:2 -3 ceasiE76.2 PalpitationsNew Orders:Holter Monitor, Scheduled: 09/01/18
--- NOTE | 2018-09-22 17:15 | UC ---
Laceration HPI - HPI Summary HPI Summary: 62 y/o male presents to the urgent care c/o 2 lacerations in both sides of his Rt middle finger while cutting something w/ scissors around 1600PM today. Pt reports bleeding stopped w/ pressure. Pain is mild 2/10 at touch. Pt is UTD w/ Tetanus vaccine in 2017. Pt can move finger w/o any difficulty and denies numbness or tingling sensation over finger or hand. pt denies fever, SOB, chest pain, abdominal pain, N/V/d. - History Of Current Complaint Chief Complaint: UCLaceration Stated Complaint: FINGER LACERATION Time Seen by Provider: 09/22/18 17:05 Hx Obtained From: Patient Laceration Location: Finger - Rt middle finger w/ 2 lacerations w/ scissors Mechanism Of Injury: Sharp Trauma Onset/Duration: Sudden Onset - 1 hrs ago Severity: Mild Pain Intensity: 2 Pain Scale Used: 0-10 Numeric Aggravating Factors: Other: - touch - Allergies/Home Medications Allergies/Adverse Reactions: Allergies Allergy/AdvReac Type Severity Reaction Status Date / Time acetaminophen Allergy See Comment Verified 09/22/18 16:59 Home Medications: Home Medications Bp Med* 1 tab PO DAILY 09/22/18 [History Confirmed 09/22/18] PMH/Surg Hx/FS Hx/Imm Hx Previously Healthy: Yes Cardiovascular History: Hypertension GI/ History: Gastroesophageal Reflux Other GI/ History: BPH Other Cancer History: CML Other History Of: Negative For: HIV, Hepatitis B, Hepatitis C - Surgical History Surgical History: Yes Surgery Procedure, Year, and Place: Left finger amputated. Right knee reconstruction. UPPP and tongue base coblation (FOR SLEEP APNEA) 2015. Bone [id number] -2013-Dr Zamora-[facility] [place]. ANKLE SURGERY. DEVIATED SEPTUM. Colonoscopies/Endoscopies - Family History Known Family History: Positive: Cardiac Disease - father-[place], Diabetes - Social History Occupation: Employed Full-time Lives: With Family Alcohol Use: Occasionally Alcohol Amount: 1-3 beers or glasses of wine per week Substance Use Type: None Smoking Status (MU): Former Smoker Type: Cigarettes Amount Used/How Often: 2 PPD 30 YRS Length of Time of Smoking/Using Tobacco: 30 years Have You Smoked in the Last Year: No When Did the Patient Quit Smoking/Using Tobacco: 2006 - Immunization History Most Recent Tetanus Shot: 06/25/17 Review of Systems All Other Systems Reviewed And Are Negative: Yes Constitutional: Positive: Negative Skin: Positive: Other - laceration at both side of the Rt middle finger w/ scissors Eyes: Positive: Negative ENT: Positive: Negative Respiratory: Positive: Negative Cardiovascular: Positive: Negative Gastrointestinal: Positive: Negative Genitourinary: Positive: Negative Motor: Positive: Negative Neurovascular: Positive: Negative Musculoskeletal: Positive: Other: - Rt middle finger pain s/p laceration Neurological: Positive: Negative Psychological: Positive: Negative Is Patient Immunocompromised?: No Physical Exam - Summary Physical Exam Summary: Vital Signs Reviewed: Yes General: well developed, well nourished male sitting in the examining table w/o any apparent distress Eye Exam: Normal Eyes: Positive: Conjunctiva Clear - PERRLA, EOMI, fundi grossly normal ENT: Positive: Normal ENT inspection, Hearing grossly normal, Pharynx normal, TMs normal Neck: Positive: Supple, Nontender, No Lymphadenopathy Respiratory: Positive: Chest non-tender, Lungs clear, Normal breath sounds, No respiratory distress Cardiovascular: Positive: RRR, No Murmur, Pulses Normal, Brisk Capillary Refill Abdomen Description: Positive: Nontender, No Organomegaly, Soft. Negative: CVA Tenderness (R), CVA Tenderness (L) Bowel Sounds: Positive: Present Musculoskeletal: Positive: Strength Intact, ROM Intact, No Edema Neurological: Positive: Alert, Muscle Tone Normal Psychological Exam: Normal Skin: Positive: medial and lateral side of the PIPJ of the RT 3rd phalanx with 2 linear superficial laceration one is about 1.0cm in size and the other is 0.8cm in size, no bleeding, no foreign body observed. mild tenderness to palpation, FROM of RT middle finger and Rt hand. sensation intact, capillary refill brisk, and pulses WNL. Triage Information Reviewed: Yes Vital Signs: Initial Vital Signs Temp 97.9 F 09/22/18 16:55 Pulse 95 09/22/18 16:55 Resp 16 09/22/18 16:55 BP 152/92 09/22/18 16:55 Pulse Ox 96 09/22/18 16:55 Laceration Repair - Laceration Repair 1 Description: Linear - 2 superficial linear laceration on lateral and medial sides of Rt middle finger Laceration Size After Repair: Length (cm) - 1.0cm and 0.0cm respectively Modified For Repair: No Cleansing Completed Via Routine Prep: Yes Irrigation With Pressure Irrigation Device: Yes Closure Material: Skin Adhesive, SteriStrips - 3 steri strips on each side Closure Method: Single Layer Suture Of: Skin Laceration Course/Dx - Course/Dx Course Of Treatment: 62 y/o male presents to the urgent care c/o 2 lacerations in both sides of his Rt middle finger while cutting something w/ scissors around 1600PM today. Pt reports bleeding stopped w/ pressure. Pain is mild 2/ 10 at touch. Pt is UTD w/ Tetanus vaccine in 2017. Pt can move finger w/o any difficulty and denies numbness or tingling sensation over finger or hand. pt denies fever, SOB, chest pain, abdominal pain, N/V/d. Hx obtained. Pt w/ 2 superficial linear lacerations at both sides of the PIPJ of the Rt 3rd phalanx about 1.0 cm and 0.8 cm respectively w/ FROM on examination.LACERATION PROCEDURE NOTE: . Copious irrigation was done with saline and the wound explored. There was no FB or deep structure injury noted. wound cleaned w/ Iodine swabsn 3X. Laceration closed w/ skin adhesive and 3 steri-strips on each side. Wound dressed w/ sterile gauze by nurse.The Pt tolerated the procedure well without adverse effects. Neurovascular intact and FROM of Rt middle finger. Pt advised if any signs of infection develop to immediately return to the urgent care of PCP for further management and treatment.Pt's BP is elevated today advised to decrease salt in diet, monitor BP and f/u with PCP for further management. D/C instructions explained. Pt understood and agreed and left the clinic ambulating A&Ox3. - Differential Dx - Laceration/Wound Differental Diagnoses: Abrasion, Laceration, Puncture Wound, Tendon Laceration - Diagnosis Provider Diagnosis: Laceration of right middle finger, Uncontrolled hypertension Discharge - Sign-Out/Discharge Documenting (check all that apply): Patient Departure - D/C home All imaging exams completed and their final reports reviewed: No Studies - Discharge Plan Condition: Stable Disposition: HOME Prescriptions: Bacitracin OINTMENT* 1 applic TOPICAL BID #1 tube Patient Education Materials: Laceration (ED), Low-Sodium Diet (ED), Skin Adhesive Care (ED) Referrals: Simon Berrios NP [Primary Care Provider] - 1 Week Additional Instructions: 1-Please apply topical antibiotic over the wound. Keep wound clean and dry. When steri-strips come off by itself. Please apply Bacitracin oint as directed to prevent infection 2-Take Ibuprofen PO q6-8hrs prn for pain or swelling. 3- If you develop fever or redness around your finger please return to the Urgent care or f/u w/ your PCP for further evaluation and treatment 4-Your BP is elevated today. please decrease salt in your diet, monitor BP and if it continues to be elevated please f/u with your PCP for further management - Billing Disposition and Condition Condition: STABLE Disposition: Home
[2018-09-22] MEDS ORDERED: Lidocaine 1%* 5 ML VIAL ONE (17:21)
[2018-09-22 17:26] VITALS: BP 152/92
== END 2018-09-22 18:00 | disposition home or self-care (01) ==
LOC: UCEAST 16:47
DX: S61.212A Laceration without foreign body of right middle finger without damage to nail, initial encounter (principal); W27.2XXA Contact with scissors, initial encounter; Y92.9 Unspecified place or not applicable; I10 Essential (primary) hypertension; Z88.6 Allergy status to analgesic agent; Z89.022 Acquired absence of left finger(s); Z87.891 Personal history of nicotine dependence
CPT/HCPCS: 12001; 12002; 99212; G0463

== ENCOUNTER 2018-12-06 11:41 | Emergency (ER) | payer OTHER ==
--- NOTE | 2018-12-06 12:04 | ED ---
Hypertension - HPI Summary HPI Summary: A 63 y/o male presents to [facility] with a chief complaint of high blood pressure today. He reports that his blood pressure was at around 185/90 when he took his blood pressure at the pharmacy. He claims that his blood pressure usually runs around 135/75. At triage he rated his pain as a 0/10 in severity. He claims that since September 2018 he has been on 5mg Amlodipine. His PCP is Dr. Berrios and he sees Dr. Talavera for CML. He also reports SOB, lightheadedness and feels panicky. However, he reports that his SOB and lightheadedness have been going on for about two years. - History of Current Complaint Chief Complaint: EDHypertension Stated Complaint: HIGH BP/SOB Time Seen by Provider: 12/06/18 11:54 Hx Obtained From: Patient Onset/Duration: Started Hours Ago, Still Present Timing: Constant Reported Blood Pressure Prior To Arrival: about 185/90 Aggravating Factor(s): Nothing Alleviating Factor(s): Nothing Associated Signs & Symptoms: Anxiety/Stress, SOB, Other: - lightheadedness - Allergies/Home Medications Allergies/Adverse Reactions: Allergies Allergy/AdvReac Type Severity Reaction Status Date / Time acetaminophen Allergy Severe See Comment Verified 12/06/18 12:16 Home Medications: Home Medications Timolol Maleate 1 drop BOTH EYES BID 12/06/18 [History Confirmed 12/06/18] PMH/Surg Hx/FS Hx/Imm Hx Endocrine/Hematology History: Reports: Hx Bone Marrow Disease - CML, Hx Thyroid Disease - Was Hypothyroid for a few years, has since resolved, Hx Anemia - states from TAKING GLEEVEC(IMATINIB) for Chronic Myeloid Leukemina (CML), Other Endocrine/Hematological Disorders - CML dx 2011 Denies: Hx Diabetes, Hx Sickle Cell Disease Cardiovascular History: Reports: Hx Angina, Hx Hypertension - controlled with meds, Other Cardiovascular Problems/Disorders - left ventricular hypertrophy Denies: Hx Congestive Heart Failure, Hx Deep Vein Thrombosis, Hx Myocardial Infarction, Hx Pacemaker/ICD Comment Only: Hx Hypercholesterolemia - borderline Respiratory History: Reports: Hx Sleep Apnea - Had UPPP, states "it hasn't helped" Denies: Hx Asthma, Hx Chronic Obstructive Pulmonary Disease (COPD), Hx Lung Cancer, Hx Pneumonia, Hx Pulmonary Embolism, Other Respiratory Problems/ Disorders GI History: Reports: Hx Gastroesophageal Reflux Disease, Hx Irritable Bowel - BEING EVALUATED, Other GI Disorders - polyp removed during colonoscopy Denies: Hx Gall Bladder Disease, Hx Gastrointestinal Bleed, Hx Ulcer, Hx Urosepsis History: Reports: Hx Benign Prostatic Hyperplasia, Hx Kidney Stones - PAST, FEBRUARY 2014, Other Problems/Disorders - Benign Prostate Hypertrophy, weak stream Denies: Hx Renal Disease Musculoskeletal History: Reports: Hx Arthritis - Osteoarthritis, Osteoarthritis dissecans, Hx Bursitis - Right elbow, Hx Orthopedic Injury - knee, L index finger, Hx Tendonitis - Right elbow-bone spurs, Other Musculoskeletal History - Muscle cramps, fatigue from imatinib,plantar fascial fibromatosis Sensory History: Reports: Hx Cataracts - both eyes, Hx Contacts or Glasses - Glasses, Hx Glaucoma - on edge of diagnosis Denies: Hx Hearing Aid Opthamlomology History: Reports: Hx Cataracts - both eyes, Hx Contacts or Glasses - Glasses, Hx Glaucoma - on edge of diagnosis Neurological History: Reports: Hx Migraine - Occular migraines Denies: Hx Dementia, Hx Seizures, Hx Transient Ischemic Attacks (TIA), Other Neuro Impairments/Disorders Psychiatric History: Denies: Hx Anxiety, Hx Depression, Hx Panic Disorder, Hx Schizophrenia, Hx Bipolar Disorder - Cancer History Cancer Type, Location and Year: 2011 LEUKEMIA (CML) Hx Chemotherapy: Yes - ORAL MED Imatinib Hx Radiation Therapy: No - Surgical History Surgery Procedure, Year, and Place: Left finger amputated. Right knee reconstruction. UPPP and tongue base coblation (FOR SLEEP APNEA) 2015. Bone [id number] [place] [place]KLE [place]. DEVIATED SEPTUM. Colonoscopies/Endoscopies Hx Anesthesia Reactions: No - Immunization History Date of Tetanus Vaccine: up to date Date of Influenza Vaccine: never Infectious Disease History: No Infectious Disease History: Denies: Hx Clostridium Difficile, Hx Hepatitis, Hx Human Immunodeficiency Virus (HIV), Hx of Known/Suspected MRSA, Hx Shingles, Hx Tuberculosis, Hx Known/ Suspected VRE, Hx Known/Suspected VRSA, History Other Infectious Disease, Traveled Outside the [place] in Last 30 Days - Family History Known Family History: Positive: Cardiac Disease - father-[place], Diabetes - Social History Alcohol Use: Occasionally Alcohol Amount: 1-3 beers or glasses of wine per week Substance Use Type: Reports: None Smoking Status (MU): Former Smoker Type: Cigarettes Amount Used/How Often: 2 PPD 30 YRS Length of Time of Smoking/Using Tobacco: 30 years Have You Smoked in the Last Year: No Review of Systems Negative: Fever Positive: Shortness Of Breath Neurological: Other - positive: lightheadedness Positive: Other - positive: felt "panicky" All Other Systems Reviewed And Are Negative: Yes Physical Exam - Summary Physical Exam Summary: Appearance: The patient is well-nourished in no acute distress and in no acute pain. Skin: The skin is warm and dry and skin color reflects adequate perfusion. HEENT: The head is normocephalic and atraumatic. The pupils are equal and reactive. The conjunctivae are clear and without drainage. Nares are patent and without drainage. Mouth reveals moist mucous membranes and the throat is without erythema and exudate. The external ears are intact. The ear canals are patent and without drainage. The tympanic membranes are intact. Neck: The neck is supple with full range of motion and non-tender. There are no carotid bruits. There is no neck vein distension. Respiratory: Chest is non-tender. Lungs are clear to auscultation and breath sounds are symmetrical and equal. Cardiovascular: Heart is regular rate and rhythm. There is no murmur or rub auscultated. There is no peripheral edema and pulses are symmetrical and equal. Abdomen: The abdomen is soft and non-tender. There are normal bowel sounds heard in all four quadrants and there is no organomegaly palpated. Musculoskeletal: There is no back tenderness noted. Extremities are non-tender with full range of motion. There is good capillary refill. There is no peripheral edema or calf tenderness elicited. Neurological: Patient is alert and oriented to person, place and time. The patient has symmetrical motor strength in all four extremities. Cranial nerves are grossly intact. Deep tendon reflexes are symmetrical and equal in all four extremities. Psychiatric: The patient has an appropriate affect and does not exhibit any anxiety or depression. Triage Information Reviewed: Yes Vital Signs On Initial Exam: Initial Vitals Temp Pulse Resp BP Pulse Ox 97.5 F 70 16 176/110 100 12/06/18 11:44 12/06/18 11:44 12/06/18 11:44 12/06/18 11:44 12/06/18 11:44 Vital Signs Reviewed: Yes Diagnostics - Vital Signs Vital Signs Temp Pulse Resp BP Pulse Ox 12/06/18 11:44 97.5 F 70 16 176/110 100 - Laboratory Result Diagrams: 12/06/18 12:16 12/06/18 12:16 Lab Statement: Any lab studies that have been ordered have been reviewed, and results considered in the medical decision making process. - EKG 12:16 Cardiac Rate: Bradycardia - 59 bpm EKG Rhythm: Sinus Bradycardia Summary of EKG Findings: Sinus bradycardia at 59 bpm, no change from previous EKG done 11/21/16. Re-Evaluation - Re-Evaluation First Eval Re-Evaluation Time: 13:21 Change: Improved Comment: pt is feeling better and ready for discharge Hypertension Course/Dx - Course Course Of Treatment: Mr. Hill came in today because he checked his blood pressure and it was high. He felt unusual in a way that he has felt before and his blood pressures been high. He did not have any chest pain or shortness of breath or headache. When he got here his blood pressure was a little bit high at a diastolic of 111. He was nontoxic in appearance and his blood pressure came down well on its own. Labs and EKG were unremarkable for any end-organ damage. I recommended follow-up with his PCP who already has him on some amlodipine. - Diagnoses Provider Diagnoses: Hypertension Discharge - Sign-Out/Discharge Documenting (check all that apply): Patient Departure - DC Patient Received Moderate/Deep Sedation with Procedure: No - Discharge Plan Condition: Stable Disposition: HOME Patient Education Materials: Hypertension (ED) Referrals: Simon Berrios, SEO CONSULTANT [Primary Care Provider] - (2-3 days) Additional Instructions: Return to the ED if you experience any new or worsening symptoms. - Billing Disposition and Condition Condition: STABLE Disposition: Home - Attestation Statements Document Initiated by Adam: Yes Documenting Scribe: Rajat Bell Provider For Whom Adam is Documenting (Include Credential): Rohit Alonzo MD Scribe Attestation: I, Rajat Bell, scribed for Rohit Alozno MD on 12/06/18 at 1821. Scribe Documentation Reviewed: Yes Provider Attestation: The documentation as recorded by the Rajat cruz accurately reflects the service I personally performed and the decisions made by me, Rohit Alonzo MD Status of Scribe Document: Viewed
--- OUTSIDE RECORDS SUMMARY | 2018-12-06 12:14 | XMS REPORT | Continuity of Care Document ---
:1955 External Reference #:[id number] Author Name Navjot Zelaya, OD Address [address] [place] [address] Care Team Providers Name Role Phone Simon Berrios NP Care Team Information Hr Receptionist Unavailable Simon Berrios NP Primary Care Physician Unavailable Payers Date Identification Numbers Payment Provider Subscriber Policy Number: [id number] [employer] PayID: [id number] [address] [place] [address] Advance Directives Description No Information Available Problems Description No Information Family History Date Family Member(s) Observation Comments General No Current Problems Father Heart Disease Father due to Heart Attack () Mother Diabetes Mother Glasses Social History Type Date Description Comments Sex Unknown ETOH Use Occasionally consumes alcohol Tobacco Use Start: Unknown End: Unknown Patient is a former smoker Smoking Status Reviewed: 11/16/18 Patient is a former smoker Allergies, Adverse Reactions, Alerts Date Description Reaction Status Severity Comments 09/26/2018 Tylenol Active 07/07/2017 NKDA Inactive Medications Medication Date Status Form Strength Qnty SIG Indications Ordering Provider Timolol Maleate Active Solution 0.5% 15ml 1 drops Z48.89 Peter 019 both Hodges, eyes M.D. twice a day Ketorolac Active Solution 0.5% 5ml 1 drops Alfred Tromethamine 019 left eye Hodges, twice a M.D. day Pred Forte Active Suspension 1% 10ml 1 left Alfred 019 eye four Hodges, times a M.D. day Imatinib Active Tablets 200mg Navjot Mesylate 017 Zelaya, OD Amlodipine Active Tablets 5mg Yash, Besylate 000 Siomn, ACCOUNTANT AUDITOR Multivitamin Active Chewtabs Unknown Adult [address] Aspir[address] Low Active Tablets DR 81mg 1 by Unknown Dose 000 mouth every day Timolol Maleate Hx Solution 0.5% 15ml 1 drop Z48.89 Alfred Rodriguez - right Hodges, eye M.D. 019 twice a day Vigamox Hx Solution 0.5% 9ml 1 drop Alfred Rodriguez - drops Carroll, left eye M.D. 019 four times a day Immunizations Description No Information Available Vital Signs Date Vital Result Comment 11/16/2018 9:41am Intraocular Pressure Right Eye 20 mmHg Intraocular Pressure Left Eye 20 mmHg 11/09/2018 8:38am Intraocular Pressure Right Eye 19 mmHg Intraocular Pressure Left Eye 31 mmHg 11/02/2018 3:00pm Intraocular Pressure Right Eye 20 mmHg 10/26/2018 9:29am Intraocular Pressure Right Eye 31 mmHg 09/26/2018 3:11pm Intraocular Pressure Right Eye 26 mmHg Intraocular Pressure Left Eye 26 mmHg Cornea Thickness Left Eye 568 m Cornea Thickness Right Eye 569 m Pachymetry adjusted IOP Right Eye -1 Pachymetry adjusted IOP Left Eye -1 08/31/2018 11:13am Intraocular Pressure Right Eye 25 mmHg Intraocular Pressure Left Eye 26 mmHg 01/13/2018 3:24pm Intraocular Pressure Right Eye 23 mmHg Intraocular Pressure Left Eye 24 mmHg Cornea Thickness Left Eye 597 m Cornea Thickness Right Eye 595 m pachs from previous [place] records Pachymetry adjusted IOP Right Eye -4 Pachymetry adjusted IOP Left Eye -4 07/07/2017 10:01am Intraocular Pressure Right Eye 25 mmHg Intraocular Pressure Left Eye 25 mmHg Results Description No Information Available Procedures Date Code Description Status 10/25/2018 71650 Extracapsular Cataract Extraction W/Intraocular Lens Completed 09/26/2018 13733 Ophthalmic Biometry By Partial Coherence Interferometry Completed W/Intra 09/26/2018 12629 Eye Exam Est Intermediate Completed 09/26/2018 33719 Corneal Pachymetry, Unilateral/Bilateral Completed 08/31/2018 14950 Fundus Photography W/Interpretation & Report Completed 08/31/2018 48623 Refraction Completed 08/31/2018 67993 Eye Exam Est Comprehensive Completed 01/13/2018 44339 Oct, Optic Nerve Completed 01/13/2018 70962 Visual Field Exam Extended, Unilateral Or Bilateral Completed 01/13/2018 34572 Eye Exam Est Intermediate Completed 07/07/2017 14245 Fundus Photography W/Interpretation & Report Completed 07/07/2017 64887 Refraction Completed 07/07/2017 72671 Eye Exam New Comprehensive Completed Encounters Description No Information Available Plan of Treatment Future Appointment(s):12/16/2018 2:30 pm - Navjot Zelaya, OD at [id number] 9:00 am - Navjot Zelaya, OD at [facility]11/16/2018 - Navjot Zelaya, ODH40.053 Ocular hypertension, [id number] Presence of intraocular lensFollow up:as scheduled 1 month post op, sooner PRN
--- OUTSIDE RECORDS SUMMARY | 2018-12-06 12:14 | XMS REPORT | Continuity of Care Document ---
:1955 External Reference #:[id number] Author Name Alfred Hodges M.D. Address [address] [place] [address] Care Team Providers Name Role Phone Simon Berrios NP Care Team Information Communications Advisor Unavailable Simon Berrios NP Primary Care Physician Unavailable Payers Date Identification Numbers Payment Provider Subscriber Policy Number: [id number] [employer] PayID: [id number] [address] [place] [address] Advance Directives Description No Information Available Problems Description No Information Family History Date Family Member(s) Observation Comments General No Current Problems Father Heart Disease Father due to Heart Attack () Mother Diabetes Mother Glasses Social History Type Date Description Comments Sex Unknown ETOH Use Occasionally consumes alcohol Tobacco Use Start: Unknown End: Unknown Patient is a former smoker Smoking Status Reviewed: 11/09/18 Patient is a former smoker Allergies, Adverse Reactions, Alerts Date Description Reaction Status Severity Comments 09/26/2018 Tylenol Active 07/07/2017 NKDA Inactive Medications Medication Date Status Form Strength Qnty SIG Indications Ordering Provider Timolol Maleate Active Solution 0.5% 15ml 1 drop Z48.89 Alfred 019 OD Carroll, twice a M.D. day Ketorolac Active Solution 0.5% 5ml 1 drops Alfred Tromethamine 019 left eye Hodges, twice a M.D. day Pred Forte Active Suspension 1% 10ml 1 left Alfred 019 eye four Hodges, times a M.D. day Vigamox Active Solution 0.5% 9ml 1 drop Alfred 019 drops Hodges, left eye M.D. four times a day Imatinib Active Tablets 200mg Navjot Mesylate 017 Zelaya, OD Amlodipine Active Tablets 5mg Yash, Besylate 000 Simon, LEGAL ASSISTANT Multivitamin Active Chewtabs Unknown Adult 000 Aspirin Low Active Tablets DR 81mg 1 by Unknown Dose 000 mouth every day Immunizations Description No Information Available Vital Signs Date Vital Result Comment 11/09/2018 8:38am Intraocular Pressure Right Eye 19 [...] Available Procedures Date Code Description Status 10/25/2018 02974 Extracapsular Cataract Extraction W/Intraocular Lens Completed 09/26/2018 23328 Ophthalmic Biometry By Partial Coherence Interferometry Completed W/Intra 09/26/2018 75664 Eye Exam Est Intermediate Completed 09/26/2018 70018 Corneal Pachymetry, Unilateral/Bilateral Completed 08/31/2018 63264 Fundus Photography W/Interpretation & Report Completed 08/31/2018 49503 Refraction Completed 08/31/2018 72999 Eye Exam Est Comprehensive Completed 01/13/2018 62804 Oct, Optic Nerve Completed 01/13/2018 74783 Visual Field Exam Extended, Unilateral Or Bilateral Completed 01/13/2018 77636 Eye Exam Est Intermediate Completed 07/07/2017 81909 Fundus Photography W/Interpretation & Report Completed 07/07/2017 16628 Refraction Completed 07/07/2017 13315 Eye Exam New Comprehensive Completed Encounters Description No Information Available Plan of Treatment Future Appointment(s):12/16/2018 9:15 am - Navjot Zelaya, OD at Main Ojtjfm9801/2019 9:15 am - Navjot Zelaya, OD at Main Yobpei8503/01/2019 9:00 am - Navjot Zelaya, OD at Main Dehgdv6211/09/2018 - Alfred Hodges M.D.Z48.89 Encounter for other specified surgical aftercareComments:The patient was seen post- operatively one day following surgery. The patient was advised that the eye tolerated the surgery well without complications. Patient was given eye drop schedule and implant card.The patient was told to wear an eye shield QHS for one week and sunglasses daily. The patient was also advised to contact us immediately if new symptoms or visual changes are noted such as pain, worsening redness, flashes, floaters or decrease in vision.Follow up:The patient is to return in one week to follow up after cataract surgery and sooner if needed.
[2018-12-06 12:28] LABS: ABS Basophils 0 10^3/ul (0-0.2); ABS Eosinophils 0.1 10^3/ul (0-0.6); ABS Lymphocytes 2.1 10^3/ul (1.0-4.8); ABS Monocytes 0.4 10^3/ul (0-0.8); ABS Neutrophils 1.9 10^3/ul (1.5-7.7); ABS Nucleated RBC 0 10^3/ul; Eosinophil % 2.5 %; Hematocrit 42 % (36-46); Hemoglobin 14.2 g/dL (14.0-18.0); Lymphocyte % 45.8 %; Mean Corpuscular HGB Conc 34 g/dL (31-36); Mean Corpuscular Hemoglobin 31 pg (27-31); Mean Corpuscular Volume 90 fL (80-94); Mean Platelet Volume 7.5 fL (7.4-10.4); Nucleated Red Blood Cells % 0.1; Platelet Count 292 10^3/uL (150-450); Red Cell Distribution Width 13 % (10.5-15); White Blood Count 4.5 10^3/uL (3.5-10.8)
[2018-12-06 12:45] LABS: Albumin 4.4 g/dL (3.2-5.2); Albumin/Globulin Ratio 1.8 (1-3); BUN/Creatinine Ratio 16.5 (8-20); EGFR African American 95.2 (>60); EGFR Non-African American 78.7 (>60); Globulin 2.5 g/dL (2-4); Potassium 3.8 mmol/L (3.5-5.0); Total Bilirubin 0.4 mg/dL (0.2-1.0); Total Protein 6.9 g/dL (6.4-8.9)
[2018-12-06 13:37] VITALS: BP 134/85
== END 2018-12-06 13:38 | disposition home or self-care (01) ==
LOC: ED 11:41
DX: I10 Essential (primary) hypertension (principal); R00.1 Bradycardia, unspecified; R06.02 Shortness of breath; R42 Dizziness and giddiness; F41.9 Anxiety disorder, unspecified; Z88.6 Allergy status to analgesic agent; Z85.6 Personal history of leukemia; Z89.022 Acquired absence of left finger(s); Z82.49 Family history of ischemic heart disease and other diseases of the circulatory system; Z83.3 Family history of diabetes mellitus; Z87.891 Personal history of nicotine dependence
CPT/HCPCS: 36415; 80053; 83605; 84484; 85025; 93005; 99282

== ENCOUNTER 2018-12-23 08:34 | Emergency (ER) | payer SELFPAY ==
[2018-12-23 08:45] VITALS: BP 154/80
--- NOTE | 2018-12-23 09:00 | UC ---
Hand/Wrist HPI - HPI Summary HPI Summary: WAS USING A RECIPROCATING SAW YESTERDAY WHEN HIS RIGHT INDEX FINGER GOT YANKED FORWARDS. PATIENT HAS SWELLING AND DISCOMFORT IN THE RIGHT INDEX FINGER. LIMITED FLEXION. - History Of Current Complaint Chief Complaint: UCUpperExtremity Stated Complaint: FINGER INJURY Time Seen by Provider: 12/23/18 08:48 Hx Obtained From: Patient Onset/Duration: Sudden Onset, Lasting Hours, Still Present Severity Initially: Moderate Severity Currently: Moderate Pain Intensity: 5 Pain Scale Used: 0-10 Numeric Character Of Pain: Sharp Aggravating Factor(s): Movement, Flexion Alleviating Factor(s): Rest Associated Signs And Symptoms: Positive: Swelling. Negative: Numbness/Tingling Related History: Dominant Hand Right - Allergies/Home Medications Allergies/Adverse Reactions: Allergies Allergy/AdvReac Type Severity Reaction Status Date / Time acetaminophen Allergy Severe See Comment Verified 12/23/18 08:45 PMH/Surg Hx/FS Hx/Imm Hx Endocrine History: Thyroid Disease Cardiovascular History: Hypertension Other Cancer History: CML Other History Of: Negative For: HIV, Hepatitis B, Hepatitis C - Surgical History Surgical History: Yes Surgery Procedure, Year, and Place: Left finger amputated. Right knee reconstruction. UPPP and tongue base coblation (FOR SLEEP APNEA) 2015. [place] hovgw-ciwro-Zpkd [place] [place]. DEVIATED SEPTUM. Colonoscopies/Endoscopies - Family History Known Family History: Positive: Cardiac Disease - father-[place], Diabetes - Social History Alcohol Use: Occasionally Alcohol Amount: 1-3 beers or glasses of wine per week Substance Use Type: None Smoking Status (MU): Former Smoker Type: Cigarettes Amount Used/How Often: 2 PPD 30 YRS Length of Time of Smoking/Using Tobacco: 30 years Have You Smoked in the Last Year: No When Did the Patient Quit Smoking/Using Tobacco: 2006 - Immunization History Most Recent Tetanus Shot: 06/25/17 Review of Systems All Other Systems Reviewed And Are Negative: Yes Constitutional: Positive: Negative Skin: Positive: Negative Respiratory: Positive: Negative Cardiovascular: Positive: Negative Gastrointestinal: Positive: Negative Musculoskeletal: Positive: Arthralgia, Decreased ROM, Edema Physical Exam Triage Information Reviewed: Yes Appearance: Well-Appearing, No Pain Distress, Well-Nourished Vital Signs: Initial Vital Signs Temp 99 F 04/12/19 08:38 Pulse 81 12/23/18 08:38 Resp 17 12/23/18 08:38 BP 154/80 12/23/18 08:38 Pulse Ox 100 12/23/18 08:38 Vital Signs Reviewed: Yes Eyes: Positive: Conjunctiva Clear ENT: Positive: Hearing grossly normal Neck: Positive: Supple Respiratory: Positive: No respiratory distress, No accessory muscle use Cardiovascular: Positive: Pulses Normal Abdomen Description: Positive: Soft Musculoskeletal: Positive: ROM Limited @ - RIGHT INDEX FINGER FLEXION, Edema @ - RIGHT INDEX FINGER, Other: - TTP RIGHT INDEX FINGER MCP TO DIP Neurological: Positive: Alert Psychological: Positive: Age Appropriate Behavior Skin: Negative: Rashes Diagnostics - Radiology RIGHT INDEX FINGER Radiology Interpretation Completed By: Radiologist Summary of Radiographic Findings: 1. Soft tissue swelling throughout most prominent at the level of the proximal and. distal interphalangeal joints. Negative for subcutaneous emphysema or conspicuous foreign. body. 2. Negative for fracture or malalignment. 3. Mild polyarticular osteoarthritis. Hand/Wrist Course/Dx - Differential Dx/Diagnosis Provider Diagnosis: Sprain of right index finger Discharge - Sign-Out/Discharge Documenting (check all that apply): Patient Departure All imaging exams completed and their final reports reviewed: Yes - Discharge Plan Condition: Stable Disposition: HOME Patient Education Materials: Finger Sprain (ED) Forms: *Work Release Referrals: Simon Berrios NP [Primary Care Provider] - If Needed Additional Instructions: XRAY TODAY SHOWED SOFT TISSUE SWELLING BUT IS NEGATIVE FOR FRACTURE OR DISLOCATION. YOUR SYMPTOMS SHOULD IMPROVE SIGNIFICANTLY OVER THE NEXT 1-2 WEEKS. IF YOU DO NOT IMPROVE EXPECTED FOLLOW-UP WITH YOUR PCP. YOU MAY BENEFIT FROM REPEAT IMAGING AT THAT TIME. OTC IBUPROFEN OR ALEVE NEEDED FOR DISCOMFORT. REST, ICE. WEAR THE SPLINT AT NIGHT AND DURING THE DAY ABLE. BE SURE TO GO THROUGH SLOW RANGE OF MOTION AND STRETCHING EXERCISES DAILY YOU ARE ABLE TO PREVENT STIFFENING UP AND MAKING THE DISCOMFORT WORSE. - Billing Disposition and Condition Condition: STABLE Disposition: Home
== END 2018-12-23 09:47 | disposition home or self-care (01) ==
LOC: UCEAST 08:34
DX: S63.630A Sprain of interphalangeal joint of right index finger, initial encounter (principal); X50.0XXA Overexertion from strenuous movement or load, initial encounter; Y92.9 Unspecified place or not applicable; M15.9 Polyosteoarthritis, unspecified; I10 Essential (primary) hypertension; Z89.022 Acquired absence of left finger(s); Z88.6 Allergy status to analgesic agent; Z87.891 Personal history of nicotine dependence
CPT/HCPCS: 73140; 99212; G0463

== ENCOUNTER → 2019-04-14 16:09 | Emergency (ER) | payer BC, OTHER ==
--- OUTSIDE RECORDS SUMMARY | 2019-04-14 16:23 | XMS REPORT | Continuity of Care Document ---
:1955 External Reference #:[id number] Author Name Navjot Zelaya, OD [address] [place] [address] Care Team Providers Name Role Phone Simon Berrios NP Care Team Information Dry Primer Powder Blender Unavailable Simon Berrios NP Primary Care Physician Unavailable Payers Date Identification Numbers Payment Provider Subscriber Policy Number: [id number] [employer] PayID: [id number] [address] [place] [address] Family History Date Family Member(s) Observation Comments General No Current Problems Father Heart Disease Father due to Heart Attack () Mother Diabetes Mother Glasses Social History Type Date Description Comments Sex Unknown ETOH Use Occasionally consumes alcohol Tobacco Use Start: Unknown End: Unknown Patient is a former smoker Smoking Status Reviewed: 04/04/19 Patient is a former smoker Allergies, Adverse Reactions, Alerts Active Allergies Reaction Severity Comments Date Tylenol 09/26/2018 Inactive Allergies NKDA 07/07/2017 Medications Active Medications SIG Qnty Indications Ordering Provider Date Imatinib Mesylate Navjot Zelaya, OD 07/07/2017 200mg Tablets Amlodipine Besylate Simon Berrios NP 5mg Tablets Multivitamin Adult Unknown Chewtabs Aspirin Low Dose 1 by mouth every Unknown 81mg day Tablets DR Doxycycline Hyclate take 1 tablet by Unknown 100mg mouth twice a Tablets day History Medications Timolol Maleate 1 drops both 15ml Z48.89 Alfred Hodges, 11/09/2018 - 0.5% eyes twice a M.D. 03/01/2019 Solution day Timolol Maleate 1 drop right 15ml Z48.89 Alfred Hodges, 10/26/2018 - 0.5% eye twice a M.D. 11/09/2018 Solution day Ketorolac Tromethamine 1 drops left 5ml Alfred Hodges, 10/17/2018 - eye twice a M.D. 12/16/2018 0.5% Solution day Pred Forte 1 left eye 10ml Alfred Hodges, 10/17/2018 - 1% Suspension four times a M.D. 12/16/2018 day Vigamox 1 drop drops 9ml Alfred Hodges, 10/17/2018 - 0.5% Solution left eye four M.D. 11/16/2018 times a day Vital Signs Date Vital Result Comment 03/01/2019 9:51am Intraocular Pressure Right Eye 22 mmHg Intraocular Pressure Left Eye 22 mmHg 12/16/2018 2:42pm Intraocular Pressure Right Eye 19 mmHg Intraocular Pressure Left Eye 19 mmHg 11/16/2018 9:41am Intraocular Pressure Right Eye 20 [...] mmHg Intraocular Pressure Left Eye 25 mmHg Procedures Date Code Description Status 03/27/2019 35297 Remove Secondary Cataract, Laser (Yag) Completed 03/01/2019 13692 Oct, Optic Nerve Completed 03/01/2019 18038 Visual Field Exam Extended, Unilateral Or Bilateral Completed 03/01/2019 70592 Eye Exam Est Intermediate Completed 11/08/2018 85898 Extracapsular Cataract Extraction W/Intraocular Lens Completed 10/25/2018 11160 Extracapsular Cataract Extraction W/Intraocular Lens Completed 09/26/2018 02917 Ophthalmic Biometry By Partial Coherence Interferometry Completed W/Intra 09/26/2018 25325 Eye Exam Est Intermediate Completed 09/26/2018 71185 Corneal Pachymetry, Unilateral/Bilateral Completed 08/31/2018 62219 Eye Exam Est Comprehensive Completed 08/31/2018 19635 Refraction Completed 08/31/2018 22772 Fundus Photography W/Interpretation & Report Completed 01/13/2018 36170 Oct, Optic Nerve Completed 01/13/2018 48944 Visual Field Exam Extended, Unilateral Or Bilateral Completed 01/13/2018 48371 Eye Exam Est Intermediate Completed 07/07/2017 66344 Fundus Photography W/Interpretation & Report Completed 07/07/2017 68024 Refraction Completed 07/07/2017 25200 Eye Exam New Comprehensive Completed Plan of Treatment 04/04/2019 - Navojt Zelaya, ODH40.053 Ocular hypertension, vvrpywlfwC48.1 Presence of intraocular lensFollow up:08/2019 full, sooner PRN
--- OUTSIDE RECORDS SUMMARY | 2019-04-14 16:23 | XMS REPORT | Continuity of Care Document ---
:1955 External Reference #:[id number] Author Name Navjot Zelaya, OD [address] [place] [address] Care Team Providers Name Role Phone Simon Berrios NP Care Team Information Channel Development Manager Unavailable Simon Berrios NP Primary Care Physician Unavailable Payers Date Identification Numbers Payment Provider Subscriber Policy Number: [id number] [employer] PayID: [id number] [address] [place] [address] Family History Date Family Member(s) Observation Comments General No Current Problems Father Heart Disease Father due to Heart Attack () Mother Diabetes Mother Glasses Social History Type Date Description Comments Sex Unknown ETOH Use Occasionally consumes alcohol Tobacco Use Start: Unknown End: Unknown Patient is a former smoker Smoking Status Reviewed: 04/07/19 Patient is a former smoker Allergies, Adverse [...] 25 mmHg Procedures Date Code Description Status 04/07/2019 06458 Ophthalmoscopy Subsequent Completed 03/27/2019 42651 Remove Secondary Cataract, Laser (Yag) Completed 03/01/2019 87639 Oct, Optic Nerve Completed 03/01/2019 47483 Visual Field Exam Extended, Unilateral Or Bilateral Completed 03/01/2019 60433 Eye Exam Est Intermediate Completed 11/08/2018 23157 Extracapsular Cataract Extraction W/Intraocular Lens Completed 10/25/2018 02492 Extracapsular Cataract Extraction W/Intraocular Lens Completed 09/26/2018 26491 Corneal Pachymetry, Unilateral/Bilateral Completed 09/26/2018 02006 Eye Exam Est Intermediate Completed 09/26/2018 96573 Ophthalmic Biometry By Partial Coherence Interferometry Completed W/Intra 08/31/2018 55187 Fundus Photography W/Interpretation & Report Completed 08/31/2018 46129 Refraction Completed 08/31/2018 96858 Eye Exam Est Comprehensive Completed 01/13/2018 80800 Oct, Optic Nerve Completed 01/13/2018 79986 Visual Field Exam Extended, Unilateral Or Bilateral Completed 01/13/2018 39607 Eye Exam Est Intermediate Completed 07/07/2017 46061 Fundus Photography W/Interpretation & Report Completed 07/07/2017 35882 Refraction Completed 07/07/2017 14529 Eye Exam New Comprehensive Completed Encounters Type Date Location Provider Dx Diagnosis Office Visit 04/07/2019 Main Office Navjot Zelaya, OD 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
--- OUTSIDE RECORDS SUMMARY | 2019-04-14 16:23 | XMS REPORT | Continuity of Care Document ---
:1955 External Reference #:[id number] Author Name Navjot Zelaya, OD [address] [place] [address] Care Team Providers Name Role Phone Simon Berrios NP Care Team Information Tire Center Manager Unavailable Simon Berrios NP Primary Care Physician Unavailable Payers Date Identification Numbers Payment Provider Subscriber Policy Number: [id number] [employer] PayID: [id number] [address] [place] [address] Family History Date Family Member(s) Observation Comments [...] mmHg Procedures Date Code Description Status 03/27/2019 31872 Remove Secondary Cataract, Laser (Yag) Completed 03/01/2019 01577 Oct, Optic Nerve Completed 03/01/2019 88211 Visual Field Exam Extended, Unilateral Or Bilateral Completed 03/01/2019 55799 Eye Exam Est Intermediate Completed 11/08/2018 82443 Extracapsular Cataract Extraction W/Intraocular Lens Completed 10/25/2018 88446 Extracapsular Cataract Extraction W/Intraocular Lens Completed 09/26/2018 36138 Ophthalmic Biometry By Partial Coherence Interferometry Completed W/Intra 09/26/2018 43995 Eye Exam Est Intermediate Completed 09/26/2018 40570 Corneal Pachymetry, Unilateral/Bilateral Completed 08/31/2018 84289 Eye Exam Est Comprehensive Completed 08/31/2018 10695 Refraction Completed 08/31/2018 48256 Fundus Photography W/Interpretation & Report Completed 01/13/2018 17665 Oct, Optic Nerve Completed 01/13/2018 64012 Visual Field Exam Extended, Unilateral Or Bilateral Completed 01/13/2018 36269 Eye Exam Est Intermediate Completed 07/07/2017 14059 Fundus Photography W/Interpretation & Report Completed 07/07/2017 84000 Refraction Completed 07/07/2017 33088 Eye Exam New Comprehensive Completed Plan of Treatment Future Appointment(s):04/20/2019 3:00 pm - Navjot Zelaya, OD at Main [id number] - Navjot Zelaya, ODH43.813 Vitreous degeneration, nkmzvmtqwZ50.412 Lattice degeneration of retina, left eyeH31.091 Other chorioretinal scars, right eye
--- OUTSIDE RECORDS SUMMARY | 2019-04-14 16:23 | XMS REPORT | Continuity of Care Document ---
:1955 External Reference #:[id number] Author Name Alfred Hodges M.D. Address [address] [place] [address] Care Team Providers Name Role Phone Simon Berrios NP Care Team Information Ict Systems Test Engineer Unavailable Simon Berrios NP Primary Care Physician Unavailable Payers Date Identification Numbers Payment Provider Subscriber Policy Number: [id number] [employer] PayID: [id number] [address] [place] [address] Family History Date Family Member(s) Observation Comments General No Current Problems Father Heart Disease Father due to Heart Attack () Mother Diabetes Mother Glasses Social History Type Date Description Comments Sex Unknown ETOH Use Occasionally consumes alcohol Tobacco Use Start: Unknown End: Unknown Patient is a former smoker Smoking Status Reviewed: 03/27/19 Patient is a former smoker Allergies, Adverse [...] mmHg Procedures Date Code Description Status 03/27/2019 45968 Remove Secondary Cataract, Laser (Yag) Completed 03/01/2019 65223 Oct, Optic Nerve Completed 03/01/2019 06451 Visual Field Exam Extended, Unilateral Or Bilateral Completed 03/01/2019 64095 Eye Exam Est Intermediate Completed 11/08/2018 37765 Extracapsular Cataract Extraction W/Intraocular Lens Completed 10/25/2018 36106 Extracapsular Cataract Extraction W/Intraocular Lens Completed 09/26/2018 54683 Ophthalmic Biometry By Partial Coherence Interferometry Completed W/Intra 09/26/2018 18135 Eye Exam Est Intermediate Completed 09/26/2018 74437 Corneal Pachymetry, Unilateral/Bilateral Completed 08/31/2018 16518 Eye Exam Est Comprehensive Completed 08/31/2018 83623 Refraction Completed 08/31/2018 57967 Fundus Photography W/Interpretation & Report Completed 01/13/2018 80138 Oct, Optic Nerve Completed 01/13/2018 52193 Visual Field Exam Extended, Unilateral Or Bilateral Completed 01/13/2018 54819 Eye Exam Est Intermediate Completed 07/07/2017 41715 Fundus Photography W/Interpretation & Report Completed 07/07/2017 11069 Refraction Completed 07/07/2017 36418 Eye Exam New Comprehensive Completed Plan of Treatment Future Appointment(s):04/04/2019 3:00 pm - Navjot Zelaya, OD at Main [id number] - Alrfed Hodges M.D.H26.491 Other secondary cataract, right eyeFollow up:[address] Stephens post yag cap od
--- NOTE | 2019-04-14 16:59 | ED ---
Throat Pain/Nasal Congestion - HPI Summary HPI Summary: A 63 y/o male presents to [facility] with a chief complaint of left eye floaters. He reports a Hx of tears in his retina and that he has been going to the [facility] in [place] multiple times for multiple tears this week where he states he's had multiple surgeries. He denies any headache or fevers. Mild eye pain but states this is been constant since the surgery and has not changed. 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 He reports having two cataract surgeries in October [address] Hodges. He reports a FHx of cardiac disease. - History of Current Complaint Chief Complaint: EDEyeProblem Time Seen by Provider: 04/14/19 16:33 Hx Obtained From: Patient Onset/Duration: Gradual Onset, Lasting Days, Still Present Severity: Moderate Associated Signs And Symptoms: Positive: Negative Cough: None - Allergies/Home Medications Allergies/Adverse Reactions: Allergies Allergy/AdvReac Type Severity Reaction Status Date / Time acetaminophen Allergy Severe See Comment Verified 04/14/19 16:15 PMH/Surg Hx/FS Hx/Imm Hx Endocrine/Hematology History: Reports: Hx Bone Marrow Disease - CML, Hx Thyroid Disease - Was Hypothyroid for a few years, has since resolved, Hx Anemia - states from TAKING GLEEVEC(IMATINIB) for Chronic Myeloid Leukemina (CML), Other Endocrine/Hematological Disorders - CML dx 2011 Denies: Hx Diabetes, Hx Sickle Cell Disease Cardiovascular History: Reports: Hx Angina, Hx Hypertension - controlled with meds, Other Cardiovascular Problems/Disorders - left ventricular hypertrophy Denies: Hx Congestive Heart Failure, Hx Deep Vein Thrombosis, Hx Myocardial Infarction, Hx Pacemaker/ICD Comment Only: Hx Hypercholesterolemia - borderline Respiratory History: Reports: Hx Sleep Apnea - Had UPPP, states "it hasn't helped" Denies: Hx Asthma, Hx Chronic Obstructive Pulmonary Disease (COPD), Hx Lung Cancer, Hx Pneumonia, Hx Pulmonary Embolism, Other Respiratory Problems/ Disorders GI History: Reports: Hx Gastroesophageal Reflux Disease, Hx Irritable Bowel - BEING EVALUATED, Other GI Disorders - polyp removed during colonoscopy Denies: Hx Gall Bladder Disease, Hx Gastrointestinal Bleed, Hx Ulcer, Hx Urosepsis History: Reports: Hx Benign Prostatic Hyperplasia, Hx Kidney Stones - PAST, FEBRUARY 2014, Other Problems/Disorders - Benign Prostate Hypertrophy, weak stream Denies: Hx Renal Disease Musculoskeletal History: Reports: Hx Arthritis - Osteoarthritis, Osteoarthritis dissecans, Hx Bursitis - Right elbow, Hx Orthopedic Injury - knee, L index finger, Hx Tendonitis - Right elbow-bone spurs, Other Musculoskeletal History - Muscle cramps, fatigue from imatinib,plantar fascial fibromatosis Sensory History: Reports: Hx Cataracts - both eyes, Hx Glaucoma - on edge of diagnosis Denies: Hx Contacts or Glasses, Hx Hearing Aid Opthamlomology History: Reports: Hx Cataracts - both eyes, Hx Glaucoma - on edge of diagnosis Denies: Hx Contacts or Glasses Neurological History: Reports: Hx Migraine - Occular migraines Denies: Hx Dementia, Hx Seizures, Hx Transient Ischemic Attacks (TIA), Other Neuro Impairments/Disorders Psychiatric History: Denies: Hx Anxiety, Hx Depression, Hx Panic Disorder, Hx Schizophrenia, Hx Bipolar Disorder - Cancer History Cancer Type, Location and Year: 2011 LEUKEMIA (CML) Hx Chemotherapy: Yes - ORAL MED Imatinib Hx Radiation Therapy: No - Surgical History Surgery Procedure, Year, and Place: Left finger amputated. Right knee reconstruction. UPPP and tongue base coblation (FOR SLEEP APNEA) 2015. Bone [id number] -2013-Dr Zamora-[facility] [place]. ANKLE SURGERY. DEVIATED SEPTUM. Colonoscopies/Endoscopies Hx Anesthesia Reactions: No - Immunization History Date of Tetanus Vaccine: up to date Date of Influenza Vaccine: never Immunizations Up to Date: Yes Infectious Disease History: No Infectious Disease History: Denies: Hx Clostridium Difficile, Hx Hepatitis, Hx Human Immunodeficiency Virus (HIV), Hx of Known/Suspected MRSA, Hx Shingles, Hx Tuberculosis, Hx Known/ Suspected VRE, Hx Known/Suspected VRSA, History Other Infectious Disease, Traveled Outside the [place] in Last 30 Days - Family History Known Family History: Positive: Cardiac Disease - father-[place], Diabetes - Social History Alcohol Use: Occasionally Alcohol Amount: 1-3 beers or glasses of wine per week Substance Use Type: Reports: None Smoking Status (MU): Former Smoker Type: Cigarettes Amount Used/How Often: 2 PPD 30 YRS Length of Time of Smoking/Using Tobacco: 30 years Have You Smoked in the Last Year: No Review of Systems Negative: Fever Positive: Other - left eye pain Negative: Headache All Other Systems Reviewed And Are Negative: Yes Physical Exam - Summary Physical Exam Summary: General: Well appearing, no distress HEENT: Left conjunctival injection. Pupils equal and reactive to light. Extraocular movements intact Cardiovascular: Skin is well perfused Pulmonary: No respiratory distress, no tachypnea Abdomen: Non-distended Skin: Warm, pink, dry MSK: No edema Psych: Normal affect Neuro: A&Ox3 Triage Information Reviewed: Yes Vital Signs On Initial Exam: Initial Vitals Temp Pulse Resp BP Pulse Ox 98.1 F 85 16 152/81 97 04/14/19 16:13 04/14/19 16:13 04/14/19 16:13 04/14/19 16:13 04/14/19 16:13 Vital Signs Reviewed: Yes Diagnostics - Vital Signs Vital Signs Temp Pulse Resp BP Pulse Ox 04/14/19 16:13 98.1 F 85 16 152/81 97 - Laboratory Lab Statement: Any lab studies that have been ordered have been reviewed, and results considered in the medical decision making process. EENT Course/Dx - Course Course Of Treatment: 63-year-old male with a history of partial retinal detachments of L eye presents with increased floaters. Exam with a injected left eye, pupil equal reactive. Patient wanted to get a dilated eye exam by surgical services manager, I explained to patient that there is no on-call surgical services manager. He states he'll go to [place] to see his retina specialist today. - Diagnoses Provider Diagnoses: Retinal detachment, Visual disturbance Discharge - Sign-Out/Discharge Documenting (check all that apply): Patient Departure - DC Patient Received Moderate/Deep Sedation with Procedure: No - Discharge Plan Condition: Stable Disposition: HOME Referrals: Simon Berrios, LEAD APPLICATION ARCHITECT [Primary Care Provider] - Additional Instructions: You were seen in the emergency department for L eye pain and blurred vision. We recommend that you follow up with your opthalmologist in [place]. - Billing Disposition and Condition Condition: STABLE Disposition: Home - Attestation Statements Document Initiated by Scribe: Yes Documenting Scribe: Rajat Bell Provider For Whom Scribe is Documenting (Include Credential): Rafiq Dior MD Scribe Attestation: Rajat Forte, scribed for Rafiq Dior MD on 04/14/19 at 1744. Scribe Documentation Reviewed: Yes Provider Attestation: The documentation as recorded by the chandrikaibRajat willoughby accurately reflects the service I personally performed and the decisions made by , Rafiq Dior MD Status of Scribe Document: Viewed
[2019-04-14 17:38] VITALS: BP 150/78
== END | disposition home or self-care (01) ==
LOC: ED 16:09
DX: H33.22 Serous retinal detachment, left eye (principal); H53.9 Unspecified visual disturbance; I20.9 Angina pectoris, unspecified; I10 Essential (primary) hypertension; Z88.8 Allergy status to other drugs, medicaments and biological substances; K21.9 Gastro-esophageal reflux disease without esophagitis; Z87.891 Personal history of nicotine dependence
CPT/HCPCS: 99282

== ENCOUNTER 2019-11-26 07:29 | Emergency (ER) | payer BC, OTHER ==
--- NOTE | 2019-11-26 07:47 | ED ---
Respiratory - HPI Summary HPI Summary: This patient is a 64 year old male with a Hx of CML presenting with a chief complaint of cough since yesterday. Patient states he had a low-grade fever at home up to 100 F. The cough is productive with associated mild SOB. No recent travel or sick contacts. Hx CML with Dr. Talavera, Oncology, on Gleevec . He states he had a colonoscopy one week ago. He states did not get the flu shot this year. - History of Current Complaint Stated Complaint: COUGH/SOB/POSS FEVER PER PT Hx Obtained From: Patient Onset/Duration: Lasting Hours - Allergy/Home Medications Allergies/Adverse Reactions: Allergies Allergy/AdvReac Type Severity Reaction Status Date / Time acetaminophen Allergy Severe See Comment Verified 11/21/19 15:14 Home Medications: Home Medications amLODIPine TAB* [Norvasc 5 mg TAB*] 10 mg PO 1830 10/19/18 [History Confirmed ] Imatinib Mesylate [Gleevec] 200 mg PO DAILY 08/30/19 [History Confirmed 11/26/19 ] Multivitamin [Multiple Vitamins] 1 tab PO DAILY 08/30/19 [History Confirmed ] Cyanocobalamin TAB* [Vitamin B12 TAB*] 1,000 mcg PO DAILY 11/21/19 [History Confirmed 11/26/19] Turmeric Root Extract [Ra Turmeric] 500 mg PO DAILY 11/21/19 [History Confirmed 11/26/19] Oseltamivir CAP* [Tamiflu CAP*] 75 mg PO BID 5 Days #10 cap 11/26/19 [Rx] PMH/Surg Hx/FS Hx/Imm Hx Endocrine/Hematology History: Reports: Hx Bone Marrow Disease - CML, Hx Thyroid Disease - Was Hypothyroid for a few years, has since resolved, Hx Anemia - states from TAKING GLEEVEC(IMATINIB) for Chronic Myeloid Leukemina (CML), Other Endocrine/Hematological Disorders - CML dx 2011 Denies: Hx Diabetes, Hx Sickle Cell Disease Cardiovascular History: Reports: Hx Angina, Hx Hypertension - controlled with meds, Other Cardiovascular Problems/Disorders - left ventricular hypertrophy Denies: Hx Congestive Heart Failure, Hx Deep Vein Thrombosis, Hx Myocardial Infarction, Hx Pacemaker/ICD Comment Only: Hx Hypercholesterolemia - borderline Respiratory History: Reports: Hx Sleep Apnea - Had UPPP, states "it hasn't helped" Denies: Hx Asthma, Hx Chronic Obstructive Pulmonary Disease (COPD), Hx Lung Cancer, Hx Pneumonia, Hx Pulmonary Embolism, Other Respiratory Problems/ Disorders GI History: Reports: Hx Gastroesophageal Reflux Disease, Hx Irritable Bowel - BEING EVALUATED, Other GI Disorders - polyp removed during colonoscopy Denies: Hx Gall Bladder Disease, Hx Gastrointestinal Bleed, Hx Ulcer, Hx Urosepsis History: Reports: Hx Benign Prostatic Hyperplasia, Hx Kidney Stones - PAST, FEBRUARY 2014, Other Problems/Disorders - Benign Prostate Hypertrophy, weak stream Denies: Hx Renal Disease Musculoskeletal History: Reports: Hx Arthritis - Osteoarthritis, Osteoarthritis dissecans, Hx Bursitis - Right elbow, Hx Orthopedic Injury - knee, L index finger, Hx Tendonitis - Right elbow-bone spurs, Other Musculoskeletal History - Muscle cramps, fatigue from imatinib,plantar fascial fibromatosis Sensory History: Reports: Hx Cataracts - both eyes, Hx Glaucoma - on edge of diagnosis Denies: Hx Contacts or Glasses, Hx Hearing Aid Opthamlomology History: Reports: Hx Cataracts - both eyes, Hx Glaucoma - on edge of diagnosis Denies: Hx Contacts or Glasses Neurological History: Reports: Hx Migraine - Occular migraines Denies: Hx Dementia, Hx Seizures, Hx Transient Ischemic Attacks (TIA), Other Neuro Impairments/Disorders Psychiatric History: Denies: Hx Anxiety, Hx Depression, Hx Panic Disorder, Hx Schizophrenia, Hx Bipolar Disorder - Cancer History Cancer Type, Location and Year: 2011 LEUKEMIA (CML) Hx Chemotherapy: Yes - ORAL MED Imatinib Hx Radiation Therapy: No - Surgical History Surgery Procedure, Year, and Place: Left finger amputated. Right knee reconstruction. UPPP and tongue base coblation (FOR SLEEP APNEA) 2015. Bone [id number] -2013-Dr Zamora-[facility] [place]. ANKLE SURGERY. DEVIATED SEPTUM. Colonoscopies/Endoscopies Hx Anesthesia Reactions: No - Immunization History Date of Tetanus Vaccine: up to date Date of Influenza Vaccine: never Infectious Disease History: Denies: Hx Clostridium Difficile, Hx Hepatitis, Hx Human Immunodeficiency Virus (HIV), Hx of Known/Suspected MRSA, Hx Shingles, Hx Tuberculosis, Hx Known/ Suspected VRE, Hx Known/Suspected VRSA, History Other Infectious Disease - Family History Known Family History: Positive: Cardiac Disease - father-[place], Diabetes - Social History Alcohol Use: Occasionally Alcohol Amount: 1-3 beers or glasses of wine per week Substance Use Type: Reports: None Smoking Status (MU): Former Smoker Type: Cigarettes Amount Used/How Often: 2 PPD 30 YRS Length of Time of Smoking/Using Tobacco: 30 years Have You Smoked in the Last Year: No Review of Systems Positive: Fever - Low-grade max of 100 F Positive: Shortness Of Breath, Cough All Other Systems Reviewed And Are Negative: Yes Physical Exam - Summary Physical Exam Summary: Constitutional: Well-developed, Well-nourished, Alert. (-) Distressed Skin: Warm, Dry HENT: Normocephalic; Atraumatic Eyes: Conjunctiva normal Neck: Musculoskeletal ROM normal neck. (-) JVD, (-) Stridor, (-) Nuchal rigidity Cardio: Rhythm regular, rate normal, Heart sounds normal; Intact distal pulses; Radial pulses are 2+ and symmetric. (-) Murmur Pulmonary/Chest wall: Effort normal. (-) Respiratory distress, (-) Wheezes, (-) Rales Abd: Soft, (-) tenderness, (-) Distension, (-) Guarding, (-) Rebound Musculoskeletal: (-) Edema Lymph: (-) Cervical adenopathy Neuro: Alert, Oriented x3 Psych: Mood and affect Normal Triage Information Reviewed: Yes Vital Signs On Initial Exam: Temp Pulse Resp BP Pulse Ox 98.8 F 73 17 145/63 96 11/26/19 07:37 11/26/19 08:42 11/26/19 07:45 11/26/19 08:42 11/26/19 08:42 Vital Signs Reviewed: Yes Procedures - Sedation Patient Received Moderate/Deep Sedation with Procedure: No Diagnostics - Laboratory Result Diagrams: 11/26/19 08:20 11/26/19 08:20 Lab Statement: Any lab studies that have been ordered have been reviewed, and results considered in the medical decision making process. Disposition - Course Course Of Treatment: Patient presented with flulike symptoms. Flu A+. D/w oncology, patient has minimally depressed immune system w normal labs aside from absolute lymph count 0.9. OK to tn home. Initially patient seen in full PPE w gown, facemask w shield. Not candiate for olivo virus testing as positive flu and no risk factors. Patient well appearing, with stable vitals. Patient does not have increased work of breathing, productive cough to suggest pneumonia. No headache, neck pain or nuchal rigidity. Tolerating by mouth. Plan for discharge w symptomatic control and will return for worsening symptoms. - Diagnoses Provider Diagnoses: Influenza A - Physician Notifications Discussed Care Of Patient With: Alek Larose - Heme/Onc Time Discussed With Above Provider: 08:48 - Agrees with plan. Patient is minimally immuosuppressed. Discharge ED - Sign-Out/Discharge Documenting (check all that apply): Patient Departure - Discharge - Discharge Plan Condition: Stable Disposition: HOME Prescriptions: Oseltamivir CAP* [Tamiflu CAP*] 75 mg PO BID 5 Days #10 cap Patient Education Materials: Influenza (ED) Forms: *Work Release Referrals: Simon Berrios NP [Primary Care Provider] - Additional Instructions: You were seen in the emergency department for like symptoms. Your flu test was positive. Take Motrin and Tylenol for symptom control. Please keep hydrated by drinking lots of fluids including water and Gatorade. Take Tamiflu twice a day. Side effects of tamiflu can be nausea/vomiting and diarrhea. If any studies were not completed at the time of discharge you will be called with the relevant results. Please follow up with your primary care doctor in next 2-3 days and return to emergency department for trouble breathing, fevers greater than 1 week, severe headaches worsening or concerning symptoms. It was a pleasure taking care of you today. - Billing Disposition and Condition Condition: STABLE Disposition: Home - Attestation Statements Document Initiated by Adam: Yes Documenting Scribe: Jaylan Salinas Provider For Whom Adam is Documenting (Include Credential): Rafiq Dior MD Scribe Attestation: IJaylan, scribed for Rafiq Dior MD on 11/26/19 at 0907. Scribe Documentation Reviewed: Yes Provider Attestation: The documentation as recorded by the Jaylan cruz accurately reflects the service I personally performed and the decisions made by , Rafiq Dior MD Status of Scribe Document: Viewed
[2019-11-26 08:39] LABS: ABS Eosinophils 0.1 10^3/ul (0-0.6); ABS Lymphocytes 0.9 10^3/ul (1.0-4.8); ABS Monocytes 0.6 10^3/ul (0-0.8); ABS Neutrophils 3.8 10^3/ul (1.5-7.7); Hematocrit 38 % (42-52); Hemoglobin 13.4 g/dL (14.0-18.0); Lymphocyte % 15.9 %; Mean Corpuscular HGB Conc 35 g/dL (31-36); Mean Corpuscular Hemoglobin 32 pg (27-31); Mean Corpuscular Volume 89 fL (80-94); Platelet Count 228 10^3/uL (150-450); Red Blood Count 4.24 10^6 /uL (4.18-5.48); Red Cell Distribution Width 13 % (10-15); White Blood Count 5.4 10^3/uL (3.5-10.8)
[2019-11-26 08:50] LABS: Influenza A Molecular POSITIVE (Negative)
[2019-11-26 09:02] LABS: Albumin 3.9 g/dL (3.2-5.2); Albumin/Globulin Ratio 1.7 (1-3); BUN/Creatinine Ratio 13.5 (8-20); Calcium 8.5 mg/dL (8.6-10.3); EGFR African American 81.2 (>60); EGFR Non-African American 67.1 (>60); Globulin 2.3 g/dL (2-4); Potassium 3.5 mmol/L (3.5-5.0); Total Bilirubin 0.3 mg/dL (0.2-1.0); Total Protein 6.2 g/dL (6.4-8.9)
[2019-11-26 09:14] VITALS: BP 130/73
== END 2019-11-26 09:13 | disposition home or self-care (01) ==
LOC: ED 07:29
DX: J10.1 Influenza due to other identified influenza virus with other respiratory manifestations (principal); I10 Essential (primary) hypertension; Z85.6 Personal history of leukemia; Z79.899 Other long term (current) drug therapy; Z88.6 Allergy status to analgesic agent; Z87.891 Personal history of nicotine dependence
CPT/HCPCS: 36415; 80053; 85025; 99283